=== PATIENT | male | born 1940 | race Caucasian/White ===

== ENCOUNTER → 2017-12-19 08:44 | Outpatient (CLI) | payer MEDICARE, SELFPAY ==
[2017-12-19 10:59] LABS: Anion Gap 8 (5-15); BUN 16 mg/dL (7-18); BUN/Creat Ratio 15.7 RATIO (10-20); Calcium,Total 8.5 mg/dL (8.5-10.1); Chloride 107 mmol/L (98-107); Cholesterol 144 mg/dL (200); Creatinine, Serum 1.02 mg/dL (0.70-1.30); EST Glomerular Filtration Rate 75 mL/min (>60); Est Glom Filt Rate - Afr Amer 91 mL/min (>60); Glucose 84 mg/dL (74-106); High Density Lipoprotein 44 mg/dL; Potassium 4.4 mmol/L (3.5-5.1); Sodium Level 144 mmol/L (136-145); Triglycerides 84 mg/dL; Very Low Density Lipoprotein 17 mg/dL (5-40)
== END ==
PROVIDERS: Family Provider Family Medicine; PCP Family Medicine; Visit Provider Family Medicine
DX: I10 Essential (primary) hypertension (principal)
CPT/HCPCS: 36415; 80048; 80061

== ENCOUNTER → 2018-06-25 09:17 | Outpatient (CLI) | payer MEDICARE, SELFPAY ==
[2018-06-25 11:19] LABS: Anion Gap 6 (5-15); BUN 20 mg/dL (7-18); BUN/Creat Ratio 18.7 RATIO (10-20); Calcium,Total 8.1 mg/dL (8.5-10.1); Chloride 107 mmol/L (98-107); Creatinine, Serum 1.07 mg/dL (0.70-1.30); EST Glomerular Filtration Rate 71 mL/min (>60); Est Glom Filt Rate - Afr Amer 86 mL/min (>60); Glucose 77 mg/dL (74-106); Potassium 4.2 mmol/L (3.5-5.1); Sodium Level 142 mmol/L (136-145)
== END ==
PROVIDERS: Family Provider Family Medicine; PCP Family Medicine; Referring Provider Family Medicine; Visit Provider Family Medicine
DX: I10 Essential (primary) hypertension (principal); R97.20 Elevated prostate specific antigen [PSA]; Z12.5 Encounter for screening for malignant neoplasm of prostate
CPT/HCPCS: 36415; 80048; 84153; G0103

== ENCOUNTER → 2018-09-14 08:50 | Outpatient (CLI) | payer MEDICARE, SELFPAY ==
[2018-08-04 11:24] VITALS: BMI 25.6
[2018-09-14 11:10] LABS: Cholesterol 167 mg/dL (200); High Density Lipoprotein 48 mg/dL; Triglycerides 105 mg/dL; Very Low Density Lipoprotein 21 mg/dL (5-40)
[2018-09-15 13:44] LABS: PSA, Free 1.47 ng/mL; PSA, Free % 15.5 % (.); PSA, Total Ultrasensitive 9.5 ng/mL (0.0-4.0)
== END ==
PROVIDERS: Family Provider Family Medicine; PCP Family Medicine; Referring Provider Family Medicine; Visit Provider Family Medicine
DX: I10 Essential (primary) hypertension (principal); R97.20 Elevated prostate specific antigen [PSA]
CPT/HCPCS: 36415; 80061; 84153; 84154

== ENCOUNTER → 2019-01-13 12:03 | Outpatient (CLI) | payer MEDICARE, SELFPAY ==
[2018-08-04 11:24] VITALS: BMI 25.6
[2019-01-14 12:46] LABS: PSA, Free 1.36 ng/mL
== END ==
PROVIDERS: Family Provider Family Medicine; PCP Family Medicine; Referring Provider Family Medicine; Visit Provider Family Medicine
DX: R97.20 Elevated prostate specific antigen [PSA] (principal)
CPT/HCPCS: 36415; 84153; 84154

== ENCOUNTER → 2019-07-13 11:06 | Outpatient (CLI) | payer MEDICARE, SELFPAY ==
[2018-08-04 11:24] VITALS: BMI 25.6
[2019-07-13 12:33] LABS: Erythrocyte Sedimentation Rate 6 mm/hr (0-20)
[2019-07-13 12:34] LABS: Absolute Lymphocyte Count 1.31 X10^3/uL (0.83-4.51); Absolute Neutrophil Count 2.8 X10^3/uL (2.0-7.7); Basophil# 0.02 X10^3/uL; Basophil% 0.4 % (0-1); Eosinophil# 0.09 X10^3/uL; Eosinophils% 1.9 % (0-5); Hematocrit 45.1 % (40-54); Hemoglobin 14.9 g/dL (13.0-16.5); Lymphocyte # 1.31 X10^3/ul (4.0); Lymphocyte % 27.9 % (19-41); Mean Corpuscular Hgb 32.2 pg (27.0-32.0); Mean Corpuscular Volume 97.4 fL (80-94); Mean Platelet Vol. 9.7 fl (6.2-12.0); Monocyte# 0.43 X10^3/uL; Monocyte% 9.1 % (0-10); NRBC Flagged by Analyzer 0 % (0-5); Neutrophil # 2.84 X10^3/uL (2.7-7.7); Neutrophil % 60.5 % (47-70); Platelet Count 167 K/mm3 (150-450); RBC Distribution Width CV 12.5 % (11.6-14.6); RBC Distribution Width SD 44.8 fl (35.1-43.9); Red Blood Count 4.63 M/mm3 (4.6-6.2); White Blood Count 4.7 K/mm3 (4.4-11.0)
[2019-07-13 12:42] LABS: ALB/GLOB Ratio 1.1 RATIO (0.9-2.4); AST(SGOT) 23 U/L (15-37); Alanine Aminotransfer ALT/SGPT 24 U/L (16-61); Albumin, Serum 3.8 g/dL (3.2-5.0); Alkaline Phosphatase 55 U/L (45-117); Anion Gap 3 (5-15); BUN 17 mg/dL (7-18); Calcium,Total 8.9 mg/dL (8.5-10.1); Chloride 108 mmol/L (98-107); Creatinine, Serum 1.13 mg/dL (0.70-1.30); EST Glomerular Filtration Rate 66 mL/min (>60); Est Glom Filt Rate - Afr Amer 80 mL/min (>60); Globulin 3.6 g/dL (2.2-4.2); Glucose 84 mg/dL (74-106); Potassium 4.6 mmol/L (3.5-5.1); Protein, Total 7.4 g/dL (6.4-8.2); Sodium Level 140 mmol/L (136-145)
== END ==
PROVIDERS: PCP Family Medicine; Visit Provider Family Medicine
DX: R61 Generalized hyperhidrosis (principal)
CPT/HCPCS: 36415; 80053; 84443; 85025; 85652

== ENCOUNTER → 2020-03-21 15:17 | Outpatient (CLI) | payer MEDICARE, SELFPAY ==
[2018-08-04 11:24] VITALS: BMI 25.6
[2020-03-21 18:14] LABS: Absolute Lymphocyte Count 1.83 X10^3/uL (0.83-4.51); Absolute Neutrophil Count 3.7 X10^3/uL (2.0-7.7); Basophil# 0.02 X10^3/uL; Basophil% 0.3 % (0-1); Eosinophil# 0.08 X10^3/uL; Eosinophils% 1.3 % (0-5); Hematocrit 42.2 % (40-54); Hemoglobin 14.2 g/dL (13.0-16.5); Lymphocyte # 1.83 X10^3/ul (4.0); Lymphocyte % 30.3 % (19-41); Mean Corp Hgb Conc 33.6 g/dL (32-36); Mean Corpuscular Hgb 32.4 pg (27.0-32.0); Mean Corpuscular Volume 96.3 fL (80-94); Mean Platelet Vol. 9.9 fl (6.2-12.0); Monocyte# 0.42 X10^3/uL; NRBC Flagged by Analyzer 0 % (0-5); Neutrophil # 3.67 X10^3/uL (2.7-7.7); Neutrophil % 60.9 % (47-70); Platelet Count 173 K/mm3 (150-450); RBC Distribution Width CV 12.3 % (11.6-14.6); RBC Distribution Width SD 43.8 fl (35.1-43.9); Red Blood Count 4.38 M/mm3 (4.6-6.2)
== END ==
PROVIDERS: PCP Family Medicine; Referring Provider Family Medicine; Visit Provider Family Medicine
DX: K92.1 Melena (principal)
CPT/HCPCS: 36415; 85025

== ENCOUNTER → 2020-07-18 09:21 | Outpatient (CLI) | payer OTHER, SELFPAY ==
[2018-08-04 11:24] VITALS: BMI 25.6
[2020-07-18 11:04] LABS: Anion Gap 4 (5-15); BUN 17 mg/dL (7-18); BUN/Creat Ratio 16.8 RATIO (10-20); Calcium,Total 8.6 mg/dL (8.5-10.1); Chloride 106 mmol/L (98-107); Cholesterol 157 mg/dL (200); Creatinine, Serum 1.01 mg/dL (0.70-1.30); EST Glomerular Filtration Rate 75 mL/min (>60); Est Glom Filt Rate - Afr Amer 91 mL/min (>60); Glucose 82 mg/dL (74-106); High Density Lipoprotein 50 mg/dL; Potassium 3.9 mmol/L (3.5-5.1); Sodium Level 139 mmol/L (136-145); Triglycerides 103 mg/dL; Very Low Density Lipoprotein 21 mg/dL (5-40)
== END ==
PROVIDERS: PCP Family Medicine; Visit Provider Family Medicine
DX: I10 Essential (primary) hypertension (principal); R97.20 Elevated prostate specific antigen [PSA]
CPT/HCPCS: 36415; 80048; 80061; 84153

== ENCOUNTER 2020-07-20 15:04 | Outpatient (RCR) | payer MEDICARE, SELFPAY ==
[2018-08-04 11:24] VITALS: BMI 25.6
== END 2020-07-20 23:59 ==
LOC: IMMUN 15:04
PROVIDERS: PCP Family Medicine; Visit Provider Family Medicine
DX: Z23 Encounter for immunization (principal)
CPT/HCPCS: 0011A; 0012A; 91301

== ENCOUNTER → 2020-08-07 12:25 | Outpatient (CLI) | payer MEDICARE, SELFPAY ==
[2018-08-04 11:24] VITALS: BMI 25.6
--- NOTE | 2020-08-07 | IMM_PTH ---
PATIENT: TWAN VERNON LOC: [facility] U#:[id number] AGE/SX: 84/M ROOM: RE08/07/[address]: Dr. Modesto Jackson MD : 1940 BED: DIS: SPEC #: [id number] RECD: 08/08/20 13:27 STATUS: AVIS RELuann #: [id number] IRA[place]: 08/07/20 00:[address]: Modesto Jackson DEPT: IMMUNOHISTOCHEMISTRY RECD BY: Sunshine Lusi ENTERED: 08/08/20 13:28 SP TYPE: IMMUNO OTHR DR: Dr. Jesus Justin MD Tissues: A - PROSTATE RIGHT D - PROSTATE LEFT E - PROSTATE LEFT Procedures: 34BE12 (add) P40 (add) 34BE12 (initial) PHYSICIAN & INSTITUTION [place] [id number] SPECIMEN INFORMATION: Tissue Source: A - Right apex, D - Left apex, E - Left mid Clinical Info: N40.3, R97.20 Specimen Number: [id number] A, D & E CPT code: 46132, 01112 x5 METHODOLOGY: Deparaffinized sections of prefer/formalin-fixed tissue or PAP/DQ stained slides are incubated with monoclonal/polyclonal antibodies/oligonucleotide probes. Localization is made via biotin free immunoperoxidase method. Appropriate controls are performed and reacted as expected. Results on target cell population are indicated in the following table: RESULTS: ANTIBODY / CLONE RESULT Block A P40 (BC28) negative 34BE12 (34BE12) negative Block D P40 (BC28) negative 34BE12 (34BE12) negative Block E P40 (BC28) negative 34BE12 (34BE12) negative These tests were developed and their performance characteristics determined by [facility]. They may not have been cleared or approved by the U.S. Food and Drug Administration. The FDA has determined that such clearance or approval is not necessary. The above immunohistochemical/dualISH markers are ordered and reviewed by the Pathologist. INTERPRETATION: A. Right prostate, apex, core biopsy: Adenocarcinoma. D. Left prostate, apex, core biopsy: Focal atypical small acinar proliferation. E. Left prostate, mid, core biopsy: Adenocarcinoma. AM:kimberly 08/09/2020
--- NOTE | 2020-08-07 10:45 | PROSBIL_PTH ---
PATIENT: TWAN VERNON LOC: [facility] U#:[id number] AGE/SX: 84/M ROOM: RE08/07/[address]: Dr. Modesto Jackson MD : 1940 BED: DIS: SPEC #: [id number] RECD: 08/07/20 12:16 STATUS: AVIS RELuann #: [id number] [place]: 08/07/20 10:[address]: Modesto Jackson DEPT: SURGICAL PATHOLOGY RECD BY: Lili Townsend ENTERED: 08/07/20 13:49 SP TYPE: PROST BX ORESTES DR: Dr. Jesus Justin MD Tissues: A - PROSTATE RIGHT B - PROSTATE RIGHT C - PROSTATE RIGHT D - PROSTATE LEFT E - PROSTATE LEFT F - PROSTATE LEFT Procedures: PROSTATE BX HEADER OPERATION: Prostate biopsy PRE-OP DIAGNOSIS: N40.3, R97.20 TISSUE SUBMITTED: A - Right apex, B - Right mid, C - Right base, D - Left apex, E - Left mid, F - Left base MICROSCOPIC DIAGNOSIS A. Right prostate, apex, core biopsy: Adenocarcinoma. Schneider grade: 7 (4+3) Cores involved: 1 out of 1 core Tissue involved: 5% Greatest tumor length: 1 mm See comment. B. Right prostate, mid, core biopsy: Adenocarcinoma. Valentina grade: 8 (4+4) Cores involved: 1 out of 1 core Tissue involved: 60% Greatest tumor length: 4.5 mm C. Right prostate, base, core biopsy: Adenocarcinoma. Valentina grade: 8 (4+4) Cores involved: 1 out of 1 core Tissue involved: 2% Greatest tumor length: <1 mm D. Left prostate, apex, core biopsy: Focal atypical small acinar proliferation. See comment. E. Left prostate, mid, core biopsy: Adenocarcinoma. Valentina grade: 6 (3+3) Cores involved: 1 out of 1 core Tissue involved: 2% Greatest tumor length: <1 mm See comment. F. Left prostate, base, core biopsy: Adenocarcinoma. Valentina grade: 7 (3+4) Cores involved: 1 out of 1 core Tissue involved: 65% Greatest tumor length: 5.5 mm AM:kimberly 08/08/2020 COMMENT A, D & E - Immunohistochemistry ([id number]) supports the above diagnosis. MICROSCOPIC DESCRIPTION Slides are reviewed. GROSS DESCRIPTION A - Received is one container designated prostate, right apex. The specimen consists of one elongated fragment of light chawla-white soft tissue measuring 1 cm in length and 0.1 cm in diameter. The specimen is totally submitted in one cassette. B - Received is one container designated prostate, right mid. The specimen consists of one elongated fragment of light chawla-white soft tissue measuring 1 cm in length and 0.1 cm in diameter. The specimen is totally submitted in one cassette. C - Received is one container designated prostate, right base. The specimen consists of one elongated fragment of light chawla-white soft tissue measuring 1 cm in length and 0.1 cm in diameter. The specimen is totally submitted in one cassette. D - Received is one container designated prostate, left apex. The specimen consists of one elongated fragment of light chawla-white soft tissue measuring 1 cm in length and 0.1 cm in diameter. The specimen is totally submitted in one cassette. E - Received is one container designated prostate, left mid. The specimen consists of one elongated fragment of light chawla-white soft tissue measuring 1 cm in length and 0.1 cm in diameter. The specimen is totally submitted in one cassette. F - Received is one container designated prostate, left base. The specimen consists of one elongated fragment of light chawla-white soft tissue measuring 1 cm in length and 0.1 cm in diameter. The specimen is totally submitted in one cassette. / AM:kimberly 08/07/20 TC:0 [facility]: [id number]
== END ==
PROVIDERS: PCP Family Medicine; Referring Provider Urology; Visit Provider Urology
DX: N40.3 Nodular prostate with lower urinary tract symptoms (principal); R97.20 Elevated prostate specific antigen [PSA]
CPT/HCPCS: 88305; 88341; 88342; G0416

== ENCOUNTER → 2020-08-29 09:50 | Outpatient (CLI) | payer MEDICARE, SELFPAY ==
[2018-08-04 11:24] VITALS: BMI 25.6
--- NOTE | 2020-08-29 09:52 | NM_ITS ---
CLINICAL: Male, 79 years old. PROSTATE CA -- NEW DX WHOLE BODY NUCLEAR BONE SCAN TECHNIQUE: Following the IV administration of mCi of Tc MDP, whole body bone imaging was performed with a gamma camera following a three hour delay. COMPARISON STUDIES : NM - None. CR - Not available for review at this time. CT - Not available for review at this time. MR - Not available for review at this time. US - Not available for review at this time. FINDINGS: There is a normal concentration of radiopharmaceutical throughout the axial and appendicular skeletal system without either a focal decrease or increase in uptake. NM/Bone Scan Whole Body IMPRESSION: Normal whole body nuclear bone scan. No scintigraphic evidence metastatic disease. Electronically Signed: Candelario Patton MD at 14:49 EST Tel , Service support ,
== END ==
PROVIDERS: PCP Family Medicine; Referring Provider Urology; Visit Provider Urology
DX: C61 Malignant neoplasm of prostate (principal)
CPT/HCPCS: 78306

== ENCOUNTER → 2022-04-08 | Outpatient (CLI) | payer MEDICARE, SELFPAY ==
--- NOTE | 2022-04-08 11:27 | RAD_ITS ---
STUDY: X-RAY - LUMBAR SPINE REASON FOR EXAM: Male, 81 years old. Chronic low back pain. TECHNIQUE: 4 view(s) of the lumbar spine were obtained. COMPARISON: None FINDINGS: There is reversal of the normal lumbar lordosis. There is no substantial scoliosis. There is retrolisthesis of L3 on L4. The alignment is otherwise preserved. There is multilevel endplate spondylosis of the lumbar vertebrae. There is multi-level degenerative disc disease with multi-level disc space narrowing. There is no evidence of acute fracture or loss of vertebral axial height. There is no demonstrated spondylolysis of the pars interarticulares. The soft tissue structures are unremarkable. RAD/L/S Spine Min 4 Views IMPRESSION: Degenerative changes of the lumbar spine with straightened lordosis. There is no visualized fracture or dislocation. Electronically Signed: Navin Peres DO at 18:32 EDT ,
== END | disposition home or self-care (01) ==
PROVIDERS: PCP Family Medicine; Referring Provider Family Medicine; Visit Provider Family Medicine
DX: M51.36 Other intervertebral disc degeneration, lumbar region (principal)
CPT/HCPCS: 72110

== ENCOUNTER → 2022-05-31 | Outpatient (CLI) | payer MEDICARE, SELFPAY ==
--- NOTE | 2022-05-31 09:46 | VDLE_ITS ---
Reason For Study: Varicose Vein RIGHT LEFT CFV is compressible, spontaneous, phasic, GSV is normal. competent and demonstrates normal CFV is compressible, spontaneous, phasic, augmentation. competent, and demonstrates normal Procedure augmentation. This is a venous duplex using B-mode, color FV is compressible, spontaneous, phasic, flow and spectral Doppler. competent and demonstrates normal Exam performed in department. augmentation. The exam was diagnostic. POP V is compressible, spontaneous, phasic, A preliminary report was called and/or faxed competent and demonstrates normal to Dr. Justin. augmentation. T/P Trunk is compressible. PTV is compressible. LT PerV is compressible. Multiple varicosities noted in Lt proximal calf. Veins were compressible. VL/Venous Duplex US, Unilateral Interpretation Summary Deep veins of the left lower extremity are patent and compressible segmentally. There is no evidence of left lower extremity deep vein thrombosis. Valvular competence appears intac t within the proximal deep venous system on the left . The left great saphenous vein appears patent a nd compressible segmentally. Multiple varicose veins are noted in the left proximal calf. Ordering Physician: Michele Justin Referring Physician: Jesus Justin MD Performed By: Jayson Ayala RVT
== END | disposition home or self-care (01) ==
LOC: CVS 09:44
PROVIDERS: PCP Family Medicine; Visit Provider Family Medicine
DX: M79.89 Other specified soft tissue disorders (principal); I83.93 Asymptomatic varicose veins of bilateral lower extremities
CPT/HCPCS: 93971

== ENCOUNTER 2022-06-06 11:16 | Emergency (ER) | payer MEDICARE, SELFPAY ==
[2022-06-06 11:17] VITALS: BP 152/79; PULSE 90; RESP 16; O2SAT 99
[2022-06-06 11:18] VITALS: BP 139/74; PULSE 93; RESP 18; TEMP 36.3; O2SAT 99; BMI 26.6
[2022-06-06 11:25] VITALS: O2SAT 98
--- NOTE | 2022-06-06 11:25 | EKG12_ITS ---
Test Reason : ABNORMAL RHYTHM Blood Pressure : / mmHG Vent. Rate : 085 BPM Atrial Rate : 085 BPM P-R Int : 154 ms QRS Dur : 142 ms QT Int : 388 ms P-R-T Axes : 071 082 051 degrees QTc Int : 461 ms Sinus rhythm with occasional Premature ventricular complexes Possible Left atrial enlargement Right bundle branch block Abnormal ECG Confirmed by BOB CHOI, TAWNYA ([id number]), purchase request editor SIMEON VALERIO ([id number]) on 06/07/2022 11:02:11 AM Referred By: FIDENCIO/FELICIA Confirmed By:TAWNYA ROJAS MD
--- NOTE | 2022-06-06 11:46 | ED.VIS.CHEST ---
HPI History of Present Illness Chief Complaint: Palpitations Detail of Chief Complaint: Sent in for atrial fibrillation in doctor's office. Informant: patient and spouse/S.O. Onset/Context/Timing Onset: Today Timing: Intermittent Worsened By: Nothing Relieved By: Nothing Associated Symptoms: Negative for Nausea, Vomiting, Diaphoresis, Dyspnea, Cough, Fever, Lightheadedness, Acid Reflux or Palpitations Narrative Narrative: 81-year-old male history of hypertension and prostate cancer. No cardiac history. No prior NH or cardiac surgery. Today he was in his oncologist office Dr. Jose Cunningham. They found him to be in atrial fibrillation and sent him to the ER. Patient had no symptoms. No chest pain or shortness of breath. He did not feel weak or dizzy. He has no history of any type of cardiac dysrhythmia. Prior Similar Symptoms: No Recent Illness/Hospitalization: No CVD Risk Factors: Positive for Hypertension; Negative for Diabetes or Hypercholesterolemia PE Risk Factors: Negative for Recent Travel/Surgery, Recent Immobilization, Prior DVT or PE, Cancer or OCP + Smoking + >/=35 TAD Risk Factors: Negative for Marfan's Syndrome PFSH PFS Medical History Actinic keratosis, hx of Arthritis DDD (degenerative disc disease), lumbar Enlarged prostate Environmental allergies History of malignant melanoma Hypertension Home Medications enalapril maleate 20 mg tablet 20 mg PO DAILY 07/10/16 [History Last Taken 07/10/16 08:00] Caltrate with Vitamin D3 06/06/22 [History Last Taken Unknown] acetaminophen 500 mg capsule 500 mg PO PRN PRN Pain 06/06/22 [History Last Taken Unknown] amlodipine 5 mg tablet 5 mg PO DAILY 06/06/22 [History Last Taken Unknown] cholecalciferol (vitamin D3) 125 mcg (5,000 unit) tablet (Vitamin D3) 125 mcg PO DAILY 06/06/22 [History Last Taken Unknown] denosumab 60 mg/mL subcutaneous syringe (Prolia) 60 mg subcut 06/06/22 [History Last Taken Unknown] polyethylene glycol 3350 17 gram/dose oral powder (Miralax) 1 g PO DAILY 06/06/22 [History Last Taken Unknown] vitamin A-vitamin C-vit E-min tablet 2 tab PO DAILY 06/06/22 [History Last Taken Unknown] Allergy/AdvReac Type Severity Reaction Status Date / Time No Known Allergies Allergy Verified 06/06/22 11:17 Family History Other CAD (coronary artery disease) CVA (cerebral vascular accident) Cancer Heart disease Hypertension Surgical History History of hernia repair Hx of basal cell carcinoma excision Social History Smoking Status: Former smoker alcohol intake: current alcohol intake frequency: 0-2 drinks per day substance use type: does not use what type of physical activity do you participate in: bicycling frequency: 1-2 times per week ROS ROS ED ROS Narrative Denies recent illness. Review of Systems ROS Unobtainable: Denies due to encephalopathy Constitutional Constitutional ED: Denies chills or fever(s) Eyes Eyes: Reports none ENT ENT ED: Denies ear pain Cardiovascular Cardiovascular: Reports as per HPI; Denies chest pain, palpitations or racing heartbeat Respiratory/Chest Respiratory/Chest: Denies cough or dyspnea Gastrointestinal Gastrointestinal: Denies abdominal pain Genitourinary Genitourinary ED: Denies dysuria or hematuria Musculoskeletal Musculoskeletal: Denies arthralgias Integumentary Denies abscess Neurologic Neurologic: Denies headache(s) Psychiatric Psychiatric: Denies anxiety Endocrine Endocrinology: Denies cold intolerance Hematologic/Lymphatic Hematologic/Lymphatic: Denies easy bleeding Allergic/Immunologic Allergic/Immunologic ED: Denies mouth swelling or tongue swelling EXAM Physical Exam Narrative Exam Narrative: 81-year-old male no acute distress. Vital signs are stable and afebrile on monitors pulse ox 9 9% on room air no hypoxia. He is afebrile. Currently is in a sinus rhythm. H EENT exam unremarkable. Lungs clear to auscultation. Heart regular rate and rhythm rate about 90 no murmur. Chest wall nontender. Abdomen soft nontender. Moving all 4 extremities. Calves are nontender without edema. Neurologically is awake and alert with no focal motor deficits. Const Vital Signs: 06/06/22 11:18 06/06/22 11:17 06/06/22 11:58 Temperature 97.4 F L Temperature Source Temporal Pulse Rate 93 90 Respiratory Rate 18 16 Respiratory Effort Normal Non-Labored Respiratory Pattern Normal Blood Pressure 139/74 H 152/79 H Blood Pressure Mean 95 103 Pulse Ox 99 99 Oxygen Delivery Method Room Air Room Air 06/06/22 11:59 06/06/22 11:25 06/06/22 12:42 Temperature Temperature Source Pulse Rate 70 Respiratory Rate 15 Respiratory Effort Normal Non-Labored Respiratory Pattern Normal Blood Pressure 116/75 Blood Pressure Mean 88 Pulse Ox 98 98 Oxygen Delivery Method Room Air Room Air 06/06/22 13:20 Temperature Temperature Source Pulse Rate 74 Respiratory Rate 18 Respiratory Effort Respiratory Pattern Blood Pressure 107/69 Blood Pressure Mean 81 Pulse Ox 97 Oxygen Delivery Method Room Air Positive well nourished and well developed; Negative for obese, cachectic, contractures or unkempt General Appearance ED: well developed and NAD; Negative for unkempt, cachectic, contractures or pallor Nutritional Appearance: Negative for cachectic or obese HEENT Reports moist mucous membranes normocephalic and atraumatic; Negative for trauma or tenderness Eyes PERRL and EOMs intact bilaterally General Eye ED: Negative for pale conjunctiva or scleral icterus Neck no lymphadenopathy, supple and no JVD General: Negative for tenderness Chest Wall inspection of chest normal and palpation of chest normal Chest: Negative for tenderness Resp normal respiratory effort and clear to auscultation bilaterally Effort and Inspection: Negative for respiratory distress Auscultation: Negative for rales, rhonchi or wheezes Cardio regular rate, regular rhythm, S1 normal heart sound, S2 normal heart sound and no murmurs Rate: Negative for bradycardia or tachycardic Rhythm: Negative for abnormal rhythm Peripheral Pulses: pulses 2+ throughout GI normal to inspection, nondistended, normoactive bowel sounds, soft to palpation, non-tender, non-distended and no masses Back/Spine no CVA tenderness General Back: Negative for CVA tenderness Cervical Spine: Negative for cervical spine tenderness Extremity normal to inspection General Extremety ED: Negative for edema General Extremity: Negative for edema Neuro oriented x3 and CN's II-XII intact bilaterally Sensorium / Orientation: awake, alert, oriented to person, oriented to place and oriented to time; Negative for confused, lethargic or stuporous Motor Exam: strength 5/5 throughout Psych mental status grossly normal Appearance: Negative for unkempt Attitude: No agitated Mood & Affect: Negative for depressed, anxious or tearful Skin no rashes or lesions noted and no wounds General Skin Exam: Negative for jaundice or pallor Rashes: No rashes noted Trauma: Negative for abrasion or laceration MDM MDM MDM Narrative Medical decision making narrative: [id number] male undergoing treatment for prostate cancer. He was found to be in A. fib today. Has spontaneously resolved. He is having no cardiac symptoms and no chest pain. He had outpatient labs today done at the [facility]. His CBC and chemistries were unremarkable. I am obtaining a chest x-ray and will speak to his primary care physician. Repeat exam patient doing well at 1:54 PM. I spoke to his primary care physician. Referred back to their office. Care physician Dr. Harshad Quezada and or cardiology consult can determine long-term care. Currently he is not in A. fib. He is already on 2 blood pressure medications. Lab Data Attestation: I reviewed the patient's lab results. Lab results narrative: Outpatient lab done at the [facility] both CBC and BMP were unremarkable. Radiography Chest X-Ray - ED: 1 View, Read by ED Physician, Read by Radiologist, Heart, Lungs, Mediastinum, Bony Structures, No Acute Disease and Chronic Changes Diagnostic Testing: Clinical Impression(s) from Imaging Studies Chest X-Ray 06/06/22 12:05 IMPRESSION: Hyperinflation and changes compatible with COPD. Electronically Signed: Andrew Ray MD at 13:08 EST Reading Location ID and State: [address] [place] [address] , Service support , Chest x-ray portable, single view, interpreted myself and radiologist shows no acute abnormality. Chronic changes. Normal cardiac silhouette. Rhythm Strip Rhythm Strip: Sinus Rhythm Rate: 85 Ectopy: PVC(s) EKG Initial EKG: Attestation: I personally reviewed and interpreted this EKG as follows: Interpretation: Sinus Rhythm and No Acute Injury Pattern Comments: Sinus rhythm rate of 85 no acute signs of NH or ischemia. PVCs. Patient had outpatient EKG with him from 's office that showed A. fib rate of 131. Discharge Plan Triage Chief Complaint: Palpitations ED Provider: Landon Betts Dx/Rx/DC Orders Clinical Impression: Atrial fibrillation, new onset, History of hypertension, History of prostate cancer Instructions: AFib Prescriptions: No Action enalapril maleate 20 MG tablet 20 mg PO DAILY Label Comments: BLOOD PRESSURE amlodipine 5 mg tablet 5 mg PO DAILY polyethylene glycol 3350 [Miralax] 17 gram/dose Powder 1 g PO DAILY acetaminophen 500 mg capsule 500 mg PO PRN PRN (Reason: Pain) Label Comments: 1 capsule by mouth as directed Eye-Vites Tablet 2 tab PO DAILY cholecalciferol (vitamin D3) [Vitamin D3] 125 mcg (5,000 unit) tablet 125 mcg PO DAILY Label Comments: 2 tablet by mouth as directed Prolia 60 mg/mL syringe 60 mg SUBCUT Label Comments: 1 pen needle subcutaneously as directed Rx Instructions: every 6 months Caltrate with Vitamin D3 Primary Care Provider: Michele Justin Referrals: Michele Justin MD [Primary Care Provider] - As soon as possible Activity Restrictions/Additional Instructions: Continue your current medications as prescribed. I spoke your primary care physician Dr. Harshad Quezada today. Call his office for follow-up. He and/or a exterminator will decide long-term treatment for your A. fib. Disposition Disposition: Home, Self Care
--- NOTE | 2022-06-06 12:05 | RAD_ITS ---
STUDY: X-RAY CHEST REASON FOR EXAM: Male, 81 years old. Chest pain TECHNIQUE: Single AP portable view of the chest. COMPARISON: Comparison is made with prior study dated 07/10/2016. FINDINGS: EKG electrodes are seen. There is hyperinflation of the lungs consistent with chronic obstructive lung disease (COPD). There is no demonstrated pleural abnormality. Normal size heart. Normal mediastinum and radha. There is prominence of the pulmonary hilar arteries without peripheral pulmonary vascular congestion, suggesting pulmonary hypertension. Normal visualized aortic arch and descending thoracic aorta. There are diffuse degenerative changes of the visualized thoracic spine. Normal visualized ribs, clavicles, and shoulders. There is no demonstrated abnormality of the visualized soft tissue structures of the upper abdomen. RAD/Chest 1 View (Portable) IMPRESSION: Hyperinflation and changes compatible with COPD. Electronically Signed: Andrew Ray MD at 13:08 EST ,
[2022-06-06 12:42] VITALS: BP 116/75; PULSE 70; RESP 15; O2SAT 98
[2022-06-06 13:20] VITALS: BP 107/69; PULSE 74; RESP 18; O2SAT 97
[2022-06-06 14:08] VITALS: BP 147/66; PULSE 72; RESP 16; O2SAT 97
== END 2022-06-06 14:09 | disposition home or self-care (01) ==
PROVIDERS: Emergency Provider Emergency Medicine; PCP Family Medicine; Visit Provider Emergency Medicine
DX: I48.91 Unspecified atrial fibrillation (principal); I10 Essential (primary) hypertension; M51.36 Other intervertebral disc degeneration, lumbar region; Z79.899 Other long term (current) drug therapy; Z87.891 Personal history of nicotine dependence
CPT/HCPCS: 71045; 93005; 99284

== ENCOUNTER → 2022-08-06 | Outpatient (CLI) | payer MEDICARE, SELFPAY ==
--- NOTE | 2022-08-06 09:32 | ECHOD_ITS ---
Reason For Study: Afib/Flutter Procedure This was a 2D Doppler, Color Flow transthoracic echocardiogram. The study was technically difficult. Exam performed in department. Left Ventricle Normal LV size. Left ventricular systolic function is normal. The estimated ejection fraction is 65 %. No evidence for diastolic dysfunction. No regional wall motion abnormalities noted. Right Ventricle Normal RV size. Normal systolic function. Atria Normal left atrium. Normal right atrium. No doppler evidence for ASD. Mitral Valve There is no mitral annular calcification. Normal mitral valve. Trivial mitral valve insufficiency. Tricuspid Valve Normal tricuspid valve. Trivial tricuspid valve insufficiency. Right ventricular systolic pressure estimated to be 24 mmHg. Aortic Valve Trisinus/trileaflet aortic valve. Moderate focal aortic valve calcification. Pulmonic Valve The pulmonic valve is not well visualized. Trivial pulmonic valve insufficiency. Great Vessels Normal sized aortic root. Pericardium/Pleural No pericardial effusion. MMode/2D Measurements & Calculations LVIDd: 5.4 cm IVSd: 1.2 cm Ao root diam: 3.5 cm LVIDs: 3.3 cm LVPWd: 1.0 cm LA dimension: 3.6 cm RVDd: 4.1 cm FS: 37.8 % LAV(MOD-bp): 65.5 ml LA A4 area: 20.6 cm2 RA A4 area: 19.5 cm2 LAV(MOD-bp) Indexed: 28.6 ml/m2 LAV(MOD-sp2): 65.4 ml LAV(MOD-sp4): 62.3 ml Time Measurements MV dec time: 0.29 sec Doppler Measurements & Calculations MV E max kvng: 74.1 cm/sec Lat Peak E' Kvng: 6.0 cm/sec Med Peak E' Kvng: 6.6 cm/sec MV A max kvng: 85.7 cm/sec E/E' lat: 12.3 E/E' med: 11.3 MV E/A: 0.86 MV V2 max: 96.9 cm/sec MV P1/2t max kvng: 77.5 cm/sec Ao V2 max: 99.9 cm/sec MV max P.8 mmHg MV P1/2t: 103.0 msec Ao max P.0 mmHg MV V2 mean: 48.8 cm/sec MV dec slope: 220.5 cm/sec2 MV mean P.1 mmHg MVA(P1/2t): 2.1 cm2 MV V2 VTI: 36.4 cm LV V1 max: 77.6 cm/sec MR max kvng: 487.4 cm/sec PA V2 max: 100.2 cm/sec LV V1 max P.4 mmHg MR max P.0 mmHg PI end-d kvng: 77.2 cm/sec TR max kvng: 231.0 cm/sec TR max P.3 mmHg ECHO/Echo Complete Interpretation Summary Left ventricular systolic function is normal. The estimated ejection fraction is 65 %. Trivial mitral valve insufficiency. Trivial tricuspid valve insufficiency. Moderate focal aortic valve calcification. Trivial pulmonic valve insufficiency. Right ventricular systolic pressure estimated to be 24 mmHg. No evidence for diastolic dysfunction. Ordering Physician: Jose Granda Referring Physician: Jesus Justin Performed By: Eric Hooper RCS
== END | disposition home or self-care (01) ==
LOC: CVS 09:32
PROVIDERS: PCP Family Medicine; Visit Provider Internal Medicine Cardiovascular Disease
DX: R55 Syncope and collapse (principal); I48.91 Unspecified atrial fibrillation; I49.9 Cardiac arrhythmia, unspecified; E78.5 Hyperlipidemia, unspecified
CPT/HCPCS: 93306

== ENCOUNTER → 2023-01-06 | Outpatient (CLI) | payer MEDICARE, SELFPAY ==
--- NOTE | 2023-01-06 11:47 | RAD_ITS ---
INDICATION: pain EXAMINATION/TECHNIQUE: X-RAY - XR Spine Cervical 6 or More Views COMPARISON: FINDINGS: VERTEBRAE: Preserved vertebral body height. No fracture. No spondylolisthesis. Preservation of the normal cervical lordosis. DISCS: There is multilevel osteophyte formation. There is prominent disc space narrowing and endplate spondylosis at C5/6. There is prominent foraminal narrowing in the mid cervical spine. NECK SOFT TISSUES: No prevertebral soft tissue widening. LUNG APICES: Clear. RAD/Cerv Spine Obl/Flex/Ext Comp IMPRESSION: Prominent degenerative changes. Electronically Signed: Eric Erwin, at 12:57 EDT ,
--- NOTE | 2023-01-06 11:47 | RAD_ITS ---
INDICATION: PAIN EXAMINATION/TECHNIQUE: X-RAY - XR Spine Lumbar Comp W/ Bending Min 6 Views COMPARISON: FINDINGS: VERTEBRAE: Preserved vertebral body height. No fracture. No spondylolisthesis. There is mild loss of normal expected lumbar lordosis. No significant facet arthropathy. DISCS: There is moderate multilevel osteophyte formation and endplate spondylosis, as well as disc space narrowing. INCLUDED ABDOMEN: Included bowel gas pattern is non-obstructive. RAD/L/S Spine w Bend Min 6 Vw IMPRESSION: Degenerative changes. Electronically Signed: Eric Erwin, at 12:50 EDT ,
== END | disposition home or self-care (01) ==
LOC: MTRAD 11:45
PROVIDERS: PCP Family Medicine; Referring Provider Family Medicine; Visit Provider Family Medicine
DX: M54.2 Cervicalgia (principal)
CPT/HCPCS: 72052; 72114

== ENCOUNTER 2024-01-06 12:14 | Outpatient (CLI) | payer MEDICARE, SELFPAY ==
[2024-01-06 15:27] LABS: Absolute Neutrophil Count 2.6 X10^3/uL (2.0-7.7); Basophil# 0.02 X10^3/uL; Basophil% 0.5 % (0-1); Eosinophil# 0.07 X10^3/uL; Eosinophils% 1.6 % (0-5); Hematocrit 40.7 % (40-54); Hemoglobin 13.4 g/dL (13.0-16.5); Lymphocyte % 27.7 % (19-41); Mean Corp Hgb Conc 32.9 g/dL (32-36); Mean Corpuscular Hgb 32.2 pg (27.0-32.0); Mean Corpuscular Volume 97.8 fL (80-94); Mean Platelet Vol. 10.2 fl (6.2-12.0); Monocyte# 0.39 X10^3/uL; NRBC Flagged by Analyzer 0 % (0-5); Neutrophil # 2.64 X10^3/uL (2.7-7.7); Platelet Count 153 K/mm3 (150-450); RBC Distribution Width CV 12.7 % (11.6-14.6); RBC Distribution Width SD 45.2 fl (35.1-43.9); Red Blood Count 4.16 M/mm3 (4.6-6.2); White Blood Count 4.3 K/mm3 (4.4-11.0)
[2024-01-06 15:30] LABS: Erythrocyte Sedimentation Rate 5 mm/hr (0-20)
[2024-01-06 15:57] LABS: Vitamin B12 515 pg/mL (211-911); Vitamin D,25 Hydroxy 89.3 ng/mL
[2024-01-06 16:07] LABS: ALB/GLOB Ratio 0.9 RATIO (0.9-2.4); AST(SGOT) 22 U/L (15-37); Alanine Aminotransfer ALT/SGPT 24 U/L (16-61); Albumin, Serum 3.4 g/dL (3.2-5.0); Alkaline Phosphatase 59 U/L (45-117); Anion Gap 5 (5-15); BUN 25 mg/dL (7-18); BUN/Creat Ratio 23.1 RATIO (10-20); CRP < 2.90 mg/L (0.0-3.0); Calcium,Total 9.1 mg/dL (8.5-10.1); Chloride 106 mmol/L (98-107); Creatinine, Serum 1.08 mg/dL (0.70-1.30); EST Glomerular Filtration Rate 69 mL/min (>60); Est Glom Filt Rate - Afr Amer 84 mL/min (>60); Ferritin 177 ng/mL (26-388); Globulin 3.6 g/dL (2.2-4.2); Glucose 91 mg/dL (74-106); Iron 97 ug/dL (65-175); Magnesium 2.2 mg/dL (1.6-2.6); Sodium Level 141 mmol/L (136-145); Thyroid Stim Hormone (TSH) 1.16 uIU/mL (0.358-3.74)
[2024-01-08 09:10] LABS: ANTINUCLEAR ANTIBODIES DIRECT Negative (Negative)
[2024-01-08 16:10] LABS: PROEL- A/G Ratio 1.3 (0.7-1.7); PROEL- Albumin 3.6 g/dL (2.9-4.4); PROEL- Alpha-1 Globulin 0.2 g/dL (0.0-0.4); PROEL- Alpha-2 Globulin 0.6 g/dL (0.4-1.0); PROEL- Beta Globulin 0.9 g/dL (0.7-1.3); PROEL- Gamma Globulin 1.1 g/dL (0.4-1.8); PROEL- Globulin, Total 2.8 g/dL (2.2-3.9); PROEL- TOTAL PROTEIN 6.4 g/dL (6.0-8.5); PROEL-M-Spike Not Observed g/dL (Not Observed)
== END 2024-01-06 23:59 | disposition home or self-care (01) ==
LOC: MFPLAB 12:15
PROVIDERS: PCP Family Medicine; Visit Provider Family Medicine
DX: G62.9 Polyneuropathy, unspecified (principal); I10 Essential (primary) hypertension
CPT/HCPCS: 36415; 80053; 82306; 82607; 82728; 83540; 83735; 84165; 84443; 85025; 85652; 86038; 86140

== ENCOUNTER → 2024-01-28 | Outpatient (CLI) | payer MEDICARE, SELFPAY ==
--- NOTE | 2024-01-28 14:17 | NEURO ---
NCS and/or EMG Patient Report Ordering Doctor: Jesus Justin DATE OF SERVICE: 01/28/24 Robbin presents with numbness and tingling in both legs, worse on the left side. Diagnostic findings: Left peroneal motor nerve demonstrates normal distal latency with reduced amplitude and reduced conduction velocity. No significant conduction block is fibular head. Right peroneal motor nerve demonstrates borderline prolonged latency with reduced amplitude and reduced conduction velocity. No significant drop in conduction across the fibular head. Left tibial motor nerve demonstrates normal distal latency and amplitude with reduced conduction velocity. Right tibial motor nerve demonstrates borderline prolonged distal latency with reduced amplitude and normal conduction velocity. Prolonged tibial and peroneal F?waves. H?reflux prolonged bilaterally. Sensory responses were not obtainable. Needle EMG testing was performed to the lower limbs. Neurogenic motor units noted bilaterally in the tibialis anterior and gastrocnemius. Electrodiagnostic impression: This is an abnormal study in the lower limbs 1. 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 There is a combination of demyelination and axonal loss. 2. No electrodiagnostic evidence is noted for lumbosacral radiculopathy. Multi Select Codes Neurology Neurology Interp Codes: 66673-62 Musc test done w/n test comp (interp) (2) and 94301-91 Nrv cndj test 9-10 studies (interp)
== END | disposition home or self-care (01) ==
LOC: PSN 11:38
PROVIDERS: PCP Family Medicine; Referring Provider Family Medicine; Visit Provider Family Medicine
DX: R20.0 Anesthesia of skin (principal); R20.2 Paresthesia of skin
CPT/HCPCS: 95886; 95911

== ENCOUNTER 2024-07-09 22:58 | Inpatient (IN) | payer MEDICARE, SELFPAY ==
[2024-07-09 22:59] VITALS: BP 131/92; PULSE 78; RESP 16; TEMP 36.7; O2SAT 95; BMI 30.7
--- NOTE | 2024-07-09 23:34 | RAD_ITS ---
EXAM: XR LEFT HIP WITH PELVIS WHEN PERFORMED, 2 OR 3 VIEWS CLINICAL INDICATION: Pain/? Hip fracture TECHNIQUE: Two or three views of the left hip with pelvis when performed. COMPARISON: No relevant prior studies available. FINDINGS: BONES/JOINTS: Impacted subcapital left femoral neck fracture. No destructive or sclerotic lesions. Note that overlapping bowel shadows may however obscure fine detail. Sacroiliac joint is unremarkable. No widening of the pubic symphysis. The articular structures are unremarkable. SOFT TISSUES: Unremarkable. No soft tissue swelling or gas. RAD/HIP, UNI W/ Pelvis 2-3 Views IMPRESSION: Impacted subcapital left femoral neck fracture. Electronically Signed: Tayo Ashford MD at 1:19 EST ,
--- NOTE | 2024-07-09 23:34 | CT_ITS ---
EXAM: CT HEAD WITHOUT INTRAVENOUS CONTRAST CLINICAL INDICATION: Fall on blood thinners TECHNIQUE: Multiple axial images were obtained of the head without intravenous contrast. This CT exam was performed using one or more of the following dose reduction techniques: automated exposure control, adjustment of the mA and/or kV according to patient size, and/or use of iterative reconstruction technique. RADIATION DOSE: CTDIvol = 44.99 mGy, DLP = 880.47 mGy-cm COMPARISON: No relevant prior studies available. FINDINGS: BRAIN AND EXTRA-AXIAL SPACES: Diffuse cerebral volume loss. Periventricular small vessel ischemic changes. No intra- or extra-axial hemorrhage. No intracranial mass or mass effect. Posterior fossa structures are unremarkable. No hydrocephalus. Basal cisterns are patent. BONES/JOINTS: Unremarkable. No discrete lytic or blastic abnormalities. VASCULATURE: Vascular calcifications. SINUSES: Unremarkable as visualized. Clear. MASTOID AIR CELLS: Unremarkable. Clear. ORBITS: Visualized globes, extraocular muscles, optic nerves and retrobulbar fat appear unremarkable. CT/Brain/Head without Contrast IMPRESSION: 1. No acute intracranial abnormalities. 2. Age-related changes. Electronically Signed: Tayo Ashford MD at 1:17 EST ,
--- NOTE | 2024-07-09 23:34 | CT_ITS ---
EXAM: CT CERVICAL SPINE WITHOUT INTRAVENOUS CONTRAST CLINICAL INDICATION: fall TECHNIQUE: Helically acquired images were obtained of the cervical spine without intravenous contrast. 2D reformatted images were reviewed. This CT exam was performed using one or more of the following dose reduction techniques: automated exposure control, adjustment of the mA and/or kV according to patient size, and/or use of iterative reconstruction technique. RADIATION DOSE: CTDIvol = 23.32 mGy, DLP = 546.05 mGy-cm COMPARISON: No relevant prior studies available. FINDINGS: VERTEBRAE: Unremarkable. No fracture. No traumatic subluxation. No discrete lytic or blastic abnormality. Normal alignment. Normal craniocervical junction and cervicothoracic junction. DISCS/SPINAL CANAL/NEURAL FORAMINA: Degenerative changes of the intervertebral discs. No critical stenosis. SOFT TISSUES: Unremarkable. No prevertebral soft tissue swelling. LYMPH NODES: Unremarkable. No cervical adenopathy. LUNG APICES: Unremarkable as visualized. Clear. CT/Spine Cervical without Contras IMPRESSION: 1. No acute injuries identified involving the cervical spine. 2. Degenerative changes. Electronically Signed: Tayo Ashford MD at 1:23 EST ,
--- NOTE | 2024-07-09 23:50 | RAD_ITS ---
EXAM: XR CHEST, 1 VIEW CLINICAL INDICATION: Fall TECHNIQUE: Frontal view of the chest. COMPARISON: Single view chest 06/06/2022 FINDINGS: LUNGS AND PLEURAL SPACES: Subsegmental atelectasis in the lung bases. No pneumothorax. No effusion. HEART: Unremarkable. Cardiac silhouette not enlarged. MEDIASTINUM: Central airways and mediastinal contour are unremarkable. BONES/JOINTS: Unremarkable. No acute fracture. SOFT TISSUES: Unremarkable. RAD/Chest 1 View (Portable) IMPRESSION: No acute findings in the chest. Electronically Signed: Tayo Ashford MD at 1:18 EST ,
[2024-07-09] MEDS: Ondansetron 4 MG/2 ML Vial IV (23:54)
[2024-07-09] MEDS: Morphine 4 MG/ML Syringe IV (23:54)
[2024-07-10] VITALS (19 sets, daily range): BP systolic 106–160; BP diastolic 58–89; PULSE 72–100; RESP 14–18; TEMP 36.6–37.2; O2SAT 86–97; BMI 28.3; BMI 28.1
[2024-07-10 00:09] LABS: Absolute Lymphocyte Count 1.02 X10^3/uL (0.83-4.51); Absolute Neutrophil Count 2.9 X10^3/uL (2.0-7.7); Basophil# 0.02 X10^3/uL; Basophil% 0.5 % (0-1); Eosinophil# 0.06 X10^3/uL; Eosinophils% 1.4 % (0-5); Hematocrit 42.7 % (40-54); Hemoglobin 14.7 g/dL (13.0-16.5); Lymphocyte # 1.02 X10^3/ul (0.83-4.51); Lymphocyte % 23.3 % (19-41); Mean Corp Hgb Conc 34.4 g/dL (32-36); Mean Platelet Vol. 9.3 fl (6.2-12.0); Monocyte# 0.36 X10^3/uL; Monocyte% 8.2 % (0-10); NRBC Flagged by Analyzer 0 % (0-5); Neutrophil # 2.89 X10^3/uL (2.7-7.7); Neutrophil % 66.1 % (47-70); Platelet Count 150 K/mm3 (150-450); RBC Distribution Width CV 12.3 % (11.6-14.6); RBC Distribution Width SD 42.7 fl (35.1-43.9); Red Blood Count 4.45 M/mm3 (4.6-6.2); White Blood Count 4.4 K/mm3 (4.4-11.0)
[2024-07-10 00:28] LABS: International Normalized Ratio 1.1; Partial Thromboplast Time 31.2 Seconds (24.1-36.2); Prothrombin Time (Protime)PT. 14.9 SECONDS (11.7-14.9)
[2024-07-10 00:31] LABS: Anion Gap 6 (5-15); BUN 25 mg/dL (7-18); BUN/Creat Ratio 21.6 RATIO (10-20); Calcium,Total 9.3 mg/dL (8.5-10.1); Chloride 105 mmol/L (98-107); Creatinine, Serum 1.16 mg/dL (0.70-1.30); EST Glomerular Filtration Rate 64 mL/min (>60); Est Glom Filt Rate - Afr Amer 77 mL/min (>60); Estimated Creatinine Clearance 61.11 ml/min; Glucose 104 mg/dL (74-106); Potassium 3.8 mmol/L (3.5-5.1); Sodium Level 141 mmol/L (136-145)
--- NOTE | 2024-07-10 01:39 | HP.PCM.HOS_ITS ---
[facility] - General General Date of Admission: 07/10/24 Date of Service: 07/10/24 Chief Complaint: Left Hip Pain after Fall. HPI Narrative TWAN MARTINEZ, is a 83 M with a past medical history of essential hypertension; on enalapril and metoprolol, hyperlipidemia; currently untreated, former tobacco abuse, obesity; with BMI 30.8 this admission, PAF; on apixaban, history of ventricular arrhythmia, history of RBBB, history of mitral valve prolapse, history of syncope, history of prostate cancer; s/p radiation treatment followed by Dr. Balderas with subsequent radiation proctitis previously causing intermittent rectal bleeding, history of malignant melanoma; s/p excision, history of basal cell carcinoma; s/p excision, history of actinic keratosis, history of Right inguinal hernia; s/p repair (2017), history of diverticulosis, history of internal hemorrhoids, environmental allergies and OA; with DDD of the lumbar spine and somatic dysfunction of the pelvic and lumbar regions with suspected neurogenic claudication who presents to [facility] ER complaining of persistent left hip pain after fall. Mr. Martinez reports his symptoms began approximately 1 hour prior to arrival when he was ambulating at home and tripped over his 's oxygen cord subsequently falling onto his Left hip. He noted severe pain and inability to ambulate so EMS was activated. He denies significant head trauma, loss of consciousness with this fall or other significant injury. There is no report of fever, chills, nausea, vomiting, diarrhea, constipation, chest pain, shortness of breath, headache or recent illness. He denies chest pain with activity or a known personal history of significant CAD. In the ER he was noted to have x-ray evidence of impacted subcapital Left femoral neck fracture along with a nonacute head CT, cervical CT and CXR. The ER physician contacted the orthopedist on-call who stated patient's surgery will likely not be done until Thursday, July 11, 2024 due to the patient being on apixaban at time of admission increasing his potential bleeding risk. He was then admitted to the general medical floor for ongoing care for stay that is expected to extend beyond 2 midnights. [facility] Medical History Segmental and somatic dysfunction of lumbar region Segmental and somatic dysfunction of pelvic region DDD (degenerative disc disease), lumbar Prostate CA RBBB Atrial fibrillation Essential hypertension Actinic keratosis, hx of History of malignant melanoma Enlarged prostate Arthritis Environmental allergies Pain at surgical incision Internal hemorrhoids Diverticulosis Home Medications ?Medication ?Instructions ?Recorded ?Last Taken ?Type enalapril maleate 20 mg tablet 20 mg PO DAILY 07/10/16 07/10/16 08:00 History calcium 300 mg-D3 20 mcg-magnesium 1 tab PO BID 07/12/22 Unknown History 25 mg-coppr 0.5 [id number] tablet (Caltrate-D3 Plus Minerals) apixaban 2.5 mg tablet (Eliquis) 2.5 mg PO BID Dose decreased due 07/15/23 Unknown Rx to creat clearance #180 tabs metoprolol tartrate 25 mg tablet See Rx Instructions .Route 07/21/23 Unknown Rx .COMPLEX #180 tabs cholecalciferol (vitamin D3) 250 10,000 unit PO DAILY 07/09/24 Unknown History mcg (10,000 unit) capsule acetaminophen 500 mg capsule 500 mg PO Q6H PRN pain 07/10/24 Unknown History polyethylene glycol 3350 17 17 g PO DAILY PRN constipation 07/10/24 Unknown History gram/dose oral powder (ClearLax) Allergy/AdvReac Type Severity Reaction Status Date / Time No Known Allergies Allergy Verified 07/09/24 23:05 Family History Father Hypertension CVA (cerebral vascular accident) Grandfather Hypertension Grandfather Heart disease Mother Heart disease Hypertension Other CAD (coronary artery disease) Cancer Surgical History Hx of basal cell carcinoma excision History of hernia repair Social History Smoking Status: Former smoker alcohol intake: current alcohol intake frequency: 0-2 drinks per day substance use type: does not use caffeine: Yes Type: coffee Number of servings: 3 what type of physical activity do you participate in: bicycling frequency: 1-2 times per week ROS ROS Narrative Review of Systems: Constitutional: Patient denies fever or chills. Eyes: Patient denies changes in vision or discharge from eyes. ENT: Patient denies runny nose, sore throat or ear pain. Resp: Patient denies shortness of breath or cough. CV: Patient denies chest pain, palpitations or heart racing. GI: Patient denies abdominal pain, nausea, vomiting, diarrhea or constipation. : Patient denies dysuria or hematuria. MSK: Patient admits to severe Left hip pain made worse with movement. Skin: Patient denies rash, abscess or jaundice. Psych: Patient denies symptoms of uncontrolled depression or anxiety. Neuro: Patient denies headache, paresthesias or focal neurologic deficits. Allergy: Patient denies lip swelling, tongue swelling or urticaria. Hematology: Patient admits to easy bleeding while on apixaban. Endocrinology: Patient denies polyuria, polydipsia or polyphagia. 14 point review systems otherwise negative except for positives noted above in HPI. Vital Signs Vital Signs Vital Signs: 07/09/24 22:59 07/10/24 01:00 07/10/24 01:25 Temperature 98.1 F Temperature Source Oral Pulse Rate 78 73 Respiratory Rate 16 16 Blood Pressure 131/92 H 137/89 H Blood Pressure Mean 105 105 Pulse Ox 95 93 86 Oxygen Delivery Method Room Air Room Air Room Air Oxygen Flow Rate (L/min) 07/10/24 01:28 Temperature Temperature Source Pulse Rate Respiratory Rate Blood Pressure Blood Pressure Mean Pulse Ox 96 Oxygen Delivery Method Nasal Cannula Oxygen Flow Rate (L/min) 1 Weight Weight: 239 lb 10.279 oz Body Mass Index (BMI) 30.7 Physical Exam Const alert, oriented x3 and no apparent distress Constitutional Narrative: Obese. General Appearance: cooperative HEENT normocephalic, head/scalp atraumatic, hearing grossly normal bilaterally and moist oral mucous membranes Eyes PERRL and EOMs intact bilaterally Neck no lymphadenopathy and supple Resp normal respiratory effort, no retractions, no use of accessory muscles and clear to auscultation bilaterally Cardio regular rate and regular rhythm GI normal to inspection, nondistended, normoactive bowel sounds, soft to palpation, non-tender and non-distended Extremity Extremity Narrative: LLE shortened and externally rotated with positive logroll sign. Neurovascularly intact with good pulses throughout and no signs of vascular compromise. Skin Skin Narrative: Patient has no evidence of rash, abscess or jaundice. Neuro oriented x3, CN's II-XII intact bilaterally, moves all extremities and no focal motor deficits Sensorium / Orientation: awake, alert, oriented to person, oriented to place and oriented to time Speech: speech normal Psych affect normal Results Medical Records Data Attestation: I reviewed the patient's medical records Lab / Micro Data Attestation: I reviewed the patient's lab results. 07/10/24 00:00 07/10/24 00:00 Labs: Laboratory Results - last 24 hr 07/10/24 00:00: WBC 4.4, RBC 4.45 L, Hgb 14.7, Hct 42.7, MCV 96.0 H, MCH 33.0 H, MCHC 34.4, RDW Std Deviation 42.7, RDW Coeff of Erin 12.3, Plt Count 150, MPV 9.3, Immature Gran % (Auto) 0.500, Neut % (Auto) 66.1, Lymph % (Auto) 23.3, [place] % (Auto) 8.2, Eos % (Auto) 1.4, Baso % (Auto) 0.5, Absolute Neuts (auto) 2.9, Absolute Lymphs (auto) 1.02, Nucleated RBC % 0, PT 14.9, INR 1.1, APTT 31.2, Sodium 141, Potassium 3.8, Chloride 105, Carbon Dioxide 30.0, Anion Gap 6, BUN 25 H, Creatinine 1.16, Estim Creat Clear Calc 61.11, Est GFR (MDRD) Af Amer 77, Est GFR (MDRD) Non-Af 64, BUN/Creatinine Ratio 21.6 H, Glucose 104, Calcium 9.3 Imaging Radiology Impression Brain CT 07/09/24 23:34 IMPRESSION: 1. No acute intracranial abnormalities. 2. Age-related changes. Electronically Signed: Tayo Ashford MD at 1:17 EST Reading Location ID and State: [facility] / [place] Tel , Service support , Cervical Spine CT 07/09/24 23:34 IMPRESSION: 1. No acute injuries identified involving the cervical spine. 2. Degenerative changes. Electronically Signed: Tayo Ashford MD at 1:23 EST , Hip/Pelvis X-Ray 07/09/24 23:34 IMPRESSION: Impacted subcapital left femoral neck fracture. Electronically Signed: Tayo Ashford MD at 1:19 EST , Chest X-Ray 07/09/24 23:50 IMPRESSION: No acute findings in the chest. 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: (3) Paroxysmal atrial fibrillation: (4) DDD (degenerative disc disease), lumbar: QUALIFIERS: Disc-related pain type: unspecified whether pain present Qualified Code(s): M51.369 - Other intervertebral disc degeneration, lumbar region without mention of lumbar back pain or lower extremity pain (5) Osteoarthritis: QUALIFIERS: Osteoarthritis location: unspecified site O steoarthritis type: unspecified Qualified Code(s): M19.90 - Unspecified osteoarthritis, unspecified site (6) Segmental and somatic dysfunction of lumbar region: (7) Segmental and somatic dysfunction of pelvic region: (8) Obesity (BMI 30.0-34.9): (9) Essential hypertension: PLAN: Plan 1. Impacted subcapital Left femoral neck fracture after Fall at home - Admit to general medical floor. Place urinary catheter due to patient's immobility. Give Tylenol as needed for [id number] (level 1-5/10) pain or fever. Give morphine IV as needed for severe (level 6-10/10) pain. Finally, formal orthopedic consult from Dr. Luna is pending at this time and greatly appreciated with plan to proceed with surgery on Wednesday, July 10, 2024 due to increased potential bleeding risk from being on apixaban at time of admission. 2. PAF; on apixaban complicating #1 - Hold apixaban with impending ORIF. Patient currently in NSR. 3. Chronic OA; with DDD of the lumbar spine and somatic dysfunction of the pelvic and lumbar regions with suspected neurogenic claudication compounding #1 & #2 - PT and OT will be asked to evaluate this patient postoperatively for further recommendations regarding rehabilitation with help appreciated in advance. 4. Obesity; with BMI 30.8 this admission adding to the medical complexity of #1 - #3 - Weight loss will be recommended. Check TSH. This complicates his case and may hamper recovery. 5. Essential Hypertension; on enalapril and metoprolol - Continue enalapril and metoprolol as previous plus give as needed hydralazine for systolic blood pressure greater than 160 mmHg. 6. Hyperlipidemia; currently untreated - Check Lipid Profile this admission to reassess status. 7. Former Tobacco Abuse - Noted. 8. History of ventricular arrhythmia - Stable with no signs of recurrence at this time. 9. History of RBBB - Noted. 10. History of mitral valve prolapse - Noted. 11. History of syncope - Noted. 12. History of prostate cancer; with subsequent radiation proctitis and previous rectal bleeding - Noted as this patient has had no recent bleeding in spite of taking apixaban. 13. History of malignant melanoma; s/p excision - Noted. 14. History of basal cell carcinoma; s/p excision - Noted. 15. History of actinic keratosis - Noted. 16. History of diverticulosis - Noted. 17. History of internal hemorrhoids - Stable. 18. History of Right inguinal hernia; s/p repair (2016) - Noted. 19. Environmental Allergies - Give diphenhydramine IV prn. 20. DVT prophylaxis - SCD's on RLE only with impending ORIF and patient taking apixaban at time of admission. Total time: Approximately (but not less than) 75 minutes. Charges/Coding Visit Charges Inpatient E&M: 25041 Init Hosp L3
--- NOTE | 2024-07-10 01:44 | EDS_ITS ---
HPI History of Present Illness Chief Complaint: Fall Informant: patient, spouse/S.O. and family Narrative Narrative: Patient is an 83-year-old male with past medical history of hypertension hyperlipidemia and paroxysmal atrial fibrillation currently on Eliquis. He states around 10 PM this evening he tripped over his 's oxygen tubing and fell landing on his left hip. He denies striking his head or any loss of consciousness but does admit to the blood thinner use secondary to his intermittent A-fib. He states that he had instant pain after the fall and could not ambulate. Secondary to the inability to ambulate with increased pain and concern for fracture EMS was called and he was brought in for evaluation [facility] Medical History Prostate CA RBBB Atrial fibrillation Essential hypertension Actinic keratosis, hx of Segmental and somatic dysfunction of lumbar region Segmental and somatic dysfunction of pelvic region DDD (degenerative disc disease), lumbar History of malignant melanoma Enlarged prostate Arthritis Environmental allergies Pain at surgical incision Internal hemorrhoids Diverticulosis Home Medications ?Medication ?Instructions ?Recorded ?Last Taken ?Type enalapril maleate 20 mg tablet 20 mg PO DAILY 07/10/16 07/10/16 08:00 History calcium 300 mg-D3 20 mcg-magnesium 1 tab PO BID 07/12/22 Unknown History 25 mg-coppr 0.5 [id number]-ryiv tablet (Caltrate-D3 Plus Minerals) apixaban 2.5 mg tablet (Eliquis) 2.5 mg PO BID Dose decreased due 07/15/23 Unknown Rx to creat clearance #180 tabs metoprolol tartrate 25 mg tablet See Rx Instructions .Route 07/21/23 Unknown Rx .COMPLEX #180 tabs cholecalciferol (vitamin D3) 250 10,000 unit PO DAILY 07/09/24 Unknown History mcg (10,000 unit) capsule Allergy/AdvReac Type Severity Reaction Status Date / Time No Known Allergies Allergy Verified 07/09/24 23:05 Family History Father Hypertension CVA (cerebral vascular accident) Grandfather Hypertension Grandfather Heart disease Mother Heart disease Hypertension Other CAD (coronary artery disease) Cancer Surgical History History of hernia repair Hx of basal cell carcinoma excision Social History Smoking Status: Former smoker alcohol intake: current alcohol intake frequency: 0-2 drinks per day substance use type: does not use caffeine: Yes Type: coffee Number of servings: 3 what type of physical activity do you participate in: bicycling frequency: 1-2 times per week ROS ROS ED Constitutional Constitutional ED: Denies chills or fever(s) Eyes Eyes: Denies blurry vision or change in vision ENT ENT ED: Denies sore throat Cardiovascular Cardiovascular: Reports other Details: Negative syncope ; Denies chest pain or palpitations Respiratory/Chest Respiratory/Chest: Denies cough or dyspnea Gastrointestinal Gastrointestinal: Denies abdominal pain, diarrhea, nausea or vomiting Genitourinary Genitourinary ED: Denies dysuria Musculoskeletal Musculoskeletal: Reports other Details: Positive left hip pain ; Denies back pain or neck pain Integumentary Denies Abrasions or rash Neurologic Neurologic: Denies headache(s) Hematologic/Lymphatic Hematologic/Lymphatic: Reports easy bleeding and easy bruising EXAM Physical Exam Const Vital Signs: 07/09/24 22:59 07/10/24 01:00 07/10/24 01:25 Temperature 98.1 F Temperature Source Oral Pulse Rate 78 73 Respiratory Rate 16 16 Blood Pressure 131/92 H 137/89 H Blood Pressure Mean 105 105 Pulse Ox 95 93 86 Oxygen Delivery Method Room Air Room Air Room Air Oxygen Flow Rate (L/min) 07/10/24 01:28 Temperature Temperature Source Pulse Rate Respiratory Rate Blood Pressure Blood Pressure Mean Pulse Ox 96 Oxygen Delivery Method Nasal Cannula Oxygen Flow Rate (L/min) 1 Positive well nourished and well developed General Appearance ED: well developed; Negative for pallor HEENT HEENT Narrative: Normocephalic atraumatic Eyes PERRL and EOMs intact bilaterally General Eye ED: Negative for scleral icterus Neck supple Neck Narrative: No bony deformity or step-off of the cervical spine no midline tenderness to palpation Chest Wall palpation of chest normal Chest Narrative: No bony deformity or crepitance of the chest wall on palpation; no subcutaneous emphysema noted Resp normal respiratory effort and clear to auscultation bilaterally Cardio regular rate and regular rhythm GI normal to inspection, nondistended, normoactive bowel sounds, non-tender, non- distended and no masses GI Narrative: No voluntary guarding or rigidity or pulsatile mass Auscultation: normoactive bowel sounds Palpation: soft Back/Spine Back/Spine Narrative: No bony deformity or step-off of the thoracic or lumbar spine no midline tenderness to palpation Extremity Extremity Narrative: Pelvis is stable but there is shortening and external rotation of the left leg compared to right. Patient is unable to lift the left leg and there is severe pain with passive range of motion as well. There is pain on palpation along the left greater trochanter. Remainder of the exam is normal Neuro oriented x3, CN's II-XII intact bilaterally and no sensory deficits noted Sensorium / Orientation: alert Psych mental status grossly normal Skin no rashes or lesions noted and no wounds General Skin Exam: Negative for jaundice or pallor MDM MDM MDM Narrative Medical decision making narrative: Patient arrived to the ER with stable vital. He reported mechanical fall and therefore I felt no need for cardiac or syncope workup. He did not strike his head but as he is on Eliquis there is concern for a traumatic subarachnoid or subdural hemorrhage so therefore a CT of the head was obtained. He does not have midline neck tenderness but based on the fall and his advanced age there is concern for potential cervical compression fracture or spondylolisthesis so the CT was extended through the cervical spine. CT of the head and neck revealed no acute traumatic finding. In order to rule out acute kidney injury severe electrolyte abnormality or acute blood loss anemia basic labs were obtained. These revealed no acute findings. Pelvis x-ray confirmed a left femoral neck fracture. The case was discussed with orthopedic surgeon Dr. Luna. He feels that the patient is otherwise safe to stay at this facility as he is a close neurovascular intact and unilateral fracture. He believes he will have to wait until Friday secondary to his Eliquis use to fix the fracture. Based on his medical comorbidities however he does recommend admission to the medical service. Therefore the case was discussed with the hospitalist who agrees to accept the patient at this time. The plan of care was discussed with patient and family and they are agreeable to it History & Record Review Discussion w/independent historian: EMS personnel, Patient and Family Lab Data Attestation: I reviewed the patient's lab results. Labs: Laboratory Results - last 24 hr 07/10/24 00:00 WBC 4.4 RBC 4.45 L Hgb 14.7 Hct 42.7 MCV 96.0 H MCH 33.0 H MCHC 34.4 RDW Std Deviation 42.7 RDW Coeff of Erin 12.3 Plt Count 150 MPV 9.3 Immature Gran % (Auto) 0.500 Neut % (Auto) 66.1 Lymph % (Auto) 23.3 Kay % (Auto) 8.2 Eos % (Auto) 1.4 Baso % (Auto) 0.5 Absolute Neuts (auto) 2.9 Absolute Lymphs (auto) 1.02 Nucleated RBC % 0 PT 14.9 INR 1.1 APTT 31.2 Sodium 141 Potassium 3.8 Chloride 105 Carbon Dioxide 30.0 Anion Gap 6 BUN 25 H Creatinine 1.16 Estim Creat Clear Calc 61.11 Est GFR (MDRD) Af Amer 77 Est GFR (MDRD) Non-Af 64 BUN/Creatinine Ratio 21.6 H Glucose 104 Calcium 9.3 Radiography Diagnostic Testing: Clinical Impression(s) from Imaging Studies Brain CT 07/09/24 23:34 IMPRESSION: 1. No acute intracranial abnormalities. 2. Age-related changes. Electronically Signed: Tayo Ashford MD at 1:17 EST Reading Location ID and State: Critical [facility] hospital / [place] Tel , Service support , Cervical Spine CT 07/09/24 23:34 IMPRESSION: 1. No acute injuries identified involving the cervical spine. 2. Degenerative changes. Electronically Signed: Tayo Ashford MD at 1:23 EST Reading Location ID and State: Critical access hospital / [place] Tel , Service support , Hip/Pelvis X-Ray 07/09/24 23:34 IMPRESSION: Impacted subcapital left femoral neck fracture. Electronically Signed: Tayo Ashford MD at 1:19 EST Reading Location ID and State: [facility] / [place] Tel , Service support , Chest X-Ray 07/09/24 23:50 IMPRESSION: No acute findings in the chest. Electronically Signed: Tayo Ashford MD at 1:18 EST , Chest x-ray as interpreted by the emergency medicine physician reveals no acute infiltrate pneumothorax or rib fracture Left hip x-ray with 1 view pelvis as interpreted by the emergency medicine physician reveals a impacted subcapital femoral neck fracture Management Discussion w/another healthcare provider: Hospitalist and Technical Agronomist Discharge Plan Dx/Rx/DC Orders Clinical Impression: Essential hypertension, Hyperlipidemia, Paroxysmal atrial fibrillation, Current use of supervisor intermediates anticoagulation, Closed fracture of neck of left femur Disposition Disposition: Acute Care Hospital [facility]
[2024-07-10] MEDS: fentaNYL 100 MCG/2 ML Ampul 50 MCG IV (02:08)
[2024-07-10] MEDS: 0.9% Normal Saline (1000mL) 1,000 ML 50 ML IV (04:31)
[2024-07-10] MEDS: 0.9% Saline Lock 10 ML Syringe IV ×2 (04:32→20:21)
[2024-07-10] MEDS: Morphine 2 MG/ML Syringe IV ×2 (04:32→20:21)
[2024-07-10] MEDS: Acetaminophen 500 MG Tablet PO (04:35)
[2024-07-10 06:00] LABS: Absolute Lymphocyte Count 0.56 X10^3/uL (0.83-4.51); Basophil# 0.01 X10^3/uL; Basophil% 0.1 % (0-1); Eosinophil# 0.01 X10^3/uL; Eosinophils% 0.1 % (0-5); Hematocrit 42.1 % (40-54); Hemoglobin 14.2 g/dL (13.0-16.5); Lymphocyte # 0.56 X10^3/ul (0.83-4.51); Lymphocyte % 6.8 % (19-41); Mean Corp Hgb Conc 33.7 g/dL (32-36); Mean Corpuscular Hgb 32.4 pg (27.0-32.0); Mean Corpuscular Volume 96.1 fL (80-94); Mean Platelet Vol. 8.9 fl (6.2-12.0); Monocyte# 0.59 X10^3/uL; Monocyte% 7.2 % (0-10); NRBC Flagged by Analyzer 0 % (0-5); Neutrophil # 6.98 X10^3/uL (2.7-7.7); Neutrophil % 85.4 % (47-70); POSITIVE DIFFERENTIAL YES; Platelet Count 136 K/mm3 (150-450); RBC Distribution Width CV 12.3 % (11.6-14.6); RBC Distribution Width SD 43.4 fl (35.1-43.9); Red Blood Count 4.38 M/mm3 (4.6-6.2); White Blood Count 8.2 K/mm3 (4.4-11.0)
[2024-07-10 06:09] LABS: Differential Indicated SCAN CRITERIA MET
[2024-07-10 06:28] LABS: Phosphorus 3.7 mg/dL (2.5-4.9)
[2024-07-10 06:41] LABS: AST(SGOT) 26 U/L (15-37); Alanine Aminotransfer ALT/SGPT 29 U/L (16-61); Albumin, Serum 3.4 g/dL (3.2-5.0); Alkaline Phosphatase 64 U/L (45-117); Anion Gap 5 (5-15); BUN 24 mg/dL (7-18); BUN/Creat Ratio 20.7 RATIO (10-20); Calcium,Total 9.4 mg/dL (8.5-10.1); Chloride 106 mmol/L (98-107); Cholesterol 157 mg/dL (200); Creatinine, Serum 1.16 mg/dL (0.70-1.30); EST Glomerular Filtration Rate 64 mL/min (>60); Est Glom Filt Rate - Afr Amer 77 mL/min (>60); Estimated Creatinine Clearance 60.44 ml/min; Globulin 3.5 g/dL (2.2-4.2); Glucose 131 mg/dL (74-106); High Density Lipoprotein 47 mg/dL; Potassium 4.2 mmol/L (3.5-5.1); Protein, Total 6.9 g/dL (6.4-8.2); Sodium Level 140 mmol/L (136-145); Triglycerides 95 mg/dL; Very Low Density Lipoprotein 19 mg/dL (5-40)
--- NOTE | 2024-07-10 07:59 | PCM.PN.HOSP ---
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 No pain. Objective Data Objective Data Vital Signs: Vital Signs Temp Pulse Resp BP Pulse Ox O2 Del Method O2 Flow Rate 36.6 C 88 18 106/67 93 Room Air 1 07/10/24 04:20 07/10/24 07:52 07/10/24 04:20 07/10/24 04:20 07/10/24 04:20 07/10/24 04:20 07/10/24 02:10 Oxygen Flow Rate (L/min) 1 Oxygen Delivery Method Room Air Weight: 102.7 kg Body Mass Index (BMI) 28.1 Intake & Output: Intake and Output for Last 24 Hours 07/08/24 07/09/24 07/10/24 23:59 23:59 23:59 Output Total 700 / 700 Balance -700 / -700 Lab / Micro Data 07/10/24 05:55 07/10/24 13:00 Labs: Laboratory Results - last 24 hr 07/10/24 00:00: WBC 4.4, RBC 4.45 L, Hgb 14.7, Hct 42.7, MCV 96.0 H, MCH 33.0 H, MCHC 34.4, RDW Std Deviation 42.7, RDW Coeff of Erin 12.3, Plt Count 150, MPV 9.3, Immature Gran % (Auto) 0.500, Neut % (Auto) 66.1, Lymph % (Auto) 23.3, Benzie % (Auto) 8.2, Eos % (Auto) 1.4, Baso % (Auto) 0.5, Absolute Neuts (auto) 2.9, Absolute Lymphs (auto) 1.02, Nucleated RBC % 0, PT 14.9, INR 1.1, APTT 31.2, Sodium 141, Potassium 3.8, Chloride 105, Carbon Dioxide 30.0, Anion Gap 6, BUN 25 H, Creatinine 1.16, Estim Creat Clear Calc 61.11, Est GFR (MDRD) Af Amer 77, Est GFR (MDRD) Non-Af 64, BUN/Creatinine Ratio 21.6 H, Glucose 104, Calcium 9.3, TSH 2.560 07/10/24 05:55: WBC 8.2, RBC 4.38 L, Hgb 14.2, Hct 42.1, MCV 96.1 H, MCH 32.4 H, MCHC 33.7, RDW Std Deviation 43.4, RDW Coeff of Erin 12.3, Plt Count 136 L, MPV 8.9, Immature Gran % (Auto) 0.400, Neut % (Auto) 85.4 H, Lymph % (Auto) 6.8 L, Benzie % (Auto) 7.2, Eos % (Auto) 0.1, Baso % (Auto) 0.1, Absolute Neuts (auto) 7.0, Absolute Lymphs (auto) 0.56 L, Nucleated RBC % 0, Sodium 140, Potassium 4.2, Chloride 106, Carbon Dioxide 29.0, Anion Gap 5, BUN 24 H, Creatinine 1.16, Estim Creat Clear Calc 60.44, Est GFR (MDRD) Af Amer 77, Est GFR (MDRD) Non-Af 64, BUN/Creatinine Ratio 20.7 H, Glucose 131 H, Calcium 9.4, Phosphorus 3.7, Magnesium 2.0, Total Bilirubin 0.70, AST 26, ALT 29, Alkaline Phosphatase 64, Total Protein 6.9, Albumin 3.4, Globulin 3.5, Albumin/Globulin Ratio 1.0, Triglycerides 95, Cholesterol 157, LDL Cholesterol 91, VLDL Cholesterol 19, HDL Cholesterol 47 Radiography Diagnostic Testing: Radiology Impression Brain CT 07/09/24 23:34 IMPRESSION: 1. No acute intracranial abnormalities. 2. Age-related changes. Electronically Signed: Tayo Ashford MD at 1:17 EST , Cervical Spine CT 07/09/24 23:34 IMPRESSION: 1. No acute injuries identified involving the cervical spine. 2. Degenerative changes. Electronically Signed: Tayo Ashford MD at 1:23 EST Reading Location ID and State: [facility] / [place] Tel , Service support , Hip/Pelvis X-Ray 07/09/24 23:34 IMPRESSION: Impacted subcapital left femoral neck fracture. Electronically Signed: Tayo Ashford MD at 1:19 EST , Chest X-Ray 07/09/24 23:50 IMPRESSION: No acute findings in the chest. Electronically Signed: Tayo Ashford MD at 1:18 EST Reading Location ID and State: [facility] / [place] Tel , Service support , Physical Exam Const alert and no apparent distress HEENT head/scalp atraumatic and moist oral mucous membranes Resp normal respiratory effort, no retractions, no use of accessory muscles and clear to auscultation bilaterally Cardio regular rate, regular rhythm, S1 normal heart sound and S2 normal heart sound GI normal to inspection, nondistended, normoactive bowel sounds, soft to palpation, non-tender and non-distended Extremity normal to inspection Neuro Sensorium / Orientation: awake and alert Assessment & Plan Assessment/Plan (1) Closed fracture of neck of left femur: QUALIFIERS: Encounter type: initial encounter Qualified Code(s): S72.002A - Fracture of unspecified part of neck of left femur, initial encounter for closed fracture PLAN: Bed rest. Mascorro catheter in place until surgery. Pain control. Dr. Luna on consult. Surgery planned for 07/11 to give time for apixaban to wear off. Check 25-OH d level. PLAN: Plan Chronic conditions: prostate CA: follow up with oncology HTN: stable. continue ACEi and BB pAfib: apixaban on hold for surgery. Resume when ok by orthopaedics. VTE prophylaxis: SCDs. Charges/Coding Visit Charges Inpatient E&M: 77107 Subs Hosp L2
[2024-07-10] MEDS: Lisinopril 20 MG Tablet PO (09:09)
[2024-07-10] MEDS: Calcium Carb/Vitamin D 1 TABLET Tablet PO ×2 (09:09→18:19)
[2024-07-10] MEDS: Metoprolol Tartrate 25 MG Tablet PO ×2 (09:09→22:48)
[2024-07-10] MEDS: Cholecalciferol (Vit D3) 125 MCG CAPSULE (5,000 UNITS) 250 MCG PO (09:10)
--- NOTE | 2024-07-10 10:05 | CASEMGMT ---
ANNETTA MADISON Face to Face with patient for initial transition planning/care coordination assessment. ANNETTA MADISON introduced self and role at [facility]. Patient lying in bed, alert and oriented. Patient willing to participate in assessment and is able to answer all questions appropriately. Care providers, pharmacy, and demographics verified. Strata: 2 PCP: [facility] Specialists: Marisa, oncologist; BERENICEG, cardiology Preferred Pharmacy: [facility] Insurance: [facility] Prescription Benefit: yes Living Will/HPOA: yes, Faye Maritnez LNOK: , son Living Arrangements: Patient lives with in a 2 story home with bed and bath on first floor, stair lift to 2nd floor, ramp to enter the home. Mary is independent at home. Transportation: self, friends DME/HHC: Patient has shower chair, grab bars, raised toilet, cane, walker, and pulse ox. No previous HHC or SNF Patient to have surgery tomorrow. ANNETTA MADISON discussed that patient will need to work with therapy to determine discharge disposition but am anticipating possible rehab at discharge. Patient states he would prefer to stay her at [facility] Acute Rehab, declined list at this time. ANNETTA MADISON told patient CM will monitor progress with therapy and follow-up with patient on Friday. Patient voiced understanding and states he has no further needs or concerns at this time. SW notified of potential need for Rehab Unit at discharge. CM to follow for discharge planning needs that may arise. Disposition Plan: TBD, anticipate Rehab vs SNF pending surgery and progress with therapy. Elodia RODRIGUEZ, RN, CM
--- NOTE | 2024-07-10 12:44 | CONS.ORTHO ---
HPI Consult Data Date of Consult: 07/10/24 HPI Narrative Reason for Consultation: Left femoral neck fracture HPI Narrative: TWAN VERNON, is a 83 M who sustained a ground-level trip and fall last night at his home. He states he tripped over his 's oxygen cord and landed on his left hip. Denies any head injury or loss consciousness. Patient takes Eliquis for paroxysmal atrial fibrillation. His last dose was last evening. He denies any prior injury or event to his left hip. Denies any antecedent left hip or groin pain. Patient is a community ambulator without assistive device. He denies any prior anesthetic complications. Patient was admitted under the service to hospitalist last night after x-rays revealed a displaced left femoral neck fracture. COUNTS INCLUDE 234 BEDS AT THE [facility] Medical History Segmental and somatic dysfunction of lumbar region Segmental and somatic dysfunction of pelvic region DDD (degenerative disc disease), lumbar Prostate CA RBBB Atrial fibrillation Essential hypertension Actinic keratosis, hx of History of malignant melanoma Enlarged prostate Arthritis Environmental allergies Pain at surgical incision Internal hemorrhoids Diverticulosis Home Medications ?Medication ?Instructions ?Recorded ?Last Taken ?Type enalapril maleate 20 mg tablet 20 mg PO DAILY 07/10/16 07/10/16 08:00 History calcium 300 mg-D3 20 mcg-magnesium 1 tab PO BID 07/12/22 Unknown History 25 mg-coppr 0.5 [id number] tablet (Caltrate-D3 Plus Minerals) apixaban 2.5 mg tablet (Eliquis) 2.5 mg PO BID Dose decreased due 07/15/23 Unknown Rx to creat clearance #180 tabs metoprolol tartrate 25 mg tablet See Rx Instructions .Route 07/21/23 Unknown Rx .COMPLEX #180 tabs cholecalciferol (vitamin D3) 250 10,000 unit PO DAILY 07/09/24 Unknown History mcg (10,000 unit) capsule acetaminophen 500 mg capsule 500 mg PO Q6H PRN pain 07/10/24 Unknown History polyethylene glycol 3350 17 17 g PO DAILY PRN constipation 07/10/24 Unknown History gram/dose oral powder (ClearLax) Allergy/AdvReac Type Severity Reaction Status Date / Time No Known Allergies Allergy Verified 07/09/24 23:05 Family History Father Hypertension CVA (cerebral vascular accident) Grandfather Hypertension Grandfather Heart disease Mother Heart disease Hypertension Other CAD (coronary artery disease) Cancer Surgical History Hx of basal cell carcinoma excision History of hernia repair Social History Smoking Status: Former smoker alcohol intake: current alcohol intake frequency: 0-2 drinks per day substance use type: does not use caffeine: Yes Type: coffee Number of servings: 3 what type of physical activity do you participate in: bicycling frequency: 1-2 times per week ROS ROS Narrative 12 point review systems obtained, negative unless otherwise noted in HPI Vital Signs Vital Signs Vital Signs: 07/09/24 22:59 07/10/24 01:00 07/10/24 01:25 Temperature 98.1 F Temperature Source Oral Pulse Rate 78 73 Respiratory Rate 16 16 Respiratory Effort Respiratory Depth Respiratory Pattern Blood Pressure 131/92 H 137/89 H Blood Pressure Mean 105 105 Blood Pressure Source Blood Pressure Position Blood Pressure Location Pulse Ox 95 93 86 Oxygen Delivery Method Room Air Room Air Room Air Oxygen Flow Rate (L/min) 07/10/24 01:28 07/10/24 02:00 07/10/24 02:10 Temperature 98 F Temperature Source Pulse Rate 89 92 Respiratory Rate 14 17 Respiratory Effort Respiratory Depth Respiratory Pattern Blood Pressure 160/78 H 160/78 H Blood Pressure Mean 105 105 Blood Pressure Source Blood Pressure Position Blood Pressure Location Pulse Ox 96 96 95 Oxygen Delivery Method Nasal Cannula Nasal Cannula Oxygen Flow Rate (L/min) 1 1 07/10/24 03:06 07/10/24 03:59 07/10/24 04:20 Temperature 97.9 F Temperature Source Oral Pulse Rate 100 77 Respiratory Rate 18 Respiratory Effort Normal Non-Labored Respiratory Depth Normal Respiratory Pattern Normal Blood Pressure 106/67 Blood Pressure Mean 80 Blood Pressure Source Monitor Blood Pressure Position Semi-Fowlers Blood Pressure Location Right Arm Pulse Ox 93 Oxygen Delivery Method Room Air Room Air Oxygen Flow Rate (L/min) 07/10/24 07:08 07/10/24 07:52 07/10/24 09:07 Temperature 98.6 F Temperature Source Oral Pulse Rate 88 94 Respiratory Rate 18 Respiratory Effort Respiratory Depth Respiratory Pattern Blood Pressure 138/79 H Blood Pressure Mean 98 Blood Pressure Source Monitor Blood Pressure Position Semi-Fowlers Blood Pressure Location Right Arm Pulse Ox 96 97 Oxygen Delivery Method Room Air Room Air Oxygen Flow Rate (L/min) 07/10/24 09:09 07/10/24 09:12 07/10/24 12:26 Temperature Temperature Source Pulse Rate 94 83 Respiratory Rate Respiratory Effort Normal Non-Labored Respiratory Depth Normal Respiratory Pattern Normal Blood Pressure 138/79 H Blood Pressure Mean Blood Pressure Source Blood Pressure Position Blood Pressure Location Pulse Ox Oxygen Delivery Method Room Air Oxygen Flow Rate (L/min) Weight Weight: 226 lb 6.636 oz Body Mass Index (BMI) 28.1 Physical Exam Narrative General -A&Ox3, NAD, appears stated age. Vital signs stable, afebrile. Respiratory -normal work of breathing, no intercostal retractions. CV -pulses regular, brisk capillary refill ?4 limbs. Abdomen-soft, nontender, nondistended. No guarding, rigidity, rebound tenderness. Musculoskeletal/neurologic -full range of motion nontender throughout bilateral upper extremities, right lower extremity with full sensation and strength in all dermatomes and myotomes. No midline cervical tenderness. Left lower extremity-no obvious deformity. Pain with logroll of the left lower extremity. Nontender throughout the left knee femoral shaft, tibial shaft and left foot/ankle. Brisk capillary refill. Sensation intact light touch L3-S1 dermatomes. DF, PF, EHL intact. DP, PT 2+. Pelvis is stable, nontender. Skin is intact without lacerations, abrasions. No ecchymosis noted. Lab / Micro Data Attestation: I reviewed the patient's lab results. 07/10/24 05:55 07/10/24 05:55 Labs: Laboratory Results - last 24 hr 07/10/24 00:00: WBC 4.4, RBC 4.45 L, Hgb 14.7, Hct 42.7, MCV 96.0 H, MCH 33.0 H, MCHC 34.4, RDW Std Deviation 42.7, RDW Coeff of Erin 12.3, Plt Count 150, MPV 9.3, Immature Gran % (Auto) 0.500, Neut % (Auto) 66.1, Lymph % (Auto) 23.3, Mason % (Auto) 8.2, Eos % (Auto) 1.4, Baso % (Auto) 0.5, Absolute Neuts (auto) 2.9, Absolute Lymphs (auto) 1.02, Nucleated RBC % 0, PT 14.9, INR 1.1, APTT 31.2, Sodium 141, Potassium 3.8, Chloride 105, Carbon Dioxide 30.0, Anion Gap 6, BUN 25 H, Creatinine 1.16, Estim Creat Clear Calc 61.11, Est GFR (MDRD) Af Amer 77, Est GFR (MDRD) Non-Af 64, BUN/Creatinine Ratio 21.6 H, Glucose 104, Calcium 9.3, TSH 2.560 07/10/24 05:55: WBC 8.2, RBC 4.38 L, Hgb 14.2, Hct 42.1, MCV 96.1 H, MCH 32.4 H, MCHC 33.7, RDW Std Deviation 43.4, RDW Coeff of Erin 12.3, Plt Count 136 L, MPV 8.9, Immature Gran % (Auto) 0.400, Neut % (Auto) 85.4 H, Lymph % (Auto) 6.8 L, Mason % (Auto) 7.2, Eos % (Auto) 0.1, Baso % (Auto) 0.1, Absolute Neuts (auto) 7.0, Absolute Lymphs (auto) 0.56 L, Nucleated RBC % 0, Sodium 140, Potassium 4.2, Chloride 106, Carbon Dioxide 29.0, Anion Gap 5, BUN 24 H, Creatinine 1.16, Estim Creat Clear Calc 60.44, Est GFR (MDRD) Af Amer 77, Est GFR (MDRD) Non-Af 64, BUN/Creatinine Ratio 20.7 H, Glucose 131 H, Calcium 9.4, Phosphorus 3.7, Magnesium 2.0, Total Bilirubin 0.70, AST 26, ALT 29, Alkaline Phosphatase 64, Total Protein 6.9, Albumin 3.4, Globulin 3.5, Albumin/Globulin Ratio 1.0, Triglycerides 95, Cholesterol 157, LDL Cholesterol 91, VLDL Cholesterol 19, HDL Cholesterol 47 Imaging Radiology Impression Brain CT 07/09/24 23:34 IMPRESSION: 1. No acute intracranial abnormalities. 2. Age-related changes. Electronically Signed: Tayo Ashford MD at 1:17 EST Reading Location ID and State: [facility] / [place] Tel , Service support , Cervical Spine CT 07/09/24 23:34 IMPRESSION: 1. No acute injuries identified involving the cervical spine. 2. Degenerative changes. Electronically Signed: Tayo Ashford MD at 1:23 EST Reading Location ID and State: [facility] / [place] Tel , Service support , Hip/Pelvis X-Ray 07/09/24 23:34 IMPRESSION: Impacted subcapital left femoral neck fracture. Electronically Signed: Tayo Ashford MD at 1:19 EST Reading Location ID and State: [facility] / [employer] Tel , Service support , Chest X-Ray 07/09/24 23:50 IMPRESSION: No acute findings in the chest. Electronically Signed: Tayo Ashford MD at 1:18 EST Reading Location ID and State: [place] / [place] Tel , Service support , Assessment & Plan Assessment/Plan (1) Closed fracture of neck of left femur: QUALIFIERS: Encounter type: initial encounter Qualified Code(s): S72.002A - Fracture of unspecified part of neck of left femur, initial encounter for closed fracture PLAN: Patient sustained a displaced left femoral neck fracture -Closed, neurovascularly intact -Isolated injury -Recommending surgical intervention in the form of left hip hemiarthroplasty -I discussed the procedure-its risks, benefits and alternative. Risks include but are not limited to bleeding, infection, loss of life or limb, risk of anesthesia, persistent pain or disability, need for additional surgery, instability, leg length discrepancy, failure of orthopedic hardware, neurovascular injury, DVT or PE. Patient expressed understanding these risks and wished proceed with surgery. -Patient's last dose of Eliquis was last night. 48 hours would put us at tomorrow night for surgery. With the patient's multiple comorbidities including cardiac history, I feel it is in his best interest to avoid surgery late at night if at all possible. Instead, I recommend we proceed with his surgery on 07/12/2024. He expressed understanding. He feels reasonably comfortable at this time. -Maintenance IV fluids, clear liquid diet after midnight n.p.o. at 2 hours prior to surgery -Type and screen -2 g Ancef, 1 g IV TXA on-call to the OR -Bedrest, heel protectors -Plan to proceed with surgery 07/12/24 when OR time is available. Thank you for this consultation.
[2024-07-10] MEDS: Acetaminophen 500 MG Tablet 1000 MG PO ×2 (13:12→22:49)
[2024-07-10 13:37] LABS: AST(SGOT) 43 U/L (15-37); Alanine Aminotransfer ALT/SGPT 30 U/L (16-61); Albumin, Serum 3.4 g/dL (3.2-5.0); Alkaline Phosphatase 66 U/L (45-117); Anion Gap 4 (5-15); BUN 24 mg/dL (7-18); BUN/Creat Ratio 21.4 RATIO (10-20); Calcium,Total 8.8 mg/dL (8.5-10.1); Chloride 105 mmol/L (98-107); Creatinine, Serum 1.12 mg/dL (0.70-1.30); EST Glomerular Filtration Rate 66 mL/min (>60); Est Glom Filt Rate - Afr Amer 80 mL/min (>60); Globulin 3.5 g/dL (2.2-4.2); Glucose 127 mg/dL (74-106); Potassium 3.9 mmol/L (3.5-5.1); Protein, Total 6.9 g/dL (6.4-8.2); Sodium Level 137 mmol/L (136-145)
[2024-07-10] MEDS: Senna/Docusate Sodium 1 Tablet 2 TABLET PO (22:48)
[2024-07-11] VITALS (14 sets, daily range): BP systolic 111–158; BP diastolic 65–91; PULSE 72–148; RESP 16–18; TEMP 36.4–36.9; O2SAT 93–97; BMI 28.5
[2024-07-11 04:08] LABS: Absolute Neutrophil Count 5.7 X10^3/uL (2.0-7.7); Basophil# 0.02 X10^3/uL; Basophil% 0.3 % (0-1); Eosinophil# 0.21 X10^3/uL; Eosinophils% 2.8 % (0-5); Hematocrit 40.4 % (40-54); Hemoglobin 13.6 g/dL (13.0-16.5); Lymphocyte % 13.2 % (19-41); Mean Corp Hgb Conc 33.7 g/dL (32-36); Mean Corpuscular Hgb 32.2 pg (27.0-32.0); Mean Corpuscular Volume 95.7 fL (80-94); Mean Platelet Vol. 9.4 fl (6.2-12.0); Monocyte# 0.65 X10^3/uL; Monocyte% 8.6 % (0-10); NRBC Flagged by Analyzer 0 % (0-5); Neutrophil # 5.67 X10^3/uL (2.7-7.7); Platelet Count 131 K/mm3 (150-450); RBC Distribution Width CV 12.7 % (11.6-14.6); RBC Distribution Width SD 44.6 fl (35.1-43.9); Red Blood Count 4.22 M/mm3 (4.6-6.2); White Blood Count 7.6 K/mm3 (4.4-11.0)
[2024-07-11] MEDS: 0.9% Saline Lock 10 ML Syringe IV (06:10)
[2024-07-11] MEDS: Magnesium Sulfate 2 GM in Dextrose 5%-Water (100mL Bag) 100 ML IV (06:11)
[2024-07-11] MEDS: Acetaminophen 500 MG Tablet 1000 MG PO ×3 (06:11→20:40)
[2024-07-11] MEDS: Metoprolol Tartrate 25 MG Tablet PO ×2 (06:39→20:40)
--- NOTE | 2024-07-11 07:10 | PN.HOSP_ITS ---
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 No new issues overnight. Objective Data Objective Data Vital Signs: Vital Signs Temp Pulse Resp BP Pulse Ox O2 Del Method O2 Flow Rate 36.4 C L 86 18 154/91 H 97 Room Air 1 07/11/24 06:20 07/11/24 06:39 07/11/24 06:20 07/11/24 06:39 07/11/24 06:20 07/11/24 06:20 07/10/24 02:10 Oxygen Flow Rate (L/min) 1 Oxygen Delivery Method Room Air Weight: 102.7 kg Body Mass Index (BMI) 28.1 Intake & Output: Intake and Output for Last 24 Hours 07/09/24 07/10/24 07/11/24 23:59 23:59 23:59 Intake Total 750 / 950 1350 / 1350 Output Total 1500 / 2050 825 / 825 Balance -750 / -1100 525 / 525 Lab / Micro Data 07/11/24 03:33 07/10/24 13:00 Labs: Laboratory Results - last 24 hr 07/10/24 13:00: Sodium 137, Potassium 3.9, Chloride 105, Carbon Dioxide 29.0, A nion Gap 4 L, BUN 24 H, Creatinine 1.12, Estim Creat Clear Calc 62.60, Est GFR (MDRD) Af Amer 80, Est GFR (MDRD) Non-Af 66, BUN/Creatinine Ratio 21.4 H, G lucose 127 H, Calcium 8.8, Total Bilirubin 0.80, AST 43 H, ALT 30, Alkaline Phosphatase 66, Total Protein 6.9, Albumin 3.4, Globulin 3.5, Albumin/Globulin Ratio 1.0 07/11/24 03:33: WBC 7.6, RBC 4.22 L, Hgb 13.6, Hct 40.4, MCV 95.7 H, MCH 32.2 H, MCHC 33.7, RDW Std Deviation 44.6 H, RDW Coeff of Erin 12.7, Plt Count 131 L, MPV 9.4, Immature Gran % (Auto) 0.100, Neut % (Auto) 75.0 H, Lymph % (Auto) 13.2 L, Lake % (Auto) 8.6, Eos % (Auto) 2.8, Baso % (Auto) 0.3, Absolute Neuts (auto) 5.7, Absolute Lymphs (auto) 1.00, Nucleated RBC % 0 Physical Exam Const alert and no apparent distress HEENT head/scalp atraumatic and moist oral mucous membranes Neuro Sensorium / Orientation: awake and alert Assessment & Plan Assessment/Plan (1) Closed fracture of neck of left femur: QUALIFIERS: Encounter type: initial encounter Qualified Code(s): S72.002A - Fracture of unspecified part of neck of left femur, initial encounter for closed fracture PLAN: Bed rest. Mascorro catheter in place until surgery. Pain control. Dr. Luna on consult. Surgery planned for 07/12 to give time for apixaban to wear off. Check 25-OH d level. PLAN: Plan Chronic conditions: * prostate CA: follow up with oncology * HTN: stable. continue ACEi and BB * pAfib: apixaban on hold for surgery. Resume when ok by orthopaedics. VTE prophylaxis: SCDs. Charges/Coding Visit Charges Inpatient E&M: 01990 [facility] Hosp L1
[2024-07-11] MEDS: Calcium Carb/Vitamin D 1 TABLET Tablet PO ×2 (09:21→16:20)
[2024-07-11] MEDS: Senna/Docusate Sodium 1 Tablet 2 TABLET PO ×2 (09:21→20:40)
[2024-07-11] MEDS: Lisinopril 20 MG Tablet PO (09:21)
[2024-07-11] MEDS: Cholecalciferol (Vit D3) 125 MCG CAPSULE (5,000 UNITS) 250 MCG PO (09:22)
[2024-07-12] VITALS (22 sets, daily range): BP systolic 121–184; BP diastolic 68–99; PULSE 59–93; RESP 14–19; TEMP 36.1–37.3; O2SAT 92–100; BMI 28.3; BMI 28.5
[2024-07-12 04:50] LABS: Absolute Lymphocyte Count 1.07 X10^3/uL (0.83-4.51); Basophil# 0.02 X10^3/uL; Basophil% 0.3 % (0-1); Eosinophil# 0.25 X10^3/uL; Eosinophils% 3.6 % (0-5); Hematocrit 41.9 % (40-54); Hemoglobin 14.1 g/dL (13.0-16.5); Lymphocyte # 1.07 X10^3/ul (0.83-4.51); Lymphocyte % 15.4 % (19-41); Mean Corp Hgb Conc 33.7 g/dL (32-36); Mean Corpuscular Hgb 32.1 pg (27.0-32.0); Mean Corpuscular Volume 95.4 fL (80-94); Mean Platelet Vol. 9.7 fl (6.2-12.0); Monocyte# 0.61 X10^3/uL; Monocyte% 8.8 % (0-10); NRBC Flagged by Analyzer 0 % (0-5); Neutrophil # 4.99 X10^3/uL (2.7-7.7); Neutrophil % 71.8 % (47-70); Platelet Count 137 K/mm3 (150-450); RBC Distribution Width CV 12.6 % (11.6-14.6); RBC Distribution Width SD 43.6 fl (35.1-43.9); Red Blood Count 4.39 M/mm3 (4.6-6.2)
--- NOTE | 2024-07-12 05:00 | EKG12_ITS ---
Test Reason : AM EKG Blood Pressure : */* mmHG Vent. Rate : 77 BPM Atrial Rate : 77 BPM P-R Int : 160 ms QRS Dur : 152 ms QT Int : 404 ms P-R-T Axes : 62 71 47 degrees QTcB Int : 457 ms Normal sinus rhythm Possible Left atrial enlargement Right bundle branch block Abnormal ECG When compared with ECG of 06-Jun-2022 11:23, Premature ventricular complexes are no longer Present Confirmed by DONG CHOI, JOHN ([id number]), film editor MELVIN HOUGH ([id number]) on 07/12/2024 11:00:21 AM Referred By: VILLAGOMEZ Confirmed By: JOHN UMANA MD
[2024-07-12 05:11] LABS: Anion Gap 5 (5-15); BUN 19 mg/dL (7-18); BUN/Creat Ratio 20.7 RATIO (10-20); Calcium,Total 8.9 mg/dL (8.5-10.1); Chloride 108 mmol/L (98-107); Creatinine, Serum 0.92 mg/dL (0.70-1.30); EST Glomerular Filtration Rate 83 mL/min (>60); Est Glom Filt Rate - Afr Amer 101 mL/min (>60); Estimated Creatinine Clearance 76.64 ml/min; Glucose 103 mg/dL (74-106); Potassium 3.8 mmol/L (3.5-5.1); Sodium Level 137 mmol/L (136-145)
[2024-07-12] MEDS: Acetaminophen 500 MG Tablet 1000 MG PO ×2 (05:36→22:41)
--- NOTE | 2024-07-12 07:28 | PN.HOSP_ITS ---
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 No pain control. Objective Data Objective Data Vital Signs: Vital Signs Temp Pulse Resp BP Pulse Ox O2 Del Method O2 Flow Rate 36.5 C L 80 16 154/85 H 94 Room Air 1 07/12/24 03:30 07/12/24 05:29 07/12/24 03:30 07/12/24 03:30 07/12/24 03:30 07/12/24 03:30 07/10/24 02:10 Oxygen Flow Rate (L/min) 1 Oxygen Delivery Method Room Air Weight: 103.4 kg Body Mass Index (BMI) 28.3 Intake & Output: Intake and Output for Last 24 Hours 07/10/24 07/11/24 07/12/24 23:59 23:59 23:59 Intake Total 750 / 950 2204 / 2579 400 / 400 Output Total 1500 / 2050 1625 / 2275 1250 / 1250 Balance -750 / -1100 579 / 304 -850 / -850 Lab / Micro Data 07/12/24 03:55 07/12/24 03:55 Labs: Laboratory Results - last 24 hr 07/12/24 03:55: WBC 7.0, RBC 4.39 L, Hgb 14.1, Hct 41.9, MCV 95.4 H, MCH 32.1 H, MCHC 33.7, RDW Std Deviation 43.6, RDW Coeff of Erin 12.6, Plt Count 137 L, MPV 9.7, Immature Gran % (Auto) 0.100, Neut % (Auto) 71.8 H, Lymph % (Auto) 15.4 L, [place] % (Auto) 8.8, Eos % (Auto) 3.6, Baso % (Auto) 0.3, Absolute Neuts (auto) 5.0, Absolute Lymphs (auto) 1.07, Nucleated RBC % 0, Sodium 137, Potassium 3.8, Chloride 108 H, Carbon Dioxide 24.0, Anion Gap 5, BUN 19 H, Creatinine 0.92, Estim Creat Clear Calc 76.64, Est GFR (MDRD) Af Amer 101, Est GFR (MDRD) Non-Af 83, BUN/Creatinine Ratio 20.7 H, Glucose 103, Calcium 8.9, Blood Type A POSITIVE, Antibody Screen NEGATIVE Physical Exam Const alert and no apparent distress HEENT head/scalp atraumatic and moist oral mucous membranes Resp normal respiratory effort and no retractions Neuro Sensorium / Orientation: awake Assessment & Plan Assessment/Plan (1) Closed fracture of neck of left femur: QUALIFIERS: Encounter type: initial encounter Qualified Code(s): S72.002A - Fracture of unspecified part of neck of left femur, initial encounter for closed fracture PLAN: Bed rest. Mascorro catheter in place until surgery. Pain control. Dr. Luna on consult. Surgery planned for 07/12 to give time for apixaban to wear off. 25-OH d level 72.1. No need for replacement. PLAN: Plan Chronic conditions: * prostate CA: follow up with oncology * HTN: stable. continue ACEi and BB * pAfib: apixaban on hold for surgery. Resume when ok by orthopaedics. VTE prophylaxis: SCDs. Charges/Coding Visit Charges Inpatient E&M: 55314 Subs Hosp L1
[2024-07-12] MEDS: Metoprolol Tartrate 25 MG Tablet PO ×2 (08:26→22:41)
[2024-07-12] MEDS: Senna/Docusate Sodium 1 Tablet 2 TABLET PO ×2 (08:27→22:41)
[2024-07-12] MEDS: Cholecalciferol (Vit D3) 125 MCG CAPSULE (5,000 UNITS) 250 MCG PO (08:27)
[2024-07-12] MEDS: Lisinopril 20 MG Tablet PO (08:27)
[2024-07-12] MEDS: Calcium Carb/Vitamin D 1 TABLET Tablet PO (08:27)
--- NOTE | 2024-07-12 08:42 | CASEMGMT ---
Social Work As per RN, pt would like to go to rehab or TCU postoperatively, having surgery today. SW spoke w/pt at the bedside, confirmed he would like to go to rehab or TCU postoperatively. SW explained will make the referrals tomorrow once he is done with surgery and has had PT/OT. SW explained we will see at that time if either unit can take pt. Pt declined SNF and rehab lists today should they be needed, would rather review those postoperatively should additional choices be available. SW did reach out to TCU/Rehab, there is some limited bed availability. Referral to be made tomorrow, referral cannot yet be made today. ISRAEL Zamora
[2024-07-12 09:12] LABS: Vitamin D,25 Hydroxy 72.1 ng/mL
--- NOTE | 2024-07-12 10:52 | CASEMGMT ---
Social Work Pt's Faye Martinez called SW, wanted to pass on her phone numbers for the surgeon to call her after surgery, as she is not able to come into the hospital to be here due to her being on oxygen and it being so cold outside. (SW let RN know, she put the 's numbers on the paperwork that goes to the OR, for the postop staff to call ). also wanted to inform SW that she really wants pt to go to the inpt rehab unit after surgery, as she thinks pt would benefit from 3 hours of therapy each day. SW explained we will make the referral, will need to see if they can take pt and then see if insurance will authorize. SW explained we can try for TCU after that as that what pt was wanting, and can provide lists to she and pt should neither rehab or TCU be able to take pt. states she has a call in to their PCP to discuss other options should it be needed. SW will continue to follow, will follow up w/pt and postoperatively. ISRAEL Zamora
--- NOTE | 2024-07-12 12:00 | HIP_PTH ---
PATIENT: TWAN VERNON LOC: [facility] U#:[id number] AGE/SX: 83/M [place] [facility] [place]: Dr. Cristofer Newton DO : 1940 BED: 1 DIS: 07/14/2024 SPEC #: [id number] RECD: 07/12/24 16:48 STATUS: AVIS RELuann #: [id number] [place]: 07/12/24 12:[address]: Panfilo Luna DEPT: SURGICAL PATHOLOGY RECD BY: Lisseth Hernandez ENTERED: 07/13/24 10:07 SP TYPE: TOTAL HIP OTHR DR: MD Dr. Charly Knight, DO Dr. Hima Norman Dr., DO Dr. Rodney Miller, MD Dr. Steven Widmer, MD Dr. Timothy J Miller, DPM Kendy Dominguez, MAMI Gonzalez PA Raymond Eshenaur, PA-C Thomas Janas, PA-C Tissues: Hip, NOS Procedures: Decalcification bone/plaque Surgery Specimen Level IV HEADER OPERATION: Hemiarthroplasty, hip PRE-OP DIAGNOSIS: Closed fracture of neck of left femur TISSUE SUBMITTED: Left hip bone and tissue MICROSCOPIC DIAGNOSIS Left hip bone and soft tissue, total hip replacement/resection: Femoral head and detached pieces of bone with focal area of hemorrhage, clinically fractured neck of left femur. Fragments of dense fibroconnective tissue and reactive synovial tissue. SJ: 07/16/2024 MICROSCOPIC DESCRIPTION Slides are reviewed. GROSS DESCRIPTION Received is one container labeled with the patient's name and designated femoral head and tissue. The specimen consists of a chawla femoral head measuring 5 x 5 x 4.5 cm. The articular surface is smooth. Resection margin is irregular and hemorrhagic. Attached to the femoral head is a piece of soft tissue measuring 2.5 x 0.5 x 0.1cm. Also present in the specimen container are multiple detached pieces of bone measuring in aggregate 6 x 5 x 2.5 cm. Interventional Cardiologist sections are submitted in three cassettes as follows: 1 - soft tissue, entirely submitted, 2 - detached pieces of bone after decalcification, 3 - femoral head after decalcification. / SJ.mr 07/13/2024 TC:5 CPT: 42807, 34582
--- NOTE | 2024-07-12 13:47 | PRE.ANES_ITS ---
ASA Classification* ASA Classification ASA Classification: 3 Assessment & Plan Anesthesia* Anesthesia Assessment Anesthesia Assessment: Discussed sedation and/or anesthesia options, risks, benefits, and alternatives with patient/parents/legal guardian/POA. Questions invited. The patient/parents/legal guardian/POA seems to understand and agrees to proceed with anesthesia plan. Reviewed the physical assessment, medical history, allergy history and patient home medications list prior to surgery/procedure/anesthetic and documented any changes. Performed airway and anesthesia risk assessments. Anesthesia Type Anesthesia Type: General (patient took eliquis last friday night thus spinal is contraindicated) History Source History Obtained from:: Patient and Chart Anesthesia Focused Assessment* Temperature: 98.4 F Pulse Rate: 80 Blood Pressure: 154/99 Respiratory Rate: 16 Pulse Ox: 95 Oxygen Delivery Method: Room Air Oxygen Flow Rate (L/min): 1 Airway Assessment Mouth opens: >3 cm Mallampati Score: II Teeth Condition: Caps/Crowns and Chipped/Broken (few chipped teeth, nothing loose) Neck Range of motion (ROM): Full ROM Focused Labs Anesthesia Preop lab: CBC WBC 7.0 K/mm3 (4.4-11.0) 07/12/24 03:55 RBC 4.39 M/mm3 (4.6-6.2) L 07/12/24 03:55 Hgb 14.1 g/dL (13.0-16.5) 07/12/24 03:55 Hct 41.9 % (40-54) 07/12/24 03:55 Plt Count 137 K/mm3 (150-450) L 07/12/24 03:55 CHEMISTRY Potassium 3.8 mmol/L (3.5-5.1) 07/12/24 03:55 Sodium 137 mmol/L (136-145) 07/12/24 03:55 Magnesium 2.0 mg/dL (1.6-2.6) 07/10/24 05:55 Phosphorus 3.7 mg/dL (2.5-4.9) 07/10/24 05:55 BUN 19 mg/dL (7-18) H 07/12/24 03:55 Creatinine 0.92 mg/dL (0.70-1.30) 07/12/24 03:55 Glucose 103 mg/dL (74-106) 07/12/24 03:55 TSH 2.560 uIU/mL (0.358-3.740) 07/10/24 00:00 COAG PT 14.9 SECONDS (11.7-14.9) 07/10/24 00:00 Pre-Assessment Diagnosis/Proposed Procedure Planned Operative Procedure(s): LEFT Hip Hemiarthroplasty Anesthesia History 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 When Was Last Pacemaker Check QUESTION #4 FULL TEXT: You/Your Family Experience fever (hyperthermia) with Anesthesia Last Oral Intake Last Oral intake: Last Oral Intake NPO since 10:00 07/12/24 08:18 Meds taken in AM with sips of Yes 07/12/24 08:18 water? 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 operator control room operator: PONV - plant operator control room operator Female HX of Motion Sickness HX of N/V After Surgery Non-Smoker Duration of Surgery greater than 60 minutes Number of Risk Factors PONV Score Any additional information?: Yes Female: No HX of Motion Sickness: No HX of N/V After Surgery: No Non-Smoker: Yes Duration of Surgery greater than 60 minutes: Yes Number of Risk Factors: 2 PONV Score: Moderate Risk Height & Weight Height & Weight: Anesthesia: Height & Weight Height 6 ft 3 in 07/12/24 08:18 Weight: 103.4 kg 07/12/24 08:18 Body Mass Index (BMI) 28.5 07/12/24 08:18 Respiratory Assessment Respiratory Assessment - plant operator control room operator: Respiratory Tract Infection Hx - plant operator control room operator Hx Respiratory Tract Infection No 07/12/24 03:00 STOP Sleep Apnea STOP Sleep Apnea - plant operator control room operator: STOP Sleep Apnea - plant operator control room operator Hx Hypertension Yes 07/10/24 03:59 Hx Sleep Apnea No 07/10/24 03:59 CPAP BIPAP Do you snore loudly (louder No 07/10/24 03:59 than talking or can be heard Do you often feel tired/ No 07/10/24 03:59 fatigued/ sleepy during daytime? Has anyone observed you stop Yes 07/10/24 03:59 breathing during sleep? STOP Results Positive 07/10/24 03:59 QUESTION #5 FULL TEXT : Do you snore loudly (louder than talking or can be heard through closed doors)? 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 Specify any problems Hx of Preganancy in last 3 N/A 07/10/24 03:59 Months Nurse Filling Out Transfusion EVIZZO 07/10/24 03:59 & Questions: Date: 07/10/24 07/10/24 03:59 Time: 04:03 07/10/24 03:59 Patient unable to answer at this time (ie. confused, unrespo /Reproduction History /Reproductive History - plant operator control room operator: /Reproductive Hx- plant operator control room operator Hx Now No 07/12/24 03:00 Gestational Age (in weeks): EDC: Hx Hx Para Hx Section SAB No 07/12/24 03:00 Active Medications Active Medications: Current Medications Generic Name Dose Route Start Last Admin Trade Name Freq PRN Reason Stop Dose Admin Acetaminophen 1,000 mg 07/10/24 14:00 07/12/24 05:36 Acetaminophen 500 Mg Tablet PO 1,000 mg Q8 SANJUANITA Administration Al Hydroxide/Mg Hydroxide 30 ml 07/10/24 03:59 Mag Hydrox/Al Hydrox/Simeth 30 Ml Udc PO Q6H PRN PRN Gastric Burning Calcium/Vitamin D 1 tablet 07/10/24 08:00 07/12/24 08:27 Calcium Carb/Vitamin D 1 Tablet Tablet PO 1 tablet BIDCM SANJUANITA Administration Cholecalciferol 250 mcg 07/10/24 10:00 07/12/24 08:27 Cholecalciferol (Vit D3) 125 Mcg Capsule (5,000 Units) PO 250 mcg DAILY SANJUANITA Administration Diphenhydramine HCl 25 mg 07/10/24 03:59 Diphenhydramine 50 Mg/Ml Syringe IV Q8H PRN PRN ALLERGIES Hydralazine HCl 10 mg 07/10/24 03:59 Hydralazine 20 Mg/Ml Vial IV Q6H PRN PRN SBP GREATER THAN 160 Protocol Sodium Chloride 1,000 mls @ 15 mls/hr 07/12/24 12:25 IV 07/18/24 01:44 .Q48H SANJUANITA Protocol Lisinopril 20 mg 07/10/24 10:00 07/12/24 08:27 Lisinopril 20 Mg Tablet PO 20 mg DAILY SANJUANITA Administration Protocol Melatonin 3 mg 07/10/24 03:59 Melatonin 3 Mg Tablet PO QHS PRN PRN INSOMNIA Metoprolol Tartrate 25 mg 07/10/24 10:00 07/12/24 08:26 Metoprolol Tartrate 25 Mg Tablet PO 25 mg BID SANJUANITA Administration Protocol Morphine Sulfate 2 mg 07/10/24 03:59 07/10/24 20:21 Morphine 2 Mg/Ml Syringe IV 2 mg Q4H PRN PRN Administration Pain Score 6-10 Ondansetron HCl 4 mg 07/10/24 03:59 Ondansetron 4 Mg/2 Ml Vial IV Q8H PRN PRN NAUSEA/VOMITING Polyethylene Glycol 17 gm 07/10/24 03:59 Polyethylene Glycol 3350 17 Gm Packet PO DAILY PRN constipation Senna/Docusate Sodium 2 tablet 07/10/24 22:00 07/12/24 08:27 Senna/Docusate Sodium 1 Tablet PO 2 tablet BID SANJUANITA Administration Sodium Chloride 10 - 40 ml 07/10/24 04:06 07/11/24 06:10 0.9% Saline Lock 10 Ml Syringe IV 10 ml UD PRN Administration SALINE FLUSH [facility] Medical History Segmental and somatic dysfunction of lumbar region Segmental and somatic dysfunction of pelvic region DDD (degenerative disc disease), lumbar Prostate CA RBBB Atrial fibrillation Essential hypertension Actinic keratosis, hx of History of malignant melanoma Enlarged prostate Arthritis Environmental allergies Pain at surgical incision Internal hemorrhoids Diverticulosis Home Medications ?Medication ?Instructions ?Recorded ?Last Taken ?Type enalapril maleate 20 mg tablet 20 mg PO DAILY 07/10/16 07/10/16 08:00 History calcium 300 mg-D3 20 mcg-magnesium 1 tab PO BID 07/12/22 Unknown History 25 mg-coppr 0.5 [id number] tablet (Caltrate-D3 Plus Minerals) apixaban 2.5 mg tablet (Eliquis) 2.5 mg PO BID Dose decreased due 07/15/23 Unknown Rx to creat clearance #180 tabs metoprolol tartrate 25 mg tablet See Rx Instructions .Route 07/21/23 Unknown Rx .COMPLEX #180 tabs cholecalciferol (vitamin D3) 250 10,000 unit PO DAILY 07/09/24 Unknown History mcg (10,000 unit) capsule acetaminophen 500 mg capsule 500 mg PO Q6H PRN pain 07/10/24 Unknown History polyethylene glycol 3350 17 17 g PO DAILY PRN constipation 07/10/24 Unknown History gram/dose oral powder (ClearLax) Allergy/AdvReac Type Severity Reaction Status Date / Time No Known Allergies Allergy Verified 07/09/24 23:05 Family History Father Hypertension CVA (cerebral vascular accident) Grandfather Hypertension Grandfather Heart disease Mother Heart disease Hypertension Other CAD (coronary artery disease) Cancer Surgical History Hx of basal cell carcinoma excision History of hernia repair Social History Smoking Status: Former smoker alcohol intake: current alcohol intake frequency: 0-2 drinks per day substance use type: does not use caffeine: Yes Type: coffee Number of servings: 3 what type of physical activity do you participate in: bicycling frequency: 1-2 times per week Review of Systems (Anesthesia) ROS Narrative System reviewed and no additional complaints, except as documented.
--- NOTE | 2024-07-12 14:47 | PCM.PN.ORT ---
Subjective Subjective Patient seen and examined. Denies any new complaints. Pain relatively controlled. Ready for surgery. Objective Data Objective Data Vital Signs: Vital Signs Temp Pulse Resp BP Pulse Ox O2 Del Method O2 Flow Rate 98.4 F 80 16 154/99 H 95 Room Air 1 07/12/24 13:50 07/12/24 13:50 07/12/24 13:50 07/12/24 13:50 07/12/24 13:50 07/12/24 13:50 07/12/24 13:50 Oxygen Flow Rate (L/min) 1 Oxygen Delivery Method Room Air Weight: 227 lb 15.327 oz Body Mass Index (BMI) 28.5 Intake & Output: Intake and Output for Last 24 Hours 07/10/24 07/11/24 07/12/24 23:59 23:59 23:59 Intake Total 750 / 950 2204 / 2579 400 / 400 Output Total 1500 / 2050 1625 / 2275 1525 / 1525 Balance -750 / -1100 579 / 304 -1125 / -1125 Lab / Micro Data 07/12/24 03:55 07/12/24 03:55 Labs: Laboratory Results - last 24 hr 07/10/24 05:55: Vitamin D 25-Hydroxy 72.1 07/12/24 03:55: WBC 7.0, RBC 4.39 L, Hgb 14.1, Hct 41.9, MCV 95.4 H, MCH 32.1 H, MCHC 33.7, RDW Std Deviation 43.6, RDW Coeff of Erin 12.6, Plt Count 137 L, MPV 9.7, Immature Gran % (Auto) 0.100, Neut % (Auto) 71.8 H, Lymph % (Auto) 15.4 L, Upton % (Auto) 8.8, Eos % (Auto) 3.6, Baso % (Auto) 0.3, Absolute Neuts (auto) 5.0, Absolute Lymphs (auto) 1.07, Nucleated RBC % 0, Sodium 137, Potassium 3.8, Chloride 108 H, Carbon Dioxide 24.0, Anion Gap 5, BUN 19 H, Creatinine 0.92, Estim Creat Clear Calc 76.64, Est GFR (MDRD) Af Amer 101, Est GFR (MDRD) Non-Af 83, BUN/Creatinine Ratio 20.7 H, Glucose 103, Calcium 8.9, Blood Type A POSITIVE, Antibody Screen NEGATIVE Physical Exam Narrative General -A&Ox3, NAD, appears stated age. Vital signs stable, afebrile. Respiratory -normal work of breathing, no intercostal retractions. CV -pulses regular, brisk capillary refill ?4 limbs. Abdomen-soft, nontender, nondistended. No guarding, rigidity, rebound tenderness. Musculoskeletal/neurologic -full range of motion nontender throughout bilateral upper extremities, right lower extremity with full sensation and strength in all dermatomes and myotomes. No midline cervical tenderness. Left lower extremity-no obvious deformity. Pain with logroll of the left lower extremity. Nontender throughout the left knee femoral shaft, tibial shaft and left foot/ankle. Brisk capillary refill. Sensation intact light touch L3-S1 dermatomes. DF, PF, EHL intact. DP, PT 2+. Pelvis is stable, nontender. Skin is intact without lacerations, abrasions. No ecchymosis noted. Assessment & Plan Assessment/Plan (1) Closed fracture of neck of left femur: QUALIFIERS: Encounter type: initial encounter Qualified Code(s): S72.002A - Fracture of unspecified part of neck of left femur, initial encounter for closed fracture PLAN: Plan to proceed with left hip hemiarthroplasty. Patient medically optimized. Further recommendations pending surgery. Plan to return to start home [facility] postoperative day 1.
[2024-07-12] MEDS: Cefazolin 2 GM in Syringe IV ×2 (14:52→21:41)
[2024-07-12] MEDS: TRANEXAMIC ACID 1,000 MG in 0.9% Normal Saline (100mL Bag) 100 ML 440 MG IV (14:52)
--- NOTE | 2024-07-12 15:45 | CASEMGMT ---
Social Work Lists created in [facility] of both nursing home facilities and acute rehab facilities in network w/pt's insurance, in pt's preferred geographic area and complete w/quality and resource use data should they be needed. ISRAEL Zamora
[2024-07-12] MEDS: Bupiv/Epi 0.25% 30 ML Vial (16:26)
--- NOTE | 2024-07-12 16:52 | POSTOPAN2_ITS ---
Anesthesia Postop Eval I Sum Postop Eval Completion status Anesthesia document: Postop Eval 1 completed: Yes Anesthesia Postop Eval I Summary Anesthesia Postop Eval I Summary: Anesthesia Postop Eval I: Assessment Summary Airway patent Yes 07/12/24 16:52 [email or web address] Spontaneous unlabored Yes 07/12/24 16:52 [email or web address] respirations Mental status nausea No 07/12/24 16:52 [email or web address] Vomiting No 07/12/24 16:52 [email or web address] Anesthesia Postop Eval I: Fluid Summary Crystalloid volume administer 550 07/12/24 16:52 [email or web address] (ml) Colloids volume administered ( ml) Blood Product volume administered (ml) Total IV fluid infused 550 07/12/24 16:52 [email or web address] Anesthesia Postop Eval I: Summary Notes Anesthesia Complication No 07/12/24 16:52 [email or web address] Anesthesia Complication Comment: Post-operative progress note Anesthesia: Postop Eval II Evaluation Mental status: Asleep Pain Level: 0 nausea: No Vomiting: No
--- NOTE | 2024-07-12 16:52 | PCM.POST.ANE ---
Anesthesia: Postop Eval I Current Vital Signs Temperature: 98.5 F Pulse Rate: 77 Blood Pressure: 141/77 Respiratory Rate: 19 Pulse Ox: 100 Assessment Airway patent: Yes Spontaneous unlabored respirations: Yes nausea: No Vomiting: No Anesthesia Complication: No Fluid Hydration Crystalloid volume administer (ml): 550 Total IV fluid infused: 550 Progress Note Anesthesia document: Postop Eval 1 completed: Yes
--- NOTE | 2024-07-12 16:52 | PCM.POSTANE2 ---
Anesthesia Postop Eval I Sum Postop Eval Completion status Anesthesia document: Postop Eval 1 completed: Yes Anesthesia Postop Eval I Summary Anesthesia Postop Eval I Summary: Anesthesia Postop Eval I: Assessment Summary Airway patent Yes 07/12/24 16:52 COMMUNITY [email or web address] [email or web address] Spontaneous unlabored Yes 07/12/24 16:52 COMMUNITY [email or web address] [email or web address] respirations Mental status nausea No 07/12/24 16:52 COMMUNITY [email or web address] [email or web address] Vomiting No 07/12/24 16:52 COMMUNITY [email or web address] [email or web address] Anesthesia Postop Eval I: Fluid Summary Crystalloid volume administer 550 07/12/24 16:52 COMMUNITY [email or web address] [email or web address] (ml) Colloids volume administered ( ml) Blood Product volume administered (ml) Total IV fluid infused 550 07/12/24 16:52 COMMUNITY [email or web address] [email or web address] Anesthesia Postop Eval I: Summary Notes Anesthesia Complication No 07/12/24 16:52 COMMUNITY [email or web address] [email or web address] Anesthesia Complication Comment: Post-operative progress note Anesthesia: Postop Eval II Evaluation Mental status: Asleep Pain Level: 0 nausea: No Vomiting: No
--- NOTE | 2024-07-12 17:02 | OP.PCM_ITS ---
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 Workday Consultant: Hammad Garvin Tasks completed by horticultural nursery assistant: Opening & closing, Implanting device and Retracting Additional clinical trial assistant?: No Type of Anesthesia: General RN Documented Start/Stop Times: Operation Date: 07/12/24 12:00 Case Time Into Pre-Op 07/12/24 11:31 Out of Pre-Op 07/12/24 14:51 Anesthesia Start 07/12/24 14:52 Into Room 07/12/24 14:52 Procedure Start 07/12/24 15:25 Procedure End 07/12/24 16:35 Anesthesia End 07/12/24 16:44 Out of Room 07/12/24 16:44 Into Recovery 07/12/24 16:48 Procedure Start Time: 15:25 Procedure Stop Time: 16:35 Select all DRAINS/GRAFTS/IMPLANTS that apply: Implanted device Implanted device details: Vikas insignia size #6 high offset femoral stem, +0 mm neck adjustment sleeve, 56 mm cobalt chrome unipolar head Estimated Blood Loss: 150 cc Specimen collected: Yes Description of specimen(s) removed: Left femoral head Description of surgery: Prior to the procedure, patient was brought to the preoperative holding area where patient was identified by name, medical record number and date of . I confirmed the side, site, operation to be performed with the patient. Informed consent was confirmed, All questions were answered to patient satisfaction. The operative extremity was marked. He was also seen by anesthesia staff and anesthesia consent obtained.At time of the operative procedure, pt was brought to the operative suite. General anesthesia was induced on the hospital bed and endotracheal tube placed. After adequate anesthesia, patient was transferred to a standard operating table. He was then positioned in the lateral decubitus position with the left side up and held in position by [employer] hip positioner system. All bony prominences were well-padded. A axillary roll was placed under the patient's right axilla. Peroneal nerve was free with a blanket on the nonoperative extremity. Leg lengths were reproduced from patient's position when he was supine. The left lower extremity was then prepped and draped in normal, sterile orthopedic fashion. We performed a timeout with all parties in attendance in agreement with the side, site, and operation to be performed. No concerns were voiced and would like to proceed. 2 g Ancef and 1 g IV TXA was ministered IV prior to incision by anesthesia staff. I first marked an incision along the lateral aspect of the hip centered over the greater trochanteric tip. In standard posterior approach, a curvilinear incision was made above the trochanter. An approximately 15 cm incision was made. Skin was sharply incised with a 10 blade scalpel carried deep through subcutaneous layers to the level of the IT band. Gelpi retractors were then placed. A Valenzuela was used to expose the IT band. Bovie cautery was then used for hemostasis and then to open the IT band. This was opened in line with the incision. A Charnley retractor was then placed. Sciatic nerve is free. The trochanteric bursa was then debrided. This identified the short external rotators after internal rotation of the hip. The fracture site was easily identified at this point. Short external rotators were taken down and tagged for later repair. Hip capsule was also tagged for repair with a stay suture. We then freshened the neck cut with a sagittal saw. Anterior and posterior acetabular retractors were placed to gain access to the femoral head. A corkscrew was used to remove the head. Any remaining debris was debrided from the acetabulum. We then placed the femoral head on the back table for measurement. We did use trial heads and selected a final size 56 with good suction fit. Box chisel was then utilized to gain access to the femoral canal. Canal finder was placed. Sequential broaches were used and press-fit manner. A final size 6 achieved excellent vertical and rotational stability. We then trialed with a standard and subsequently high offset stem. High offset did achieve excellent stability and reproduction of abductor tension. Leg lengths appeared appropriate with a size 0 neck length. Trials were then removed. Canal was irrigated. A size 6 stem was then impacted with excellent fixation. Final head was then impacted over the Barlow taper neck. Final reduction was performed. A posterior capsular repair was performed with #2 Ethibond suture. IT band was closed watertight with #1 Vicryl suture. Deeper fascial layers were closed with 0 Vicryl suture in interrupted fashion. Subcutaneous layers were reapproximated with 2-0 Vicryl suture and skin reapproximated with skin thelma. A silver dressing was applied. Patient tolerated procedure well without complication. She he was positioned back in the supine position on her hospital bed and subsequently extubated safely. He was transferred to PACU in stable condition. Blankets were placed between the patient's leg to be worn while she is in bed. Post Operative Plan: Weightbearing: Weightbearing as tolerated left lower extremity, posterior hip precautions. Blankets between legs x 24 hours Antibiotics: Ancef 2g every 8 hours x 3 doses DVT Prophylaxis: Restart home Eliquis postoperative day number 1 in the morning Mascorro: None Dressing: Maintain silver dressing x5 days X-Rays: PACU x-rays were reviewed demonstrated well-positioned left hip hemiarthroplasty implant. Follow-up 2-week x-rays in the office. Follow-up: 2 weeks in my office for staple removal Surgical Findings: Displaced left femoral neck fracture. Stable hip following final reduction Complications Complications: No Admit VTE Documentation VTE Present on Admission: No VTE Mechan Device Prophylaxis: Thigh High TRELL Hose VTE Pharm Prophylaxis ordered?: Yes
--- NOTE | 2024-07-12 17:10 | RAD_ITS ---
STUDY: X-RAY - PELVIS AND LEFT HIP REASON FOR EXAM: Male, 83 years old. Post Op -- AP both hips on single sandie/lateral of op hip PACU TECHNIQUE: 2 views of the pelvis and hip. COMPARISON: None. FINDINGS: Left hip prosthesis is noted in anatomic alignment and position.. 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 Electronically Signed: Hima Barnes MD at 18:08 EST ,
[2024-07-13] VITALS (11 sets, daily range): BP systolic 113–165; BP diastolic 71–85; PULSE 78–93; RESP 16–18; TEMP 36.6–37.1; O2SAT 95–100; BMI 30.2
[2024-07-13] MEDS: Cefazolin 2 GM in Syringe IV ×2 (05:19→14:11)
[2024-07-13] MEDS: Acetaminophen 500 MG Tablet 1000 MG PO ×3 (06:37→20:45)
--- NOTE | 2024-07-13 07:02 | PN.HOSP_ITS ---
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 No issues overnight. Objective Data Objective Data Vital Signs: Vital Signs Temp Pulse Resp BP Pulse Ox O2 Del Method O2 Flow Rate 36.8 C 86 16 165/84 H 95 Room Air 2 07/13/24 06:33 07/13/24 06:33 07/13/24 06:33 07/13/24 06:33 07/13/24 06:33 07/13/24 06:33 07/13/24 02:21 Oxygen Flow Rate (L/min) 2 Oxygen Delivery Method Room Air Weight: 110.4 kg Body Mass Index (BMI) 30.2 Intake & Output: Intake and Output for Last 24 Hours 07/11/24 07/12/24 07/13/24 23:59 23:59 23:59 Intake Total 2204 / 2579 550 / 750 420 / 420 Output Total 1625 / 2275 1775 / 2100 625 / 625 Balance 579 / 304 -1225 / -1350 -205 / -205 Lab / Micro Data 07/12/24 03:55 07/12/24 03:55 Labs: Laboratory Results - last 24 hr 07/10/24 05:55: Vitamin D 25-Hydroxy 72.1 Radiography Diagnostic Testing: Radiology Impression Hip X-Ray 07/12/24 17:10 IMPRESSION: Stable appearance to left hip prosthesis.. Electronically Signed: Hima Barnes MD at 18:08 EST , Physical Exam Const alert and no apparent distress Constitutional Narrative: up in chair. HEENT head/scalp atraumatic Resp normal respiratory effort and no retractions Neuro Sensorium / Orientation: awake and alert Assessment & Plan Assessment/Plan (1) Closed fracture of neck of left femur: QUALIFIERS: Encounter type: initial encounter Qualified Code(s): S72.002A - Fracture of unspecified part of neck of left femur, initial encounter for closed fracture PLAN: Bed rest. Mascorro catheter in place until surgery. Pain control. Pt underwent Left hip hemiarthroplasty 07/12 25-OH d level 72.1. No need for replacement. Per ortho: WBAT, maintain dressing for 5 days. Follow up with orthopaedics in 2 weeks. Awaiting on PT OT eval. Disposition destination pending evaluation. PLAN: Plan Chronic conditions: * prostate CA: follow up with oncology * HTN: stable. continue ACEi and BB * pAfib: apixaban held for surgery. Resume today VTE prophylaxis: SCDs. Charges/Coding Visit Charges Inpatient E&M: 32443 [facility] L[facility]
[2024-07-13] MEDS: APIXABAN 2.5 MG TABLET (WCH) PO ×2 (08:37→20:44)
[2024-07-13] MEDS: Calcium Carb/Vitamin D 1 TABLET Tablet PO ×2 (08:37→16:21)
[2024-07-13] MEDS: Senna/Docusate Sodium 1 Tablet 2 TABLET PO ×2 (08:38→20:44)
[2024-07-13] MEDS: Metoprolol Tartrate 25 MG Tablet PO ×2 (08:38→20:45)
[2024-07-13] MEDS: Lisinopril 20 MG Tablet PO (08:39)
[2024-07-13] MEDS: Cholecalciferol (Vit D3) 125 MCG CAPSULE (5,000 UNITS) 250 MCG PO (08:39)
--- NOTE | 2024-07-13 10:23 | NURSING ---
SN working under direction of Primary RN. Concur with documentations
--- NOTE | 2024-07-13 11:26 | CASEMGMT ---
Social Work- Pt has directives on chart naming Faye Nails, , as primary agent and Scooter and Nazario, sons, as alternate agents. JOSE Silva
--- NOTE | 2024-07-13 13:39 | CASEMGMT ---
Social Work- SW advised that pt would like a referral to TCU. SW completed referral. Pt referral accepted. Pt notified of acceptance. Pt called to provide update. Pt reports that she would prefer [facility] for additional therapy hours and reports that pt PCP recommended RU. SW provided education on the differences between RU and TCU. SW updated admissions at TCU/RU. Lab work requested by admissions. Physician updated. SW remains available to follow. Plan: TCU; nini precert JOSE Silva
[2024-07-13] MEDS: 0.9% Saline Lock 10 ML Syringe IV (14:11)
[2024-07-13] MEDS: Ondansetron 4 MG/2 ML Vial IV (14:11)
[2024-07-13 17:15] LABS: Absolute Lymphocyte Count 0.87 X10^3/uL (0.83-4.51); Absolute Neutrophil Count 6.6 X10^3/uL (2.0-7.7); Basophil# 0.02 X10^3/uL; Basophil% 0.2 % (0-1); Eosinophil# 0.07 X10^3/uL; Eosinophils% 0.8 % (0-5); Hematocrit 39.1 % (40-54); Lymphocyte # 0.87 X10^3/ul (0.83-4.51); Lymphocyte % 10.3 % (19-41); Mean Corp Hgb Conc 33.2 g/dL (32-36); Mean Corpuscular Hgb 31.9 pg (27.0-32.0); Mean Corpuscular Volume 96.1 fL (80-94); Mean Platelet Vol. 9.4 fl (6.2-12.0); Monocyte# 0.84 X10^3/uL; NRBC Flagged by Analyzer 0 % (0-5); Neutrophil # 6.59 X10^3/uL (2.7-7.7); Neutrophil % 78.2 % (47-70); Platelet Count 144 K/mm3 (150-450); RBC Distribution Width CV 12.6 % (11.6-14.6); RBC Distribution Width SD 44.2 fl (35.1-43.9); Red Blood Count 4.07 M/mm3 (4.6-6.2); White Blood Count 8.4 K/mm3 (4.4-11.0)
[2024-07-13 17:43] LABS: Anion Gap 7 (5-15); BUN 28 mg/dL (7-18); BUN/Creat Ratio 25.2 RATIO (10-20); Calcium,Total 8.8 mg/dL (8.5-10.1); Chloride 104 mmol/L (98-107); Creatinine, Serum 1.11 mg/dL (0.70-1.30); EST Glomerular Filtration Rate 67 mL/min (>60); Est Glom Filt Rate - Afr Amer 81 mL/min (>60); Estimated Creatinine Clearance 65.28 ml/min; Glucose 120 mg/dL (74-106); Potassium 4.2 mmol/L (3.5-5.1); Sodium Level 136 mmol/L (136-145)
--- NOTE | 2024-07-13 19:48 | PCM.PN.ORT ---
Subjective Subjective Patient seen and examined. Up with therapy today. Reports minimal pain. Denies fevers, chills, nausea or vomiting, chest pain or shortness of breath. Objective Data Objective Data Vital Signs: Vital Signs Temp Pulse Resp BP Pulse Ox O2 Del Method O2 Flow Rate 98.7 F 89 18 143/85 H 100 Room Air 2 07/13/24 14:18 07/13/24 18:31 07/13/24 14:18 07/13/24 14:18 07/13/24 14:18 07/13/24 14:18 07/13/24 08:05 Oxygen Flow Rate (L/min) 2 Oxygen Delivery Method Room Air Weight: 243 lb 6.245 oz Body Mass Index (BMI) 30.2 Intake & Output: Intake and Output for Last 24 Hours 07/11/24 07/12/24 07/13/24 23:59 23:59 23:59 Intake Total 2204 / 2579 550 / 750 440 / 440 Output Total 1625 / 2275 1775 / 2100 925 / 925 Balance 579 / 304 -1225 / -1350 -485 / -485 Lab / Micro Data Attestation: I reviewed the patient's lab results. 07/13/24 17:01 07/13/24 17:01 Labs: Laboratory Results - last 24 hr 07/13/24 17:01: WBC 8.4, RBC 4.07 L, Hgb 13.0, Hct 39.1 L, MCV 96.1 H, MCH 31.9, MCHC 33.2, RDW Std Deviation 44.2 H, RDW Coeff of Erin 12.6, Plt Count 144 L, MPV 9.4, Immature Gran % (Auto) 0.500, Neut % (Auto) 78.2 H, Lymph % (Auto) 10.3 L, [place] % (Auto) 10.0, Eos % (Auto) 0.8, Baso % (Auto) 0.2, Absolute Neuts (auto) 6.6, Absolute Lymphs (auto) 0.87, Nucleated RBC % 0, Sodium 136, Potassium 4.2, Chloride 104, Carbon Dioxide 25.0, Anion Gap 7, BUN 28 H, Creatinine 1.11, Estim Creat Clear Calc 65.28, Est GFR (MDRD) Af Amer 81, Est GFR (MDRD) Non-Af 67, BUN/Creatinine Ratio 25.2 H, Glucose 120 H, Calcium 8.8 Physical Exam Narrative General - A&Ox3, NAD. VSS/AF Left lower extremity -incisional dressing C/D/I. SILT Sural, Saphenous, SPN, DPN, Tibial N. distributions. DP, PT 2+. BCR. DF, PF, EHL 5/5. No calf TTP. Assessment & Plan Assessment/Plan (1) Closed fracture of neck of left femur: QUALIFIERS: Encounter type: initial encounter Qualified Code(s): S72.002A - Fracture of unspecified part of neck of left femur, initial encounter for closed fracture PLAN: POD#1 s/p left hip hemiarthroplasty - Pain control - Medicine following for medical management - PT/OT -weight-bear as tolerated left lower extremity. Posterior hip precautions x 6 weeks. - DVT PPX -Multimodal with restart of home Eliquis, SCDs, TRELL hose and early mobilization - Case management - D/C planning. Pre-CERT for placement pending. Patient is doing well from my standpoint. Okay for discharge when pre-CERT approved from my standpoint. Discharge instructions: Weightbearing as tolerated left lower extremity. Posterior hip precautions x 6 weeks left hip Follow-up at [facility] in 2 weeks for x-rays and staple removal Maintain surgical dressing x 5 days then okay to remove and leave open to air if no drainage. May shower at that point. No tub soaks. Continue Eliquis upon discharge for DVT prophylaxis I will sign off at this time. Please not hesitate to call if any questions or concerns arise.
[2024-07-14] VITALS (7 sets, daily range): BP systolic 95–136; BP diastolic 56–79; PULSE 75–99; RESP 16–18; TEMP 36.6–36.8; O2SAT 94–98; BMI 29.1
[2024-07-14] MEDS: Acetaminophen 500 MG Tablet 1000 MG PO ×2 (05:58→14:41)
--- NOTE | 2024-07-14 07:17 | PN.HOSP_ITS ---
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 Objective Data Objective Data Vital Signs: Vital Signs Temp Pulse Resp BP Pulse Ox O2 Del Method O2 Flow Rate 36.8 C 99 18 136/79 H 98 Nasal Cannula 2 07/14/24 02:35 07/14/24 06:00 07/14/24 02:35 07/14/24 02:35 07/14/24 02:35 07/14/24 02:35 07/14/24 02:35 Oxygen Flow Rate (L/min) 2 Oxygen Delivery Method Nasal Cannula Weight: 106.3 kg Body Mass Index (BMI) 29.1 Intake & Output: Intake and Output for Last 24 Hours 07/12/24 07/13/24 07/14/24 23:59 23:59 23:59 Intake Total 550 / 750 440 / 1015 725 / 725 Output Total 1775 / 2100 925 / 1125 200 / 200 Balance -1225 / -1350 -485 / -110 525 / 525 Lab / Micro Data 07/13/24 17:01 07/13/24 17:01 Labs: Laboratory Results - last 24 hr 07/13/24 17:01: WBC 8.4, RBC 4.07 L, Hgb 13.0, Hct 39.1 L, MCV 96.1 H, MCH 31.9, MCHC 33.2, RDW Std Deviation 44.2 H, RDW Coeff of Erin 12.6, Plt Count 144 L, MPV 9.4, Immature Gran % (Auto) 0.500, Neut % (Auto) 78.2 H, Lymph % (Auto) 10.3 L, [place] % (Auto) 10.0, Eos % (Auto) 0.8, Baso % (Auto) 0.2, Absolute Neuts (auto) 6.6, Absolute Lymphs (auto) 0.87, Nucleated RBC % 0, Sodium 136, Potassium 4.2, Chloride 104, Carbon Dioxide 25.0, Anion Gap 7, BUN 28 H, Creatinine 1.11, Estim Creat Clear Calc 65.28, Est GFR (MDRD) Af Amer 81, Est GFR (MDRD) Non-Af 67, B UN/Creatinine Ratio 25.2 H, Glucose 120 H, Calcium 8.8 Physical Exam Const Constitutional Narrative: seen being wheeled down the avina by therapy. Up in chair in his room w/o distress. HEENT head/scalp atraumatic and moist oral mucous membranes Assessment & Plan Assessment/Plan (1) Closed fracture of neck of left femur: QUALIFIERS: Encounter type: initial encounter Qualified Code(s): S72.002A - Fracture of unspecified part of neck of left femur, initial encounter for closed fracture PLAN: Bed rest. Mascorro catheter in place until surgery. Pain control. Pt underwent Left hip hemiarthroplasty 07/12 25-OH d level 72.1. No need for replacement. Per ortho: WBAT, maintain dressing for 5 days. Follow up with orthopaedics in 2 weeks. Awaiting on PT OT eval. Disposition destination pending evaluation. PLAN: Plan Chronic conditions: * prostate CA: follow up with oncology * HTN: stable. continue ACEi and BB * pAfib: apixaban held for surgery. Resume today DC to TCU.
[2024-07-14] MEDS: Calcium Carb/Vitamin D 1 TABLET Tablet PO (07:45)
[2024-07-14] MEDS: APIXABAN 2.5 MG TABLET (WCH) PO (09:54)
[2024-07-14] MEDS: Metoprolol Tartrate 25 MG Tablet PO (09:54)
[2024-07-14] MEDS: Senna/Docusate Sodium 1 Tablet 2 TABLET PO (09:59)
[2024-07-14] MEDS: Cholecalciferol (Vit D3) 125 MCG CAPSULE (5,000 UNITS) 250 MCG PO (09:59)
[2024-07-14] MEDS: Lisinopril 20 MG Tablet PO (09:59)
--- NOTE | 2024-07-14 11:36 | CASEMGMT ---
Social Work- SW called pt to update that admissions did submit for RU precert, however, insurance declined. Pt is agreeable to TCU. Precert submitted for SNF. SW will update as information is available. SW remains available to follow. Plan: TCU; pend precert JOSE Silva
--- NOTE | 2024-07-14 12:42 | TREXTCAR_ITS ---
Diet Diet Order/Speech Therapy: 07/13/24 06:59 Diet: Regular - General Type of Dietary Supplement:: Ensure Clear Routine Orders/Code Status Code Status: Full Code DC O2, CPAP, BIPAP needs Home O2 Discharge instructions: No Wound(s) left hip: Wound Type: Surgical Incision Therapies Weight Bearing: Weight bearing as tolerated Extremity Affected:: Left Lower Physical Therapy: Eval and Treat Occupational Therapy: Eval and Treat Problem/Diagnosis (1) Closed fracture of neck of left femur: Status: Acute Code(s): S72.002A - Fracture of unspecified part of neck of left femur, initial encounter for closed fracture Plan: Bed rest. Mascorro catheter in place until surgery. Pain control. Pt underwent Left hip hemiarthroplasty 07/12 25-OH d level 72.1. No need for replacement. Per ortho: WBAT, maintain dressing for 5 days. Follow up with orthopaedics in 2 weeks. Awaiting on PT OT eval. Disposition destination pending evaluation. Plan Chronic conditions: * prostate CA: follow up with oncology * HTN: stable. continue ACEi and BB * pAfib: apixaban held for surgery. Resume today DC to TCU. Allergies/Procedures Done in Hospital Allergies No Known Allergies Allergy (Verified 07/09/24 23:05) Procedures: - (left hip hemiarthoplasty. ) Type of Care/Length of Stay Estimated LOS: Convalescent Care Less Than 30 days Type of Care Needed: Skilled Rehab Potential: Good Prognosis: Good Additional Orders/Day of Discharge Day of Discharge: 07/14/24 Discharge Plan Admission Admit Date/Time: 07/10/24 02:21 Primary Reason for Your Visit: Left hip fracture. Attending Provider: Cristofer Newton Primary Care Provider: Jesus Justin Consulting Providers: Charly Garcia; Hima Saba; Panfilo Luna; Trey Arzola; Ean Roberts; Matt Arzola; Kendy Dominguez; Chichi Crabtree; Ivory Alexis; Baldomero Hope; Giovanny Alston Discharge Orders/Prescriptions Prescriptions: New sennosides-docusate sodium [Stimulant Laxative Plus] 8.6-50 mg Tablet 2 tab PO BID Qty: 10 0RF Continued Caltrate-D3 Plus Minerals 300 mg-800 unit -25 mg-0.5 mg tablet 1 tab PO BID enalapril maleate 20 MG tablet 20 mg PO DAILY Patient Comments: BLOOD PRESSURE cholecalciferol (vitamin D3) 250 mcg (10,000 unit) capsule 10,000 unit PO DAILY acetaminophen 500 mg capsule 500 mg PO Q6H PRN (Reason: pain) polyethylene glycol 3350 [ClearLax] 17 gram/dose powder 17 g PO DAILY PRN (Reason: constipation) Eliquis 2.5 mg tablet 2.5 mg PO BID Qty: 180 3RF metoprolol tartrate 25 mg tablet See Rx Instructions .ROUTE .COMPLEX Qty: 180 3RF Dose Instruction: TAKE 1 TABLET TWICE A DAY Rx Instructions: TAKE 1 TABLET TWICE A DAY Referrals / Follow Up: Jesus Justin MD [Primary Care Provider] - Within 2 Weeks Panfilo Luna DO [Med Staff - Active Staff] - Within 2 Weeks Disposition Disposition (needs filled in before D/C Order can be placed): [facility] (1) Closed fracture of neck of left femur Qualifiers: Encounter type: initial encounter Qualified Code(s): S72.002A - Fracture of unspecified part of neck of left femur, initial encounter for closed fracture
--- NOTE | 2024-07-14 12:48 | DS.PCM_ITS ---
Providers Date of Admission: 07/10/24 Primary Care Physician: Dr. Jesus Justin MD Consultations 07/10/24 06:04 Consult: Orthopedics Routine Consulting Provider: [facility] Reason for Consult: Left femoral neck fracture EMERGENT Consult: No MD Notified: Yes Date Notified: 07/10/24 Time Notified: 00:00 Method of Notification: ED Physician Initiated Reason For Visit: [facility] LEFT FEMORAL NECK FRACTURE Diagnosis Discharge Diagnosis (1) Closed fracture of neck of left femur: Status: Acute Code(s): S72.002A - Fracture of unspecified part of neck of left femur, initial encounter for closed fracture Qualifiers: Encounter type: initial encounter Qualified Code(s): S72.002A - Fracture of unspecified part of neck of left femur, initial encounter for closed fracture Plan: Bed rest. Mascorro catheter in place until surgery. Pain control. Pt underwent Left hip hemiarthroplasty 07/12 25-OH d level 72.1. No need for replacement. Per ortho: WBAT, maintain dressing for 5 days. Follow up with orthopaedics in 2 weeks. Awaiting on PT OT eval. Disposition destination pending evaluation. Plan Chronic conditions: * prostate CA: follow up with oncology * HTN: stable. continue ACEi and BB * pAfib: apixaban held for surgery. Resume today DC to TCU. Medications at Discharge Home Medications enalapril maleate 20 mg tablet 20 mg PO DAILY 07/10/16 calcium 300 mg-D3 20 mcg-magnesium 25 mg-coppr 0.5 [id number] tablet (Caltrate-D3 Plus Minerals) 1 tab PO BID 07/12/22 apixaban 2.5 mg tablet (Eliquis) 2.5 mg PO BID Dose decreased due to creat clearance #180 tabs 07/15/23 metoprolol tartrate 25 mg tablet See Rx Instructions .Route .COMPLEX #180 tabs 07/21/23 cholecalciferol (vitamin D3) 250 mcg (10,000 unit) capsule 10,000 unit PO DAILY 07/09/24 acetaminophen 500 mg capsule 500 mg PO Q6H PRN pain 07/10/24 polyethylene glycol 3350 17 gram/dose oral powder (ClearLax) 17 g PO DAILY PRN constipation 07/10/24 sennosides 8.6 mg-docusate sodium 50 mg tablet (Stimulant Laxative Plus) 2 tab PO BID #10 tabs 07/14/24 Hospital Course Summary of Care Provided Minutes Spent on Discharge: 30 Weight / BMI Weight Weight: 106.3 kg Body Mass Index (BMI) 29.1 ABG / Lab / Microbiology Data 07/13/24 17:01 07/13/24 17:01 Laboratory: Laboratory Results - last 24 hr 07/13/24 17:01: WBC 8.4, RBC 4.07 L, Hgb 13.0, Hct 39.1 L, MCV 96.1 H, MCH 31.9, MCHC 33.2, RDW Std Deviation 44.2 H, RDW Coeff of Erin 12.6, Plt Count 144 L, MPV 9.4, Immature Gran % (Auto) 0.500, Neut % (Auto) 78.2 H, Lymph % (Auto) 10.3 L, [place] % (Auto) 10.0, Eos % (Auto) 0.8, Baso % (Auto) 0.2, Absolute Neuts (auto) 6.6, Absolute Lymphs (auto) 0.87, Nucleated RBC % 0, Sodium 136, Potassium 4.2, Chloride 104, Carbon Dioxide 25.0, Anion Gap 7, BUN 28 H, Creatinine 1.11, Estim Creat Clear Calc 65.28, Est GFR (MDRD) Af Amer 81, Est GFR (MDRD) Non-Af 67, B UN/Creatinine Ratio 25.2 H, Glucose 120 H, Calcium 8.8 D/C Instructions Discharge Diet: No restrictions DC O2, CPAP, BIPAP Needs Home O2 Discharge instructions: No Meaningful Use Info Meaningful Use Meaningful Use Diagnoses (Choose all that apply): None applicable Ischemic Stroke Statin Dosing Therapy Reference: STATIN DOSE THERAPY REFERENCE: * Patients > 75 years receive moderate or high dose statin therapy. * Patients 75 years or YOUNGER should receive HIGH intensity statin dose unless contraindicated. You will be required to document reason for non-treatment if statin daily dose does not meet guidelines. HIGH DOSE STATIN THERAPY DAILY Atorvastatin > than or = to 40 mg Rosuvastatin > than or = to 20 mg Amlodipine + Atorvastatin > than or = to 2.5/40 mg Ezetimibe + Simvastatin 10/80 mg Simvastatin 80mg Discharge Plan Admission Admit Date/Time: 07/10/24 02:21 Primary Reason for Your Visit: Left hip fracture. Attending Provider: Cristofer Newton Primary Care Provider: Jesus Justin Consulting Providers: Charly Garcia; Hima Saba; Panfilo Luna; Trey Arzola; Ean Roberts; Matt Arzola; Kendy Dominguez; Chichi Crabtree; Ivory Alexis; Baldomero Hope; Giovanny Alston Discharge Orders/Prescriptions Prescriptions: New sennosides-docusate sodium [Stimulant Laxative Plus] 8.6-50 mg Tablet 2 tab PO BID Qty: 10 0RF Continued Caltrate-D3 Plus Minerals 300 mg-800 unit -25 mg-0.5 mg tablet 1 tab PO BID enalapril maleate 20 MG tablet 20 mg PO DAILY Patient Comments: BLOOD PRESSURE cholecalciferol (vitamin D3) 250 mcg (10,000 unit) capsule 10,000 unit PO DAILY acetaminophen 500 mg capsule 500 mg PO Q6H PRN (Reason: pain) polyethylene glycol 3350 [ClearLax] 17 gram/dose powder 17 g PO DAILY PRN (Reason: constipation) Eliquis 2.5 mg tablet 2.5 mg PO BID Qty: 180 3RF metoprolol tartrate 25 mg tablet See Rx Instructions .ROUTE .COMPLEX Qty: 180 3RF Dose Instruction: TAKE 1 TABLET TWICE A DAY Rx Instructions: TAKE 1 TABLET TWICE A DAY Referrals / Follow Up: Jesus Justin MD [Primary Care Provider] - Within 2 Weeks Panfilo Luna DO [Med Staff - Active Staff] - Within 2 Weeks Disposition Disposition (needs filled in before D/C Order can be placed): [facility] Charges/Coding Visit Charges Inpatient E&M: 90113 Disch Hosp >30min
[2024-07-14] MEDS: Polyethylene Glycol 3350 17 GM PACKET PO (13:53)
--- NOTE | 2024-07-14 14:22 | CASEMGMT ---
Social Work Precert has been obtained.? Physician updated and pt is ready for discharge today.? Bedside nurse notified of discharge. Pt and pt advised of discharge. Disposition:TCU, skilled level of care under convalescent stay. Shira.JOSE ?
== END 2024-07-14 16:22 | disposition skilled nursing facility (03) | DRG 522 ==
LOC: ED 07-10 01:44 → MS3 07-10 03:47
PROVIDERS: Anesthesiology; Student in an Organized Health Care Education/Training Program; Admitting Provider Internal Medicine; Emergency Provider Emergency Medicine; PCP Family Medicine
PROC: 0SRS01A Replacement of Left Hip Joint, Femoral Surface with Metal Synthetic Substitute, Uncemented, Open Approach (ICD-10-PCS; CPT 27125; principal; 2024-07-12 11:40)
DX: S72.012A Unspecified intracapsular fracture of left femur, initial encounter for closed fracture (principal); E66.9 Obesity, unspecified; I10 Essential (primary) hypertension; I48.0 Paroxysmal atrial fibrillation; E78.5 Hyperlipidemia, unspecified; W01.0XXA Fall on same level from slipping, tripping and stumbling without subsequent striking against object, initial encounter; M51.369 Other intervertebral disc degeneration, lumbar region without mention of lumbar back pain or lower extremity pain; M99.03 Segmental and somatic dysfunction of lumbar region; M99.05 Segmental and somatic dysfunction of pelvic region; Z68.30 Body mass index [BMI] 30.0-30.9, adult; Z79.01 Long term (current) use of anticoagulants; Z79.899 Other long term (current) drug therapy; Z85.46 Personal history of malignant neoplasm of prostate; Z92.3 Personal history of irradiation; Z87.891 Personal history of nicotine dependence
CPT/HCPCS: 36415; 51702; 70450; 71045; 72125; 73502; 80048; 80053; 80061; 82306; 83735; 84100; 84443; 85025; 85610; 85730; 86850; 86900; 86901; 88305; 88311; 93005; 94668; 97116; 97162; 97166; 97530; 97535; 99285; C1776; A4216; J2405

== ENCOUNTER 2024-07-14 16:46 | Inpatient (IN) | payer MEDICARE, SELFPAY ==
--- NOTE | 2024-07-14 17:02 | PCM.HP.STD ---
HPI - General General Date of Admission: 07/14/24 Date of Service: 07/14/24 Chief Complaint: Here for rehabilitation. HPI Narrative 07/10/2024 TWAN VERNON, is a 83 Male who followin07/10/2024 [facility] ED with fall. Tripped over 's oxygen tubing, fell on left hip. No head injury, No LOC, on Eliquis for atrial fibrillation. Instant pain, Unable to walk, EMS called. CT head negative, CT neck negative. X-ray showed left hip fracture. 07/10/2024 Admit [facility]. Mascorro catheter, pain control/hold Eliquis, prepare for surgery, left hip fracture. PT/OT. 07/10/2024 Feeling well, no pain. 07/11/2024 Pain tolerable, no acute events overnight. Dr. Luna consulted. 07/12/2024 Feels well. Vitamin D 72.1. 07/12/2024 Dr. Luna performed left hip hemiarthroplasty. 07/13/2024 PT/OT for discharge planning. 07/14/2024 Admit to TCU with debility, here for rehabilitation, strengthening, prior to discharge home with . [facility] Medical History (Updated 07/14/24 @ 17:[address] Huseyin Coulter MD) Segmental and somatic dysfunction of lumbar region Segmental and somatic dysfunction of pelvic region DDD (degenerative disc disease), lumbar Prostate CA RBBB Atrial fibrillation Essential hypertension Actinic keratosis, hx of History of malignant melanoma Enlarged prostate Arthritis Environmental allergies Pain at surgical incision Internal hemorrhoids Diverticulosis Home Medications ?Medication ?Instructions ?Recorded ?Last Taken ?Type enalapril maleate 20 mg tablet 20 mg PO DAILY BP 07/10/16 07/10/16 08:00 History calcium 300 mg-D3 20 mcg-magnesium 1 tab PO BID Supplement 07/12/22 Unknown History 25 mg-coppr 0.5 [id number] tablet (Caltrate-D3 Plus Minerals) apixaban 2.5 mg tablet (Eliquis) 2.5 mg PO BID Dose decreased due 07/15/23 Unknown Rx to creat clearance #180 tabs cholecalciferol (vitamin D3) 250 10,000 unit PO DAILY Supplement 07/09/24 Unknown History mcg (10,000 unit) capsule acetaminophen 500 mg capsule 500 mg PO Q6H PRN pain 07/10/24 Unknown History polyethylene glycol 3350 17 17 g PO DAILY PRN constipation 07/10/24 Unknown History gram/dose oral powder (ClearLax) metoprolol tartrate 25 mg tablet 25 mg PO Q12H BP 07/14/24 Unknown History sennosides 8.6 mg-docusate sodium 2 tab PO BID Constipation #10 tabs 07/14/24 07/14/24 10:00 Rx 50 mg tablet (Stimulant Laxative Plus) Allergy/AdvReac Type Severity Reaction Status Date / Time No Known Allergies Allergy Verified 07/09/24 23:05 Family History Father Hypertension CVA (cerebral vascular accident) Grandfather Hypertension Grandfather Heart disease Mother Heart disease Hypertension Other CAD (coronary artery disease) Cancer Surgical History (Updated 07/14/24 @ 17:[address] Huseyin Coulter MD) History of left hip hemiarthroplasty Hx of basal cell carcinoma excision History of hernia repair Social History (Updated 07/14/24 @ 17:[address] Huseyin Coulter MD) household members: spouse Smoking Status: Former smoker alcohol intake: current alcohol intake frequency: 0-2 drinks per day substance use type: does not use caffeine: Yes Type: coffee Number of servings: 3 what type of physical activity do you participate in: bicycling frequency: 1-2 times per week ROS Constitutional Constitutional: Reports weakness; Denies chills, fever(s) or weight gain ENT HEENT: Denies headache(s), nasal congestion or nasal discharge Cardiovascular Cardiovascular: Denies chest pain or palpitations Respiratory/Chest Respiratory/Chest: Denies cough, excessive phlegm production or shortness of breath with exertion Gastrointestinal Gastrointestinal: Denies abdominal pain, nausea or vomiting Genitourinary Genitourinary: Denies dysuria Musculoskeletal Musculoskeletal: Denies joint pain or joint swelling Integumentary Integumentary: Denies rash or wounds Neurologic Neurologic: Denies focal weakness, numbness or tingling Psychiatric Psychiatric: Denies anxiety, auditory hallucinations, depression, homicidal ideation or suicidal ideation Physical Exam Const alert General Appearance: cooperative HEENT normocephalic Eyes PERRL and EOMs intact bilaterally Neck supple, no JVD and no carotid bruits Resp normal respiratory effort, normal air movement and clear to auscultation bilaterally Cardio regular rate and regular rhythm GI normal to inspection, nondistended, normoactive bowel sounds, non-tender and non-distended Extremity normal capillary refill Extremity Narrative: Left hip dressing clean, dry, intact. General Extremity: Negative for edema Skin no rashes or lesions noted General Skin Exam: no breakdown Psych affect normal Appearance: appropriate Assessment & Plan Assessment/Plan (1) Debility: (2) Closed left hip fracture: (3) Essential hypertension: (4) Hyperlipidemia: (5) Atrial fibrillation: (6) Vitamin D deficiency: (7) Prostate CA: PLAN: Plan 83 year old male with below past medical history hospitalized for left hip fracture, underwent left hip hemiarthroplasty 07/12/[address] Luna, admitted to TCU with debility, here for rehabilitation, strengthening, prior to discharge home with . Debility - PT/OT. Pain - Tylenol 1000mg q6 prn pain (1-10). Bowel - senna/colace 2 tablets bid, Magnesium citrate 300mL daily prn. Adult immunization - Administer pneumonia vaccine, covid vaccine, flu vaccine as appropriate. DVT prophylaxis - on Eliquis. Atrial fibrillation - Metoprolol 25mg q12, Eliquis 2.5mg bid. Vitamin D deficiency - D3 25mcg daily. Hypertension - Metoprolol 25mg q12, Lisinopril 20mg daily.
[2024-07-14 18:21] VITALS: BMI 26.9
[2024-07-14 18:49] VITALS: BP 114/54; PULSE 87; RESP 18; TEMP 36.7; O2SAT 91
[2024-07-14 23:00] VITALS: PULSE 94; RESP 18; O2SAT 94
[2024-07-14 23:52] VITALS: BP 137/86; PULSE 95
[2024-07-14] MEDS: APIXABAN 2.5 MG TABLET (WCH) PO (23:53)
[2024-07-14] MEDS: Senna/Docusate Sodium 1 Tablet 2 TABLET PO (23:53)
[2024-07-14 23:54] VITALS: BP 137/86; PULSE 95
[2024-07-14] MEDS: Metoprolol Tartrate 25 MG Tablet PO (23:54)
[2024-07-15 05:40] LABS: Absolute Lymphocyte Count 0.86 X10^3/uL (0.83-4.51); Absolute Neutrophil Count 5.6 X10^3/uL (2.0-7.7); Basophil# 0.03 X10^3/uL; Basophil% 0.4 % (0-1); Eosinophil# 0.23 X10^3/uL; Eosinophils% 3.1 % (0-5); Hematocrit 38.2 % (40-54); Hemoglobin 12.6 g/dL (13.0-16.5); Lymphocyte # 0.86 X10^3/ul (0.83-4.51); Lymphocyte % 11.4 % (19-41); Mean Corpuscular Hgb 31.8 pg (27.0-32.0); Mean Corpuscular Volume 96.5 fL (80-94); Mean Platelet Vol. 9.5 fl (6.2-12.0); Monocyte# 0.72 X10^3/uL; Monocyte% 9.6 % (0-10); NRBC Flagged by Analyzer 0 % (0-5); Neutrophil # 5.64 X10^3/uL (2.7-7.7); Platelet Count 151 K/mm3 (150-450); RBC Distribution Width CV 12.4 % (11.6-14.6); RBC Distribution Width SD 44.5 fl (35.1-43.9); Red Blood Count 3.96 M/mm3 (4.6-6.2); White Blood Count 7.5 K/mm3 (4.4-11.0)
[2024-07-15 06:05] LABS: Anion Gap 6 (5-15); BUN 33 mg/dL (7-18); BUN/Creat Ratio 32.4 RATIO (10-20); Calcium,Total 8.8 mg/dL (8.5-10.1); Chloride 102 mmol/L (98-107); Creatinine, Serum 1.02 mg/dL (0.70-1.30); EST Glomerular Filtration Rate 74 mL/min (>60); Est Glom Filt Rate - Afr Amer 89 mL/min (>60); Estimated Creatinine Clearance 66.73 ml/min; Glucose 110 mg/dL (74-106); Potassium 4.1 mmol/L (3.5-5.1); Sodium Level 134 mmol/L (136-145)
[2024-07-15 06:49] VITALS: PULSE 88; RESP 18; O2SAT 94
[2024-07-15] MEDS: APIXABAN 2.5 MG TABLET (WCH) PO ×2 (08:58→20:12)
[2024-07-15 08:59] VITALS: BP 135/72; PULSE 88
[2024-07-15] MEDS: Cholecalciferol (VIT D3) 25 MCG TABLET (1,000 UNITS) PO (08:59)
[2024-07-15] MEDS: Metoprolol Tartrate 25 MG Tablet PO ×2 (08:59→20:13)
[2024-07-15] MEDS: Lisinopril 20 MG Tablet PO (08:59)
[2024-07-15] MEDS: Senna/Docusate Sodium 1 Tablet 2 TABLET PO ×2 (08:59→20:13)
[2024-07-15] MEDS: Acetaminophen 500 MG Tablet 1000 MG PO ×2 (09:08→20:19)
[2024-07-15] MEDS: Menthol/Lanolin/Calamine/Znox 113 GM Tube 1 APPLIC TOPICAL ×2 (09:10→20:10)
[2024-07-15] MEDS: Hydrocortisone 2.5% Crm 1 APPLIC TOPICAL ×2 (09:10→20:13)
[2024-07-15] MEDS: Tuberculin,Purif.prot.deriv. 50 TU/ML Vial 0.1 ML ID (09:12)
[2024-07-15] MEDS: 0.9% Saline Lock 10 ML Syringe IV ×3 (09:26→20:10)
[2024-07-15 09:31] VITALS: BP 135/72; PULSE 88; RESP 16; O2SAT 93
--- NOTE | 2024-07-15 09:31 | NURSING ---
WHILE GIVING MEDS PT STARTED COUGHING ON WATER. ASKED PT IF HE HAD ANY PROBLEMS SWALLOWING. PT STATED AT TIMES I DO WITH PILLS AND FOOD. STATED TO PT THAT THIS NURSE WILL PUT IN A SPEECH THERAPY CONSULT . PT STATED OK. RN AWARE
[2024-07-15 14:24] VITALS: TEMP 36.3
--- NOTE | 2024-07-15 15:17 | PCM.PN.DRR ---
Documented by User: Orestes Grewal 07/15/24 15:27 TCU RX Drug Regimen Review Subjective/Objective Subjective/Objective Subjective: TCU admission note. 83 year old male with below past medical history hospitalized for left hip fracture, underwent left hip hemiarthroplasty 07/12/[address] Luna, admitted to TCU with debility, here for rehabilitation, strengthening, prior to discharge home with . Objective: Allergies No Known Allergies Allergy (Verified 07/09/24 23:05) Current Medications Generic Name Dose Route Start Last Admin Trade Name Freq PRN Reason Stop Dose Admin Acetaminophen 1,000 mg 07/14/24 17:16 07/15/24 09:08 Acetaminophen 500 Mg Tablet PO 1,000 mg Q6H PRN Administration Pain Score 1-10 Apixaban 2.5 mg 07/14/24 22:00 07/15/24 08:58 Apixaban 2.5 Mg Tablet (Wch) PO 2.5 mg BID SANJUANITA Administration Calamine/Phenol 1 applic 07/15/24 10:00 07/15/24 09:10 Menthol/Lanolin/Calamine/Znox 113 Gm Tube TOPICAL 1 applic BID SANJUANITA Administration Protocol Cholecalciferol 25 mcg 07/15/24 10:00 07/15/24 08:59 Cholecalciferol (Vit D3) 25 Mcg Tablet (1,000 Units) PO 25 mcg DAILY SANJUANITA Administration Hydrocortisone 1 applic 07/15/24 07:57 07/15/24 09:10 Hydrocortisone 2.5% Crm TOPICAL 1 applic TID PRN PRN Administration RASH/TOPICAL IRRITATION Protocol Lisinopril 20 mg 07/15/24 10:00 07/15/24 08:59 Lisinopril 20 Mg Tablet PO 20 mg DAILY SANJUANITA Administration Protocol Magnesium Citrate 300 ml 07/14/24 17:15 Magnesium Citrate 300 Ml PO DAILY PRN CONSTIPATION Metoprolol Tartrate 25 mg 07/14/24 22:00 07/15/24 08:59 Metoprolol Tartrate 25 Mg Tablet PO 25 mg Q12 SANJUANITA Administration Protocol Senna/Docusate Sodium 2 tablet 07/14/24 22:00 07/15/24 08:59 Senna/Docusate Sodium 1 Tablet PO 2 tablet BID SANJUANITA Administration Sodium Chloride 10 - 40 ml 07/14/24 20:01 07/15/24 09:26 0.9% Saline Lock 10 Ml Syringe IV 10 ml UD PRN Administration SALINE FLUSH Tuberculin PPD 0.1 ml 07/22/24 10:00 Tuberculin,Purif.Prot.Deriv. 50 Tu/Ml Vial ID 07/22/24 10:01 X1 ONE Problem List Vitamin D deficiency (Acute) Closed left hip fracture (Acute) Debility (Acute) Atrial fibrillation (Acute) Hyperlipidemia (Chronic) Essential hypertension (Acute) Prostate CA (Acute) Vital Signs Temp Pulse Resp BP Pulse Ox O2 Del Method 97.4 F L 88 16 135/72 H 93 Room Air 07/15/24 14:24 07/15/24 09:31 07/15/24 09:31 07/15/24 09:31 07/15/24 09:31 07/15/24 09:31 Oxygen Delivery Method Room Air Weight: 102.92 kg Body Mass Index (BMI) 26.9 Sodium 134 mmol/L (136-145) L 07/15/24 05:03 Potassium 4.1 mmol/L (3.5-5.1) 07/15/24 05:03 Chloride 102 mmol/L (98-107) 07/15/24 05:03 Carbon Dioxide 26.0 mmol/L (21.0-32.0) 07/15/24 05:03 Anion Gap 6 (5-15) 07/15/24 05:03 BUN 33 mg/dL (7-18) H 07/15/24 05:03 Creatinine 1.02 mg/dL (0.70-1.30) 07/15/24 05:03 Est GFR (MDRD) Af Amer 89 mL/min (>60) 07/15/24 05:03 Est GFR (MDRD) Non-Af 74 mL/min (>60) 07/15/24 05:03 BUN/Creatinine Ratio 32.4 RATIO (10-20) H 07/15/24 05:03 Glucose 110 mg/dL (74-106) H 07/15/24 05:03 Assessment/Plan: 1. Pain: acetaminophen 1000 mg PO Q6H PRN pain (1-10). The patient has used 1 PRN dose of acetaminophen so far this admission. Please continue to monitor pain levels, PRN medication usage and LFTs (AST/ALT = 43/30 U/L on 07/10/24). 2. Bowel: senna/docusate 2 tablets PO BID, magnesium citrate 300 mL PO daily PRN constipation. The patient has not required any PRN magnesium citrate so far this admission, and the patient's last documented bowel movement was on 07/14/24. Please continue to monitor for PRN medication administration, bowel movements, constipation and diarrhea. 3. Atrial fibrillation/Hypertension: apixaban 2.5 mg PO BID, lisinopril 20 mg PO daily, metoprolol tartrate 25 mg PO BID. Please continue to monitor for s/s of stroke, blood pressures (recent range = 95-159/54-56 mmHg), heart rates (recent range = 75-95 beats/min), renal function (serum creatinine = 1.02 mg/dL with creatinine clearance ~ 67 mL/min on 07/15/24), for s/s of bleeding, hemoglobin levels (Hgb = 12.6 g/dL on 07/15/24), platelet count (plt = 151 K/mm3 on 07/15/24), potassium levels (K = 4.1 mmol/L on 07/15/24), for angioedema, for cough, and for fatigue. 4. Vitamin D deficiency: cholecalciferol 25 mcg PO daily. Please continue to monitor for s/s of vitamin D deficiency and vitamin D levels (Vitamin D = 72.1 ng/mL on 07/10/24). 5. Rash/topical irritation: calmoseptine 1 application topically BID, hydrocortisone 2.5% topically TID PRN rash/irritation. The patient has required 1 application of PRN hydrocortisone so far this admission. Please continue to monitor for rash, skin irritation and for PRN medication usage. Assessment/Plan for indications treated with psychotropic medications: NA Medical chart and medication regimen reviewed. The following medication irregularities or issues were identified: NA Date Date of Note: 07/15/24 Documented by User: Dr. Huseyin Coulter MD 07/15/24 16:59 TCU RX Drug Regimen Review Provider Comments Provider responsibility Provider Comments to Recommendations by Pharmacy Agree
[2024-07-15] MEDS: Ensure Plus High Protein 120 ML LIQUID PO (17:34)
[2024-07-15 20:09] VITALS: BP 140/69; PULSE 90
[2024-07-15 20:13] VITALS: BP 140/69; PULSE 90
[2024-07-16 06:43] VITALS: PULSE 84; RESP 18; O2SAT 94
[2024-07-16] MEDS: Ensure Plus High Protein 120 ML LIQUID PO ×3 (10:12→17:42)
[2024-07-16] MEDS: Menthol/Lanolin/Calamine/Znox 113 GM Tube 1 APPLIC TOPICAL ×2 (10:13→21:35)
--- NOTE | 2024-07-16 10:14 | NURSING ---
Resident asked that RN call his to discuss follow-up appt with Dr. Luna. Spoke with , she will try to get family to help transport. She did ask about paying for transport, discussed physicians and or [facility] transport (provided [facility] phone number.) She will call back later today.
[2024-07-16 10:15] VITALS: BP 132/59; PULSE 91
[2024-07-16] MEDS: APIXABAN 2.5 MG TABLET (WCH) PO ×2 (10:15→21:28)
[2024-07-16] MEDS: Metoprolol Tartrate 25 MG Tablet PO ×2 (10:15→21:28)
[2024-07-16] MEDS: Senna/Docusate Sodium 1 Tablet 2 TABLET PO (10:16)
[2024-07-16] MEDS: Lisinopril 20 MG Tablet PO (10:16)
[2024-07-16] MEDS: Cholecalciferol (VIT D3) 25 MCG TABLET (1,000 UNITS) PO (10:16)
[2024-07-16] MEDS: 0.9% Saline Lock 10 ML Syringe IV (10:18)
[2024-07-16 10:21] VITALS: BP 132/59; PULSE 91; RESP 16; O2SAT 100
--- NOTE | 2024-07-16 12:09 | NURSING ---
Captain/Airline Pilot Note; Activity Asset: Eloy Siegel is independent in his choice of daily activities. He has a smartphone he uses for reading the paper and talking w/family. His will bring items from home he may want. Robbin would like visits from the therapy dog when available. Staff will remind him of weekly activities and respect his right to say no.
[2024-07-16 16:00] VITALS: TEMP 36.6
--- NOTE | 2024-07-16 16:30 | CASEMGMT ---
Social Work SW met with patient to complete initial assessment. Introduced self and role. Verified contacts. Patient confirmed code status as full code. Educated to [facility] insurance with [employer] 07/20 and continued stay is not guaranteed with each review; providing a 3-day notice for DC. Pt's goal is to return home with his at [facility]. See SW assessment for barriers and details. SW will continue to follow. JESÚS MorleyW
[2024-07-16 21:28] VITALS: PULSE 92
[2024-07-16] MEDS: Acetaminophen 500 MG Tablet 1000 MG PO (21:36)
--- NOTE | 2024-07-17 03:18 | NURSING ---
pt voluntarily incontinent of bowel and bladder at HS. Pt states it is not worth it to get up at night to use the bathroom. Additionally, per patient this is baseline at home. pt tells nursing staff that he is aware of when he needs to go to the bathroom, but does not want to get up. Pt encouraged to use call light to request assistance with toileting and educated on the impact of incontinence on skin integrity. Patient acknowledged education but education needs reinforced.
[2024-07-17 09:32] VITALS: BP 127/62; PULSE 84
[2024-07-17] MEDS: Metoprolol Tartrate 25 MG Tablet PO ×2 (09:32→23:00)
[2024-07-17] MEDS: Senna/Docusate Sodium 1 Tablet 2 TABLET PO (09:32)
[2024-07-17] MEDS: Cholecalciferol (VIT D3) 25 MCG TABLET (1,000 UNITS) PO (09:32)
[2024-07-17] MEDS: APIXABAN 2.5 MG TABLET (WCH) PO ×2 (09:32→23:00)
[2024-07-17] MEDS: Lisinopril 20 MG Tablet PO (09:32)
[2024-07-17] MEDS: 0.9% Saline Lock 10 ML Syringe IV (09:33)
[2024-07-17] MEDS: Menthol/Lanolin/Calamine/Znox 113 GM Tube 1 APPLIC TOPICAL ×2 (09:33→23:01)
[2024-07-17] MEDS: Ensure Plus High Protein 120 ML LIQUID PO ×3 (09:35→17:53)
[2024-07-17 09:45] VITALS: BP 127/62; PULSE 84; RESP 18; TEMP 36.4; O2SAT 98
[2024-07-17 22:58] VITALS: BP 118/76; PULSE 89
[2024-07-17 23:00] VITALS: BP 118/76; PULSE 89
[2024-07-18 10:43] VITALS: BP 153/80; PULSE 86; RESP 16; TEMP 36.4; O2SAT 98
[2024-07-18 10:46] VITALS: PULSE 86
[2024-07-18] MEDS: Menthol/Lanolin/Calamine/Znox 113 GM Tube 1 APPLIC TOPICAL ×2 (10:46→22:04)
[2024-07-18] MEDS: APIXABAN 2.5 MG TABLET (WCH) PO ×2 (10:46→21:59)
[2024-07-18] MEDS: Metoprolol Tartrate 25 MG Tablet PO ×2 (10:46→21:58)
[2024-07-18] MEDS: Cholecalciferol (VIT D3) 25 MCG TABLET (1,000 UNITS) PO (10:47)
[2024-07-18] MEDS: Lisinopril 20 MG Tablet PO (10:47)
--- NOTE | 2024-07-18 15:35 | NURSING ---
Patient requesting Miralax. Patient states senna upsets his stomach. Call placed to Dr. Coulter, new order for Miralax and to MIREYA kee. OBDULIO.
[2024-07-18 21:58] VITALS: BP 156/73; PULSE 87
[2024-07-18] MEDS: 0.9% Saline Lock 10 ML Syringe IV (21:58)
[2024-07-19 08:35] VITALS: BP 141/70; PULSE 84
[2024-07-19] MEDS: Menthol/Lanolin/Calamine/Znox 113 GM Tube 1 APPLIC TOPICAL ×2 (08:35→20:57)
[2024-07-19] MEDS: APIXABAN 2.5 MG TABLET (WCH) PO ×2 (08:35→20:58)
[2024-07-19] MEDS: Metoprolol Tartrate 25 MG Tablet PO ×2 (08:35→20:58)
[2024-07-19] MEDS: Lisinopril 20 MG Tablet PO (08:35)
[2024-07-19] MEDS: Cholecalciferol (VIT D3) 25 MCG TABLET (1,000 UNITS) PO (08:35)
[2024-07-19] MEDS: 0.9% Saline Lock 10 ML Syringe IV ×2 (08:36→20:56)
[2024-07-19] MEDS: Polyethylene Glycol 3350 17 GM PACKET PO (08:42)
[2024-07-19] MEDS: Hydrocortisone 2.5% Crm 1 APPLIC TOPICAL ×2 (08:45→20:58)
[2024-07-19 09:30] VITALS: BP 141/70; PULSE 84; RESP 18; TEMP 36.6; O2SAT 97
--- NOTE | 2024-07-19 15:31 | NURSING ---
Patient noted to be ambulating with FWW without staff assistance. Patient reminded to ring call light and to wait for staff assistance for safety. Verbalized understanding. Therapy notified of above.
[2024-07-19 20:55] VITALS: BP 144/80; PULSE 86; O2SAT 94
[2024-07-19 20:58] VITALS: BP 144/80; PULSE 86
[2024-07-19 21:00] VITALS: PULSE 86; O2SAT 94
[2024-07-20 06:37] VITALS: PULSE 74; O2SAT 97
[2024-07-20] MEDS: Menthol/Lanolin/Calamine/Znox 113 GM Tube 1 APPLIC TOPICAL ×2 (08:30→21:27)
[2024-07-20] MEDS: APIXABAN 2.5 MG TABLET (WCH) PO ×2 (08:30→21:28)
[2024-07-20 08:31] VITALS: BP 127/59; PULSE 94
[2024-07-20] MEDS: Cholecalciferol (VIT D3) 25 MCG TABLET (1,000 UNITS) PO (08:31)
[2024-07-20] MEDS: Metoprolol Tartrate 25 MG Tablet PO ×2 (08:31→21:28)
[2024-07-20] MEDS: Polyethylene Glycol 3350 17 GM PACKET PO (08:31)
[2024-07-20] MEDS: Lisinopril 20 MG Tablet PO (08:31)
[2024-07-20 08:46] VITALS: BP 127/59; PULSE 94; RESP 18; O2SAT 96
--- NOTE | 2024-07-20 13:45 | NURSING ---
OFFICE CALLED STATING THAT STAFF CAN TAKE PT MICHELE OUT ON 07/26/24. AND FOLLOW UP AT HIS OFFICE ON 07/30/24 AT 10:30. RN AWARE
[2024-07-20] MEDS: Hydrocortisone 2.5% Crm 1 APPLIC TOPICAL ×2 (14:23→21:32)
[2024-07-20 15:21] VITALS: TEMP 36.4
[2024-07-20 16:58] VITALS: BMI 25.8
[2024-07-20] MEDS: Ensure Plus High Protein 120 ML LIQUID PO (17:42)
[2024-07-20 21:28] VITALS: BP 140/71; PULSE 101
[2024-07-21 02:41] VITALS: PULSE 85; RESP 16; O2SAT 92
--- NOTE | 2024-07-21 04:44 | NURSING ---
Increased confusing observed at HS, self-removes clothing, urinates on blankets, feels restless, expresses difficulty sleeping. Observed attempting to get OOB unassisted. Repositioned x2 staff assist, clean linens provided, self use of urinal ineffective, does not utilize call light for assist with urinal or incontinence care. Per dayshift PERFORMANCE TEST ARCHITECT, patient spouse is requesting patient use a purewik at HS. Written communication left for Dr. Coulter.
--- NOTE | 2024-07-21 08:39 | NURSING ---
Human Resources Hr Generalist Note; MDS for 07/21/2024 Complete
[2024-07-21] MEDS: Ensure Plus High Protein 120 ML LIQUID PO ×3 (08:41→17:22)
[2024-07-21] MEDS: Menthol/Lanolin/Calamine/Znox 113 GM Tube 1 APPLIC TOPICAL ×2 (08:42→21:25)
[2024-07-21 08:43] VITALS: BP 123/63; PULSE 94
[2024-07-21] MEDS: Metoprolol Tartrate 25 MG Tablet PO ×2 (08:43→21:24)
[2024-07-21] MEDS: APIXABAN 2.5 MG TABLET (WCH) PO ×2 (08:43→21:25)
[2024-07-21] MEDS: Polyethylene Glycol 3350 17 GM PACKET PO (08:44)
[2024-07-21] MEDS: Hydrocortisone 2.5% Crm 1 APPLIC TOPICAL ×2 (08:44→21:25)
[2024-07-21] MEDS: Cholecalciferol (VIT D3) 25 MCG TABLET (1,000 UNITS) PO (08:44)
[2024-07-21] MEDS: Lisinopril 20 MG Tablet PO (08:44)
[2024-07-21 08:53] VITALS: BP 123/63; PULSE 94; RESP 18; O2SAT 96
--- NOTE | 2024-07-21 10:45 | CASEMGMT ---
Social Work IDT met with patient and dtr, Stephanie (in-town from [place]) at bedside and via conference call for care plan meeting. Discussed patient's progress in PT/OT/ST/SN. Educated to [facility] insurance with NRD 07/26 and continued stay is not guaranteed with each review. Provided dtr with written communication on insurance process and copay coverage during stay. BARREL CLEANER explored cognition further with family, considering nursing note 07/20 noting possible sundowning behaviors. spoke very well and with good insight to pt's needs and sundowning. reported he would get caught up in his bedsheets in the middle of the night, disorientation, and issues with urination at home prior. specifically inquired if pt was sundowning. BARREL CLEANER noted pt has had a change in environment with a medical and functional change, and ST will continue to assist with improvement. PT asked which family member would be involved in assisting pt at home and to schedule therapy training. Stephanie is returning home, but pt's EDILMA Hamilton and her dtr will be available/assisting pt once they come into town on 07/26. Therapy to schedule with family. SW received contact information and updated in chart. Therapy will be focusing on stair training as pt prefers to use WIS in the basement. cannot physically assist d/t own health issues but does the cooking. Though, and dtr stated they do not want pt going down the steps and he will be on the main level or there is a second floor on the second floor. SW will assist with DC planning and needs. Will continue to follow. Lina Escobar MSW HEAVY EQUIPMENT RENTAL MANAGER
--- NOTE | 2024-07-21 11:05 | CASEMGMT ---
BIMS () and PHQ2 (0) interviews completed on this date for MDS assessment. JOSE Saldivar
[2024-07-21] MEDS: Acetaminophen 500 MG Tablet 1000 MG PO (11:58)
[2024-07-21 13:45] VITALS: TEMP 36.9
--- NOTE | 2024-07-21 14:56 | NURSING ---
TALKED TO PT AND UPDATED HER ON THE PRIMOFIT AND WHY DR. STEINER STATED NO. PT AND UNDERSTOOD.
--- NOTE | 2024-07-21 15:10 | NURSING ---
NO BM IN 3 DAYS,PT WANTED TO TRY PRUNE JUICE AND BUTTER FIRST BEFORE THE PRN MAG CITRATE. WILL CONTINUE TO MONITOR.
[2024-07-21 21:24] VITALS: BP 121/63; PULSE 87
[2024-07-21] MEDS: MELATONIN 3 MG TABLET PO (21:25)
--- NOTE | 2024-07-22 06:54 | MDS.RN ---
Pain assessment for DINAH 07/21/24 was conducted on 07/21/24
[2024-07-22 07:33] LABS: Absolute Lymphocyte Count 1.08 X10^3/uL (0.83-4.51); Absolute Neutrophil Count 3.6 X10^3/uL (2.0-7.7); Basophil# 0.04 X10^3/uL; Basophil% 0.7 % (0-1); Eosinophil# 0.62 X10^3/uL; Eosinophils% 10.5 % (0-5); Hematocrit 37.5 % (40-54); Hemoglobin 12.6 g/dL (13.0-16.5); Lymphocyte # 1.08 X10^3/ul (0.83-4.51); Lymphocyte % 18.3 % (19-41); Mean Corp Hgb Conc 33.6 g/dL (32-36); Mean Corpuscular Hgb 32.6 pg (27.0-32.0); Mean Corpuscular Volume 96.9 fL (80-94); Mean Platelet Vol. 9.1 fl (6.2-12.0); Monocyte% 8.5 % (0-10); NRBC Flagged by Analyzer 0 % (0-5); Neutrophil % 61.2 % (47-70); Platelet Count 326 K/mm3 (150-450); RBC Distribution Width CV 12.3 % (11.6-14.6); RBC Distribution Width SD 43.5 fl (35.1-43.9); Red Blood Count 3.87 M/mm3 (4.6-6.2); White Blood Count 5.9 K/mm3 (4.4-11.0)
[2024-07-22] MEDS: Hydrocortisone 2.5% Crm 1 APPLIC TOPICAL (07:47)
[2024-07-22] MEDS: Ensure Plus High Protein 120 ML LIQUID PO ×3 (07:55→17:20)
[2024-07-22] MEDS: Menthol/Lanolin/Calamine/Znox 113 GM Tube 1 APPLIC TOPICAL ×2 (07:56→21:38)
[2024-07-22 08:00] LABS: Anion Gap 6 (5-15); BUN 28 mg/dL (7-18); BUN/Creat Ratio 28.7 RATIO (10-20); Calcium,Total 9.2 mg/dL (8.5-10.1); Chloride 106 mmol/L (98-107); Creatinine, Serum 0.98 mg/dL (0.70-1.30); EST Glomerular Filtration Rate 78 mL/min (>60); Est Glom Filt Rate - Afr Amer 94 mL/min (>60); Estimated Creatinine Clearance 69.45 ml/min; Glucose 99 mg/dL (74-106); Potassium 4.3 mmol/L (3.5-5.1); Sodium Level 138 mmol/L (136-145)
[2024-07-22 08:46] VITALS: BP 110/57; PULSE 89
[2024-07-22] MEDS: Polyethylene Glycol 3350 17 GM PACKET PO (08:46)
[2024-07-22] MEDS: APIXABAN 2.5 MG TABLET (WCH) PO ×2 (08:46→21:38)
[2024-07-22] MEDS: Metoprolol Tartrate 25 MG Tablet PO ×2 (08:46→21:38)
[2024-07-22] MEDS: Cholecalciferol (VIT D3) 25 MCG TABLET (1,000 UNITS) PO (08:46)
[2024-07-22] MEDS: Lisinopril 20 MG Tablet PO (08:47)
[2024-07-22 08:53] VITALS: BP 110/57; PULSE 89; RESP 18; O2SAT 98
[2024-07-22] MEDS: Tuberculin,Purif.prot.deriv. 50 TU/ML Vial 0.1 ML ID (11:08)
[2024-07-22] MEDS: Acetaminophen 500 MG Tablet 1000 MG PO (11:55)
[2024-07-22 14:50] VITALS: PULSE 78; RESP 18; O2SAT 96
[2024-07-22 16:00] VITALS: TEMP 36.7
--- NOTE | 2024-07-22 17:12 | NURSING ---
PT HAVING SM BMS SOFT TO HARD. MIRALAX AND PRUNE JUICE NOT WORKING. PT REFUSING MAG CITRATE AT THIS TIME AND WOULD LIKE TO TRY A PRN DULCOLAX PILL. NOTE LEFT FOR .
[2024-07-22] MEDS: Bisacodyl 5 MG Tablet 10 MG PO (18:21)
[2024-07-22 21:38] VITALS: PULSE 89
[2024-07-22] MEDS: MELATONIN 3 MG TABLET PO (21:38)
[2024-07-23 08:00] VITALS: BP 115/61; PULSE 95; RESP 18; TEMP 36.2; O2SAT 99
[2024-07-23 08:53] VITALS: BP 115/61; PULSE 95
[2024-07-23] MEDS: Ensure Plus High Protein 120 ML LIQUID PO ×3 (08:53→17:55)
[2024-07-23] MEDS: Cholecalciferol (VIT D3) 25 MCG TABLET (1,000 UNITS) PO (08:53)
[2024-07-23] MEDS: Metoprolol Tartrate 25 MG Tablet PO ×2 (08:53→21:44)
[2024-07-23] MEDS: Lisinopril 20 MG Tablet PO (08:53)
[2024-07-23] MEDS: Polyethylene Glycol 3350 17 GM PACKET PO (08:53)
[2024-07-23] MEDS: APIXABAN 2.5 MG TABLET (WCH) PO ×2 (08:53→21:44)
[2024-07-23] MEDS: Menthol/Lanolin/Calamine/Znox 113 GM Tube 1 APPLIC TOPICAL ×2 (08:57→21:45)
--- NOTE | 2024-07-23 15:50 | RAD_ITS ---
PROCEDURE: FEMUR MIN 2 VIEWS REASON FOR EXAM: Distal femur pain. TECHNIQUE: Four view left femur: COMPARISON: None provided. RAD/Femur Min 2 Views IMPRESSION: At the edge of imaging, prominent degenerative changes are seen of the visualiz ed lower lumbar spine. The left sacroiliac joint shows at least mild degenerative changes. Overlying the left hip, skin thelma are seen. The patient is status post left hip arthroplasty, with proximal femoral endopro sthesis in place. No complication is noted. No left knee joint effusion is seen. At least mild left knee degenerative changes are seen. No soft tissue mass is clearly evident. Mild arterial calcification is seen. No fracture or dislocation is identified. Reading Location: [id number]
--- NOTE | 2024-07-23 15:54 | NURSING ---
Patient C/O increased pain to left femur. Dr. Coulter updated. New order received 1) xray left femur 2 views. Patient updated on xray order. Patient left floor at this time for xray.
--- NOTE | 2024-07-23 16:02 | NURSING ---
Patient returned to floor at this time.
--- NOTE | 2024-07-23 18:06 | NURSING ---
Patient aware of negative xray results.
[2024-07-23 21:15] VITALS: PULSE 89; O2SAT 95
[2024-07-23 21:40] VITALS: BP 130/64; PULSE 89
[2024-07-23 21:44] VITALS: BP 130/64; PULSE 87
[2024-07-23] MEDS: MELATONIN 3 MG TABLET PO (21:44)
[2024-07-24 05:53] VITALS: PULSE 85; O2SAT 97
[2024-07-24] MEDS: Ensure Plus High Protein 120 ML LIQUID PO ×3 (08:26→17:04)
[2024-07-24] MEDS: Menthol/Lanolin/Calamine/Znox 113 GM Tube 1 APPLIC TOPICAL ×2 (08:26→21:21)
[2024-07-24] MEDS: Acetaminophen 500 MG Tablet 1000 MG PO ×2 (08:31→21:25)
[2024-07-24] MEDS: Polyethylene Glycol 3350 17 GM PACKET PO (08:32)
[2024-07-24 08:33] VITALS: PULSE 88
[2024-07-24] MEDS: Metoprolol Tartrate 25 MG Tablet PO ×2 (08:33→21:20)
[2024-07-24] MEDS: APIXABAN 2.5 MG TABLET (WCH) PO ×2 (08:33→21:19)
[2024-07-24] MEDS: Lisinopril 20 MG Tablet PO (08:34)
[2024-07-24] MEDS: Cholecalciferol (VIT D3) 25 MCG TABLET (1,000 UNITS) PO (08:34)
[2024-07-24 11:10] VITALS: BP 134/73; PULSE 88; RESP 16; TEMP 36.2; O2SAT 98
--- NOTE | 2024-07-24 11:13 | NURSING ---
MOTOR DRIVER REPORTED PT NOT SLEEPING WELL AT NIGHT, DR STEINER NOTIFIED, NEW ORDER TO INCREASE MELATONIN 10MG
[2024-07-24 21:20] VITALS: BP 144/76; PULSE 82
[2024-07-24] MEDS: MELATONIN 10 MG TABLET PO (21:20)
[2024-07-25] MEDS: Acetaminophen 500 MG Tablet 1000 MG PO (06:45)
[2024-07-25] MEDS: Ensure Plus High Protein 120 ML LIQUID PO ×3 (08:23→17:38)
[2024-07-25] MEDS: Polyethylene Glycol 3350 17 GM PACKET PO (08:27)
[2024-07-25] MEDS: Menthol/Lanolin/Calamine/Znox 113 GM Tube 1 APPLIC TOPICAL ×2 (08:28→21:38)
[2024-07-25 08:36] VITALS: PULSE 68
[2024-07-25] MEDS: Lisinopril 20 MG Tablet PO (08:36)
[2024-07-25] MEDS: Metoprolol Tartrate 25 MG Tablet PO ×2 (08:36→21:38)
[2024-07-25] MEDS: Cholecalciferol (VIT D3) 25 MCG TABLET (1,000 UNITS) PO (08:36)
[2024-07-25] MEDS: APIXABAN 2.5 MG TABLET (WCH) PO ×2 (08:36→21:38)
[2024-07-25 08:38] VITALS: BP 114/63; PULSE 68; RESP 18; TEMP 36.4; O2SAT 95
[2024-07-25 21:36] VITALS: BP 129/64; PULSE 82
[2024-07-25 21:38] VITALS: BP 129/64; PULSE 82
[2024-07-25] MEDS: MELATONIN 10 MG TABLET PO (21:38)
[2024-07-26 07:49] VITALS: BP 113/74; PULSE 86
[2024-07-26] MEDS: Ensure Plus High Protein 120 ML LIQUID PO ×3 (07:49→17:46)
[2024-07-26] MEDS: Acetaminophen 500 MG Tablet 1000 MG PO ×2 (07:49→20:57)
[2024-07-26] MEDS: Metoprolol Tartrate 25 MG Tablet PO ×2 (07:49→20:52)
[2024-07-26] MEDS: APIXABAN 2.5 MG TABLET (WCH) PO ×2 (07:49→20:51)
[2024-07-26] MEDS: Cholecalciferol (VIT D3) 25 MCG TABLET (1,000 UNITS) PO (07:49)
[2024-07-26] MEDS: Lisinopril 20 MG Tablet PO (07:49)
[2024-07-26] MEDS: Polyethylene Glycol 3350 17 GM PACKET PO (07:50)
[2024-07-26] MEDS: Menthol/Lanolin/Calamine/Znox 113 GM Tube 1 APPLIC TOPICAL ×2 (07:50→20:50)
[2024-07-26 08:00] VITALS: BP 113/74; PULSE 86; RESP 16; O2SAT 98
[2024-07-26 09:42] VITALS: PULSE 86; RESP 16; O2SAT 98
--- NOTE | 2024-07-26 09:50 | NURSING ---
Dr. Luna to see resident on TCU on 07/29. Appt cancelled, transport cancelled. Resident updated. He said he will update his .
--- NOTE | 2024-07-26 14:34 | MDS.RN ---
Information for the MDS was obtained from review of the clinical record, interview of resident, staff, and direct observation of resident?s care.
--- NOTE | 2024-07-26 19:53 | NURSING ---
[place] to left hip removed. 22 thelma removed. Incision well approximated. No redness or drainage noted. Tolerated procedure well. No C/O's voiced.
[2024-07-26 20:48] VITALS: BP 129/54; PULSE 81
[2024-07-26 20:52] VITALS: BP 129/54; PULSE 81
[2024-07-26] MEDS: MELATONIN 10 MG TABLET PO (20:54)
[2024-07-27] MEDS: Ensure Plus High Protein 120 ML LIQUID PO ×3 (09:05→17:00)
[2024-07-27] MEDS: Menthol/Lanolin/Calamine/Znox 113 GM Tube 1 APPLIC TOPICAL ×2 (09:07→21:12)
[2024-07-27 09:08] VITALS: BP 132/66; PULSE 75
[2024-07-27] MEDS: Metoprolol Tartrate 25 MG Tablet PO ×2 (09:08→21:08)
[2024-07-27] MEDS: APIXABAN 2.5 MG TABLET (WCH) PO ×2 (09:08→21:08)
[2024-07-27] MEDS: Polyethylene Glycol 3350 17 GM PACKET PO (09:08)
[2024-07-27] MEDS: Cholecalciferol (VIT D3) 25 MCG TABLET (1,000 UNITS) PO (09:08)
[2024-07-27] MEDS: Lisinopril 20 MG Tablet PO (09:09)
[2024-07-27 09:15] VITALS: BP 132/66; PULSE 75; RESP 16; O2SAT 100
--- NOTE | 2024-07-27 11:12 | CASEMGMT ---
Addendum entered by Lina Escobar 07/27/24 15:22: ST added to HHC order Original Note: Social Work Insurance issued LCD 07/29, DC 07/30. Family present at bedside for therapy training. SW informed of DC date. Family and pt in agreement for DC home. Dtr is staying in town for 1-2 weeks and can assist with pt's transition. Therapy is recommending HHC first then transition to OP therapy. Pt/family in agreement. Pt will need a FWW at DC. SW to coordinate. Provided family with list of [facility] agencies including quality and resource data for CarePort Guide. Pt to notify this worker of preference. - Referral sent to [facility] via CarePort. Plan: DC home with and family support 07/30, [facility] PT/OT, FWW Lina Escobar PIE ICER MACHINE FIREFIGHTER MARINE
[2024-07-27 11:38] VITALS: BMI 26.3
[2024-07-27 12:50] VITALS: PULSE 76; RESP 16; O2SAT 96
[2024-07-27 16:00] VITALS: TEMP 36.1
--- NOTE | 2024-07-27 19:07 | PCM.DC.SUM ---
Providers Date of Admission: 07/14/24 Primary Care Physician: Dr. Jesus Justin MD Reason For Visit: IMPACTED SUBCAPITAL LEFT FEMORAL NECK FRACTURE Diagnosis Discharge Diagnosis (1) Debility: Status: Acute Code(s): R53.81 - Other malaise (2) Closed left hip fracture: Status: Acute Code(s): S72.002A - Fracture of unspecified part of neck of left femur, initial encounter for closed fracture (3) Essential hypertension: Status: Inactive Code(s): I10 - Essential (primary) hypertension (4) Hyperlipidemia: Status: Chronic Code(s): E78.5 - Hyperlipidemia, unspecified (5) Atrial fibrillation: Status: Acute Code(s): I48.91 - Unspecified atrial fibrillation (6) Vitamin D deficiency: Status: Acute Code(s): E55.9 - Vitamin D deficiency, unspecified (7) Prostate CA: Status: Acute Code(s): C61 - Malignant neoplasm of prostate Plan 83 year old male with below past medical history hospitalized for left hip fracture, underwent left hip hemiarthroplasty 07/12/[address] Luna, admitted to TCU with debility, here for rehabilitation, strengthening, prior to discharge home with . Debility - PT/OT. Pain - Tylenol 1000mg q6 prn pain (1-10). Bowel - senna/colace 2 tablets bid, Magnesium citrate 300mL daily prn. Adult immunization - Administer pneumonia vaccine, covid vaccine, flu vaccine as appropriate. DVT prophylaxis - on Eliquis. Atrial fibrillation - Metoprolol 25mg q12, Eliquis 2.5mg bid. Vitamin D deficiency - D3 25mcg daily. Hypertension - Metoprolol 25mg q12, Lisinopril 20mg daily. Medications at Discharge Home Medications enalapril maleate 20 mg tablet 20 mg PO DAILY BP 07/10/16 apixaban 2.5 mg tablet (Eliquis) 2.5 mg PO BID Dose decreased due to creat clearance #180 tabs 07/15/23 metoprolol tartrate 25 mg tablet 25 mg PO Q12H BP 07/14/24 acetaminophen 500 mg tablet 1,000 mg (2 x 500 mg) PO Q6H PRN Pain Score 1-10 #0 tabs 07/27/24 cholecalciferol (vitamin D3) 25 mcg (1,000 unit) tablet 25 mcg PO DAILY 30 days #30 tabs 07/27/24 Hospital Course Operations - (See below.) Procedures None Summary of Care Provided Minutes Spent on Discharge: 35 Hospital Course: 83 year old male with below past medical history hospitalized for left hip fracture, underwent left hip hemiarthroplasty 07/12/[address] Luna, admitted to TCU with debility, here for rehabilitation, strengthening, prior to discharge home with . Plan: DC home with and family support 07/30, [facility] PT/OT, FWW FWW: Patient is unsafe to use a cane and requires a walker for ambulation in the home and the community. Physical Exam Const alert General Appearance: cooperative HEENT normocephalic Eyes PERRL and EOMs intact bilaterally Neck supple, no JVD and no carotid bruits Resp normal respiratory effort, normal air movement and clear to auscultation bilaterally Cardio regular rate and regular rhythm GI normal to inspection, nondistended, normoactive bowel sounds, non-tender and non-distended Extremity normal capillary refill General Extremity: Negative for edema Skin no rashes or lesions noted General Skin Exam: no breakdown Psych affect normal Appearance: appropriate Weight / BMI Weight Weight: 100.698 kg Body Mass Index (BMI) 26.3 ABG / Lab / Microbiology Data 07/22/24 05:06 07/22/24 05:06 D/C Instructions Discharge Diet: No restrictions Discharge Activity: Return to Normal Activity, May Shower and Use Walker Weight Bearing Status: Weight bearing as tolerated Call your doctor if you observe: Fever of 101 or Higher, Inability to urinate, Inability to have a bowel movement, Shortness of breath, Dizziness, Fainting spells, Swelling in the ankles, Chest pain and Uncontrolled pain DC O2, CPAP, BIPAP Needs Home O2 Discharge instructions: No Additional Instructions: Plan: DC home with and family support 07/30, [facility] PT/OT, FWW FWW: Patient is unsafe to use a cane and requires a walker for ambulation in the home and the community. Please Follow Up With: Panfilo Luna, DO Meaningful Use Info Meaningful Use Meaningful Use Diagnoses (Choose all that apply): None applicable Ischemic Stroke Statin Dosing Therapy Reference: STATIN DOSE THERAPY REFERENCE: * Patients > 75 years receive moderate or high dose statin therapy. * Patients 75 years or YOUNGER should receive HIGH intensity statin dose unless contraindicated. You will be required to document reason for non-treatment if statin daily dose does not meet guidelines. HIGH DOSE STATIN THERAPY DAILY Atorvastatin > than or = to 40 mg Rosuvastatin > than or = to 20 mg Amlodipine + Atorvastatin > than or = to 2.5/40 mg Ezetimibe + Simvastatin 10/80 mg Simvastatin 80mg Discharge Plan Admission Admit Date/Time: 07/14/24 16:46 Primary Reason for Your Visit: Debility. Attending Provider: Huseyin Coulter Chi Primary Care Provider: Jesus Justin Instructions Additional Instructions / Restrictions: Plan: DC home with and family support 07/30, [facility] PT/OT, FWW FWW: Patient is unsafe to use a cane and requires a walker for ambulation in the home and the community. Discharge Orders/Prescriptions Prescriptions: New acetaminophen 500 mg Tablet 1,000 mg PO Q6H PRN (Reason: Pain Score 1-10) Qty: 0 0RF cholecalciferol (vitamin D3) 25 mcg (1,000 unit) Tablet 25 mcg PO DAILY 30 Days Qty: 30 0RF Continued enalapril maleate 20 MG tablet 20 mg PO DAILY Patient Comments: BLOOD PRESSURE metoprolol tartrate 25 mg tablet 25 mg PO Q12H Eliquis 2.5 mg tablet 2.5 mg PO BID Qty: 180 3RF Discontinued Caltrate-D3 Plus Minerals 300 mg-800 unit -25 mg-0.5 mg tablet 1 tab PO BID cholecalciferol (vitamin D3) 250 mcg (10,000 unit) capsule 10,000 unit PO DAILY acetaminophen 500 mg capsule 500 mg PO Q6H PRN (Reason: pain) polyethylene glycol 3350 [ClearLax] 17 gram/dose powder 17 g PO DAILY PRN (Reason: constipation) sennosides-docusate sodium [Stimulant Laxative Plus] 8.6-50 mg Tablet 2 tab PO BID Qty: 10 0RF Referrals / Follow Up: Jesus Justin MD [Primary Care Provider] - Disposition Disposition (needs filled in before D/C Order can be placed): Home Health Service
[2024-07-27 21:08] VITALS: BP 121/60; PULSE 84
[2024-07-27] MEDS: MELATONIN 10 MG TABLET PO (21:08)
[2024-07-28 03:00] VITALS: PULSE 78; O2SAT 95
[2024-07-28] MEDS: Hydrocortisone 2.5% Crm 1 APPLIC TOPICAL (08:00)
[2024-07-28] MEDS: Polyethylene Glycol 3350 17 GM PACKET PO (08:00)
[2024-07-28] MEDS: APIXABAN 2.5 MG TABLET (WCH) PO ×2 (08:01→21:38)
[2024-07-28 08:03] VITALS: BP 112/75; PULSE 87
[2024-07-28] MEDS: Metoprolol Tartrate 25 MG Tablet PO ×2 (08:03→21:38)
[2024-07-28] MEDS: Lisinopril 20 MG Tablet PO (08:04)
[2024-07-28] MEDS: Cholecalciferol (VIT D3) 25 MCG TABLET (1,000 UNITS) PO (08:04)
[2024-07-28] MEDS: Menthol/Lanolin/Calamine/Znox 113 GM Tube 1 APPLIC TOPICAL ×2 (08:05→21:39)
[2024-07-28] MEDS: Ensure Plus High Protein 120 ML LIQUID PO ×3 (08:09→17:34)
[2024-07-28 08:14] VITALS: BP 112/75; PULSE 87; RESP 18; O2SAT 96
--- NOTE | 2024-07-28 10:12 | CASEMGMT ---
Addendum entered by Lina Escobar 07/30/24 10:41: late entry: 07/28/24: Received call from dtr requesting new list of HHC agencies. Dtr present in pt's room. SW provided new HHC list. - SW received call from after speaking with dtr. Provided HHC choices of 1. [facility], 2. [facility]. SW phoned referral to [facility]. Can accept. Original Note: Social Work SW left VM with dtrJoy, to follow up on HHC choice. Lina Escobar LIVING SKILLS ADVISOR COLLAR FELLER
[2024-07-28 13:16] VITALS: TEMP 36.3
[2024-07-28] MEDS: Acetaminophen 500 MG Tablet 1000 MG PO (14:20)
[2024-07-28 21:35] VITALS: BP 120/55; PULSE 85
[2024-07-28 21:38] VITALS: BP 120/55; PULSE 85
[2024-07-28] MEDS: MELATONIN 10 MG TABLET PO (21:38)
[2024-07-29 06:24] LABS: Absolute Lymphocyte Count 1.34 X10^3/uL (0.83-4.51); Absolute Neutrophil Count 2.9 X10^3/uL (2.0-7.7); Basophil# 0.03 X10^3/uL; Basophil% 0.6 % (0-1); Eosinophil# 0.44 X10^3/uL; Eosinophils% 8.4 % (0-5); Hematocrit 41.6 % (40-54); Hemoglobin 13.4 g/dL (13.0-16.5); Lymphocyte # 1.34 X10^3/ul (0.83-4.51); Lymphocyte % 25.7 % (19-41); Mean Corp Hgb Conc 32.2 g/dL (32-36); Mean Corpuscular Hgb 31.7 pg (27.0-32.0); Mean Corpuscular Volume 98.3 fL (80-94); Mean Platelet Vol. 8.7 fl (6.2-12.0); Monocyte# 0.45 X10^3/uL; Monocyte% 8.6 % (0-10); NRBC Flagged by Analyzer 0 % (0-5); Neutrophil # 2.93 X10^3/uL (2.7-7.7); Neutrophil % 56.3 % (47-70); Platelet Count 370 K/mm3 (150-450); RBC Distribution Width CV 12.3 % (11.6-14.6); RBC Distribution Width SD 44.1 fl (35.1-43.9); Red Blood Count 4.23 M/mm3 (4.6-6.2); White Blood Count 5.2 K/mm3 (4.4-11.0)
[2024-07-29 06:50] LABS: Anion Gap 6 (5-15); BUN 21 mg/dL (7-18); BUN/Creat Ratio 21.1 RATIO (10-20); Calcium,Total 9.2 mg/dL (8.5-10.1); Chloride 102 mmol/L (98-107); EST Glomerular Filtration Rate 76 mL/min (>60); Est Glom Filt Rate - Afr Amer 92 mL/min (>60); Estimated Creatinine Clearance 68.06 ml/min; Glucose 94 mg/dL (74-106); Sodium Level 138 mmol/L (136-145)
[2024-07-29 08:48] VITALS: BP 102/62; PULSE 86; RESP 16; TEMP 36.4; O2SAT 98
[2024-07-29 08:52] VITALS: PULSE 86
[2024-07-29] MEDS: Metoprolol Tartrate 25 MG Tablet PO ×2 (08:52→20:22)
[2024-07-29] MEDS: Acetaminophen 500 MG Tablet 1000 MG PO ×2 (08:52→20:23)
[2024-07-29] MEDS: Ensure Plus High Protein 120 ML LIQUID PO ×3 (08:52→17:10)
[2024-07-29] MEDS: Cholecalciferol (VIT D3) 25 MCG TABLET (1,000 UNITS) PO (08:53)
[2024-07-29] MEDS: Lisinopril 20 MG Tablet PO (08:53)
[2024-07-29] MEDS: APIXABAN 2.5 MG TABLET (WCH) PO ×2 (08:53→20:22)
[2024-07-29] MEDS: Polyethylene Glycol 3350 17 GM PACKET PO (08:53)
[2024-07-29] MEDS: Menthol/Lanolin/Calamine/Znox 113 GM Tube 1 APPLIC TOPICAL ×2 (08:57→20:21)
--- NOTE | 2024-07-29 14:37 | PCM.PN.ORT ---
Subjective Subjective Patient is s/p left hip hemiarthroplasty with Dr. Luna 07/12/2024. Patient residing in TCU he is planned to be discharged tomorrow. This will take place for his 2-week postop. [place] have since been removed. Incisions look good today. He is complaining of slightly increased thigh pain however he has been up and moving around more and visiting with family more. X-rays were taken of left hip and length of femur no acute pathology identified. He does have noted osteoarthritis of the left knee on these. Continue Tylenol and oxycodone as needed for pain control. Ice and rest. Continue weightbearing as tolerated. Continue his Eliquis as previously prescribed for surgery for DVT prophylaxis for at least 4 weeks. Okay to discontinue TRELL hose. Afebrile, no chest pain, shortness of breath, negative calf pain/ erythema, and no other signs of DVT. Objective Data Objective Data Vital Signs: Vital Signs Temp Pulse Resp BP Pulse Ox O2 Del Method 97.5 F L 86 16 102/62 98 Room Air 07/29/24 08:48 07/29/24 08:52 07/29/24 08:48 07/29/24 08:48 07/29/24 08:48 07/29/24 08:48 Oxygen Delivery Method Room Air Weight: 100.698 kg Body Mass Index (BMI) 26.3 Intake & Output: Intake and Output for Last 24 Hours 07/27/24 07/28/24 07/29/24 23:59 23:59 23:59 Intake Total 480 / 480 480 / 480 480 / 480 Balance 480 / 480 480 / 480 480 / 480 Lab / Micro Data 07/29/24 05:08 07/29/24 05:08 Labs: Laboratory Results - last 24 hr 07/29/24 05:08: WBC 5.2, RBC 4.23 L, Hgb 13.4, Hct 41.6, MCV 98.3 H, MCH 31.7, MCHC 32.2, RDW Std Deviation 44.1 H, RDW Coeff of Erin 12.3, Plt Count 370, MPV 8.7, Immature Gran % (Auto) 0.400, Neut % (Auto) 56.3, Lymph % (Auto) 25.7, Beckham % (Auto) 8.6, Eos % (Auto) 8.4 H, Baso % (Auto) 0.6, Absolute Neuts (auto) 2.9, Absolute Lymphs (auto) 1.34, Nucleated RBC % 0, Sodium 138, Potassium 4.0, Chloride 102, Carbon Dioxide 29.0, Anion Gap 6, BUN 21 H, Creatinine 1.00, Estim Creat Clear Calc 68.06, Est GFR (MDRD) Af Amer 92, Est GFR (MDRD) Non-Af 76, BUN/Creatinine Ratio 21.1 H, Glucose 94, Calcium 9.2 Physical Exam Narrative Patient resting comfortably in bed No signs of acute distress Satting well on room air Limb is warm to touch, Sensation intact throughout entire lower extremity, including saphenous, sural, superficial and deep peroneal, and tibial distribution. DP/PT pulses bounding. Dorsiflexion plantarflexion strength 5/5 Dressing clear dry intact Calf nontender to palpation, no erythema, no edema. Negative Homans Assessment & Plan Assessment/Plan (1) Closed left hip fracture: PLAN: Patient 2 weeks status post left hemiarthroplasty with Dr. Luna 07/12/2024. 1. Will continue PT today. Weightbearing as tolerated 2. Plan for discharge from TCU tomorrow 3. Patient will follow up for post op appointment in 4 weeks with x-rays on arrival of this will need to be arranged 4. Patient has outpatient PT that will need to be scheduled. 5. X-rays reviewed and stable 6. DVT prophylaxis : Eliquis as previously prescribed for surgery 7. Pain control: patient instructed to take tylenol 500mg 2 tablets TID. and oxycodone 1-2 tablets every 4-6 hours only as needed for pain control.
--- NOTE | 2024-07-29 14:53 | NURSING ---
Addendum entered by Faye Hightower 07/29/24 16:01: thelma were removed on 07/26/24. per order Original Note: dr artis BODY DESIGNER here to see pt, order to DC thelma
[2024-07-29 16:08] VITALS: RESP 15
[2024-07-29 20:19] VITALS: BP 133/64; PULSE 79
[2024-07-29 20:22] VITALS: BP 133/64; PULSE 79
[2024-07-29] MEDS: MELATONIN 10 MG TABLET PO (20:22)
[2024-07-30 01:44] VITALS: PULSE 82; O2SAT 97
[2024-07-30 07:33] VITALS: BP 110/68; PULSE 83; RESP 16; TEMP 36.2; O2SAT 98
[2024-07-30 07:37] VITALS: PULSE 83
[2024-07-30] MEDS: Metoprolol Tartrate 25 MG Tablet PO (07:37)
[2024-07-30] MEDS: APIXABAN 2.5 MG TABLET (WCH) PO (07:37)
[2024-07-30] MEDS: Polyethylene Glycol 3350 17 GM PACKET PO (07:38)
[2024-07-30] MEDS: Cholecalciferol (VIT D3) 25 MCG TABLET (1,000 UNITS) PO (07:38)
[2024-07-30] MEDS: Lisinopril 20 MG Tablet PO (07:38)
[2024-07-30] MEDS: Ensure Plus High Protein 120 ML LIQUID PO (07:41)
[2024-07-30] MEDS: Menthol/Lanolin/Calamine/Znox 113 GM Tube 1 APPLIC TOPICAL (07:42)
[2024-07-30] MEDS: Acetaminophen 500 MG Tablet 1000 MG PO (07:45)
== END 2024-07-30 11:00 | disposition home health service (06) | DRG 561 ==
PROVIDERS: Admitting Provider Family Medicine Geriatric Medicine; PCP Family Medicine; Referring Provider Family Medicine Geriatric Medicine; Visit Provider Family Medicine Geriatric Medicine
DX: S72.002D Fracture of unspecified part of neck of left femur, subsequent encounter for closed fracture with routine healing (principal); E55.9 Vitamin D deficiency, unspecified; I10 Essential (primary) hypertension; I48.91 Unspecified atrial fibrillation; E78.5 Hyperlipidemia, unspecified; W01.0XXD Fall on same level from slipping, tripping and stumbling without subsequent striking against object, subsequent encounter; M17.12 Unilateral primary osteoarthritis, left knee; Z87.891 Personal history of nicotine dependence; Z96.642 Presence of left artificial hip joint; Z79.899 Other long term (current) drug therapy; Z79.01 Long term (current) use of anticoagulants; G47.00 Insomnia, unspecified
CPT/HCPCS: 36415; 73552; 80048; 85025; 92523; 92610; 97110; 97116; 97129; 97130; 97162; 97166; 97530; 97535; 97802; A4216

== ENCOUNTER 2025-05-19 09:18 | Emergency (ER) | payer MEDICARE, SELFPAY ==
[2025-05-19] VITALS (7 sets, daily range): BP systolic 107–124; BP diastolic 54–102; PULSE 10–137; RESP 13–20; TEMP 36.6–36.7; O2SAT 97–100; BMI 25.7
--- NOTE | 2025-05-19 09:32 | RAD_ITS ---
PROCEDURE: CHEST PA AND LATERAL 05/19/2025 REASON FOR EXAM: A.FIB RVR TECHNIQUE: Procedure Code: RADCXR Modality: DX Procedure: CHEST PA AND LATERAL COMPARISON: 07/10/2024 FINDINGS: Hardware: None. Heart: The heart size is normal. Mediastinum: The mediastinal contour is unremarkable. Lungs: The lungs are clear. No pneumothorax or pleural effusion. Bones: The bones are unremarkable. RAD/Chest PA and Lateral IMPRESSION: NO ACUTE FINDINGS. Reading Location: [facility] [place]
--- NOTE | 2025-05-19 09:33 | EKG12_ITS ---
Test Reason : REPEAT Blood Pressure : */* mmHG Vent. Rate : 64 BPM Atrial Rate : 64 BPM P-R Int : 144 ms QRS Dur : 142 ms QT Int : 420 ms P-R-T Axes : -7 82 53 degrees QTcB Int : 433 ms Sinus rhythm with occasional Premature ventricular complexes Right bundle branch block Abnormal ECG Confirmed by Eliot Peraza ([id number]), senior technical editor MELVIN HOUGH ([id number]) on 05/23/2025 8:34:54 AM Referred By: Confirmed By: Eliot Peraza
--- NOTE | 2025-05-19 09:33 | ED.VIS.CHEST ---
HPI History of Present Illness Chief Complaint: Palpitations Narrative Narrative: Patient is a 84-year-old male past medical history of atrial fibrillation on Eliquis, right bundle branch block, hypertension who presented to the emergency department chief complaint of lightheaded and just not feeling well overall. He states he woke up this morning when he woke up he notes that he is feeling slightly under the weather. He states that he tried to get up and make breakfast he became very lightheaded had to go lay back down. Patient notes that they checked his blood pressure at home and noted that this was low with a increased heart rate therefore EMS was called to have him brought here to be further evaluated. Patient states that before he went to bed he was feeling well denies any sick contacts. Patient states he has been compliant with his medications not missing doses. In triage notes notes that he is having increased bowel movements but states he is not having diarrhea and denies any black stools. 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 Paroxysmal atrial fibrillation Segmental and somatic dysfunction of lumbar region Segmental and somatic dysfunction of pelvic region DDD (degenerative disc disease), lumbar Prostate CA RBBB Atrial fibrillation Essential hypertension Actinic keratosis, hx of History of malignant melanoma Enlarged prostate Arthritis Environmental allergies Pain at surgical incision Internal hemorrhoids Diverticulosis Home Medications ?Medication ?Instructions ?Recorded ?Last Taken ?Type enalapril maleate 20 mg tablet 20 mg PO DAILY BP 07/10/16 05/18/25 History acetaminophen 500 mg tablet 1,000 mg (2 x 500 mg) PO Q6H PRN 07/27/24 Unknown Rx Pain Score 1-10 #0 tabs cholecalciferol (vitamin D3) 25 25 mcg PO DAILY 30 days #30 tabs 07/27/24 05/18/25 Rx mcg (1,000 unit) tablet calcium 600 mg (as carbonate)-vit 1 tab PO QAM 12/06/24 05/18/25 History D3 20 mcg (800 unit) chewable tablet (Caltrate plus D) metoprolol tartrate 25 mg tablet 12.5 mg PO Q12H BP 12/06/24 05/18/25 History apixaban 2.5 mg tablet (Eliquis) 2.5 mg PO BID Dose decreased due 05/02/25 05/19/25 Rx to creat clearance #180 tabs Allergy/AdvReac Type Severity Reaction Status Date / Time No Known Allergies Allergy Verified 05/19/25 09:31 Family History Father Hypertension CVA (cerebral vascular accident) Grandfather Hypertension Grandfather Heart disease Mother Heart disease Hypertension Other CAD (coronary artery disease) Cancer Surgical History History of left hip hemiarthroplasty Hx of basal cell carcinoma excision History of hernia repair Social History household members: spouse Smoking Status: Former smoker alcohol intake: current alcohol intake frequency: 0-2 drinks per day substance use type: does not use caffeine: Yes Type: coffee Number of servings: 3 what type of physical activity do you participate in: bicycling frequency: 1-2 times per week ROS ROS ED ROS Narrative Constitutional: Denies any fevers or chills complains of lightheadedness as noted above Eyes: Denies double vision Cardiovascular: Denies chest pain Respiratory: Denies palpitations Abdomen: Denies abdominal pain nausea vomiting : Denies urinary symptoms Neurological: Denies any numbness, weakness, tingling Musculoskeletal: Denies back pain Skin: Denies any rashes or lesions EXAM Physical Exam Narrative Exam Narrative: General: Patient was lying in bed rest comfortably did not appear to be in acute distress Head: Atraumatic, normocephalic Eyes: PERRL bilaterally, EOMI bilaterally, no conjunctival injection noted Neck: Soft, supple, trachea midline Cardiovascular: Patient tachycardic with an irregular irregular rhythm Respiratory: Clear to auscultation bilaterally Abdomen: Soft, nondistended, tenderness to palpation Extremities: +4/5 strength noted in the bilateral lower extremities Neurological: Patient following commands knew that he was at [facility] 2024 NIH is 0 GCS 15 Skin: Warm, dry, intact no rashes or lesions noted Const Vital Signs: 05/19/25 09:19 05/19/25 09:28 05/19/25 09:33 Temperature 98.0 F Temperature Source Oral Pulse Rate 137 H Pulse Rate [Lying] Pulse Rate [Sitting (for 1 minute prior to obtaining)] Pulse Rate [Standing (for 1 minute prior to obtaining)] Respiratory Rate 16 Respiratory Effort Normal Non-Labored Blood Pressure 118/61 Blood Pressure [Lying] Blood Pressure [Sitting (for 1 minute prior to obtaining)] Blood Pressure [Standing (for 1 minute prior to obtaining)] Blood Pressure Mean 80 Blood Pressure Mean [Lying] Blood Pressure Mean [Sitting (for 1 minute prior to obtaining)] Blood Pressure Mean [Standing (for 1 minute prior to obtaining)] Pulse Ox Oxygen Delivery Method Room Air Room Air 05/19/25 09:38 05/19/25 10:18 05/19/25 12:00 Temperature Temperature Source Pulse Rate 10 L 123 H Pulse Rate [Lying] 70 Pulse Rate [Sitting (for 1 minute prior to obtaining)] 65 Pulse Rate [Standing (for 1 minute prior to obtaining)] 78 Respiratory Rate 14 20 H Respiratory Effort Blood Pressure 110/54 L 118/102 H Blood Pressure [Lying] 113/83 H Blood Pressure [Sitting (for 1 minute prior to obtaining)] 113/74 Blood Pressure [Standing (for 1 minute prior to obtaining)] 124/85 H Blood Pressure Mean 72 107 Blood Pressure Mean [Lying] 93 Blood Pressure Mean [Sitting (for 1 minute prior to obtaining)] 87 Blood Pressure Mean [Standing (for 1 minute prior to obtaining)] 98 Pulse Ox 99 Oxygen Delivery Method Room Air Room Air MDM MDM MDM Narrative Medical decision making narrative: Patient is a 84-year-old male who presented to the emergency department chief complaint of lightheadedness, generalized weakness and not feeling well. On the differential diagnose includes but not limited to orthostatic hypotension, atrial fibrillation with rapid ventricular response, electrolyte abnormality, UTI, pneumonia, ACS. Once workup is obtained reviewed he will be reevaluated. Patient ordered 30 cc/kg bolus of IV fluids at 9:35 AM. Reperfusion assessment 12:30 PM patient remains normotensive. Patient CBC reviewed showed no evidence leukocytosis white blood count of 8.7, heme was 15, plate count of 181. Patient INR normal 1.1, sodium is 139, potassium normal 4.3, creatinine is 1.19. Patient AST and ALT were 21 and 11 respectively. Patient's urinalysis reviewed showed no evidence of infection. Patient's chest x-ray was reviewed by myself and by radiology showed no acute cardiopulmonary processes. Patient's EKG originally showed A-fib RVR with a rate of 115 bpm however after IV fluids patient remained tachycardic therefore he was given 5 mg of Lopressor. Patient's heart rate normalized repeat EKG performed showed sinus rhythm with PVCs noted with evidence of right bundle branch block which she has a history of. Patient had no chest pain today during these episodes Patient ambulated well here in the emergency department no lightheadedness Discussed case with on-call behavioral therapist Dr. Link who states the patient go home and follow-up with cardiology in the outpatient setting. Discussed this plan with the patient he is advised to take his metoprolol when he gets home and take his other medications as prescribed. He is encouraged to return with worsening symptoms or any concerns. He is agreeable to this plan all question concerns answered he is discharged home in stable condition Lab Data Labs: Laboratory Results - last 24 hr 05/19/25 05/19/25 05/19/25 09:05 09:50 12:42 WBC 8.7 RBC 4.51 L Hgb 15.0 Hct 44.8 MCV 99.3 H MCH 33.3 H MCHC 33.5 RDW Std Deviation 46.8 H RDW Coeff of Erin 12.7 Plt Count 181 MPV 9.3 Immature Gran % (Auto) 0.200 Neut % (Auto) 73.7 H Lymph % (Auto) 19.0 Harnett % (Auto) 5.8 Eos % (Auto) 1.0 Baso % (Auto) 0.3 Absolute Neuts (auto) 6.4 Absolute Lymphs (auto) 1.66 Nucleated RBC % 0 PT 14.3 INR 1.1 APTT 29.6 Sodium 139 Potassium 4.3 Chloride 104 Carbon Dioxide 27.0 Anion Gap 8 BUN 22 H Creatinine 1.19 Estim Creat Clear Calc 56.16 Est GFR (MDRD) Non-Af 59 L BUN/Creatinine Ratio 18.1 Glucose 178 H Lactic Acid 1.8 Calcium 9.6 Total Bilirubin 0.63 AST 21 ALT 11 Alkaline Phosphatase 62 Total Protein 7.0 Albumin 4.1 Globulin 2.9 Albumin/Globulin Ratio 1.4 Urine Color Yellow Urine Clarity Clear Urine pH 7.0 Ur Specific [place] 1.005 Urine Protein Negative Urine Glucose (UA) Normal Urine Ketones Negative Urine Occult Blood Negative Urine Nitrite Negative Urine Bilirubin Negative Urine Urobilinogen Normal Ur Leukocyte Esterase Negative Urine RBC 0 SEEN Urine WBC 0 SEEN Ur Squamous Epith Cells 0 SEEN Urine Bacteria 0 SEEN Urine Mucus 0 SEEN Radiography Diagnostic Testing: Clinical Impression(s) from Imaging Studies Chest X-Ray 05/19/25 09:32 IMPRESSION: NO ACUTE FINDINGS. Reading Location: [facility] Discharge Plan Triage Chief Complaint: Palpitations ED Provider: Jay Morales Dx/Rx/DC Orders Clinical Impression: Atrial fibrillation, RBBB, Light-headed Prescriptions: No Action Caltrate 600 plus D 600 mg-20 mcg (800 unit) tablet,chewable 1 tab PO QAM enalapril maleate 20 MG tablet 20 mg PO DAILY Patient Comments: BLOOD PRESSURE acetaminophen 500 mg Tablet 1,000 mg PO Q6H PRN (Reason: Pain Score 1-10) Qty: 0 0RF cholecalciferol (vitamin D3) 25 mcg (1,000 unit) Tablet 25 mcg PO DAILY 30 Days Qty: 30 0RF metoprolol tartrate 25 mg tablet 12.5 mg PO Q12H Eliquis 2.5 mg tablet 2.5 mg PO BID Qty: 180 3RF Primary Care Provider: Jesus Justin Referrals: Jesus Justin MD [Primary Care Provider, Family Practice] Activity Restrictions/Additional Instructions: When you get home take your metoprolol as prescribed and make sure you take your other medications as prescribed. Follow-up with cardiology give the office a call tomorrow for an appointment. Your heart rate went back into normal sinus rhythm after I gave you the medication here in the emergency department. Your blood work did not show any other acute findings. Return with worsening symptoms or other concerns Print Language: Kiswahili Disposition Disposition: Home, Self Care
[2025-05-19 09:45] LABS: Hematocrit 44.8 % (40-54); Hemoglobin 15.0 g/dL (13.0-16.5); Immature Granulocytes Count 0.020 X10^3/uL (0.0-0.0); Mean Corp Hgb Conc 33.5 g/dL (32-36); Mean Corpuscular Volume 99.3 fL (80-94); Mean Platelet Vol. 9.3 fl (6.2-12.0); NRBC Flagged by Analyzer 0 % (0-5); Platelet Count 181 K/mm3 (150-450); RBC Distribution Width CV 12.7 % (11.6-14.6); RBC Distribution Width SD 46.8 fl (35.1-43.9); Red Blood Count 4.51 M/mm3 (4.6-6.2); White Blood Count 8.7 K/mm3 (4.4-11.0)
[2025-05-19] MEDS: 0.9% Normal Saline (1000mL) 1,000 ML 999 ML IV ×3 (09:46→11:57)
[2025-05-19 09:49] LABS: Partial Thromboplast Time 29.6 Seconds (24.1-36.2); Prothrombin Time (Protime)PT. 14.3 SECONDS (11.7-14.9)
--- OUTSIDE RECORDS SUMMARY | 2025-05-19 10:03 | XMS RPT_ITS | CCD ---
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 Michele Justin Primary Care Provider Park Bautista Attending Provider Unavailable Dr. Michele Justin Referring Provider Dr. Jose Granda Attending Provider [phone] Raphael Justin MD Primary Care Provider Gonzaelz CHOI MD, Daesung Unavailable Dr. Michele Justin Primary Care Provider [phone] Dr. Michele Justin Referring Provider Loer BOLAÑOS, MAMI Jackson Attending Provider Raphael Justin MD Primary Care Provider Raphael Justin MD Primary Care Provider Gonzalez CHOI, Daesung Unavailable Raphael Justin MD Primary Care Provider JOSE CUNNINGHAM Referring Unavailable RAPHAEL JUSTIN Primary Care UnavailJOSE Chavez Referring Unavailable RAPHAEL JUSTIN Primary Care UnavailDr. Raphael Batres MD Primary Care Provider Dr. Raphael Justin MD Referring Provider Vanesa Muir Attending Provider Charly Villagomez Attending Unavailable Charly Villagomez Admitting Unavailable [facility] Unavailable [facility] Primary Care Unavailable Panfilo Luna Consulting Unavailable Trey Arzola Consulting Unavailable Ean Roberts Consulting Unavailable Matt Arzola Consulting Unavailable Kendy Mackenzie Consulting Unavailable Chichi Crabtree Consulting Unavailable Ivory Alexis Consulting Unavailable Baldomero Rios Consulting Unavailable Giovanny Bell Consulting Unavailable Charly Villagomez Consulting Unavailable [facility] Primary Care Unavailable Yfn, Huseyin Chi Attending Unavailable Yfn, Huseyin Chi Referring Unavailable Yfn, Huseyin Chi Admitting Unavailable [facility] Unavailable [facility], Raphael Attending Unavailable [facility] Referring Unavailable [facility] Primary Care Unavailable Caleb Lunaolas Referring Unavailable Panfilo Luna Attending Unavailable [facility] Unavailable Charly Villagomez Consulting Unavailable Charly Villagomez Admitting Unavailable Cristofer Newton Attending Unavailable [facility] Unavailable Panfilo Luna Consulting Unavailable Trey Arzola Consulting Unavailable Ean oRberts Consulting Unavailable Matt Arzola Consulting Unavailable Kendy Mackenzie Consulting Unavailable Chichi Crabtree Consulting Unavailable Ivory Alexis Consulting Unavailable Baldomero Rios Consulting Unavailable Giovanny Bell Consulting Unavailable Cristofer Newton Attending Unavailable Cristofer Newton Consulting Unavailable Charly Villagomez Referring Unavailable [facility] Primary Care Unavailable Cam Steel [facility] Referring Unavailable [facility] Primary Care Unavailable Vanesa Almaguer NP Attending Unavailable [facility] Referring Unavailable Rony Wilson Attending Unavailable JOSE CUNNINGHAM Attending Unavailable [facility] Primary [facility]abl e [facility] Unavail[facility] JOSE CUNNINGHAM Referring Unavailable [facility] Primary Care Unavailabl e JOSE CUNNINGHAM Attending [facility]available [facility] Unavailabl e JOSE CUNNINGHAM Referring Unavailable [facility] Primary Care Unavailabl e [facility] Primary Care JOSE Lopez Attending Unavailable RAPHAEL JUSTIN Primary Care RAPHAEL Tavarez Primary Care RAPHAEL Tavarez Primary Care JOSE Lopez Attending Unavailable Medications Current Medications Medication Drug Class(es) Dates Sig (Normalized) Sig (Original) acetaminophen 500 mg oral tablet (20 sources) Start: 07-27-2024 take 2 tablets by mouth every six hours as needed for pain Acetaminophen 500 mg Tablet Active 1000 mg PO EVERY 6 HOURS as needed for Pain Score 1-10 0 July 27, 2024 1:00am Start: 07-10-2024 End: 07-27-2024 take 1 capsule by mouth every six hours as needed for pain Acetaminophen 500 mg capsule Discontinued 500 mg PO EVERY 6 HOURS as needed for pain July 10, 2024 1:00am July 27, 2024 8:10pm Start: 06-06-2022 End: 07-12-2022 Acetaminophen 500 mg capsule Discontinued 500 mg PO NEEDED as needed for Pain June 06, 2022 1:00am July 12, 2022 4:12pm acetaminophen (T YLENOL) 500 mg tablet Take 500 mg by mouth as needed. Active Comment on above: Take 500 mg by mouth as needed. apixaban 2.5 mg oral tablet (20 sources) Factor Xa Inhibitor Start: 12-06-2022 End: 09-14-2024 take 1 tablet by mouth twice daily apixaban (ELIQUIS) 2.5 mg tab(s) Take 1 tablet by mouth two times a day. 05/08/2023 Active Start: 07-13-2022 End: 05-08-2023 take 2.5 mg by mouth twice daily apixaban (ELIQUIS) 5 mg tab(s) Take 2.5 mg by mouth twice daily. 0 07/13/2022 05/08/2023 Discontinued Start: 07-12-2022 End: 12-06-2022 take 1 tablet by mouth twice daily Apixaban 5 mg tablet Discontinued 5 mg PO TWICE A DAY 180 July 29, 2022 4:09pm December 06, 2022 5:51pm Comment on above: 1 tablet twice daily . Take 1 tablet by leandra th twice daily. Take 2.5 mg by mouth twice daily. Take 1 tablet by leandra th two times a day. aspirin 81 mg chewable tablet (1 source) Platelet Aggregation Inhibitor, Nonsteroidal Anti-inflammatory Drug Start: 07-10-2016 take 81 mg by mouth once daily Aspirin Active 81 MG PO DAILY@0800 July 10, 2016 1:00am Ca Carb-D3-Mag Pt-Vvl-Tfso-Zn (Caltrate + D3 Plus Minerals) 300 mg-800 unit -25 mg-0.5 mg tablet (2 sources) Start: 07-12-2022 take 1 tablet by mouth twice daily Ca Carb-D3-Mag Fe-Gcz-Jteh-Zn (Caltrate + D3 Plus Minerals) 300 mg-800 unit -25 mg-0.5 mg tablet Active 1 TABLET PO TWICE A DAY July 12, 2022 1:00am Start: 07-12-2022 take 1 tablet by leandra twice daily Ca Carb-D3-Mag Uf-Bge-Qipi-Zn (Caltrate + D3 Plus Minerals) 300 mg-800 unit -25 mg-0.5 mg tablet Active 1 TABLET PO TWICE A DAY July 12, 2022 12:00am calcium carbonate 1500 mg / cholecalciferol 800 unt chewable tablet (1 source) Vitamin D Start: 12-06-2024 Calcium Carbonate-Vitamin D3 (Caltrate 600 Plus D) 600 mg-20 mcg (800 unit) tablet,chewable Active 1 {tbl} PO EVERY MORNING December 06, 2024 12:00am Calcium Carbonate / vitamin D3 (20 sources) take 1 tablet by mouth twice daily calcium carbonate/vitamin D3 (CALTRATE WITH VITAMIN D3 ORAL) Take 1 tablet by mouth twice daily. Active take 1 tablet by mouth twice yanira ly calcium carbonate/vitamin D3 (CALTRATE WITH VITAMIN D3 ORAL) Take 1 tablet by mouth twice daily. 0 Active Comment on above: Take 1 tablet by leandra twice daily. Caltrate with Vitamin D3 (1 source) Start: 06-06-20 Caltrate with Vitamin D3 Active June 06, 2022 12:00am cholecalciferol 0.025 mg oral tablet (9 sources) Vitamin D Start: 07-27-19 take 1 tablet by mouth once daily Cholecalciferol (Vitamin D3) 25 mcg (1,000 unit) Tablet Active 25 ug PO DAILY July 27, 2024 1:00am Start: 07-09-2024 End: 07-27-2024 take 1 capsule by mouth once daily Cholecalciferol (Vitamin D3) 250 mcg (10,000 unit) capsule Discontinued 42666 U PO DAILY July 09, 2024 1:00am July 27, 2024 8:10pm Start: 07-12-2022 End: 10-09-2023 take 1 tablet by mouth once daily Cholecalciferol (Vitamin D3) (Vitamin D3) 125 mcg (5,000 unit) tablet Discontinued [id number] U PO DAILY July 12, 2022 4:10pm October 09, 2023 11:10am Start: 06-06-2022 End: 07-12-2022 take 1 tablet by mouth once daily Cholecalciferol (Vitamin D3) (Vitamin D3) 125 mcg (5,000 unit) tablet Discontinued 125 ug PO DAILY June 06, 2022 1:00am July 12, 2022 4:12pm cholecalciferol, vitamin D3, (VITAMIN D3 ORAL) (9 sources) take 5000 [IU] by mouth once daily cholecalciferol, vitamin D3, (VITAMIN D3 ORAL) Take 5,000 Units by mouth once daily. Active enalapril maleate 20 mg oral tablet (20 sources) Angiotensin Converting Enzyme Inhibitor Start: 013 take 1 tablet by mouth once daily enalapril 20 mg tablet Indications: Essential hypertension, benign Take 1 tablet by mouth once daily. 90 tablet 3 10/12/2012 Active Comment on above: Take 1 tablet by leandra once daily. metoprolol tartrate 25 mg oral tablet (20 sources) beta-Adrenergic Garry Start: 025 Metoprolol Tartrate 25 mg tablet Active 12.5 mg PO Q12H December 06, 2024 11:21am Start: 07-14-2024 End: 12-06-2024 take 1 tablet by mouth every twelve hours Metoprolol Tartrate 25 mg tablet Discontinued 25 mg PO Q12H July 14, 2024 1:00am December 06, 2024 11:21am Start: 07-12-2022 End: 07-14-2024 take 1 tablet by mouth twice daily metoprolol tartrate, short acting, (LOPRESSOR) 25 mg tablet Take 1 tablet by mouth twice daily. 07/29/2022 Active Comment on above: 1 tablet twice daily . Take 1 tablet by leandra th twice daily. vit C/E/Zn/coppr/lutein/ze axan (PRESERVISION AREDS-2 ORAL) (20 sources) take 1 tablet by mouth twice daily vit C/E/Zn/coppr/lutein/ zeaxan (PRESERVISION AREDS-2 ORAL) Take 1 tablet by mouth twice daily. Active take 1 tablet by leandra th twice daily vit C/E/Zn/coppr/lutein/zeaxan (PRESERVI ROB AREDS-2 ORAL) Take 1 tablet by mouth twice daily. 0 Active Comment on above: Take 1 tablet by leandra th twice daily. Completed/Discontinued Medications Medication Drug Class(es) Dates Sig (Normalized) Sig (Original) acetaminophen 325 mg / oxyCODONE hydrochloride 5 mg oral tablet (5 sources) Opioid Agonist Start: 07-10-2016 End: 08-04-2018 Oxycodone-Acetamino phen 1 TABLET tablet Discontinued 1 {tbl} PO EVERY 4 HOURS NEEDED as needed for Pain July 10, 2016 1:00am August 04, 2018 11:56am Start: 07-10-2016 End: 08-04-2018 take 1 tablet by mouth every four hours as needed Oxycodone-Acetaminophen Discontinued 1 TABLET PO EVERY 4 HOURS NEEDED July 10, 2016 1:00am August 04, 2018 11:56am amLODIPine 5 mg oral tablet (20 sources) Dihydropyridine Calcium Channel Garry Start: 06-06-2022 End: 10-09-2023 take 1 tablet by mouth once daily Amlodipine 5 mg tablet Discontinued 5 mg PO DAILY June 06, 2022 1:00am October 09, 2023 11:10am Comment on above: Take 5 mg by mouth o nce daily. bisacodyl 5 mg delayed release oral tablet (9 sources) Stimulant Laxative End: 06-05-2022 Bisacodyl (DULCOLAX) 5 mg tab Take 5 mg by mouth as needed. 0 06/05/2022 Discontinued Comment on above: Take 5 mg by mouth a s needed. Ca Carb-D3-Mag Na-Egr-Reqv-Zn (Caltrate-D3 Plus Minerals) 300 mg-800 unit -25 mg-0.5 mg tablet (1 source) Start: 07-12-2022 End: 07-27-2024 take 1 tablet by mouth twice daily Ca Carb-D3-Mag Cr-Iry-Okcs-Zn (Caltrate-D3 Plus Minerals) 300 mg-800 unit -25 mg-0.5 mg tablet Discontinued 1 {tbl} PO TWICE A DAY July 12, 2022 1:00am July 27, 2024 8:10pm calcium chloride 0.0014 meq/ml / potassium chloride 0.004 meq/ml / sodium chloride 0.103 meq/ml / sodium lactate 0.028 meq/ml injectable solution (1 source) Start: 11-25-2023 End: 11-25-2023 lactated ringers iv infusion cyanocobalamin, vitamin B-12, (VITAMIN B12 ORAL) (20 sources) End: 11-27-2023 take 1 tablet by mouth once daily cyanocobalamin, vitamin B-12, (VITAMIN B12 ORAL) Take 1 tablet by mouth once daily. 0 11/27/2023 Discontinued take 1 tablet by mouth once moni y cyanocobalamin, vitamin B-12, (VITAMIN B12 ORAL) Take 1 tablet by mouth once daily. 0 Active Comment on above: Take 1 tablet by leandra th once daily. 1 ml denosumab 60 mg/ml prefilled syringe (4 sources) RANK Ligand Inhibitor Start: 06-06-2022 End: 10-09-2023 Denosumab (Prolia) 60 mg/mL syringe Discontinued 60 mg SC EVERY MONTH June 06, 2022 1:00am October 09, 2023 11:11am every 6 months Start: 06-06-2022 Denosumab (Pro margaret) 60 mg/mL syringe Active 60 MG SC June 06, 2022 12:00am every 6 months docusate sodium 100 mg oral capsule (15 sources) Start: 07-10-2016 End: 08-04-2018 take 1 capsule by mouth twice daily Docusate Sodium 100 MG capsule Discontinued 100 mg PO TWICE A DAY July 10, 2016 1:00am August 04, 2018 11:56am End: 06-05-2022 DOCUSATE SODIUM ORAL Take 1 tablet by mouth as needed. 0 06/05/2022 Discontinued DOCUSATE SODIUM ORAL Take 1 tablet by mouth as needed. 0 Active Comment on above: Take 1 tablet by leandra th as needed. docusate sodium 50 mg / sennosides, snf 8.6 mg oral tablet (1 source) Start: 025 End: Sennosides-Docusate Sodium (Stimulant Laxative Plus) 8.6-50 mg Tablet Discontinued 2 {tbl} PO TWICE A DAY July 14, 2024 1:00am July 27, 2024 8:11pm doxycycline monohydrate 100 mg oral tablet (10 sources) Tetracycline-class Drug Start: End: doxycycline monohydrate 100 mg tablet 1 ml fentaNYL 0.05 mg/ml injection (1 source) Opioid Agonist Start: End: fentaNYL 50 mcg/mL 25-100 mcg injection (SUBLIMAZE) furosemide 20 mg oral tablet (12 sources) Loop Diuretic Start: End: take 1 tablet by mouth once daily in the morning furosemide (LASIX) 20 mg tablet Take 20 mg by mouth every morning. 0 01/28/2023 11/27/2023 Discontinued Comment on above: Take 20 mg by mouth every morning. gabapentin 300 mg oral capsule (5 sources) Anti-epileptic Agent Start: End: take 1 capsule by mouth twice daily at mealtime Gabapentin 300 MG capsule Discontinued 300 mg PO TWICE DAILY WITH MEALS 60 July 12, 2016 1:00am July 12, 2016 2:04pm Leuprolide (3 Month) (3 sources) Gonadotropin Releasing Hormone Receptor Agonist Start: End: inject 11.25 mg by intramuscular injection every three months Leuprolide (3 Month) 22.5 mg suspension for reconstitution Discontinued 11.25 mg IM every 3 months July 12, 2022 1:00am October 09, 2023 11:11am Start: 07-12-2022 inject 11.25 mg by i ntramuscular injection every three months Leuprolide (3 Month) Active 11.25 MG IM every 3 months July 12, 2022 1:00am Start: 07-12-2022 inject 11.25 mg by i ntramuscular injection every three months Leuprolide (3 Month) Active 11.25 MG IM every 3 months July 12, 2022 12:00am 5 ml midazolam 1 mg/ml injection (1 source) Benzodiazepine Start: 11-25-2023 End: 11-25-2023 midazolam (PF) 1-5 mg injection (VERSED) polyethylene glycol 3350 36908 mg powder for oral solution (20 sources) Osmotic Laxative Start: 07-10-2024 End: 07-27-2024 Polyethylene Glycol 3350 (Clearlax) 17 gram/dose powder Discontinued 17 g PO DAILY as needed for constipation July 10, 2024 1:00am July 27, 2024 8:11pm Start: 06-06-2022 End: 07-12-2022 take 1 g by mouth once daily Polyethylene Glycol 3350 (Miralax) 17 gram/dose Powder Discontinued 1 g PO DAILY June 06, 2022 1:00am July 12, 2022 4:12pm Comment on above: Take 17 g by mouth o nce daily. Dissolve dose in 4 - 8 ounces of liquid and take as directed. Take 17 g by mouth a s needed for constipation. Dissolve dose in 4 - 8 ounces of liquid and take as directed. polyethylene glycol 3350 974025 mg / potassium chloride 2970 mg / sodium bicarbonate 6740 mg / sodium chloride 5860 mg / sodium sulfate 73364 mg powder for oral solution (1 source) Osmotic Laxative Start: 10-10-19 End: 10-10-19 peg 3350-Electrolytes (GOLYTELY) 236-22.74-6.74 -5.86 gram suspension Indications: Tubulovillous adenoma , Radiation proctitis Take 4,000 mL by mouth one time only for 1 dose. Refer to printed prep instructions from your provider. 4000 mL 0 10/10/2023 10/10/2023 Comment on above: Take 4,000 mL by leandra th one time only for 1 dose. Refer to printed prep instructions from your provider. sucralfate 1000 mg oral tablet (6 sources) Aluminum Complex Start: 10-10-19 End: 01-08-20 take 40 mL rectal route twice daily sucralfate (CARAFATE) 0.1 g/mL rectal enema 40 mL by RECTAL route two times a day. 2400 mL 2 10/10/2023 11/27/2023 Discontinued Comment on above: 40 mL by RECTAL rout e two times a day. triamcinolone acetonide 1 mg/ml topical cream (6 sources) Corticosteroid Start: 07-10-19 End: 08-04-19 Triamcinolone Acetonide 1 APPLIC cream Discontinued 1 NMA TOPICAL TWICE A DAY July 10, 2016 1:00am August 04, 2018 11:56am Start: 07-10-2016 End: 08-04-2018 Triamcinolone Acetonide Disc ontinued 1 APPLIC TOPICAL TWICE A DAY July 10, 2016 1:00am August 04, 2018 11:56am Vitamin A-Vitamin C-Vit E-Mi n (Eye-Vites) Tablet (4 sources) Start: 06-06-2022 End: 07-12-2022 Vitamin A-Vitamin C-Vit E-Mi n (Eye-Vites) Tablet Discontinued 2 {tbl} PO DAILY June 06, 2022 1:00am July 12, 2022 4:12pm Start: 06-06-2022 End: 07-12-2022 take 2 tablets by mouth once daily Vitamin A-Vitamin C-Vit E-Min (Eye-Vites) Tablet Discontinued 2 TABLET PO DAILY June 06, 2022 1:00am July 12, 2022 4:12pm Start: 06-06-2022 End: 07-12-2022 take 2 tablets by mouth once daily Vitamin A-Vitamin C-Vit E-Min (Eye-Vites) Tablet Discontinued 2 TABLET PO DAILY June 06, 2022 12:00am July 12, 2022 3:12pm Start: 06-06-2022 take 2 tablets by mo [facility] once daily Vitamin A-Vitamin C-Vit E-Min (Eye-Vites) Tablet Active 2 TABLET PO DAILY June 06, 2022 12:00am vitamin b12 1 mg oral tablet (3 sources) Vitamin B12 Start: 07-12-2022 End: 10-09-2023 take 1 tablet by mouth once daily Cyanocobalamin (Vitamin B-12) 1,000 mcg tablet Discontinued 1000 ug PO DAILY July 12, 2022 1:00am October 09, 2023 11:11am Vitamins A,C,P-Qozq-Uosbwo (Preservision Areds) 14,320-226-200 pnxt-ou-ogsn capsule (3 sources) Start: 07-12-2022 End: 10-09-2023 Vitamins A,C,Q-Tfsu-Uejfzh (Preservision Areds) 14,320-226-200 luxq-vx-ijny capsule Discontinued 1 NMA PO TWICE A DAY July 12, 2022 1:00am October 09, 2023 11:11am Start: 07-12-2022 take 1 capsule by [facility] twice daily Vitamins A,C,D-Taaa-Wfrcpz (Preservision Areds) 14,320-226-200 xjxf-wt-axrf capsule Active 1 CAP PO TWICE A DAY July 12, 2022 1:00am Start: 07-12-2022 take 1 capsule by [facility] twice daily Vitamins A,C,Q-Xagk-Lddadj (Preservision Areds) 14,320-226-200 feup-bj-qaey capsule Active 1 CAP PO TWICE A DAY July 12, 2022 12:00am Problems Active Problems Problem Classification Problem Date Documented Date Episodic/Chronic Anal and rectal conditions (3 sources) Radiation proctitis; Translations: [Radiation proctitis] 03-14-2023 Episodic Cancer of prostate (20 sources) Malignant tumor of prostate; Translations: [Malignant neoplasm of prostate] Onset: 10-17-2020 Chronic Cancer of prostate (4 sources) History of malignant neoplasm of prostate; Translations: [Personal history of malignant neoplasm of prostate] 06-14-2022 Episodic Cardiac dysrhythmias (20 sources) Ventricular arrhythmia; Translations: [Cardiac arrhythmia, unspecified] Onset: 07-14-2024 Chronic Coagulation and hemorrhagic disorders (2 sources) Thrombocytopenic disorder; Translations: [Thrombocytopenia, unspecified] Onset: 03-29-2024 03-29-2024 Chronic Complications of surgical procedures or medical care (5 sources) Wound pain ; Translations: [Other postprocedural complications of skin and subcutaneous tissue] 07-12-2022 Episodic Conduction disorders (3 sources) Right bundle branch block; Translations: [Unspecified right bundle-branch block] 07-12-2022 Chronic Disorders of lipid metabolism (20 sources) Hyperlipidemia; Translations: [Hyperlipidemia, unspecified] Onset: 02-28-2005 02-28-2005 Chronic Diverticulosis and diverticulitis (20 sources) Diverticulosis of colon; Translations: [Diverticulosis of large intestine without perforation or abscess without bleeding] Onset: 07-03-2016 07-03-2016 Chronic Essential hypertension (20 sources) Benign essential hypertension; Translations: [Essential (primary) hypertension] Onset: 02-28-2005 02-28-2005 Chronic Heart valve disorders (4 sources) Mitral valve prolapse; Translations: [Nonrheumatic mitral (valve) prolapse] 07-12-2022 Chronic Hemorrhoids (5 sources) Internal hemorrhoids; Translations: [Other hemorrhoids] 07-12-2022 Episodic Malaise and fatigue (1 source) Asthenia; Translations: [Other malaise] 07-14-2024 Episodic Nutritional deficiencies (1 source) Vitamin D deficiency; Translations: [Vitamin D deficiency, unspecified] 07-14-2024 Chronic Osteoarthritis (2 sources) Osteoarthritis; Translations: [Unspecified osteoarthritis, unspecified site] Onset: 07-14-2024 07-20-2024 Chronic Other aftercare (1 source) Long-term current use of anticoagulant; Translations: [supervisor intermediates (current) use of anticoagulants] 07-20-2024 Episodic Other and unspecified benign neoplasm (4 sources) Benign adenomatous neoplasm; Translations: [Benign neoplasm, unspecified site] 03-07-2023 Episodic Other and unspecified benign neoplasm (1 source) Adenomatous polyp of colon ; Translations: [Benign neoplasm of transverse colon] 02-27-2023 Episodic Other bone disease and musculoskeletal deformities (10 sources) Segmental and somatic dysfunction; Translations: [Segmental and somatic dysfunction of lumbar region] 07-12-2022 Episodic Other circulatory disease (4 sources) H/O: hypertension; Translations: [Personal history of other diseases of the circulatory system] 06-14-2022 Episodic Other nervous system disorders (1 source) Neuropathy; Translations: [Polyneuropathy, unspecified] 03-29-2024 Chronic Other nervous system disorders (2 sources) Polyneuropathy, unspecified; Translations: [Polyneuropathy, unspecified] Onset: 03-22-2024 Chronic Other nutritional; endocrine; and metabolic disorders (1 source) Obese class I; Translations: [Class 1 obesity] 07-20-2024 Chronic Other screening for suspected conditions (not mental disorders or infectious disease) (6 sources) Patient encounter status; Translations: [Encounter for screening for malignant neoplasm of colon] Onset: 09-23-2024 02-27-2023 Episodic Other skin disorders (1 source) Dystrophia unguium; Translations: [Nail dystrophy] Episodic Residual codes; unclassified (1 source) Intolerant of heat; Translations: [Other general symptoms and signs] 02-13-2023 Episodic Spondylosis; intervertebral disc disorders; other back problems (5 sources) Degeneration of lumbar intervertebral disc; Translations: [Other intervertebral disc degeneration, lumbar region] 07-12-2022 Chronic Comment on above: Suspect stenosis cau sing neurogenic claudication. Syncope (6 sources) Syncope; Translations: [Syncope and collapse] 07-11-2016 Episodic Unclassified (1 source) Other intervertebral disc degeneration, lumbar region without mention of lumbar back pain or lower extremity pain; Translations: [Other intervertebral disc degeneration, lumbar region without mention of lumbar back pain or lower extremity pain] Onset: 07-14-2024 Unclassified (1 source) Obesity, class 1; Translations: [Obesity, class 1] Onset: 07-14-2024 Unclassified (1 source) Established Patient Onset: 01-17-2025 Past or Other Problems Problem Classification Problem Date Documented Da te Episodic/Chronic Abdominal hernia (20 sources) Right inguinal hernia ; Translations: [Unilateral inguinal hernia, without obstruction or gangrene, not specified as recurrent] Onset: 7 06-28-2016 Episodic Allergic reactions (15 sources) Solar degeneration; Translations: [Other skin changes due to chronic exposure to nonionizing radiation] Onset: 0 Resolved: 7 07-03-2016 Episodic Conditions associated with dizziness or vertigo (15 sources) Dizziness and giddiness; Translations: [Dizziness and giddiness] Onset: 3 Resolved: 7 07-03-2016 Episodic Fracture of neck of femur (hip) (5 sources) Closed fracture of neck of femur; Translations: [Fracture of unspecified part of neck of left femur, initial encounter for closed fracture] Onset: 5 07-20-2024 Episodic Gastrointestinal hemorrhage (20 sources) Gastrointestinal hemorrhage; Translations: [Gastrointestinal hemorrhage, unspecified] Onset: 3 07-10-2016 Episodic Genitourinary symptoms and ill-defined conditions (2 sources) Increased frequency of urination; Translations: [Frequency of micturition] Onset: 4 11-27-2023 Episodic Mycoses (20 sources) Pityriasis versicolor; Translations: [Pityriasis versicolor] Onset: 0 11-29-2009 Episodic Neoplasms of unspecified nature or uncertain behavior (15 sources) Neoplasm of uncertain behavior of skin; Translations: [Neoplasm of uncertain behavior of skin] Onset: 0 Resolved: 7 07-03-2016 Episodic Other aftercare (1 source) [facility] (current) use of anticoagulants; Translations: [supervisor intermediates (current) use of anticoagulants] Onset: 5 Episodic Other and unspecified benign neoplasm (20 sources) Melanocytic nevus of face; Translations: [Melanocytic nevi of unspecified part of face] Onset: 0 11-29-2009 Episodic Other and unspecified benign neoplasm (16 sources) Melanocytic nevi of unspecified part of face; Translations: [Benign neoplasm of skin of other and unspecified parts of face] Onset: 0 11-29-2009 Episodic Other bone disease and musculoskeletal deformities (1 source) Segmental and somatic dysfunction of lumbar region; Translations: [Segmental and somatic dysfunction of lumbar region] Onset: 5 Episodic Other bone disease and musculoskeletal deformities (1 source) Segmental and somatic dysfunction of pelvic region; Translations: [Segmental and somatic dysfunction of pelvic region] Onset: 5 Episodic Other circulatory disease (20 sources) Spider nevus; Translations: [Nevus, non-neoplastic] Onset: 0 11-29-2009 Episodic Other inflammatory condition of skin (20 sources) Seborrheic dermatitis; Translations: [Other seborrheic dermatitis] Onset: 0 11-29-2009 Episodic Other lower respiratory disease (20 sources) Lung field abnormal; Translations: [Nonspecific abnormal findings on radiological and other examination of lung field] Onset: 8 10-01-2007 Episodic Other male genital disorders (20 sources) Disorder of prostate; Translations: [Disorder of prostate, unspecified] Onset: 5 08-21-2009 Episodic Other nervous system disorders (2 sources) Anesthesia of skin; Translations: [Anesthesia of skin] Onset: 4 Episodic Other nervous system disorders (1 source) Paresthesia of skin; Translations: [Paresthesia of skin] Onset: 4 Episodic Other non-epithelial cancer of skin (20 sources) History of malignant neoplasm of skin; Translations: [Personal history of other malignant neoplasm of skin] Onset: 0 11-29-2009 Episodic Other skin disorders (20 sources) Solar lentigo; Translations: [Other melanin hyperpigmentation] Onset: 0 11-29-2009 Episodic Other skin disorders (20 sources) Seborrheic keratosis; Translations: [Other seborrheic keratosis] Onset: 0 11-29-2009 Episodic Other skin disorders (20 sources) Scar; Translations: [Scar conditions and fibrosis of skin] Onset: 0 11-29-2009 Episodic Results Test Name Value Interpretation Reference Range Facility [facility] 01-17-2025 OVSP Visit (SP) Office (H EMAWS) ROBBIN MARTINEZ ([id number]) 1940 M Date Time Provider Department 01/17/25 4:10 PM JOSE CUNNINGHAM HEMJOSEF During your visit today, we recorded the following information about you: Temperature Pulse Blood pressure Weight 97.3 degrees 63/minute 118/71 98.4 kg Jose Cunningham DO 01/17/2025 5:02 PM Signed Oncologic problem(s): 1) High risk prostate cancer. HPI: The patient is an 84-year-old male with a past medical history significant for essential hypertension and hyperlipidemia. Had been managed by urologist for BPH. PSA in the past has fluctuated. For instance it was 7.1 ng/mL November 2014. Then 9.5 ng/mL in August 2018 and then 8.0 ng/mL in December 2018. Increased to 14.80 ng/mL. Biopsy of the prostate 08/07/2020. Pathology: A. Right prostate, apex, core biopsy: Adenocarcinoma. [place] grade: 7 (4+3) Cores involved: 1 out of 1 core Tissue involved: 5% Greatest tumor length: 1 mm See comment. B. Right prostate, mid, core biopsy: Adenocarcinoma. [place] grade: 8 (4+4) Cores involved: 1 out of 1 core Tissue involved: 60% Greatest tumor length: 4.5 mm C. Right prostate, base, core biopsy: Adenocarcinoma. [place] grade: 8 (4+4) Cores involved: 1 out of 1 core Tissue involved: 2% Greatest tumor length: <1 mm D. Left prostate, apex, core biopsy: Focal atypical small acinar proliferation. See comment. E. Left prostate, mid, core biopsy: Adenocarcinoma. Valentina grade: 6 (3+3) Cores involved: 1 out of 1 core Tissue involved: 2% Greatest tumor length: <1 mm See comment. F. Left prostate, base, core biopsy: Adenocarcinoma. [place] grade: 7 (3+4) Cores involved: 1 out of 1 core Tissue involved: 65% Greatest tumor length: 5.5 mm Bone scan on 08/29/2020 demonstrated no evidence of bone metastases. He had been advised to undergo external beam radiation treatment with ADT. Previous therapy: 1) ADT (10/2020) with radiation (completed radiation 01/2021). Last q 3 month Lupron injection 01/2023. Received every 3 month Lupron for 2-1/2 years, last dose 02/13/2023. PSA undetectable as of 02/2022. Developed atrial fibrillation 05/2022. On apixaban since 06/2022. Had colonoscopy to assess rectal bleeding in February 2023. Preparation was inadequate. Was found to have a 20 mm polypoid lesion in the distal transverse colon. It was sessile. No bleeding observed. Biopsies were obtained and the area was tattooed with 3 mL of carbon black. There was a diffuse area of mild erythematous mucosa in the rectum. Multiple small and large mouth diverticula were observed in the sigmoid colon terminal ileum appeared normal. Pathology: A. Transverse colon, polypectomy: - Tubulovillous adenoma. Presents for ongoing oncologic management. Interim history: Rectal bleeding significantly slowing. Still has urinary frequency, going about every 2 hours during the day Typically 3 times at night. No gross hematuria or dysuria. Remains on anticoagulation for history of atrial fibrillation. Continues follow-up with the [facility]. PMH, medications and allergies personally reviewed by me today. Any changes documented in appropriate section. ROS: Constitutional: Denies episodes of fever and night sweats. Not significantly fatigued. Normal appetite. Neuro: Denies URIOSTEGUI, vertigo, dizziness and imbalance. Denies symptoms of neuropathy. HEENT: No recent change in voice, vision or hearing. Resp: Denies cough, wheeze and hemoptysis. Denies shortness of breath at rest. CVS: Denies exertional chest pain, PND, orthopnea and LE edema. GI: Denies dysphagia and odynophagia. Denies reflux, n/v, change in bowel habits and abdominal pain. : See above. Endo: Denies hot flashes. Denies polyuria and polydipsia. Denies heat and cold intolerance. Musculoskeletal: Chronic back pain--stable. Derm: Denies rash. Denies jaundice and diffuse pruritis. Heme: Denies unusual bleeding and unexplained bruising. Psych: Normal mood. PHYSICAL EXAM: Vitals: Blood pressure 118/71, pulse 63, temperature 36.3 ?C (97.3 ?F), temperature source Temporal, weight 98.4 kg (217 lb), SpO2 97%. Well-appearing and in no acute distress. EYES: Sclerae are anicteric bilaterally. ABDOMEN: The abdomen is nondistended. Extremities: No swelling or edema. 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 High risk disease. - PSA doubling time was approximately a year. - PET scan 09/2024. ANIL. - We reviewed the results of the r (more content not included)... Normal [facility] PSA SerPl-ncon 01-14-2025 Prostate specific Ag [Mass/Vol] 0.04 ng/mL Normal <2.60 [facility] Comment on above: Order Comment: Speci men Type: BLOOD SPECIMENOrdering Facility: [facility] Address: [address] [place] [address] [place] [address] Result Comment: Tota l PSA test methodology used is the Electrochemiluminescence Immunoassay by [employer]. Total PSA values by differing methodologies cannot be interchanged. Performed By: #### 2 857-1 ####[facility] LABCLIA [id number] [place] [address] [place] CBC W Auto Differential pane l (Bld)on 01-10-2025 Basophils (Bld) [#/Vol] 10*3/uL Normal <0.11 [facility] Comment on above: Order Comment: Speci men Type: BLOOD SPECIMENOrdering Facility: [facility] Address: [address] [place] [address] Performed By: #### 5 7021-8 ####[facility] [id number] [place] [address] [place] Basophils/100 WBC (Bld) 0.2 % Normal [facility] Comment on above: Order Comment: Speci men Type: BLOOD SPECIMENOrdering Facility: [facility] Address: [address] [place] [address] Performed By: #### 5 7021-8 ####[facility] [id number] [place] [address] [place] Differential cell count method Nom (Bld) Auto Normal [facility] Comment on above: Order Comment: Speci men Type: BLOOD SPECIMENOrdering Facility: [facility] Address: [address] [place] [address] Performed By: #### 5 7021-8 ####[facility] [id number] [place] [address] [place] Eosinophils (Bld) [#/Vol] 0.14 10*3/uL Normal <0.46 [facility] Comment on above: Order Comment: Speci men Type: BLOOD SPECIMENOrdering Facility: [facility] Address: [address] [place] [address] Performed By: #### 5 7021-8 ####[facility] MARYSOLISLIA [id number] [place] [address] [place] Eosinophils/100 WBC (Bld) 2.3 % Normal [facility] Comment on above: Order Comment: Speci men Type: BLOOD SPECIMENOrdering Facility: [facility] Address: [address] [place] [address] Performed By: #### 5 7021-8 ####[facility] [id number] [place] [address] [place] Erythrocyte distribution width (RBC) [Ratio] 12.8 % Normal 11.5-15.0 [facility] Comment on above: Order Comment: Speci men Type: BLOOD SPECIMENOrdering Facility: [facility] Address: [address] [place] [address] Performed By: #### 5 7021-8 ####[facility] [id number] [place] [address] [place] Hematocrit (Bld) [Volume fraction] 41.3 % Normal 39.0-51.0 [facility] Comment on above: Order Comment: Speci men Type: BLOOD SPECIMENOrdering Facility: [facility] Address: [address] [place] [address] Performed By: #### 5 7021-8 ####[facility] [id number] [place] [address] [place] Hemoglobin (Bld) [Mass/Vol] 13.9 g/dL Normal 13.0-17.0 [facility] Comment on above: Order Comment: Speci men Type: BLOOD SPECIMENOrdering Facility: [facility] Address: [address] [place] [address] Performed By: #### 5 7021-8 ####[facility] [id number] [place] [address] [place] Immature granulocytes (Bld) [#/Vol] 10*3/uL Normal <0.10 [facility] Comment on above: Order Comment: Speci men Type: BLOOD SPECIMENOrdering Facility: [facility] Address: [address] [place] [address] Performed By: #### 5 7021-8 ####[facility] [id number] [place] [address] [place] Immature granulocytes/100 WBC (Bld) 0.2 % Normal [facility] Comment on above: Order Comment: Speci men Type: BLOOD SPECIMENOrdering Facility: [facility] Address: [address] [place] [address] Performed By: #### 5 7021-8 ####[facility] [id number] [place] [address] [place] Lymphocytes (Bld) [#/Vol] 1.91 10*3/uL Normal 1.00-4.00 [facility] Comment on above: Order Comment: Speci men Type: BLOOD SPECIMENOrdering Facility: [facility] Address: [address] [place] [address] Performed By: #### 5 7021-8 ####[facility] [id number] [place] [address] [place] Lymphocytes/100 WBC (Bld) 31.5 % Normal [facility] Comment on above: Order Comment: Speci men Type: BLOOD SPECIMENOrdering Facility: [facility] Address: [address] [place] [address] Performed By: #### 5 7021-8 ####[facility] [id number] [place] [address] [place] MCH (RBC) [Entitic mass] 31.9 pg Normal 26.0-34.0 [facility] Comment on above: Order Comment: Speci men Type: BLOOD SPECIMENOrdering Facility: [facility] Address: [address] [place] [address] Performed By: #### 5 7021-8 ####[facility] MAGNOLIAJENNIELIA [id number] [place] [address] [place] [facility] MCHC (RBC) [Mass/Vol] 33.7 g/dL Normal 30.5-36.0 [facility] Comment on above: Order Comment: Speci men Type: BLOOD SPECIMENOrdering Facility: [facility] Address: [address] [place] [address] Performed By: #### 5 7021-8 ####[facility]ITALJENNIEA [id number] [place] [address] [place] MCV (RBC) [Entitic vol] 94.7 fL Normal 80.0-100.0 [facility] Comment on above: Order Comment: Speci men Type: BLOOD SPECIMENOrdering Facility: [facility] Address: [address] [place] [address] Performed By: #### 5 7021-8 ####[facility]ITALJENNIELIA [id number] [place] [address] [place] Monocytes (Bld) [#/Vol] 0.53 10*3/uL Normal <0.87 [facility] Comment on above: Order Comment: Speci men Type: BLOOD SPECIMENOrdering Facility: [facility] Address: [address] [place] [address] Performed By: #### 5 7021-8 ####[facility]ITAL[facility]CL[facility] [id number] [place] [address] [place] Monocytes/100 WBC (Bld) 8.7 % Normal [facility] Comment on above: Order Comment: Speci men Type: BLOOD SPECIMENOrdering Facility: [facility] Address: [address] [place] [address] Performed By: #### 5 7021-8 ####[facility]ITALJENNIELIA [id number] [place] [address] [place] Neutrophils (Bld) [#/Vol] 3.46 10*3/uL Normal 1.45-7.50 [facility] Comment on above: Order Comment: Speci men Type: BLOOD SPECIMENOrdering Facility: [facility] Address: [address] [place] [address] Performed By: #### 5 7021-8 ####[facility] [id number] [place] [address] [place] Neutrophils/100 WBC (Bld) 57.1 % Normal [facility] Comment on above: Order Comment: Speci men Type: BLOOD SPECIMENOrdering Facility: [facility] Address: [address] [place] [address] Performed By: #### 5 7021-8 ####[facility] [id number] [place] [address] [place] Nucleated RBC (Bld) [#/Vol] 10*3/uL Normal <0.01 [facility] Comment on above: Order Comment: Speci men Type: BLOOD SPECIMENOrdering Facility: [facility] Address: [address] [place] [address] Performed By: #### 5 7021-8 ####[facility] [id number] [place] [address] [place] Nucleated RBC/100 WBC (Bld) [Ratio] 0.0 /100 WBC Normal [facility] Comment on above: Order Comment: Speci men Type: BLOOD SPECIMENOrdering Facility: [facility] Address: [address] [place] [address] Performed By: #### 5 7021-8 ####[facility]ITALNCLI [id number] [place] [address] [place] Platelet mean volume (Bld) [Entitic vol] 9.3 fL Normal 9.0-12.7 [facility] Comment on above: Order Comment: Speci men Type: BLOOD SPECIMENOrdering Facility: [facility] Address: [address] [place] [address] Performed By: #### 5 7021-8 ####[facility]ITAL[facility]CL[facility] [id number] [place] [address] [place] Platelets (Bld) [#/Vol] 163 10*3/uL Normal 150-400 [facility] Comment on above: Order Comment: Speci men Type: BLOOD SPECIMENOrdering Facility: [facility] Address: [address] [place] [address] Performed By: #### 5 7021-8 ####[facility]ITALNCA [id number] [place] [address] [place] RBC (Bld) [#/Vol] 4.36 10*6/uL Normal 4.20-6.00 [facility] Comment on above: Order Comment: Speci men Type: BLOOD SPECIMENOrdering Facility: [facility] Address: [address] [place] [address] Performed By: #### 5 7021-8 ####[facility] [id number] [place] [address] [place] WBC (Bld) [#/Vol] 6.06 10*3/uL Normal 3.70-11.00 [facility] Comment on above: Order Comment: Speci men Type: BLOOD SPECIMENOrdering Facility: [facility] Address: [address] [place] [address] Performed By: #### 5 7021-8 ####[facility]ITALNCLIA [id number] [place] [address] [place] Cardiology Visit Reporton Cardiology Visit Report [facility] [address] [place] [address] OFFICE VISIT Date of Service: 12/06/24 MR#: [id number] Acct: [id number] Name: ROBBIN MARTINEZ Rep #: [id number] : 1940 Provider: ALEC aceves Age/Sex: 84/M Location: [facility] Status: Signed HPI HPI History of Present Illness Details: Robbin Martinez is an 84-year-old gentleman who presents here today for a cardiovascular follow-up. He does have a history of atrial fibrillation, NSVT, hypertension, right bundle branch block. He does have chronic hemorrhoids. He will be seeing Dr. Gregory for this next week. His Hgb has been stable. From a cardiac standpoint, the patient is doing well. He denies any palpitations, chest pain, pressure or heaviness. He denies SOB, Orthopnea, and PND. He does acknowledge rectal bleeding-he has followed with GI for this. He does not have bleeding issues; no blood in urine, or nosebleeds. He denies any decrease in energy level, myalgias, or claudication. He does have BLE edema. He does not have sudden weight gain. He does have occasional lightheadedness-more with low blood pressure readings. He denies dizziness, syncopal or near syncopal episodes, and headaches. Intake Vital Signs 07/21/24 12:22 12/06/24 07:36 Height 6 ft 5 in 6 ft 5 in Weight: 219 lb BMI 25.9 BP 153/69 H Blood Pressure Location Lt brachial Position Sitting Respiration 18 Pulse 68 Pulse Source Monitor Intake Visit Reasons: SEE NOTES/NEEDS EKG [employer] Required: No Accompanied by: Is patient in pain?: No Allergies No Known Allergies Allergy (Verified 12/06/24 11:48) Medications ???Medication ???Instructions ???Recorded ???Confirmed ???Type enalapril maleate 20 mg tablet 20 mg PO DAILY BP 07/10/16 5 History acetaminophen 500 mg tablet 1,000 mg (2 x 500 mg) PO Q6H PRN 0 07/27/24 12/06/24 Rx Pain Score 1-10 #0 tabs cholecalciferol (vitamin D3) 25 25 mcg PO DAILY 30 days #30 tabs 0 07/27/24 12/06/24 Rx mcg (1,000 unit) tablet apixaban 2.5 mg tablet (Eliquis) 2.5 mg PO BID Dose decreased due 0 09/14/24 12/06/24 Rx to creat clearance #180 tabs calcium 600 mg (as carbonate)-vit 1 tab PO QAM 12/06/24 12/06/24 Hi story D3 20 mcg (800 unit) chewable tablet (Caltrate plus D) metoprolol tartrate 25 mg tablet 12.5 mg PO Q12H BP 12/06/24 History Ejection fraction %: 65 Have you fallen in the past year?: Yes (June-tripped on oxygen cord and broke left hip) PFSH Medical History Obesity (BMI 30.0-34.9) Osteoarthritis 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 Paroxysmal atrial fibrillation Segmental and somatic dysfunction of lumbar region Segmental and somatic dysfunction of pelvic region DDD (degenerative disc disease), lumbar Prostate CA RBBB Atrial fibrillation Essential hypertension Actinic keratosis, hx of History of malignant melanoma Enlarged prostate Arthritis Environmental allergies Pain at surgical incision Internal hemorrhoids Diverticulosis Surgical History History of left hip hemiarthroplasty Hx of basal cell carcinoma excision History of hernia repair Family History Father Hypertension CVA (cerebral vascular accident) Grandfather Hypertension Grandfather Heart disease Mother Heart disease Hypertension Other CAD (coronary artery disease) Cancer Social History household members: spouse Smoking Status: Former smoker alcohol intake: current alcohol intake frequency: 0-2 drinks per day substance use type: does not use caffeine: Yes Type: coffee Number of servings: 3 what type of physical activity do you participate in: bicycling frequency: 1-2 times per week ROS Const Const: Negative for fatigue, weakness, headache(s) or frequent falls Eyes Eyes: Negative for blurry vision ENT ENT: Negative for headache(s), dizziness, Nosebleed/epistaxis or balance problems Cardio Chest Pain: No Palpitations: No Edema: Bilateral Muscle aches with walking: None Resp Respiratory: Negative for SOB with activity, SOB at rest or SOB orthopnea SOB lying down GI GI: Positive for other (rectal bleeding not during stool but after having stools); Negative nausea, vomiting, heartburn, bright, red blood in stools or black,tarry stools : Negative for hematuria Musc Musc: Negative for balance problems Neuro Neuro: Positive for lightheadedness; Negative for dizziness, near syncope, syncope, frequent falls, headache(s), weakness or blurry vision Endo Endo: Negative for fatigue Cardiology Exam (more content not included)... Normal [facility] CNOVSPon 10-01-2024 CNOVSP Visit (SP) Office (H EMAWS) ROBBIN MARTINEZ ([id number]) 1940 M Date Time Provider Department 10/01/24 2:50 PM JOSE CUNNINGHAM During your visit today, we recorded the following information about you: Temperature Pulse Blood pressure Weight 97 degrees 45/minute 126/67 101.8 kg Jose Cunningham DO 10/01/2024 3:45 PM Signed Oncologic problem(s): 1) High risk prostate cancer. HPI: The patient is an 83-year-old male with a past medical history significant for essential hypertension and hyperlipidemia. Had been managed by urologist for BPH. PSA in the past has fluctuated. For instance it was 7.1 ng/mL November 2014. Then 9.5 ng/mL in August 2018 and then 8.0 ng/mL in December 2018. Increased to 14.80 ng/mL. Biopsy of the prostate 08/07/2020. Pathology: A. Right prostate, apex, core biopsy: Adenocarcinoma. [place] grade: 7 (4+3) Cores involved: 1 out of 1 core Tissue involved: 5% Greatest tumor length: 1 mm See comment. B. Right prostate, mid, core biopsy: Adenocarcinoma. [place] grade: 8 (4+4) Cores involved: 1 out of 1 core Tissue involved: 60% Greatest tumor length: 4.5 mm C. Right prostate, base, core biopsy: Adenocarcinoma. [place] grade: 8 (4+4) Cores involved: 1 out of 1 core Tissue involved: 2% Greatest tumor length: <1 mm D. Left prostate, apex, core biopsy: Focal atypical small acinar proliferation. See comment. E. Left prostate, mid, core biopsy: Adenocarcinoma. [place] grade: 6 (3+3) Cores involved: 1 out of 1 core Tissue involved: 2% Greatest tumor length: <1 mm See comment. F. Left prostate, base, core biopsy: Adenocarcinoma. [place] grade: 7 (3+4) Cores involved: 1 out of 1 core Tissue involved: 65% Greatest tumor length: 5.5 mm Bone scan on 08/29/2020 demonstrated no evidence of bone metastases. He had been advised to undergo external beam radiation treatment with ADT. Previous therapy: 1) ADT (10/2020) with radiation (completed radiation 01/2021). Last q 3 month Lupron injection 01/2023. Received every 3 month Lupron for 2-1/2 years, last dose 02/13/2023. PSA undetectable as of 02/2022. Developed atrial fibrillation 05/2022. On apixaban since 06/2022. Had colonoscopy to assess rectal bleeding in February 2023. Preparation was inadequate. Was found to have a 20 mm polypoid lesion in the distal transverse colon. It was sessile. No bleeding observed. Biopsies were obtained and the area was tattooed with 3 mL of carbon black. There was a diffuse area of mild erythematous mucosa in the rectum. Multiple small and large mouth diverticula were observed in the sigmoid colon terminal ileum appeared normal. Pathology: A. Transverse colon, polypectomy: - Tubulovillous adenoma. Presents for ongoing oncologic management. Interim history: Fell and broke left hip after tripping at home in June. No other MS pain. Rectal bleeding significantly slowing. Still has urinary frequency, going about every 2 hours during the day Typically 3 times at night. No gross hematuria or dysuria. Remains on anticoagulation for history of atrial fibrillation. Continues follow-up with the [facility]. PMH, medications and allergies personally reviewed by me today. Any changes documented in appropriate section. ROS: Constitutional: Denies episodes of fever and night sweats. Not significantly fatigued. Normal appetite. Neuro: Denies URIOSTEGUI, vertigo, dizziness and imbalance. Denies symptoms of neuropathy. HEENT: No recent change in voice, vision or hearing. Resp: Denies cough, wheeze and hemoptysis. Denies shortness of breath at rest. CVS: Denies exertional chest pain, PND, orthopnea and LE edema. GI: Denies dysphagia and odynophagia. Denies reflux, n/v, change in bowel habits and abdominal pain. : See above. Endo: Denies hot flashes. Denies polyuria and polydipsia. Denies heat and cold intolerance. Musculoskeletal: Chronic back pain--stable. Derm: Denies rash. Denies jaundice and diffuse pruritis. Heme: Denies unusual bleeding and unexplained bruising. Psych: Normal mood. PHYSICAL EXAM: Vitals: There were no vitals taken for this visit. Well-appearing and in no acute distress. EYES: Sclerae are anicteric bilaterally. ABDOMEN: The abdomen is nondistended. Extremities: No swelling or edema. 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 High risk disease. -PSA doubling time was approximately a year. - Reviewed the results of the PET scan. ANIL. - Explained to him th (more content not included)... Normal [facility] PET/CT PROSTATE WBon NM PET/CT PROSTATE WB * * *Final Report* * * DATE OF EXAM: Sep 23 2024 1:10PM UDP 0093 - NM PET/CT PROSTATE WB / PROCEDURE REASON: multiple diagnoses * * * * Physician Interpretation * * * * EXAMINATION: PROSTATE-SPECIFIC MEMBRANE ANTIGEN PET-CT CLINICAL HISTORY: Prostate cancer. * Prostate Cancer Grade: Grade Group 4 ([place]hee score 4 + 4) * PSA: 0.06 ng/mL 09/06/2024, slowly increased from previously undetectable 05/08/2023. * Previous Therapy: ADT (10/2020) with radiation (completed radiation 01/2021). Last q 3 month Lupron injection 01/2023. EXAM CATEGORY: Initial treatment strategy. TECHNIQUE: Radiopharmaceutical was administered intravenously followed later on by PET imaging from the skull vertex to thighs. Free breathing, low dose CT of the same body region was acquired without IV contrast for attenuation correction and anatomic localization. Unenhanced imaging is limited for the evaluation of some pathology and the acquired CT was not designed to produce diagnostic CT scan quality. Physiologic/non-pathologic uptake in some body regions could confound or obscure some pathology. * CT Dose-Length Product (DLP): 444 mGy*cm * CT Dose Reduction Employed: Yes * Injection site: Right Forearm-Antecubital * Injected activity: 8.5 mCi * Uptake Time: 60 minutes * Radiopharmaceutical: F-18 PSMA (Posluma) COMPARISON: No previous PSMA PET/CT available CORRELATION: No relevant prior imaging available RESULT: REFERENCES: Uptake by the injected radiopharmaceutical serves as a surrogate marker for prostate-specific membrane antigen (PSMA) expression. All reported standardized uptake values represent maximum SUV (SUVmax) per body weight, unless otherwise specified. SUV Reference Values: * Background Salivary Gland: SUVmax 45.8 * Blood Pool (Descending Aorta): SUVmax 2.9 * Background Liver: SUVmax 12.9 Localizer Images: No additional findings. HEAD AND NECK: Head: No radiotracer avid lesion, mass effect, or hydrocephalus in the intracranial compartment. Aerodigestive Tract: No radiotracer avid lesion along the mucosal space. Patent airway without an obstructive lesion. Lymph Nodes: No radiotracer avid lymphadenopathy. Neck Soft Tissues: No radiotracer avid thyroid nodule. CHEST: Lungs and Pleura: No radiotracer avid mass, nodule, or consolidation. No pleural effusion. Lymph Nodes: No radiotracer avid lymphadenopathy. Calcified intrathoracic lymph nodes are likely sequela of an old granulomatous process. Mediastinum: No radiotracer avid mass. Cardiovascular: Blood pool activity. No pericardial effusion. Normal heart size. Thoracic aortic and coronary artery calcifications. Chest Wall: No radiotracer avid soft tissue lesion. ABDOMEN AND PELVIS: Hepatobiliary: No radiotracer avid lesion. No measurable mass. Spleen: No radiotracer avid lesion. No splenomegaly. Pancreas: No radiotracer avid lesion. Adrenals: No radiotracer avid nodule. Urinary Tract: Physiologic radiotracer excretion in the urinary tract. No hydronephrosis. Non-obstructing nephrolithiasis. GI Tract: No radiotracer avid lesion. No bowel dilation. Peritoneum: No radiotracer avid lesion. No ascites. Lymph Nodes: * Abdomen (including common iliac): No radiotracer avid lymphadenopathy. * Pelvis (below common iliac): No radiotracer avid lymphadenopathy. Vasculature: Blood pool activity. Vascular calcifications without an abdominal aortic aneurysm. Prostate and Seminal Vesicles: Diffuse radiotracer activity throughout the prostate gland which appears normal in size (Max SUV:8.7; image 125). No focal radiotracer avid lesion. Pelvis Soft Tissues: No radiotracer avid lesion. Portions of the pelvis are obscured anatomically by hardware streak artifact. MUSCULOSKELETAL: Bones: Vague uptake within the posterolateral LEFT fifth rib without clear destructive lesion on CT, statistically benign (Max SUV:3.9; image 340) . No other radiotracer avid lesion. No lytic or sclerotic lesion. Diffuse osteopenia. Degenerative changes. LEFT total hip arthroplasty with mild radiotracer activity along the proximal femoral bone-arthroplasty interface, likely chronic inflammatory (Max SUV:10.2; image 121) . Soft Tissues: No radiotracer avid lesion. IMPRESSION: PROSTATE: * No clear PSMA expressing prostate lesion. GIOGRIO DISEASE: * No PSMA expressing pelvic lymphadenopathy. METASTATIC DISEASE: * No definite PSMA expressing distant metastases. ADDITIONAL FINDINGS: * Chronic changes, as described. Please refer to the synoptic report for details. Photovoltaic Installer: LATONYA Transcribe Date/Time: Sep 24 2024 9:42A Dictated by : DANIA SCOTT MD This examination was interpreted and the report reviewed and electronically signed by: DANIA SCOTT MD on Sep 24 2024 10:04AM EST [id number] [facility] Vik[facility] ROBBIN MARTINEZ ([id number]) 1940 M Date Time Provider Department 09/13/24 JOSE [place]UNN[place]AM During your visit today, we recorded the following information about you: Claudia Astorga 09/13/2024 11:11 AM Signed Spouse is asking if we received authorization for Ensure. Please advise Rosa Mcguire LPN 09/13/2024 11:58 AM Signed I called and left message on the patient's home and cell numbers to contact this office. We do not prior authorize Ensure. SHIRA Vigil Pamela S, LPN 09/13/2024 1:18 PM Signed Pts. returned call . Wanting to know if insurance had authorized pts. Upcoming PET scan @ [facility]. Informed it was still pending review. If the scan is not authorized before the , they will receive a call. Lisa Gusman LPN Allergies As of Date: 09/13/2024 (No Known Allergies) Date Reviewed: 09/07/2024 Reviewed by: Jose Cunningham DO - Fully Assessed Reason for Visit: Patient Question [6387] Prescriptions as of 09/19/2024 - cholecalciferol, vitamin D3, (VITAMIN D3 ORAL) Take 5,000 Units by mouth once daily. - apixaban (ELIQUIS) 2.5 mg tab(s) Take 1 tablet by mouth two times a day. - metoprolol tartrate, short acting, (LOPRESSOR) 25 mg tablet Take 1 tablet by mouth twice daily. - polyethylene glycol 3350 17 gram packet Take 17 g by mouth as needed for constipation. Dissolve dose in 4 - 8 ounces of liquid and take as directed. - calcium carbonate/vitamin D3 (CALTRATE WITH VITAMIN D3 ORAL) Take 1 tablet by mouth twice daily. - vit C/E/Zn/coppr/lutein/zeaxan (PRESERVISION AREDS-2 ORAL) Take 1 tablet by mouth twice daily. - acetaminophen (TYLENOL) 500 mg tablet Take 500 mg by mouth as needed. - enalapril 20 mg tablet Take 1 tablet by mouth once daily. 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] 11/29/2009 Other Seborrheic Dermatitis [L21.8] 11/29/2009 Tinea Versicolor [B36.0] 11/29/2009 Surgical Scars: L upper arm: S/P Skin Ca's [L9*11/29/2009 H/O 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) [*11/29/2009 Dizziness and giddiness [R42] 09/11/2012 07/03/2016 Right inguinal hernia [K40.90] 06/28/2016 Diverticulosis of colon (without mention of hem*07/03/2016 Hiatal hernia [K44.9] 07/03/2016 Prostate cancer (HCC) [C61] 10/17/2020 Rectal bleeding [K62.5] 02/27/2023 Encounter Status:Closed by CLAUDIA ASTORGA on 09/19/24 [facility] CNOVSPon 09-07-2024 CNOVSP Visit (SP) Office (H EMAWS) ROBBIN MARTINEZ ([id number]) 1940 Manuel Date Time Provider Department 09/07/24 11:10 AM JOSE CUNNING[place]AM During your visit today, we recorded the following information about you: Temperature Pulse Blood pressure Weight 97 degrees 67/minute 153/91 101.6 kg Jose Cunningham, DO 09/07/2024 12:13 PM Signed Oncologic problem(s): 1) High risk prostate cancer. HPI: The patient is an 83-year-old male with a past medical history significant for essential hypertension and hyperlipidemia. Had been managed by urologist for BPH. PSA in the past has fluctuated. For instance it was 7.1 ng/mL November 2014. Then 9.5 ng/mL in August 2018 and then 8.0 ng/mL in December 2018. Increased to 14.80 ng/mL. Biopsy of the prostate 08/07/2020. Pathology: A. Right prostate, apex, core biopsy: Adenocarcinoma. Valentina grade: 7 (4+3) Cores involved: 1 out of 1 core Tissue involved: 5% Greatest tumor length: 1 mm See comment. B. Right prostate, mid, core biopsy: Adenocarcinoma. Valentina grade: 8 (4+4) Cores involved: 1 out of 1 core Tissue involved: 60% Greatest tumor length: 4.5 mm C. Right prostate, base, core biopsy: Adenocarcinoma. Valentina grade: 8 (4+4) Cores involved: 1 out of 1 core Tissue involved: 2% Greatest tumor length: <1 mm D. Left prostate, apex, core biopsy: Focal atypical small acinar proliferation. See comment. E. Left prostate, mid, core biopsy: Adenocarcinoma. Valentina grade: 6 (3+3) Cores involved: 1 out of 1 core Tissue involved: 2% Greatest tumor length: <1 mm See comment. F. Left prostate, base, core biopsy: Adenocarcinoma. [place]hee grade: 7 (3+4) Cores involved: 1 out of 1 core Tissue involved: 65% Greatest tumor length: 5.5 mm Bone scan on 08/29/2020 demonstrated no evidence of bone metastases. He had been advised to undergo external beam radiation treatment with ADT. Previous therapy: 1) ADT (10/2020) with radiation (completed radiation 01/2021). Last q 3 month Lupron injection 01/2023. Received every 3 month Lupron for 2-1/2 years, last dose 02/13/2023. PSA undetectable as of 02/2022. Developed atrial fibrillation 05/2022. On apixaban since 06/2022. Had colonoscopy to assess rectal bleeding in February 2023. Preparation was inadequate. Was found to have a 20 mm polypoid lesion in the distal transverse colon. It was sessile. No bleeding observed. Biopsies were obtained and the area was tattooed with 3 mL of carbon black. There was a diffuse area of mild erythematous mucosa in the rectum. Multiple small and large mouth diverticula were observed in the sigmoid colon terminal ileum appeared normal. Pathology: A. Transverse colon, polypectomy: - Tubulovillous adenoma. Presents for ongoing oncologic management. Interim history: Fell and broke left hip after tripping at home in June. No other MS pain. Rectal bleeding significantly slowing. Still has urinary frequency, going about every 2 hours during the day Typically 3 times at night. No gross hematuria or dysuria. Remains on anticoagulation for history of atrial fibrillation. Continues follow-up with the [facility]. PMH, medications and allergies personally reviewed by me today. Any changes documented in appropriate section. ROS: Constitutional: Denies episodes of fever and night sweats. Not significantly fatigued. Normal appetite. Neuro: Denies URIOSTEGUI, vertigo, dizziness and imbalance. Denies symptoms of neuropathy. HEENT: No recent change in voice, vision or hearing. Resp: Denies cough, wheeze and hemoptysis. Denies shortness of breath at rest. CVS: Denies exertional chest pain, PND, orthopnea and LE edema. GI: Denies dysphagia and odynophagia. Denies reflux, n/v, change in bowel habits and abdominal pain. : See above. Endo: Denies hot flashes. Denies polyuria and polydipsia. Denies heat and cold intolerance. Musculoskeletal: Chronic back pain--stable. Derm: Denies rash. Denies jaundice and diffuse pruritis. Heme: Denies unusual bleeding and unexplained bruising. Psych: Normal mood. PHYSICAL EXAM: Vitals: Blood pressure 153/91, pulse 67, temperature 36.1 ?C (97 ?F), temperature source Temporal, weight 101.6 kg (224 lb), SpO2 98%. Well-appearing and in no acute distress. EYES: Sclerae are anicteric bilaterally. ABDOMEN: The abdomen is nondistended. Extremities: No swelling or edema. 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 High risk disease. -Reviewed slow increase in (more content not included)... Normal [facility] CBC W Auto Differential pane l (Bld)on 09-06-2024 Basophils (Bld) [#/Vol] 10*3/uL Normal <0.11 [facility] Comment on above: Order Comment: Speci men Type: BLOOD SPECIMENOrdering Facility: [facility] Address: [address] [place] [address] Performed By: #### 5 7021-8 ####[facility]OSPITALLIA [id number] [place] [address] [place] Basophils/100 WBC (Bld) 0.2 % Normal [facility] Comment on above: Order Comment: Speci men Type: BLOOD SPECIMENOrdering Facility: [facility] Address: [address] [place] [address] Performed By: #### 5 7021-8 ####[facility] MEMORIALWNCLIA [id number] [place] [address] [place] Differential cell count method Nom (Bld) Auto Normal [facility] Comment on above: Order Comment: Speci men Type: BLOOD SPECIMENOrdering Facility: [facility] Address: [address] [place] [address] Performed By: #### 5 7021-8 ####[facility] MILLWNCLIA [id number] [place] [address] [place] Eosinophils (Bld) [#/Vol] 0.17 10*3/uL Normal <0.46 [facility] Comment on above: Order Comment: Speci men Type: BLOOD SPECIMENOrdering Facility: [facility] Address: [address] [place] [address] Performed By: #### 5 7021-8 ####[facility] [id number] [place] [address] [place] Eosinophils/100 WBC (Bld) 3.0 % Normal [facility] Comment on above: Order Comment: Speci men Type: BLOOD SPECIMENOrdering Facility: [facility] Address: [address] [place] [address] Performed By: #### 5 7021-8 ####[facility] HOSPITALNCJerman [id number] [place] [address] [place] Erythrocyte distribution width (RBC) [Ratio] 13.1 % Normal 11.5-15.0 [facility] Comment on above: Order Comment: Speci men Type: BLOOD SPECIMENOrdering Facility: [facility] Address: [address] [place] [address] Performed By: #### 5 7021-8 ####[facility] HOSPITALNCLIJerman [id number] [place] [address] [place] Hematocrit (Bld) [Volume fraction] 39.7 % Normal 39.0-51.0 [facility] Comment on above: Order Comment: Speci men Type: BLOOD SPECIMENOrdering Facility: [facility] Address: [address] [place] [address] Performed By: #### 5 7021-8 ####[facility] HOSPITALNCLI [id number] [place] [address] [place] Hemoglobin (Bld) [Mass/Vol] 13.0 g/dL Normal 13.0-17.0 [facility] Comment on above: Order Comment: Speci men Type: BLOOD SPECIMENOrdering Facility: [facility] Address: [address] [place] [address] Performed By: #### 5 7021-8 ####[facility] [id number] [place] [address] [place] Immature granulocytes (Bld) [#/Vol] 10*3/uL Normal <0.10 [facility] Comment on above: Order Comment: Speci men Type: BLOOD SPECIMENOrdering Facility: [facility] Address: [address] [place] [address] Performed By: #### 5 7021-8 ####[facility] [id number] [place] [address] [place] Immature granulocytes/100 WBC (Bld) 0.4 % Normal [facility] Comment on above: Order Comment: Speci men Type: BLOOD SPECIMENOrdering Facility: [facility] Address: [address] [place] [address] Performed By: #### 5 7021-8 ####[facility] [id number] [place] [address] [place] Lymphocytes (Bld) [#/Vol] 1.62 10*3/uL Normal 1.00-4.00 [facility] Comment on above: Order Comment: Speci men Type: BLOOD SPECIMENOrdering Facility: [facility] Address: [address] [place] [address] Performed By: #### 5 7021-8 ####[facility] [id number] [place] [address] [place] Lymphocytes/100 WBC (Bld) 29.0 % Normal [facility] Comment on above: Order Comment: Speci men Type: BLOOD SPECIMENOrdering Facility: [facility] Address: [address] [place] [address] Performed By: #### 5 7021-8 ####[facility] MILLWNCLIA [id number] [address] [facility] MCH (RBC) [Entitic mass] 31.6 pg Normal 26.0-34.0 [facility] Comment on above: Order Comment: Speci men Type: BLOOD SPECIMENOrdering Facility: [facility] Address: [address] [place] [address] Performed By: #### 5 7021-8 ####[facility] HOSPITALNCLIA [id number] [place] [address] [place] MCHC (RBC) [Mass/Vol] 32.7 g/dL Normal 30.5-36.0 [facility] Comment on above: Order Comment: Speci men Type: BLOOD SPECIMENOrdering Facility: [facility] Address: [address] [place] [address] Performed By: #### 5 7021-8 ####[facility] HOSPITALNCLIA [id number] [place] [address] [place] MCV (RBC) [Entitic vol] 96.6 fL Normal 80.0-100.0 [facility] Comment on above: Order Comment: Speci men Type: BLOOD SPECIMENOrdering Facility: [facility] Address: [address] [place] [address] Performed By: #### 5 7021-8 ####[facility]ALL[facility] [id number] [place] [address] [place] Monocytes (Bld) [#/Vol] 0.43 10*3/uL Normal <0.87 [facility] Comment on above: Order Comment: Speci men Type: BLOOD SPECIMENOrdering Facility: [facility] Address: [address] [place] [address] Performed By: #### 5 7021-8 ####[facility] [id number] [place] [address] [place] Monocytes/100 WBC (Bld) 7.7 % Normal [facility] Comment on above: Order Comment: Speci men Type: BLOOD SPECIMENOrdering Facility: [facility] Address: [address] [place] [address] Performed By: #### 5 7021-8 ####[facility] [id number] [place] [address] [place] Neutrophils (Bld) [#/Vol] 3.33 10*3/uL Normal 1.45-7.50 [facility] Comment on above: Order Comment: Speci men Type: BLOOD SPECIMENOrdering Facility: [facility] Address: [address] [place] [address] Performed By: #### 5 7021-8 ####[facility]ITALNCBL[facility] [id number] [place] [address] [place] Neutrophils/100 WBC (Bld) 59.7 % Normal [facility] Comment on above: Order Comment: Speci men Type: BLOOD SPECIMENOrdering Facility: [facility] Address: [address] [place] [address] Performed By: #### 5 7021-8 ####[facility] [id number] [place] [address] [place] Nucleated RBC (Bld) [#/Vol] 10*3/uL Normal <0.01 [facility] Comment on above: Order Comment: Speci men Type: BLOOD SPECIMENOrdering Facility: [facility] Address: [address] [place] [address] Performed By: #### 5 7021-8 ####[facility]ALL[facility] [id number] [place] [address] [place] Nucleated RBC/100 WBC (Bld) [Ratio] 0.0 /100 WBC Normal [facility] Comment on above: Order Comment: Speci men Type: BLOOD SPECIMENOrdering Facility: [facility] Address: [address] [place] [address] Performed By: #### 5 7021-8 ####[facility] ZBIGNIEW MAGNOLIANCMARGARET [id number] [place] [address] [place] Platelet mean volume (Bld) [Entitic vol] 8.4 fL Low 9.0-12.7 [facility] Comment on above: Order Comment: Speci men Type: BLOOD SPECIMENOrdering Facility: [facility] Address: [address] [place] [address] Performed By: #### 5 7021-8 ####[facility] HOSPITALNCDOMINGUEZA [id number] [place] [address] [place] Platelets (Bld) [#/Vol] 192 10*3/uL Normal 150-400 [facility] Comment on above: Order Comment: Speci men Type: BLOOD SPECIMENOrdering Facility: [facility] Address: [address] [place] [address] Performed By: #### 5 7021-8 ####[facility]ITALNCLIA [id number] [place] [address] [place] RBC (Bld) [#/Vol] 4.11 10*6/uL Low 4.20-6.00 [facility] Comment on above: Order Comment: Speci men Type: BLOOD SPECIMENOrdering Facility: [facility] Address: [address] [place] [address] Performed By: #### 5 7021-8 ####[facility]ITALNCLIA [id number] [place] [address] [place] WBC (Bld) [#/Vol] 5.58 10*3/uL Normal 3.70-11.00 [facility] Comment on above: Order Comment: Speci men Type: BLOOD SPECIMENOrdering Facility: [facility] Address: [facility] [place] [address] Performed By: #### 5 7021-8 ####[facility] [id number] [place] [address] [place] PSA SerPl-mCncon 09-06-2024 Prostate specific Ag [Mass/Vol] 0.06 ng/mL Normal <2.60 [facility] Comment on above: Order Comment: Speci men Type: BLOOD SPECIMENOrdering Facility: [facility] Address: [address] [place] [address] Result Comment: Tota l PSA test methodology used is the Electrochemiluminescence Immunoassay by [employer]. Total PSA values by differing methodologies cannot be interchanged. Performed By: #### 2 857-1 ####[facility] LABCLIA [id number] [place] [address] [place] Basic Metabolic Profile (BMP )on 08-12-2024 BUN Normal 7-18 [facility] Comment on above: Result Comment: Canc elled via OM: Order cancelled - Patient discharged Performed By: #### L 500.2500, L100.0100 #### [facility] [address] [place], [address] BUN/CRE Normal 10-20 [facility] Comment on above: Result Comment: Canc elled via OM: Order cancelled - Patient discharged Performed By: #### L 500.2500, L100.0100 #### [facility] [address] [place], [address] [place],Total Normal 8.5-10.1 [facility] Comment on above: Result Comment: Canc elled via OM: Order cancelled - Patient discharged Performed By: #### L 500.2500, L100.0100 #### [facility] [address] [place], [address] CL Normal 98-107 [facility] Comment on above: Result Comment: Canc elled via OM: Order cancelled - Patient discharged Performed By: #### L 500.2500, L100.0100 #### [facility] [address] [place], [address] CO2 Normal 21.0-32.0 [facility] Comment on above: Result Comment: Canc elled via OM: Order cancelled - Patient discharged Performed By: #### L 500.2500, L100.0100 #### [facility] [address] [place], [address] CREAT,SERUM Normal 0.70-1.30 [facility] Comment on above: Result Comment: Canc elled via OM: Order cancelled - Patient discharged Performed By: #### L 500.2500, L100.0100 #### [facility] [address] [place], [address] EST GFR Normal >60 [facility] Comment on above: Result Comment: Canc elled via OM: Order cancelled - Patient discharged Performed By: #### L 500.2500, L100.0100 #### [facility] [address] [place], [address] EST GFR - AA Normal >60 [facility] Comment on above: Result Comment: Canc elled via OM: Order cancelled - Patient discharged Performed By: #### L 500.2500, L100.0100 #### [facility] [address] [place], [address] GAP Normal 5-15 [facility] Comment on above: Result Comment: Canc elled via OM: Order cancelled - Patient discharged Performed By: #### L 500.2500, L100.0100 #### [facility] [address] [place], [address] GLU Normal 74-106 [facility] Comment on above: Result Comment: Canc elled via OM: Order cancelled - Patient discharged Performed By: #### L 500.2500, L100.0100 #### [facility] [address] [place], [address] Potassium Normal 3.5-5.1 [facility] Comment on above: Result Comment: Canc elled via OM: Order cancelled - Patient discharged Performed By: #### L 500.2500, L100.0100 #### [facility] [address] [place], [address] Basic Metabolic Profile (BMP) Normal 136-145 [facility] Comment on above: Result Comment: Canc elled via OM: Order cancelled - Patient discharged Performed By: #### L 500.2500, L100.0100 #### [facility] [address] [place], [address] CBC W/Diff, Automatedon 02-2 0-2024 Absolute Neut Normal 2.0-7.7 [facility] Comment on above: Result Comment: Canc elled via OM: Order cancelled - Patient discharged Performed By: #### L 500.2500, L100.0100 #### [facility] [address] [place], [address] HCT Normal 40-54 [facility] Comment on above: Result Comment: Canc elled via OM: Order cancelled - Patient discharged Performed By: #### L 500.2500, L100.0100 #### [facility] [address] [place], [address] HGB Normal 13.0-16.5 [facility] Comment on above: Result Comment: Canc elled via OM: Order cancelled - Patient discharged Performed By: #### L 500.2500, L100.0100 #### [facility] [address] [place], [address] MCH Normal 27.0-32.0 [facility] Comment on above: Result Comment: Canc elled via OM: Order cancelled - Patient discharged Performed By: #### L 500.2500, L100.0100 #### [facility] [address] [place], [address] MCHC Normal 32-36 [facility] Comment on above: Result Comment: Canc elled via OM: Order cancelled - Patient discharged Performed By: #### L 500.2500, L100.0100 #### [facility] [address] [place], [address] MCV Normal 80-94 [facility] Comment on above: Result Comment: Canc elled via OM: Order cancelled - Patient discharged Performed By: #### L 500.2500, L100.0100 #### [facility] [address] [place], [address] NEUT% Normal 47-70 [facility] Comment on above: Result Comment: Canc elled via OM: Order cancelled - Patient discharged Performed By: #### L 500.2500, L100.0100 #### [facility] [address] [place], [address] PLT Normal 150-450 [facility] Comment on above: Result Comment: Canc elled via OM: Order cancelled - Patient discharged Performed By: #### L 500.2500, L100.0100 #### [facility] [address] [place], [address] RBC Normal 4.6-6.2 [facility] Comment on above: Result Comment: Canc elled via OM: Order cancelled - Patient discharged Performed By: #### L 500.2500, L100.0100 #### [facility] [address] [place], [address] RDW CV Normal 11.6-14.6 [facility] Comment on above: Result Comment: Canc elled via OM: Order cancelled - Patient discharged Performed By: #### L 500.2500, L100.0100 #### [facility] [address] [place], [address] RDW SD Normal 35.1-43.9 [facility] Comment on above: Result Comment: Canc elled via OM: Order cancelled - Patient discharged Performed By: #### L 500.2500, L100.0100 #### [facility] [address] [place], [address] WBC Normal 4.4-11.0 [facility] Comment on above: Result Comment: Canc elled via OM: Order cancelled - Patient discharged Performed By: #### L 500.2500, L100.0100 #### [facility] [address] [place], [address] Basic Metabolic Profile (BMP )on 08-05-2024 BUN Normal 7-18 [facility] Comment on above: Result Comment: Canc elled via OM: Order cancelled - Patient discharged Performed By: #### L 100.0100, L501.5200, L503.0105, L506.1000, L3100.3450, L501.6710, L501.9520, L101.9900, L503.6150, L500.4050, L503.6550, L3100.5475 #### [facility] [address] [place], [address] BUN/CRE Normal 10-20 [facility] Comment on above: Result Comment: Canc elled via OM: Order cancelled - Patient discharged Performed By: #### L 100.0100, L501.5200, L503.0105, L506.1000, L3100.3450, L501.6710, L501.9520, L101.9900, L503.6150, L500.4050, L503.6550, L3100.5475 #### [facility] [address] [place], [address] CA,Total Normal 8.5-10.1 [facility] Comment on above: Result Comment: Canc elled via OM: Order cancelled - Patient discharged Performed By: #### L 100.0100, L501.5200, L503.0105, L506.1000, L3100.3450, L501.6710, L501.9520, L101.9900, L503.6150, L500.4050, L503.6550, L3100.5475 #### [facility] [address] [place], [place], [phone] CL Normal 98-107 [facility] Comment on above: Result Comment: Canc elled via OM: Order cancelled - Patient discharged Performed By: #### L 100.0100, L501.5200, L503.0105, L506.1000, L3100.3450, L501.6710, L501.9520, L101.9900, L503.6150, L500.4050, L503.6550, L3100.5475 #### [facility] [address] [place], [place], [id number] CO2 Normal 21.0-32.0 [facility] Comment on above: Result Comment: Canc elled via OM: Order cancelled - Patient discharged Performed By: #### L 100.0100, L501.5200, L503.0105, L506.1000, L3100.3450, L501.6710, L501.9520, L101.9900, L503.6150, L500.4050, L503.6550, L3100.5475 #### [facility] [address] [place], [place], [id number] CREAT,SERUM Normal 0.70-1.30 [facility] Comment on above: Result Comment: Canc elled via OM: Order cancelled - Patient discharged Performed By: #### L 100.0100, L501.5200, L503.0105, L506.1000, L3100.3450, L501.6710, L501.9520, L101.9900, L503.6150, L500.4050, L503.6550, L3100.5475 #### [facility] [address] [place], [address] EST GFR Normal >60 [facility] Comment on above: Result Comment: Canc elled via OM: Order cancelled - Patient discharged Performed By: #### L 100.0100, L501.5200, L503.0105, L506.1000, L3100.3450, L501.6710, L501.9520, L101.9900, L503.6150, L500.4050, L503.6550, L3100.5475 #### [facility] [address] [place], [address] EST GFR - AA Normal >60 [facility] Comment on above: Result Comment: Canc elled via OM: Order cancelled - Patient discharged Performed By: #### L 100.0100, L501.5200, L503.0105, L506.1000, L3100.3450, L501.6710, L501.9520, L101.9900, L503.6150, L500.4050, L503.6550, L3100.5475 #### [facility] [address] [place], [place], [phone] GAP Normal 5-15 [facility] Comment on above: Result Comment: Canc elled via OM: Order cancelled - Patient discharged Performed By: #### L 100.0100, L501.5200, L503.0105, L506.1000, L3100.3450, L501.6710, L501.9520, L101.9900, L503.6150, L500.4050, L503.6550, L3100.5475 #### [facility] [address] [place], [place], [phone] (057) GLU Normal 74-106 [facility] Comment on above: Result Comment: Canc elled via OM: Order cancelled - Patient discharged Performed By: #### L 100.0100, L501.5200, L503.0105, L506.1000, L3100.3450, L501.6710, L501.9520, L101.9900, L503.6150, L500.4050, L503.6550, L3100.5475 #### [facility] [address] [place], [place], [id number] Potassium Normal 3.5-5.1 [facility] Comment on above: Result Comment: Canc elled via OM: Order cancelled - Patient discharged Performed By: #### L 100.0100, L501.5200, L503.0105, L506.1000, L3100.3450, L501.6710, L501.9520, L101.9900, L503.6150, L500.4050, L503.6550, L3100.5475 #### [facility] [address] [place], [place], [id number] Basic Metabolic Profile (BMP) Normal 136-145 [facility] Comment on above: Result Comment: Canc elled via OM: Order cancelled - Patient discharged Performed By: #### L 100.0100, L501.5200, L503.0105, L506.1000, L3100.3450, L501.6710, L501.9520, L101.9900, L503.6150, L500.4050, L503.6550, L3100.5475 #### [facility] [address] [place], [place], [address] CBC W/Diff, Automatedon 07-24 Absolute Neut Normal 2.0-7.7 [facility] Comment on above: Result Comment: Canc elled via OM: Order cancelled - Patient discharged Performed By: #### L 100.0100, L501.5200, L503.0105, L506.1000, L3100.3450, L501.6710, L501.9520, L101.9900, L503.6150, L500.4050, L503.6550, L3100.5475 #### [facility] [address] [place], [place], [id number] HCT Normal 40-54 [facility] Comment on above: Result Comment: Canc elled via OM: Order cancelled - Patient discharged Performed By: #### L 100.0100, L501.5200, L503.0105, L506.1000, L3100.3450, L501.6710, L501.9520, L101.9900, L503.6150, L500.4050, L503.6550, L3100.5475 #### [facility] [address] [place], [place], [phone]) HGB Normal 13.0-16.5 [facility] Comment on above: Result Comment: Canc elled via OM: Order cancelled - Patient discharged Performed By: #### L 100.0100, L501.5200, L503.0105, L506.1000, L3100.3450, L501.6710, L501.9520, L101.9900, L503.6150, L500.4050, L503.6550, L3100.5475 #### [facility] [address] [place], [address] MCH Normal 27.0-32.0 [facility] Comment on above: Result Comment: Canc elled via OM: Order cancelled - Patient discharged Performed By: #### L 100.0100, L501.5200, L503.0105, L506.1000, L3100.3450, L501.6710, L501.9520, L101.9900, L503.6150, L500.4050, L503.6550, L3100.5475 #### [facility] [address] [place], [address] MCHC Normal 32-36 [facility] Comment on above: Result Comment: Canc elled via OM: Order cancelled - Patient discharged Performed By: #### L 100.0100, L501.5200, L503.0105, L506.1000, L3100.3450, L501.6710, L501.9520, L101.9900, L503.6150, L500.4050, L503.6550, L3100.5475 #### [facility] [address] [place], [address] MCV Normal 80-94 [facility] Comment on above: Result Comment: Canc elled via OM: Order cancelled - Patient discharged Performed By: #### L 100.0100, L501.5200, L503.0105, L506.1000, L3100.3450, L501.6710, L501.9520, L101.9900, L503.6150, L500.4050, L503.6550, L3100.5475 #### [facility] [address] [place], [address] NEUT% Normal 47-70 [facility] Comment on above: Result Comment: Canc elled via OM: Order cancelled - Patient discharged Performed By: #### L 100.0100, L501.5200, L503.0105, L506.1000, L3100.3450, L501.6710, L501.9520, L101.9900, L503.6150, L500.4050, L503.6550, L3100.5475 #### [facility] [address] [place], [address] PLT Normal 150-450 [facility] Comment on above: Result Comment: Canc elled via OM: Order cancelled - Patient discharged Performed By: #### L 100.0100, L501.5200, L503.0105, L506.1000, L3100.3450, L501.6710, L501.9520, L101.9900, L503.6150, L500.4050, L503.6550, L3100.5475 #### [facility] [address] [place], [address] RBC Normal 4.6-6.2 [facility] Comment on above: Result Comment: Canc elled via OM: Order cancelled - Patient discharged Performed By: #### L 100.0100, L501.5200, L503.0105, L506.1000, L3100.3450, L501.6710, L501.9520, L101.9900, L503.6150, L500.4050, L503.6550, L3100.5475 #### [facility] [address] [place], [address] RDW CV Normal 11.6-14.6 [facility] Comment on above: Result Comment: Canc elled via OM: Order cancelled - Patient discharged Performed By: #### L 100.0100, L501.5200, L503.0105, L506.1000, L3100.3450, L501.6710, L501.9520, L101.9900, L503.6150, L500.4050, L503.6550, L3100.5475 #### [facility] [address] [place], [address] RDW SD Normal 35.1-43.9 [facility] Comment on above: Result Comment: Canc elled via OM: Order cancelled - Patient discharged Performed By: #### L 100.0100, L501.5200, L503.0105, L506.1000, L3100.3450, L501.6710, L501.9520, L101.9900, L503.6150, L500.4050, L503.6550, L3100.5475 #### [facility] [address] [place], [address] WBC Normal 4.4-11.0 [facility] Comment on above: Result Comment: Canc elled via OM: Order cancelled - Patient discharged Performed By: #### L 100.0100, L501.5200, L503.0105, L506.1000, L3100.3450, L501.6710, L501.9520, L101.9900, L503.6150, L500.4050, L503.6550, L3100.5475 #### [facility] [address] [place], [place], [phone] Basic Metabolic Profile (BMP )on 07-29-2024 BUN/CRE 21.1 RATIO High 10-20 [facility] Comment on above: Performed By: #### L 100.0100, L501.5200, L503.0105, L506.1000, L3100.3450, L501.6710, L501.9520, L101.9900, L503.6150, L500.4050, L503.6550, L3100.5475 #### [facility] [address] [place], [place], [phone] ([phone]) CA,Total 9.2 mg/dL Normal 8.5-10.1 [facility] Comment on above: Performed By: #### L 100.0100, L501.5200, L503.0105, L506.1000, L3100.3450, L501.6710, L501.9520, L101.9900, L503.6150, L500.4050, L503.6550, L3100.5475 #### [facility] [address] [place], [place], [phone] ([phone]) Chloride [Moles/Vol] 102 mmol/L Normal 98-107 [facility] Comment on above: Performed By: #### L 100.0100, L501.5200, L503.0105, L506.1000, L3100.3450, L501.6710, L501.9520, L101.9900, L503.6150, L500.4050, L503.6550, L3100.5475 #### [facility] [address] [place], [place], [phone] (512) CO2 [Moles/Vol] 29.0 mmol/L Normal 21.0-32.0 [facility] Comment on above: Performed By: #### L 100.0100, L501.5200, L503.0105, L506.1000, L3100.3450, L501.6710, L501.9520, L101.9900, L503.6150, L500.4050, L503.6550, L3100.5475 #### [facility] [address] [place], [place], [phone] (462) Creatinine [Mass/Vol] 1.00 mg/dL Normal 0.70-1.30 [facility] Comment on above: Result Comment: The validity of the calculated GFR GFRAA in patients over 70 years has not been determined. Clinical correlation is essential. Performed By: #### L 100.0100, L501.5200, L503.0105, L506.1000, L3100.3450, L501.6710, L501.9520, L101.9900, L503.6150, L500.4050, L503.6550, L3100.5475 #### [facility] [address] [place], [place], [id number] ECRCL 68.06 ml/min Normal [facility] Comment on above: Performed By: #### L 100.0100, L501.5200, L503.0105, L506.1000, L3100.3450, L501.6710, L501.9520, L101.9900, L503.6150, L500.4050, L503.6550, L3100.5475 #### [facility] [address] [place], [place], [id number] EST GFR - AA 92 mL/min Normal >60 [facility] Comment on above: Result Comment: Afri can Cuban GFR Calc Performed By: #### L 100.0100, L501.5200, L503.0105, L506.1000, L3100.3450, L501.6710, L501.9520, L101.9900, L503.6150, L500.4050, L503.6550, L3100.5475 #### [facility] [address] [facility] [address] [place], [place], [phone] ([phone]) GAP 6 Normal 5-15 [facility] Comment on above: Performed By: #### L 100.0100, L501.5200, L503.0105, L506.1000, L3100.3450, L501.6710, L501.9520, L101.9900, L503.6150, L500.4050, L503.6550, L3100.5475 #### [facility] [address] [place], [place], [phone] (832) GFR/1.73 sq M.predicted among non-blacks MDRD (S/P/Bld) [Vol rate/Area] 76 mL/min/{1.73_m2} Normal >60 [facility] Comment on above: Result Comment: Non- GFR Calc Performed By: #### L 100.0100, L501.5200, L503.0105, L506.1000, L3100.3450, L501.6710, L501.9520, L101.9900, L503.6150, L500.4050, L503.6550, L3100.5475 #### [facility] [address] [place], [address] Glucose [Mass/Vol] 94 mg/dL Normal 74-106 [facility] Comment on above: Performed By: #### L 100.0100, L501.5200, L503.0105, L506.1000, L3100.3450, L501.6710, L501.9520, L101.9900, L503.6150, L500.4050, L503.6550, L3100.5475 #### [facility] [address] [place], [place], [phone] (542) Potassium [Moles/Vol] 4.0 mmol/L Normal 3.5-5.1 [facility] Comment on above: Performed By: #### L 100.0100, L501.5200, L503.0105, L506.1000, L3100.3450, L501.6710, L501.9520, L101.9900, L503.6150, L500.4050, L503.6550, L3100.5475 #### [facility] [address] [place], [address] Sodium [Moles/Vol] 138 mmol/L Normal 136-145 [facility] Comment on above: Performed By: #### L 100.0100, L501.5200, L503.0105, L506.1000, L3100.3450, L501.6710, L501.9520, L101.9900, L503.6150, L500.4050, L503.6550, L3100.5475 #### [facility] [address] [place], [address] Urea nitrogen [Mass/Vol] 21 mg/dL High 7-18 [facility] Comment on above: Performed By: #### L 100.0100, L501.5200, L503.0105, L506.1000, L3100.3450, L501.6710, L501.9520, L101.9900, L503.6150, L500.4050, L503.6550, L3100.5475 #### [facility] [address] [place], [address] CBC W/Diff, Automatedon 02-0 6-2024 Absolute Lymph 1.34 X10 3/uL Normal 0.83-4.51 [facility] Comment on above: Performed By: #### L 500.2500, L100.0100 #### [facility] [address] [place], [address] Absolute Neut 2.9 X10 3/uL Normal 2.0-7.7 [facility] Comment on above: Performed By: #### L 500.2500, L100.0100 #### [facility] [address] [place], [address] Basophils/100 WBC (Bld) 0.6 % Normal 0-1 [facility] Comment on above: Performed By: #### L 500.2500, L100.0100 #### [facility] [address] [place], [address] Eosinophils/100 WBC (Bld) 8.4 % High 0-5 [facility] Comment on above: Performed By: #### L 500.2500, L100.0100 #### [facility] [address] [place], [address] Erythrocyte distribution width (RBC) [Ratio] 12.3 % Normal 11.6-14.6 [facility] Comment on above: Performed By: #### L 500.2500, L100.0100 #### [facility] [address] [place], [address] Hematocrit (Bld) [Volume fraction] 41.6 % Normal 40-54 [facility] Comment on above: Performed By: #### L 500.2500, L100.0100 #### [facility] [address] [place], [address] Hemoglobin (Bld) [Mass/Vol] 13.4 g/dL Normal 13.0-16.5 [facility] Comment on above: Performed By: #### L 500.2500, L100.0100 #### [facility] [address] [place], [address] IG% 0.400 Normal 0.0-0.9 [facility] Comment on above: Result Comment: IG% - Immature Granulocytes (promyelocytes, myelocytes and metamyelocytes) > 1% indicates that a LEFT SHIFT is Present. Performed By: #### L 500.2500, L100.0100 #### [facility] [address] [place], [address] Lymphocytes/100 WBC (Bld) 25.7 % Normal 19-41 [facility] Comment on above: Performed By: #### L 500.2500, L100.0100 #### [facility] [address] [place], [address] MCH (RBC) [Entitic mass] 31.7 pg Normal 27.0-32.0 [facility] Comment on above: Performed By: #### L 500.2500, L100.0100 #### [facility] [address] [place], [address] MCHC (RBC) [Mass/Vol] 32.2 g/dL Normal 32-36 [facility] Comment on above: Performed By: #### L 500.2500, L100.0100 #### [facility] [address] [place], [address] MCV (RBC) [Entitic vol] 98.3 fL High 80-94 [facility] Comment on above: Performed By: #### L 500.2500, L100.0100 #### [facility] [address] [place], [address] Monocytes/100 WBC (Bld) 8.6 % Normal 0-10 [facility] Comment on above: Performed By: #### L 500.2500, L100.0100 #### [facility] [address] [place], [address] Neutrophils/100 WBC (Bld) 56.3 % Normal 47-70 [facility] Comment on above: Performed By: #### L 500.2500, L100.0100 #### [facility] [address] [place], [address] Nucleated RBC (Bld) [#/Vol] 0 10*3/uL Normal 0-5 [facility] Comment on above: Performed By: #### L 500.2500, L100.0100 #### [facility] [address] [place], [address] Platelet mean volume (Bld) [Entitic vol] 8.7 fL Normal 6.2-12.0 [facility] Comment on above: Performed By: #### L 500.2500, L100.0100 #### [facility] [address] [place], [address] Platelets (Bld) [#/Vol] 370 10*3/uL Normal 150-450 [facility] Comment on above: Performed By: #### L 500.2500, L100.0100 #### [facility] [address] [place], [address] RBC (Bld) [#/Vol] 4.23 10*6/uL Low 4.6-6.2 [facility] Comment on above: Performed By: #### L 500.2500, L100.0100 #### [facility] [address] [place], [address] RDW SD 44.1 fl High 35.1-43.9 [facility] Comment on above: Performed By: #### L 500.2500, L100.0100 #### [facility] [address] [place], [address] WBC (Bld) [#/Vol] 5.2 10*3/uL Normal 4.4-11.0 [facility] [facility] Comment on above: Performed By: #### L 500.2500, L100.0100 #### [facility] [address] [place], [address] Femur Min 2 Viewson 07-23-19 25 Femur Min 2 Views [facility] Imaging Services [address] [place] [address] Femur Min 2 Views MR#: [id number] Acct: [id number] Name: ROBBIN MARTINEZ Rep #: [id number] : 1940 M 83 From: Charly Howell PCP: Dr. Raphael Justin MD Status: ADM IN Study: Femur Min 2 Views Date of Exam: 07/23/24 Exam# [id number] Ordering Dr: Huseyin Coulter MD PROCEDURE: FEMUR MIN 2 VIEWS REASON FOR EXAM: Distal femur pain. TECHNIQUE: Four view left femur: COMPARISON: None provided. 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 The left sacroiliac joint shows at least mild degenerative changes. Overlying the left hip, skin thelma are seen. 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 No complication is noted. No left knee joint effusion is seen. At least mild left knee degenerative changes are seen. No soft tissue mass is clearly evident. Mild arterial calcification is seen. No fracture or dislocation is identified. Reading Location: [address] CC: Dr. Raphael Justin MD; Dr. Huseyin Coulter MD [employer] Installer: Signed Normal [facility] Basic Metabolic Profile (BMP )on 07-22-2024 BUN/CRE 28.7 RATIO High 10-20 [facility] Comment on above: Performed By: #### L 100.0100, L501.5200, L503.0105, L506.1000, L3100.3450, L501.6710, L501.9520, L101.9900, L503.6150, L500.4050, L503.6550, L3100.5475 #### [facility] [address] [facility] [address] [place], [address] CA,Total 9.2 mg/dL Normal 8.5-10.1 [facility] Comment on above: Performed By: #### L 100.0100, L501.5200, L503.0105, L506.1000, L3100.3450, L501.6710, L501.9520, L101.9900, L503.6150, L500.4050, L503.6550, L3100.5475 #### [facility] [address] [place], [address] Chloride [Moles/Vol] 106 mmol/L Normal 98-107 [facility] Comment on above: Performed By: #### L 100.0100, L501.5200, L503.0105, L506.1000, L3100.3450, L501.6710, L501.9520, L101.9900, L503.6150, L500.4050, L503.6550, L3100.5475 #### [facility] [address] [place], [address] CO2 [Moles/Vol] 26.0 mmol/L Normal 21.0-32.0 [facility] Comment on above: Performed By: #### L 100.0100, L501.5200, L503.0105, L506.1000, L3100.3450, L501.6710, L501.9520, L101.9900, L503.6150, L500.4050, L503.6550, L3100.5475 #### [facility] [address] [place], [address] Creatinine [Mass/Vol] 0.98 mg/dL Normal 0.70-1.30 [facility] Comment on above: Result Comment: The validity of the calculated GFR GFRAA in patients over 70 years has not been determined. Clinical correlation is essential. Performed By: #### L 100.0100, L501.5200, L503.0105, L506.1000, L3100.3450, L501.6710, L501.9520, L101.9900, L503.6150, L500.4050, L503.6550, L3100.5475 #### [facility] [address] [place], [address] ECRCL 69.45 ml/min Normal [facility] Comment on above: Performed By: #### L 100.0100, L501.5200, L503.0105, L506.1000, L3100.3450, L501.6710, L501.9520, L101.9900, L503.6150, L500.4050, L503.6550, L3100.5475 #### [facility] [address] [place], [address] EST GFR - AA 94 mL/min Normal >60 [facility] Comment on above: Result Comment: Afri can Cuban GFR Calc Performed By: #### L 100.0100, L501.5200, L503.0105, L506.1000, L3100.3450, L501.6710, L501.9520, L101.9900, L503.6150, L500.4050, L503.6550, L3100.5475 #### [facility] [address] [place], [place], [phone] (353) GAP 6 Normal 5-15 [facility] Comment on above: Performed By: #### L 100.0100, L501.5200, L503.0105, L506.1000, L3100.3450, L501.6710, L501.9520, L101.9900, L503.6150, L500.4050, L503.6550, L3100.5475 #### [facility] [address] [place], [place], [phone] (820) GFR/1.73 sq M.predicted among non-blacks MDRD (S/P/Bld) [Vol rate/Area] 78 mL/min/{1.73_m2} Normal >60 [facility] Comment on above: Result Comment: Non- GFR Calc Performed By: #### L 100.0100, L501.5200, L503.0105, L506.1000, L3100.3450, L501.6710, L501.9520, L101.9900, L503.6150, L500.4050, L503.6550, L3100.5475 #### [facility] [address] [place], [place], [phone] ([phone]) Glucose [Mass/Vol] 99 mg/dL Normal 74-106 [facility] Comment on above: Performed By: #### L 100.0100, L501.5200, L503.0105, L506.1000, L3100.3450, L501.6710, L501.9520, L101.9900, L503.6150, L500.4050, L503.6550, L3100.5475 #### [facility] [address] [place], [address] Potassium [Moles/Vol] 4.3 mmol/L Normal 3.5-5.1 [facility] Comment on above: Performed By: #### L 100.0100, L501.5200, L503.0105, L506.1000, L3100.3450, L501.6710, L501.9520, L101.9900, L503.6150, L500.4050, L503.6550, L3100.5475 #### [facility] [address] [facility] [place], [address] Sodium [Moles/Vol] 138 mmol/L Normal 136-145 [facility] Comment on above: Performed By: #### L 100.0100, L501.5200, L503.0105, L506.1000, L3100.3450, L501.6710, L501.9520, L101.9900, L503.6150, L500.4050, L503.6550, L3100.5475 #### [facility] [address] [facility] [place], [address] Urea nitrogen [Mass/Vol] 28 mg/dL High 7-18 [facility] Comment on above: Performed By: #### L 100.0100, L501.5200, L503.0105, L506.1000, L3100.3450, L501.6710, L501.9520, L101.9900, L503.6150, L500.4050, L503.6550, L3100.5475 #### [facility] [address] [place], [address] CBC W/Diff, Automatedon 01-3 0-2024 Absolute Lymph 1.08 X10 3/uL Normal 0.83-4.51 [facility] Comment on above: Performed By: #### L 100.0100, L501.5200, L503.0105, L506.1000, L3100.3450, L501.6710, L501.9520, L101.9900, L503.6150, L500.4050, L503.6550, L3100.5475 #### [facility] [address] [place], [address] Absolute Neut 3.6 X10 3/uL Normal 2.0-7.7 [facility] Comment on above: Performed By: #### L 100.0100, L501.5200, L503.0105, L506.1000, L3100.3450, L501.6710, L501.9520, L101.9900, L503.6150, L500.4050, L503.6550, L3100.5475 #### [facility] [address] [place], [address] Basophils/100 WBC (Bld) 0.7 % Normal 0-1 [facility] Comment on above: Performed By: #### L 100.0100, L501.5200, L503.0105, L506.1000, L3100.3450, L501.6710, L501.9520, L101.9900, L503.6150, L500.4050, L503.6550, L3100.5475 #### [facility] [address] [place], [address] Eosinophils/100 WBC (Bld) 10.5 % High 0-5 [facility] Comment on above: Performed By: #### L 100.0100, L501.5200, L503.0105, L506.1000, L3100.3450, L501.6710, L501.9520, L101.9900, L503.6150, L500.4050, L503.6550, L3100.5475 #### [facility] [address] [place], [address] Erythrocyte distribution width (RBC) [Ratio] 12.3 % Normal 11.6-14.6 [facility] Comment on above: Performed By: #### L 100.0100, L501.5200, L503.0105, L506.1000, L3100.3450, L501.6710, L501.9520, L101.9900, L503.6150, L500.4050, L503.6550, L3100.5475 #### [facility] [address] [facility] [place], [place], [phone] (924) Hematocrit (Bld) [Volume fraction] 37.5 % Low 40-54 [facility] Comment on above: Performed By: #### L 100.0100, L501.5200, L503.0105, L506.1000, L3100.3450, L501.6710, L501.9520, L101.9900, L503.6150, L500.4050, L503.6550, L3100.5475 #### [facility] [address] [facility] [place], [address] Hemoglobin (Bld) [Mass/Vol] 12.6 g/dL Low 13.0-16.5 [facility] Comment on above: Performed By: #### L 100.0100, L501.5200, L503.0105, L506.1000, L3100.3450, L501.6710, L501.9520, L101.9900, L503.6150, L500.4050, L503.6550, L3100.5475 #### [facility] [address] [place], [address] IG% 0.800 Normal 0.0-0.9 [facility] Comment on above: Result Comment: IG% - Immature Granulocytes (promyelocytes, myelocytes and metamyelocytes) > 1% indicates that a LEFT SHIFT is Present. Performed By: #### L 100.0100, L501.5200, L503.0105, L506.1000, L3100.3450, L501.6710, L501.9520, L101.9900, L503.6150, L500.4050, L503.6550, L3100.5475 #### [facility] [address] [place], [address] Lymphocytes/100 WBC (Bld) 18.3 % Low 19-41 [facility] Comment on above: Performed By: #### L 100.0100, L501.5200, L503.0105, L506.1000, L3100.3450, L501.6710, L501.9520, L101.9900, L503.6150, L500.4050, L503.6550, L3100.5475 #### [facility] [address] [place], [address] MCH (RBC) [Entitic mass] 32.6 pg High 27.0-32.0 [facility] Comment on above: Performed By: #### L 100.0100, L501.5200, L503.0105, L506.1000, L3100.3450, L501.6710, L501.9520, L101.9900, L503.6150, L500.4050, L503.6550, L3100.5475 #### [facility] [address] [place], [address] MCHC (RBC) [Mass/Vol] 33.6 g/dL Normal 32-36 [facility] Comment on above: Performed By: #### L 100.0100, L501.5200, L503.0105, L506.1000, L3100.3450, L501.6710, L501.9520, L101.9900, L503.6150, L500.4050, L503.6550, L3100.5475 #### [facility] [address] [place], [address] MCV (RBC) [Entitic vol] 96.9 fL High 80-94 [facility] Comment on above: Performed By: #### L 100.0100, L501.5200, L503.0105, L506.1000, L3100.3450, L501.6710, L501.9520, L101.9900, L503.6150, L500.4050, L503.6550, L3100.5475 #### [facility] [address] [place], [address] Monocytes/100 WBC (Bld) 8.5 % Normal 0-10 [facility] Comment on above: Performed By: #### L 100.0100, L501.5200, L503.0105, L506.1000, L3100.3450, L501.6710, L501.9520, L101.9900, L503.6150, L500.4050, L503.6550, L3100.5475 #### [facility] [address] [place], [address] Neutrophils/100 WBC (Bld) 61.2 % Normal 47-70 [facility] Comment on above: Performed By: #### L 100.0100, L501.5200, L503.0105, L506.1000, L3100.3450, L501.6710, L501.9520, L101.9900, L503.6150, L500.4050, L503.6550, L3100.5475 #### [facility] [address] [place], [address] Nucleated RBC (Bld) [#/Vol] 0 10*3/uL Normal 0-5 [facility] Comment on above: Performed By: #### L 100.0100, L501.5200, L503.0105, L506.1000, L3100.3450, L501.6710, L501.9520, L101.9900, L503.6150, L500.4050, L503.6550, L3100.5475 #### [facility] [address] [place], [address] Platelet mean volume (Bld) [Entitic vol] 9.1 fL Normal 6.2-12.0 [facility] Comment on above: Performed By: #### L 100.0100, L501.5200, L503.0105, L506.1000, L3100.3450, L501.6710, L501.9520, L101.9900, L503.6150, L500.4050, L503.6550, L3100.5475 #### [facility] [address] [place], [place], [phone] (272) Platelets (Bld) [#/Vol] 326 10*3/uL Normal 150-450 [facility] Comment on above: Performed By: #### L 100.0100, L501.5200, L503.0105, L506.1000, L3100.3450, L501.6710, L501.9520, L101.9900, L503.6150, L500.4050, L503.6550, L3100.5475 #### [facility] [address] [place], [address] RBC (Bld) [#/Vol] 3.87 10*6/uL Low 4.6-6.2 [facility] Comment on above: Performed By: #### L 100.0100, L501.5200, L503.0105, L506.1000, L3100.3450, L501.6710, L501.9520, L101.9900, L503.6150, L500.4050, L503.6550, L3100.5475 #### [facility] [address] [place], [address] RDW SD 43.5 fl Normal 35.1-43.9 [facility] Comment on above: Performed By: #### L 100.0100, L501.5200, L503.0105, L506.1000, L3100.3450, L501.6710, L501.9520, L101.9900, L503.6150, L500.4050, L503.6550, L3100.5475 #### [facility] [address] [place], [place], [id number] WBC (Bld) [#/Vol] 5.9 10*3/uL Normal 4.4-11.0 [facility] Comment on above: Performed By: #### L 100.0100, L501.5200, L503.0105, L506.1000, L3100.3450, L501.6710, L501.9520, L101.9900, L503.6150, L500.4050, L503.6550, L3100.5475 #### [facility] [address] [place], [place], [address] CNPNon 07-16-2024 PASCUALN Telephone (HEMAWS) ROBBIN MARTINEZ ([id number]) 1940 M Date Time Provider Department 07/16/24 JOSE CUNNINGHAMAWS During your visit today, we recorded the following information about you: Megan Anderson 07/16/2024 11:55 AM Signed Spouse called stating patient fell and broke his hip and is currently in transitional care at [facility]. Lab and Office visit for Jul canceled. Laura Johnson LPN 07/16/2024 12:03 PM Signed FYI Allergies As of Date: 07/16/2024 (No Known Allergies) Date Reviewed: 03/29/2024 Reviewed by: Valencia Bruce Ma, GABRIELA - Fully Assessed Reason for Visit: Patient Update [1234] Prescriptions as of 07/16/2024 - cholecalciferol, vitamin D3, (VITAMIN D3 ORAL) Take 5,000 Units by mouth once daily. - apixaban (ELIQUIS) 2.5 mg tab(s) Take 1 tablet by mouth two times a day. - metoprolol tartrate, short acting, (LOPRESSOR) 25 mg tablet Take 1 tablet by mouth twice daily. - polyethylene glycol 3350 17 gram packet Take 17 g by mouth as needed for constipation. Dissolve dose in 4 - 8 ounces of liquid and take as directed. - calcium carbonate/vitamin D3 (CALTRATE WITH VITAMIN D3 ORAL) Take 1 tablet by mouth twice daily. - vit C/E/Zn/coppr/lutein/zeaxan (PRESERVISION AREDS-2 ORAL) Take 1 tablet by mouth twice daily. - acetaminophen (TYLENOL) 500 mg tablet Take 500 mg by mouth as needed. - enalapril 20 mg tablet Take 1 tablet by mouth once daily. 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] 11/29/2009 Other Seborrheic Dermatitis [L21.8] 11/29/2009 Tinea Versicolor [B36.0] 11/29/2009 Surgical Scars: L upper arm: S/P Skin Ca's [L9*11/29/2009 H/O 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) [*11/29/2009 Dizziness and giddiness [R42] 09/11/2012 07/03/2016 Right inguinal hernia [K40.90] 06/28/2016 Diverticulosis of colon (without mention of hem*07/03/2016 Hiatal hernia [K44.9] 07/03/2016 Prostate cancer (HCC) [C61] 10/17/2020 Rectal bleeding [K62.5] 02/27/2023 Encounter Status:Closed by LAURA JOHNSON on 07/16/24 [facility] Basic Metabolic Profile (BMP )on 07-15-2024 BUN/CRE 32.4 RATIO High 10-20 [facility] Comment on above: Performed By: #### L 100.0100, L501.5200, L503.0105, L506.1000, L3100.3450, L501.6710, L501.9520, L101.9900, L503.6150, L500.4050, L503.6550, L3100.5475 #### [facility] [address] [place], [address] CA,Total 8.8 mg/dL Normal 8.5-10.1 [facility] Comment on above: Performed By: #### L 100.0100, L501.5200, L503.0105, L506.1000, L3100.3450, L501.6710, L501.9520, L101.9900, L503.6150, L500.4050, L503.6550, L3100.5475 #### [facility] [address] [place], [address] Chloride [Moles/Vol] 102 mmol/L Normal 98-107 [facility] Comment on above: Performed By: #### L 100.0100, L501.5200, L503.0105, L506.1000, L3100.3450, L501.6710, L501.9520, L101.9900, L503.6150, L500.4050, L503.6550, L3100.5475 #### [facility] [address] [place], [address] CO2 [Moles/Vol] 26.0 mmol/L Normal 21.0-32.0 [facility] Comment on above: Performed By: #### L 100.0100, L501.5200, L503.0105, L506.1000, L3100.3450, L501.6710, L501.9520, L101.9900, L503.6150, L500.4050, L503.6550, L3100.5475 #### [facility] [address] [place], [address] Creatinine [Mass/Vol] 1.02 mg/dL Normal 0.70-1.30 [facility] Comment on above: Result Comment: The validity of the calculated GFR GFRAA in patients over 70 years has not been determined. Clinical correlation is essential. Performed By: #### L 100.0100, L501.5200, L503.0105, L506.1000, L3100.3450, L501.6710, L501.9520, L101.9900, L503.6150, L500.4050, L503.6550, L3100.5475 #### [facility] [address] [place], [address] ECRCL 66.73 ml/min Normal [facility] Comment on above: Performed By: #### L 100.0100, L501.5200, L503.0105, L506.1000, L3100.3450, L501.6710, L501.9520, L101.9900, L503.6150, L500.4050, L503.6550, L3100.5475 #### [facility] [address] [place], [address] EST GFR - AA 89 mL/min Normal >60 [facility] Comment on above: Result Comment: Afri can Cuban GFR Calc Performed By: #### L 100.0100, L501.5200, L503.0105, L506.1000, L3100.3450, L501.6710, L501.9520, L101.9900, L503.6150, L500.4050, L503.6550, L3100.5475 #### [facility] [address] [place], [place], [id number] GAP 6 Normal 5-15 [facility] Comment on above: Performed By: #### L 100.0100, L501.5200, L503.0105, L506.1000, L3100.3450, L501.6710, L501.9520, L101.9900, L503.6150, L500.4050, L503.6550, L3100.5475 #### [facility] [address] [place], [address] GFR/1.73 sq M.predicted among non-blacks MDRD (S/P/Bld) [Vol rate/Area] 74 mL/min/{1.73_m2} Normal >60 [facility] Comment on above: Result Comment: Non- GFR Calc Performed By: #### L 100.0100, L501.5200, L503.0105, L506.1000, L3100.3450, L501.6710, L501.9520, L101.9900, L503.6150, L500.4050, L503.6550, L3100.5475 #### [facility] [address] [place], [place], [id number] Glucose [Mass/Vol] 110 mg/dL High 74-106 [facility] Comment on above: Result Comment: Fast ing Glucose result from 100 to 125 mg/dL suggests IMPAIRED HOMEOSTASIS per A.D.A. criteria. Performed By: #### L 100.0100, L501.5200, L503.0105, L506.1000, L3100.3450, L501.6710, L501.9520, L101.9900, L503.6150, L500.4050, L503.6550, L3100.5475 #### [facility] [address] [place], [address] Potassium [Moles/Vol] 4.1 mmol/L Normal 3.5-5.1 [facility] Comment on above: Performed By: #### L 100.0100, L501.5200, L503.0105, L506.1000, L3100.3450, L501.6710, L501.9520, L101.9900, L503.6150, L500.4050, L503.6550, L3100.5475 #### [facility] [address] [place], [address] Sodium [Moles/Vol] 134 mmol/L Low 136-145 [facility] Comment on above: Performed By: #### L 100.0100, L501.5200, L503.0105, L506.1000, L3100.3450, L501.6710, L501.9520, L101.9900, L503.6150, L500.4050, L503.6550, L3100.5475 #### [facility] [address] [place], [address] Urea nitrogen [Mass/Vol] 33 mg/dL High 7-18 [facility] Comment on above: Performed By: #### L 100.0100, L501.5200, L503.0105, L506.1000, L3100.3450, L501.6710, L501.9520, L101.9900, L503.6150, L500.4050, L503.6550, L3100.5475 #### [facility] [address] [place], [address] CBC W/Diff, Automatedon 06-24 Absolute Lymph 0.86 X10 3/uL Normal 0.83-4.51 [facility] Comment on above: Performed By: #### L 100.0100, L501.5200, L503.0105, L506.1000, L3100.3450, L501.6710, L501.9520, L101.9900, L503.6150, L500.4050, L503.6550, L3100.5475 #### [facility] [address] [place], [address] Absolute Neut 5.6 X10 3/uL Normal 2.0-7.7 [facility] Comment on above: Performed By: #### L 100.0100, L501.5200, L503.0105, L506.1000, L3100.3450, L501.6710, L501.9520, L101.9900, L503.6150, L500.4050, L503.6550, L3100.5475 #### [facility] [address] [place], [place], [phone] (025) Basophils/100 WBC (Bld) 0.4 % Normal 0-1 [facility] Comment on above: Performed By: #### L 100.0100, L501.5200, L503.0105, L506.1000, L3100.3450, L501.6710, L501.9520, L101.9900, L503.6150, L500.4050, L503.6550, L3100.5475 #### [facility] [address] [place], [address] Eosinophils/100 WBC (Bld) 3.1 % Normal 0-5 [facility] Comment on above: Performed By: #### L 100.0100, L501.5200, L503.0105, L506.1000, L3100.3450, L501.6710, L501.9520, L101.9900, L503.6150, L500.4050, L503.6550, L3100.5475 #### [facility] [address] [place], [address] Erythrocyte distribution width (RBC) [Ratio] 12.4 % Normal 11.6-14.6 [facility] Comment on above: Performed By: #### L 100.0100, L501.5200, L503.0105, L506.1000, L3100.3450, L501.6710, L501.9520, L101.9900, L503.6150, L500.4050, L503.6550, L3100.5475 #### [facility] [address] [place], [address] Hematocrit (Bld) [Volume fraction] 38.2 % Low 40-54 [facility] Comment on above: Performed By: #### L 100.0100, L501.5200, L503.0105, L506.1000, L3100.3450, L501.6710, L501.9520, L101.9900, L503.6150, L500.4050, L503.6550, L3100.5475 #### [facility] [address] [place], [address] Hemoglobin (Bld) [Mass/Vol] 12.6 g/dL Low 13.0-16.5 [facility] Comment on above: Performed By: #### L 100.0100, L501.5200, L503.0105, L506.1000, L3100.3450, L501.6710, L501.9520, L101.9900, L503.6150, L500.4050, L503.6550, L3100.5475 #### [facility] [address] [place], [address] IG% 0.500 Normal 0.0-0.9 [facility] Comment on above: Result Comment: IG% - Immature Granulocytes (promyelocytes, myelocytes and metamyelocytes) > 1% indicates that a LEFT SHIFT is Present. Performed By: #### L 100.0100, L501.5200, L503.0105, L506.1000, L3100.3450, L501.6710, L501.9520, L101.9900, L503.6150, L500.4050, L503.6550, L3100.5475 #### [facility] [address] [place], [address] Lymphocytes/100 WBC (Bld) 11.4 % Low 19-41 [facility] Comment on above: Performed By: #### L 100.0100, L501.5200, L503.0105, L506.1000, L3100.3450, L501.6710, L501.9520, L101.9900, L503.6150, L500.4050, L503.6550, L3100.5475 #### [facility] [address] [place], [address] MCH (RBC) [Entitic mass] 31.8 pg Normal 27.0-32.0 [facility] Comment on above: Performed By: #### L 100.0100, L501.5200, L503.0105, L506.1000, L3100.3450, L501.6710, L501.9520, L101.9900, L503.6150, L500.4050, L503.6550, L3100.5475 #### [facility] [address] [place], [address] MCHC (RBC) [Mass/Vol] 33.0 g/dL Normal 32-36 [facility] Comment on above: Performed By: #### L 100.0100, L501.5200, L503.0105, L506.1000, L3100.3450, L501.6710, L501.9520, L101.9900, L503.6150, L500.4050, L503.6550, L3100.5475 #### [facility] [address] [place], [address] MCV (RBC) [Entitic vol] 96.5 fL High 80-94 [facility] Comment on above: Performed By: #### L 100.0100, L501.5200, L503.0105, L506.1000, L3100.3450, L501.6710, L501.9520, L101.9900, L503.6150, L500.4050, L503.6550, L3100.5475 #### [facility] [address] [place], [address] Monocytes/100 WBC (Bld) 9.6 % Normal 0-10 [facility] Comment on above: Performed By: #### L 100.0100, L501.5200, L503.0105, L506.1000, L3100.3450, L501.6710, L501.9520, L101.9900, L503.6150, L500.4050, L503.6550, L3100.5475 #### [facility] [address] [facility] [facility] [place], [place], [phone] (226) Neutrophils/100 WBC (Bld) 75.0 % High 47-70 [facility] Comment on above: Performed By: #### L 100.0100, L501.5200, L503.0105, L506.1000, L3100.3450, L501.6710, L501.9520, L101.9900, L503.6150, L500.4050, L503.6550, L3100.5475 #### [facility] [address] [facility] [place], [place], [phone] ([phone] Nucleated RBC (Bld) [#/Vol] 0 10*3/uL Normal 0-5 [facility] Comment on above: Performed By: #### L 100.0100, L501.5200, L503.0105, L506.1000, L3100.3450, L501.6710, L501.9520, L101.9900, L503.6150, L500.4050, L503.6550, L3100.5475 #### [facility] [address] [place], [address] Platelet mean volume (Bld) [Entitic vol] 9.5 fL Normal 6.2-12.0 [facility] Comment on above: Performed By: #### L 100.0100, L501.5200, L503.0105, L506.1000, L3100.3450, L501.6710, L501.9520, L101.9900, L503.6150, L500.4050, L503.6550, L3100.5475 #### [facility] [address] [place], [address] Platelets (Bld) [#/Vol] 151 10*3/uL Normal 150-450 [facility] Comment on above: Performed By: #### L 100.0100, L501.5200, L503.0105, L506.1000, L3100.3450, L501.6710, L501.9520, L101.9900, L503.6150, L500.4050, L503.6550, L3100.5475 #### [facility] [address] [place], [address] RBC (Bld) [#/Vol] 3.96 10*6/uL Low 4.6-6.2 [facility] Comment on above: Performed By: #### L 100.0100, L501.5200, L503.0105, L506.1000, L3100.3450, L501.6710, L501.9520, L101.9900, L503.6150, L500.4050, L503.6550, L3100.5475 #### [facility] [address] [place], [address] RDW SD 44.5 fl High 35.1-43.9 [facility] Comment on above: Performed By: #### L 100.0100, L501.5200, L503.0105, L506.1000, L3100.3450, L501.6710, L501.9520, L101.9900, L503.6150, L500.4050, L503.6550, L3100.5475 #### [facility] [address] [place], [address] WBC (Bld) [#/Vol] 7.5 10*3/uL Normal 4.4-11.0 [facility] Comment on above: Performed By: #### L 100.0100, L501.5200, L503.0105, L506.1000, L3100.3450, L501.6710, L501.9520, L101.9900, L503.6150, L500.4050, L503.6550, L3100.5475 #### [facility] [address] [place], [address] Basic Metabolic Profile (BMP )on 07-14-2024 BUN Normal 7-18 [facility] Comment on above: Result Comment: Canc elled via OM: MD Ordered Performed By: #### L 500.2500, L100.0100 #### [facility] [address] [place], [address] BUN/CRE Normal 10-20 [facility] Comment on above: Result Comment: Canc elled via OM: MD Ordered Performed By: #### L 500.2500, L100.0100 #### [facility] [address] [place], [address] CA,Total Normal 8.5-10.1 [facility] Comment on above: Result Comment: Canc elled via OM: MD Ordered Performed By: #### L 500.2500, L100.0100 #### [facility] [address] [place], [address] CL Normal 98-107 [facility] Comment on above: Result Comment: Canc elled via OM: MD Ordered Performed By: #### L 500.2500, L100.0100 #### [facility] [address] [place], [address] CO2 Normal 21.0-32.0 [facility] Comment on above: Result Comment: Canc elled via OM: MD Ordered Performed By: #### L 500.2500, L100.0100 #### [facility] [address] [place], [address] CREAT,SERUM Normal 0.70-1.30 [facility] Comment on above: Result Comment: Canc elled via OM: MD Ordered Performed By: #### L 500.2500, L100.0100 #### [facility] [address] [place], [address] EST GFR Normal >60 [facility] Comment on above: Result Comment: Canc elled via OM: MD Ordered Performed By: #### L 500.2500, L100.0100 #### [facility] [address] [place], [address] EST GFR - AA Normal >60 [facility] Comment on above: Result Comment: Canc elled via OM: MD Ordered Performed By: #### L 500.2500, L100.0100 #### [facility] [address] [place], [address] GAP Normal 5-15 [facility] Comment on above: Result Comment: Canc elled via OM: MD Ordered Performed By: #### L 500.2500, L100.0100 #### [facility] [address] [place], [address] GLU Normal 74-106 [facility] Comment on above: Result Comment: Canc elled via OM: MD Ordered Performed By: #### L 500.2500, L100.0100 #### [facility] [address] [place], [address] Potassium Normal 3.5-5.1 [facility] Comment on above: Result Comment: Canc elled via OM: MD Ordered Performed By: #### L 500.2500, L100.0100 #### [facility] [address] [place], [address] Basic Metabolic Profile (BMP) Normal 136-145 [facility] Comment on above: Result Comment: Canc elled via OM: MD Ordered Performed By: #### L 500.2500, L100.0100 #### [facility] [address] [place], [address] CBC W/Diff, Automatedon - Absolute Neut Normal 2.0-7.7 [facility] Comment on above: Result Comment: Canc elled via OM: MD Ordered Performed By: #### L 500.2500, L100.0100 #### [facility] [address] [place], [address] HCT Normal 40-54 [facility] Comment on above: Result Comment: Canc elled via OM: MD Ordered Performed By: #### L 500.2500, L100.0100 #### [facility] [address] [place], [address] HGB Normal 13.0-16.5 [facility] Comment on above: Result Comment: Canc elled via OM: MD Ordered Performed By: #### L 500.2500, L100.0100 #### [facility] [address] [place], [address] MCH Normal 27.0-32.0 [facility] Comment on above: Result Comment: Canc elled via OM: MD Ordered Performed By: #### L 500.2500, L100.0100 #### [facility] [address] [place], [address] MCHC Normal 32-36 [facility] Comment on above: Result Comment: Canc elled via OM: MD Ordered Performed By: #### L 500.2500, L100.0100 #### [facility] [address] [place], [address] MCV Normal 80-94 [facility] Comment on above: Result Comment: Canc elled via OM: MD Ordered Performed By: #### L 500.2500, L100.0100 #### [facility] [address] [place], [address] NEUT% Normal 47-70 [facility] Comment on above: Result Comment: Canc elled via OM: MD Ordered Performed By: #### L 500.2500, L100.0100 #### [facility] [address] [place], [address] PLT Normal 150-450 [facility] Comment on above: Result Comment: Canc elled via OM: MD Ordered Performed By: #### L 500.2500, L100.0100 #### [facility] [address] [place], [address] RBC Normal 4.6-6.2 [facility] Comment on above: Result Comment: Canc elled via OM: MD Ordered Performed By: #### L 500.2500, L100.0100 #### [facility] [address] [place], [address] RDW CV Normal 11.6-14.6 [facility] Comment on above: Result Comment: Canc elled via OM: MD Ordered Performed By: #### L 500.2500, L100.0100 #### [facility] [address] [place], [address] RDW SD Normal 35.1-43.9 [facility] Comment on above: Result Comment: Canc elled via OM: MD Ordered Performed By: #### L 500.2500, L100.0100 #### [facility] [address] [place], [address] WBC Normal 4.4-11.0 [facility] Comment on above: Result Comment: Canc elled via OM: MD Ordered Performed By: #### L 500.2500, L100.0100 #### [facility] [address] [place], [place], [phone] ([phone]) Basic Metabolic Profile (BMP )on 07-13-2024 BUN/CRE 25.2 RATIO High 10-20 [facility] Comment on above: Performed By: #### L 100.0100, L501.5200, L503.0105, L506.1000, L3100.3450, L501.6710, L501.9520, L101.9900, L503.6150, L500.4050, L503.6550, L3100.5475 #### [facility] [address] [place], [address] CA,Total 8.8 mg/dL Normal 8.5-10.1 [facility] Comment on above: Performed By: #### L 100.0100, L501.5200, L503.0105, L506.1000, L3100.3450, L501.6710, L501.9520, L101.9900, L503.6150, L500.4050, L503.6550, L3100.5475 #### [facility] [address] [place], [place], [phone] ([phone]) Chloride [Moles/Vol] 104 mmol/L Normal 98-107 [facility] Comment on above: Performed By: #### L 100.0100, L501.5200, L503.0105, L506.1000, L3100.3450, L501.6710, L501.9520, L101.9900, L503.6150, L500.4050, L503.6550, L3100.5475 #### [facility] [address] [place], [address] CO2 [Moles/Vol] 25.0 mmol/L Normal 21.0-32.0 [facility] Comment on above: Performed By: #### L 100.0100, L501.5200, L503.0105, L506.1000, L3100.3450, L501.6710, L501.9520, L101.9900, L503.6150, L500.4050, L503.6550, L3100.5475 #### [facility] [address] [place], [place], [address] Creatinine [Mass/Vol] 1.11 mg/dL Normal 0.70-1.30 [facility] Comment on above: Result Comment: The validity of the calculated GFR GFRAA in patients over 70 years has not been determined. Clinical correlation is essential. Performed By: #### L 100.0100, L501.5200, L503.0105, L506.1000, L3100.3450, L501.6710, L501.9520, L101.9900, L503.6150, L500.4050, L503.6550, L3100.5475 #### [facility] [address] [place], [place], [id number] ECRCL 65.28 ml/min Normal [facility] Comment on above: Performed By: #### L 100.0100, L501.5200, L503.0105, L506.1000, L3100.3450, L501.6710, L501.9520, L101.9900, L503.6150, L500.4050, L503.6550, L3100.5475 #### [facility] [address] [place], [place], [address] EST GFR - AA 81 mL/min Normal >60 [facility] Comment on above: Result Comment: Afri can Cuban GFR Calc Performed By: #### L 100.0100, L501.5200, L503.0105, L506.1000, L3100.3450, L501.6710, L501.9520, L101.9900, L503.6150, L500.4050, L503.6550, L3100.5475 #### [facility] [address] [place], [address] GAP 7 Normal 5-15 [facility] Comment on above: Performed By: #### L 100.0100, L501.5200, L503.0105, L506.1000, L3100.3450, L501.6710, L501.9520, L101.9900, L503.6150, L500.4050, L503.6550, L3100.5475 #### [facility] [address] [place], [place], [phone] (411) GFR/1.73 sq M.predicted among non-blacks MDRD (S/P/Bld) [Vol rate/Area] 67 mL/min/{1.73_m2} Normal >60 [facility] Comment on above: Result Comment: Non- GFR Calc Performed By: #### L 100.0100, L501.5200, L503.0105, L506.1000, L3100.3450, L501.6710, L501.9520, L101.9900, L503.6150, L500.4050, L503.6550, L3100.5475 #### [facility] [address] [place], [place], [phone] ([phone] Glucose [Mass/Vol] 120 mg/dL High 74-106 [facility] Comment on above: Result Comment: Fast ing Glucose result from 100 to 125 mg/dL suggests IMPAIRED HOMEOSTASIS per A.D.A. criteria. Performed By: #### L 100.0100, L501.5200, L503.0105, L506.1000, L3100.3450, L501.6710, L501.9520, L101.9900, L503.6150, L500.4050, L503.6550, L3100.5475 #### [facility] [address] [place], [address] Potassium [Moles/Vol] 4.2 mmol/L Normal 3.5-5.1 [facility] Comment on above: Performed By: #### L 100.0100, L501.5200, L503.0105, L506.1000, L3100.3450, L501.6710, L501.9520, L101.9900, L503.6150, L500.4050, L503.6550, L3100.5475 #### [facility] [address] [place], [place], [id number] Sodium [Moles/Vol] 136 mmol/L Normal 136-145 [facility] Comment on above: Performed By: #### L 100.0100, L501.5200, L503.0105, L506.1000, L3100.3450, L501.6710, L501.9520, L101.9900, L503.6150, L500.4050, L503.6550, L3100.5475 #### [facility] [address] [place], [place], [phone] Urea nitrogen [Mass/Vol] 28 mg/dL High 7-18 [facility] Comment on above: Performed By: #### L 100.0100, L501.5200, L503.0105, L506.1000, L3100.3450, L501.6710, L501.9520, L101.9900, L503.6150, L500.4050, L503.6550, L3100.5475 #### [facility] [address] [place], [place], [address] CBC W/Diff, Automatedon 06-24 Absolute Lymph 0.87 X10 3/uL Normal 0.83-4.51 [facility] Comment on above: Performed By: #### L 100.0100, L501.5200, L503.0105, L506.1000, L3100.3450, L501.6710, L501.9520, L101.9900, L503.6150, L500.4050, L503.6550, L3100.5475 #### [facility] [address] [place], [address] Absolute Neut 6.6 X10 3/uL Normal 2.0-7.7 [facility] Comment on above: Performed By: #### L 100.0100, L501.5200, L503.0105, L506.1000, L3100.3450, L501.6710, L501.9520, L101.9900, L503.6150, L500.4050, L503.6550, L3100.5475 #### [facility] [address] [place], [address] Basophils/100 WBC (Bld) 0.2 % Normal 0-1 [facility] Comment on above: Performed By: #### L 100.0100, L501.5200, L503.0105, L506.1000, L3100.3450, L501.6710, L501.9520, L101.9900, L503.6150, L500.4050, L503.6550, L3100.5475 #### [facility] [address] [place], [address] Eosinophils/100 WBC (Bld) 0.8 % Normal 0-5 [facility] Comment on above: Performed By: #### L 100.0100, L501.5200, L503.0105, L506.1000, L3100.3450, L501.6710, L501.9520, L101.9900, L503.6150, L500.4050, L503.6550, L3100.5475 #### [facility] [address] [place], [address] Erythrocyte distribution width (RBC) [Ratio] 12.6 % Normal 11.6-14.6 [facility] Comment on above: Performed By: #### L 100.0100, L501.5200, L503.0105, L506.1000, L3100.3450, L501.6710, L501.9520, L101.9900, L503.6150, L500.4050, L503.6550, L3100.5475 #### [facility] [address] [place], [address] Hematocrit (Bld) [Volume fraction] 39.1 % Low 40-54 [facility] Comment on above: Performed By: #### L 100.0100, L501.5200, L503.0105, L506.1000, L3100.3450, L501.6710, L501.9520, L101.9900, L503.6150, L500.4050, L503.6550, L3100.5475 #### [facility] [address] [place], [address] Hemoglobin (Bld) [Mass/Vol] 13.0 g/dL Normal 13.0-16.5 [facility] Comment on above: Performed By: #### L 100.0100, L501.5200, L503.0105, L506.1000, L3100.3450, L501.6710, L501.9520, L101.9900, L503.6150, L500.4050, L503.6550, L3100.5475 #### [facility] [address] [place], [address] IG% 0.500 Normal 0.0-0.9 [facility] Comment on above: Result Comment: IG% - Immature Granulocytes (promyelocytes, myelocytes and metamyelocytes) > 1% indicates that a LEFT SHIFT is Present. Performed By: #### L 100.0100, L501.5200, L503.0105, L506.1000, L3100.3450, L501.6710, L501.9520, L101.9900, L503.6150, L500.4050, L503.6550, L3100.5475 #### [facility] [address] [place], [address] Lymphocytes/100 WBC (Bld) 10.3 % Low 19-41 [facility] Comment on above: Performed By: #### L 100.0100, L501.5200, L503.0105, L506.1000, L3100.3450, L501.6710, L501.9520, L101.9900, L503.6150, L500.4050, L503.6550, L3100.5475 #### [facility] [address] [place], [address] MCH (RBC) [Entitic mass] 31.9 pg Normal 27.0-32.0 [facility] Comment on above: Performed By: #### L 100.0100, L501.5200, L503.0105, L506.1000, L3100.3450, L501.6710, L501.9520, L101.9900, L503.6150, L500.4050, L503.6550, L3100.5475 #### [facility] [address] [facility] [place], [place], [phone] (301) MCHC (RBC) [Mass/Vol] 33.2 g/dL Normal 32-36 [facility] Comment on above: Performed By: #### L 100.0100, L501.5200, L503.0105, L506.1000, L3100.3450, L501.6710, L501.9520, L101.9900, L503.6150, L500.4050, L503.6550, L3100.5475 #### [facility] [address] [place], [place], [phone] (516) MCV (RBC) [Entitic vol] 96.1 fL High 80-94 [facility] Comment on above: Performed By: #### L 100.0100, L501.5200, L503.0105, L506.1000, L3100.3450, L501.6710, L501.9520, L101.9900, L503.6150, L500.4050, L503.6550, L3100.5475 #### [facility] [address] [facility] [place], [address] Monocytes/100 WBC (Bld) 10.0 % Normal 0-10 [facility] Comment on above: Performed By: #### L 100.0100, L501.5200, L503.0105, L506.1000, L3100.3450, L501.6710, L501.9520, L101.9900, L503.6150, L500.4050, L503.6550, L3100.5475 #### [facility] [address] [place], [address] Neutrophils/100 WBC (Bld) 78.2 % High 47-70 [facility] Comment on above: Performed By: #### L 100.0100, L501.5200, L503.0105, L506.1000, L3100.3450, L501.6710, L501.9520, L101.9900, L503.6150, L500.4050, L503.6550, L3100.5475 #### [facility] [address] [place], [address] Nucleated RBC (Bld) [#/Vol] 0 10*3/uL Normal 0-5 [facility] Comment on above: Performed By: #### L 100.0100, L501.5200, L503.0105, L506.1000, L3100.3450, L501.6710, L501.9520, L101.9900, L503.6150, L500.4050, L503.6550, L3100.5475 #### [facility] [address] [place], [address] Platelet mean volume (Bld) [Entitic vol] 9.4 fL Normal 6.2-12.0 [facility] Comment on above: Performed By: #### L 100.0100, L501.5200, L503.0105, L506.1000, L3100.3450, L501.6710, L501.9520, L101.9900, L503.6150, L500.4050, L503.6550, L3100.5475 #### [facility] [address] [place], [address] Platelets (Bld) [#/Vol] 144 10*3/uL Low 150-450 [facility] Comment on above: Performed By: #### L 100.0100, L501.5200, L503.0105, L506.1000, L3100.3450, L501.6710, L501.9520, L101.9900, L503.6150, L500.4050, L503.6550, L3100.5475 #### [facility] [address] [place], [address] RBC (Bld) [#/Vol] 4.07 10*6/uL Low 4.6-6.2 [facility] Comment on above: Performed By: #### L 100.0100, L501.5200, L503.0105, L506.1000, L3100.3450, L501.6710, L501.9520, L101.9900, L503.6150, L500.4050, L503.6550, L3100.5475 #### [facility] [address] [place], [address] RDW SD 44.2 fl High 35.1-43.9 [facility] Comment on above: Performed By: #### L 100.0100, L501.5200, L503.0105, L506.1000, L3100.3450, L501.6710, L501.9520, L101.9900, L503.6150, L500.4050, L503.6550, L3100.5475 #### [facility] [address] [place], [address] WBC (Bld) [#/Vol] 8.4 10*3/uL Normal 4.4-11.0 [facility] Comment on above: Performed By: #### L 100.0100, L501.5200, L503.0105, L506.1000, L3100.3450, L501.6710, L501.9520, L101.9900, L503.6150, L500.4050, L503.6550, L3100.5475 #### [facility] [address] [place], [address] 12 Lead EKGon 07-12-2024 12 Lead EKG [facility] [address] [place] [address] 12 Lead EKG 07/12/24 0526 MR#: [id number] Acct: [id number] Name: ROBBIN MARTINEZ Rep #: [id number] : 1940 83 From: Cam Steel MD Attending Dr: Dr. Cristofer Newton, Status: ADM IN Ordering Dr: Rohit Parish MD Date: 07/12/24 Location: [facility] [place] Sex: M C Admitted: 07/10/24 Test Reason : AM EKG Blood Pressure : */* mmHG Vent. Rate : 77 BPM Atrial Rate : 77 BPM P-R Int : 160 ms QRS Dur : 152 ms QT Int : 404 ms P-R-T Axes : 62 71 47 degrees QTcB Int : 457 ms Normal sinus rhythm Possible Left atrial enlargement Right bundle branch block Abnormal ECG When compared with ECG of 06-Jun-2022 11:23, Premature ventricular complexes are no longer Present Confirmed by DONG CHOI, JOHN ([id number]), editor producer MELVIN HOUGH ([id number]) on 07/12/2024 11:00:21 AM Referred By: VILLAGOMEZ Confirmed By: JOHN STEEL MD 07/12/24 1100 Date Cam Steel MD CC: Dr. Rohit Parish MD; Dr. Raphael Justin MD; Dr. Cristofer Jopperi, DO Signed Normal [facility] Basic Metabolic Profile (BMP )on 07-12-2024 BUN/CRE 20.7 RATIO High 10-20 [facility] Comment on above: Performed By: #### L 100.0100, L501.5200, L503.0105, L506.1000, L3100.3450, L501.6710, L501.9520, L101.9900, L503.6150, L500.4050, L503.6550, L3100.5475 #### [facility] [address] [place], [address] CA,Total 8.9 mg/dL Normal 8.5-10.1 [facility] Comment on above: Performed By: #### L 100.0100, L501.5200, L503.0105, L506.1000, L3100.3450, L501.6710, L501.9520, L101.9900, L503.6150, L500.4050, L503.6550, L3100.5475 #### [facility] [address] [place], [address] Chloride [Moles/Vol] 108 mmol/L High 98-107 [facility] Comment on above: Performed By: #### L 100.0100, L501.5200, L503.0105, L506.1000, L3100.3450, L501.6710, L501.9520, L101.9900, L503.6150, L500.4050, L503.6550, L3100.5475 #### [facility] [address] [place], [address] CO2 [Moles/Vol] 24.0 mmol/L Normal 21.0-32.0 [facility] Comment on above: Performed By: #### L 100.0100, L501.5200, L503.0105, L506.1000, L3100.3450, L501.6710, L501.9520, L101.9900, L503.6150, L500.4050, L503.6550, L3100.5475 #### [facility] [address] [place], [place], [phone] ([phone]) Creatinine [Mass/Vol] 0.92 mg/dL Normal 0.70-1.30 [facility] Comment on above: Result Comment: The validity of the calculated GFR GFRAA in patients over 70 years has not been determined. Clinical correlation is essential. Performed By: #### L 100.0100, L501.5200, L503.0105, L506.1000, L3100.3450, L501.6710, L501.9520, L101.9900, L503.6150, L500.4050, L503.6550, L3100.5475 #### [facility] [address] [place], [place], [phone] ([phone]) ECRCL 76.64 ml/min Normal [facility] Comment on above: Performed By: #### L 100.0100, L501.5200, L503.0105, L506.1000, L3100.3450, L501.6710, L501.9520, L101.9900, L503.6150, L500.4050, L503.6550, L3100.5475 #### [facility] [address] [place], [place], [id number] (657) EST GFR - AA 101 mL/min Normal >60 [facility] Comment on above: Result Comment: Afri can Cuban GFR Calc Performed By: #### L 100.0100, L501.5200, L503.0105, L506.1000, L3100.3450, L501.6710, L501.9520, L101.9900, L503.6150, L500.4050, L503.6550, L3100.5475 #### [facility] [address] [place], [place], [id number] (288) GAP 5 Normal 5-15 [facility] Comment on above: Performed By: #### L 100.0100, L501.5200, L503.0105, L506.1000, L3100.3450, L501.6710, L501.9520, L101.9900, L503.6150, L500.4050, L503.6550, L3100.5475 #### [facility] [address] [place], [address] GFR/1.73 sq M.predicted among non-blacks MDRD (S/P/Bld) [Vol rate/Area] 83 mL/min/{1.73_m2} Normal >60 [facility] Comment on above: Result Comment: Non- GFR Calc Performed By: #### L 100.0100, L501.5200, L503.0105, L506.1000, L3100.3450, L501.6710, L501.9520, L101.9900, L503.6150, L500.4050, L503.6550, L3100.5475 #### [facility] [address] [place], [address] Glucose [Mass/Vol] 103 mg/dL Normal 74-106 [facility] Comment on above: Result Comment: Fast ing Glucose result from 100 to 125 mg/dL suggests IMPAIRED HOMEOSTASIS per A.D.A. criteria. Performed By: #### L 100.0100, L501.5200, L503.0105, L506.1000, L3100.3450, L501.6710, L501.9520, L101.9900, L503.6150, L500.4050, L503.6550, L3100.5475 #### [facility] [address] [place], [address] Potassium [Moles/Vol] 3.8 mmol/L Normal 3.5-5.1 [facility] Comment on above: Performed By: #### L 100.0100, L501.5200, L503.0105, L506.1000, L3100.3450, L501.6710, L501.9520, L101.9900, L503.6150, L500.4050, L503.6550, L3100.5475 #### [facility] [address] [place], [address] Sodium [Moles/Vol] 137 mmol/L Normal 136-145 [facility] Comment on above: Performed By: #### L 100.0100, L501.5200, L503.0105, L506.1000, L3100.3450, L501.6710, L501.9520, L101.9900, L503.6150, L500.4050, L503.6550, L3100.5475 #### [facility] [address] [place], [address] Urea nitrogen [Mass/Vol] 19 mg/dL High 7-18 [facility] Comment on above: Performed By: #### L 100.0100, L501.5200, L503.0105, L506.1000, L3100.3450, L501.6710, L501.9520, L101.9900, L503.6150, L500.4050, L503.6550, L3100.5475 #### [facility] [address] [place], [address] CBC W/Diff, Automatedon 01-2 0-2024 Absolute Lymph 1.07 X10 3/uL Normal 0.83-4.51 [facility] Comment on above: Performed By: #### L 100.0100, L501.5200, L503.0105, L506.1000, L3100.3450, L501.6710, L501.9520, L101.9900, L503.6150, L500.4050, L503.6550, L3100.5475 #### [facility] [address] [place], [address] Absolute Neut 5.0 X10 3/uL Normal 2.0-7.7 [facility] Comment on above: Performed By: #### L 100.0100, L501.5200, L503.0105, L506.1000, L3100.3450, L501.6710, L501.9520, L101.9900, L503.6150, L500.4050, L503.6550, L3100.5475 #### [facility] [address] [place], [place], [phone] (114) Basophils/100 WBC (Bld) 0.3 % Normal 0-1 [facility] Comment on above: Performed By: #### L 100.0100, L501.5200, L503.0105, L506.1000, L3100.3450, L501.6710, L501.9520, L101.9900, L503.6150, L500.4050, L503.6550, L3100.5475 #### [facility] [employer] [facility] [place], [place], [phone] (730) Eosinophils/100 WBC (Bld) 3.6 % Normal 0-5 [facility] Comment on above: Performed By: #### L 100.0100, L501.5200, L503.0105, L506.1000, L3100.3450, L501.6710, L501.9520, L101.9900, L503.6150, L500.4050, L503.6550, L3100.5475 #### [facility] [address] [facility] [place], [place], [phone] (264) Erythrocyte distribution width (RBC) [Ratio] 12.6 % Normal 11.6-14.6 [facility] Comment on above: Performed By: #### L 100.0100, L501.5200, L503.0105, L506.1000, L3100.3450, L501.6710, L501.9520, L101.9900, L503.6150, L500.4050, L503.6550, L3100.5475 #### [facility] [address] [facility] [place], [address] Hematocrit (Bld) [Volume fraction] 41.9 % Normal 40-54 [facility] Comment on above: Performed By: #### L 100.0100, L501.5200, L503.0105, L506.1000, L3100.3450, L501.6710, L501.9520, L101.9900, L503.6150, L500.4050, L503.6550, L3100.5475 #### [facility] [address] [place], [address] Hemoglobin (Bld) [Mass/Vol] 14.1 g/dL Normal 13.0-16.5 [facility] Comment on above: Performed By: #### L 100.0100, L501.5200, L503.0105, L506.1000, L3100.3450, L501.6710, L501.9520, L101.9900, L503.6150, L500.4050, L503.6550, L3100.5475 #### [facility] [address] [place], [address] IG% 0.100 Normal 0.0-0.9 [facility] Comment on above: Result Comment: IG% - Immature Granulocytes (promyelocytes, myelocytes and metamyelocytes) > 1% indicates that a LEFT SHIFT is Present. Performed By: #### L 100.0100, L501.5200, L503.0105, L506.1000, L3100.3450, L501.6710, L501.9520, L101.9900, L503.6150, L500.4050, L503.6550, L3100.5475 #### [facility] [address] [place], [address] Lymphocytes/100 WBC (Bld) 15.4 % Low 19-41 [facility] Comment on above: Performed By: #### L 100.0100, L501.5200, L503.0105, L506.1000, L3100.3450, L501.6710, L501.9520, L101.9900, L503.6150, L500.4050, L503.6550, L3100.5475 #### [facility] [address] [place], [address] MCH (RBC) [Entitic mass] 32.1 pg High 27.0-32.0 [facility] Comment on above: Performed By: #### L 100.0100, L501.5200, L503.0105, L506.1000, L3100.3450, L501.6710, L501.9520, L101.9900, L503.6150, L500.4050, L503.6550, L3100.5475 #### [facility] [address] [place], [address] MCHC (RBC) [Mass/Vol] 33.7 g/dL Normal 32-36 [facility] Comment on above: Performed By: #### L 100.0100, L501.5200, L503.0105, L506.1000, L3100.3450, L501.6710, L501.9520, L101.9900, L503.6150, L500.4050, L503.6550, L3100.5475 #### [facility] [address] [place], [address] MCV (RBC) [Entitic vol] 95.4 fL High 80-94 [facility] Comment on above: Performed By: #### L 100.0100, L501.5200, L503.0105, L506.1000, L3100.3450, L501.6710, L501.9520, L101.9900, L503.6150, L500.4050, L503.6550, L3100.5475 #### [facility] [address] [place], [address] Monocytes/100 WBC (Bld) 8.8 % Normal 0-10 [facility] Comment on above: Performed By: #### L 100.0100, L501.5200, L503.0105, L506.1000, L3100.3450, L501.6710, L501.9520, L101.9900, L503.6150, L500.4050, L503.6550, L3100.5475 #### [facility] [address] [place], [place], [phone] (893) Neutrophils/100 WBC (Bld) 71.8 % High 47-70 [facility] Comment on above: Performed By: #### L 100.0100, L501.5200, L503.0105, L506.1000, L3100.3450, L501.6710, L501.9520, L101.9900, L503.6150, L500.4050, L503.6550, L3100.5475 #### [facility] [address] [facility] [place], [place], [phone] (576) Nucleated RBC (Bld) [#/Vol] 0 10*3/uL Normal 0-5 [facility] Comment on above: Performed By: #### L 100.0100, L501.5200, L503.0105, L506.1000, L3100.3450, L501.6710, L501.9520, L101.9900, L503.6150, L500.4050, L503.6550, L3100.5475 #### [facility] [address] [place], [place], [phone] (421) Platelet mean volume (Bld) [Entitic vol] 9.7 fL Normal 6.2-12.0 [facility] Comment on above: Performed By: #### L 100.0100, L501.5200, L503.0105, L506.1000, L3100.3450, L501.6710, L501.9520, L101.9900, L503.6150, L500.4050, L503.6550, L3100.5475 #### [facility] [address] [facility] [place], [address] Platelets (Bld) [#/Vol] 137 10*3/uL Low 150-450 [facility] Comment on above: Performed By: #### L 100.0100, L501.5200, L503.0105, L506.1000, L3100.3450, L501.6710, L501.9520, L101.9900, L503.6150, L500.4050, L503.6550, L3100.5475 #### [facility] [address] [facility] [place], [address] RBC (Bld) [#/Vol] 4.39 10*6/uL Low 4.6-6.2 [facility] Comment on above: Performed By: #### L 100.0100, L501.5200, L503.0105, L506.1000, L3100.3450, L501.6710, L501.9520, L101.9900, L503.6150, L500.4050, L503.6550, L3100.5475 #### [facility] [address] [facility] [place], [address] RDW SD 43.6 fl Normal 35.1-43.9 [facility] Comment on above: Performed By: #### L 100.0100, L501.5200, L503.0105, L506.1000, L3100.3450, L501.6710, L501.9520, L101.9900, L503.6150, L500.4050, L503.6550, L3100.5475 #### [facility] [address] [facility] [place], [address] WBC (Bld) [#/Vol] 7.0 10*3/uL Normal 4.4-11.0 [facility] Comment on above: Performed By: #### L 100.0100, L501.5200, L503.0105, L506.1000, L3100.3450, L501.6710, L501.9520, L101.9900, L503.6150, L500.4050, L503.6550, L3100.5475 #### [facility] [place], [address] Decalcification bone/plaqueo n 07-12-2024 Decalcification bone/plaque Patient Age/Sex Location Account Attending Physician ROBBIN MARTINEZ 83/M MS3 [id number] Dr. Cristofer Newton, Specimen: [id number] Received: 07/12/24 Status: AVIS Holland Num: [id number] Spec Type: TOTAL HIP Subm Dr: Dr. Panfilo Luna DO [facility]: Hemiarthroplasty, hip PRE-OP DIAGNOSIS: Closed fracture of neck of left femur TISSUE SUBMITTED: Left hip bone and tissue MICROSCOPIC DIAGNOSIS Left hip bone and soft tissue, total hip replacement/resection: Femoral head and detached pieces of bone with focal area of hemorrhage, clinically fractured neck of left femur. Fragments of dense fibroconnective tissue and reactive synovial tissue. SJ: 07/16/2024 MICROSCOPIC DESCRIPTION Slides are reviewed. GROSS DESCRIPTION Received is one container labeled with the patient's name and designated femoral head and tissue. The specimen consists of a chawla femoral head measuring 5 x 5 x 4.5 cm. The articular surface is smooth. Resection margin is irregular and hemorrhagic. Attached to the femoral head is a piece of soft tissue measuring 2.5 x 0.5 x 0.1cm. Also present in the specimen container are multiple detached pieces of bone measuring in aggregate 6 x 5 x 2.5 cm. Corporate Security Manager sections are submitted in three cassettes as follows: 1 - soft tissue, entirely submitted, 2 - detached pieces of bone after decalcification, 3 - femoral head after decalcification. / LADONNA. 07/13/2024 TC:5 [facility]: [id number], [address] Patient Age/Sex Location Account Attending Physician ROBBIN MARTINEZ 83/M MS3 [id number] Dr. Cristofer Newton, DO Signed (signature on file) Dr. Nas Fuchs MD 07/16/24 1221 Normal [facility] Comment on above: Performed By: #### L 100.0100, L501.5200, L503.0105, L506.1000, L3100.3450, L501.6710, L501.9520, L101.9900, L503.6150, L500.4050, L503.6550, L3100.5475 #### [facility] [address] [facility] [place], [place], [id number] Hip Min 2 Views (Portable)on 07-12-2024 Hip Min 2 Views (Portable) [facility] Imaging Services [address] [place], [place] [address] Hip Min 2 Views (Portable) MR#: [id number] Acct: [id number] Name: ROBBIN MARTINEZ Rep #: [id number] : 1940 M 83 From: Hima Barnes MD PCP: Dr. Raphael Justin MD Status: ADM IN Study: Hip Min 2 Views (Portable) Date of Exam: 07/12 Exam# [id number] Ordering Dr: Panfilo Luna DO 2:[id number] STUDY: X-RAY - PELVIS AND LEFT HIP REASON FOR EXAM: Male, 83 years old. Post Op -- AP both hips on single sandie/lateral of op hip PACU TECHNIQUE: 2 views of the pelvis and hip. COMPARISON: None. FINDINGS: Left hip prosthesis is noted in anatomic alignment and position.. 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 Electronically Signed: Hima Barnes MD at 18:08 EST Reading Location ID and State: [facility] / [place] Tel , Service support , CC: Dr. Raphael Justin MD; Dr. Panfilo Luna DO Photovoltaic Installer: Signed [facility] MR/POSTOP.[facility] 07-12-2024 MR/POSTOP.[facility] Medical Records Department [address] [place] [address] Anesthesia Postop Eval I 07/12/24 1652 MR#: [id number] Acct: [id number] Name: ROBBIN MARTINEZ Rep #: [id number] : 1940 83 From: Robert Vyas PCP: Dr. Raphael Justin MD Status:ADM IN Y Race: C [facility]esthesia: Postop Eval I Current Vital Signs Temperature: 98.5 F Pulse Rate: 77 Blood Pressure: 141/77 Respiratory Rate: 19 Pulse Ox: 100 Assessment Airway patent: Yes Spontaneous unlabored respirations: Yes nausea: No Vomiting: No Anesthesia Complication: No Fluid Hydration Crystalloid volume administer (ml): 550 Total IV fluid infused: 550 Progress Note Anesthesia document: Postop Eval 1 completed: Yes 07/12/241651 Date Robert Montelongoigner Signature: Date CC: Signed Normal [facility] MR/OXKEPSQT5px 07-12-2024 MR/POSTOPAN2 [facility] Medical Records Department [address] [place] [address] Anesthesia Postop Eval II 07/12/241651 MR#: [id number] Acct: [id number] Name: ROBBIN MARTINEZ Rep #: [id number] : 1940 83 From: Robert Vyas PCP: Dr. Raphael Justin MD Status:ADM IN Y Race: C Location: [address] Anesthesia Postop Eval I Sum Postop Eval Completion status Anesthesia document: Postop Eval 1 completed: Yes Anesthesia Postop Eval I Summary Anesthesia Postop Eval I Summary: Anesthesia Postop Eval I: Assessment Summary Airway patent Yes 07/12/24 16:52 [employer]ESPERSON [employer]S.JCOTE Spontaneous unlabored Yes 07/12/24 16:52 [employer].JCOTE respirations Mental status nausea No 07/12/24 16:52 [employer].JCOTE Vomiting No 07/12/24 16:52 [employer].JCOTE Anesthesia Postop Eval I: Fluid Summary Crystalloid volume administer 550 07/12/24 16:52 [employer]ESPERSON [employer]S.JCOTE (ml) Colloids volume administered ( ml) Blood Product volume administered (ml) Total IV fluid infused 550 07/12/24 16:52 [employer]ESPERSON [employer].JCOTE Anesthesia Postop Eval I: Summary Notes Anesthesia Complication No 07/12/24 16:52 [employer]ESPERSON [employer]S.JCOTE Anesthesia Complication Comment: Post-operative progress note Anesthesia: Postop Eval II Evaluation Mental status: Asleep Pain Level: 0 nausea: No Vomiting: No 07/12/24 1653 Date Robert Montelongoigner Signature: Date CC: Signed Normal [facility] Operative Reporton 5 Operative Report [facility] Medical Records Department [address] [place] [address] Operative Report 07/12/24 1702 MR#: [id number] Acct: [id number] Name: ROBBIN MARTINEZ Rep #: [id number] : 1940 83 From: Panfilo Luna DO PCP: Dr. 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 operator: Yes Knit Goods Washer: Hammad Garvin Tasks completed by medical claims assistant: Opening closing, Implanting device and Retracting Additional speech pathologist assistant?: No Type of Anesthesia: General RN Documented Start/Stop Times: Operation Date: 07/12/24 12:00 Case Time Into Pre-Op 07/12/24 11:31 Out of Pre-Op 07/12/24 14:51 Anesthesia Start 07/12/24 14:52 Into Room 07/12/24 14:52 Procedure Start 07/12/24 15:25 Procedure End 07/12/24 16:35 Anesthesia End 07/12/24 16:44 Out of Room 07/12/24 16:44 Into Recovery 07/12/24 16:48 Procedure Start Time: 15:25 Procedure Stop Time: 16:35 Select all DRAINS/GRAFTS/IMPLANTS that apply: Implanted device Implanted device details: [place] insignia size #6 high offset femoral stem, +0 mm neck adjustment sleeve, 56 mm cobalt chrome unipolar head Estimated Blood Loss: 150 cc Specimen collected: Yes Description of specimen(s) removed: Left femoral head Description of surgery: Prior to the procedure, patient was brought to the preoperative holding area where patient was identified by name, medical record number and date of . I confirmed the side, site, operation to be performed with the patient. Informed consent was confirmed, All questions were answered to patient satisfaction. The operative extremity was marked. He was also seen by anesthesia staff and anesthesia consent obtained.At time of the operative procedure, pt was brought to the operative suite. General anesthesia was induced on the hospital bed and endotracheal tube placed. After adequate anesthesia, patient was transferred to a standard operating table. He was then positioned in the lateral decubitus position with the left side up and held in position by [employer] hip positioner system. All bony prominences were well-padded. A axillary roll was placed under the patient's right axilla. Peroneal nerve was free with a blanket on the nonoperative extremity. Leg lengths were reproduced from patient's position when he was supine. The left lower extremity was then prepped and draped in normal, sterile orthopedic fashion. We performed a timeout with all parties in attendance in agreement with the side, site, and operation to be performed. No concerns were voiced and would like to proceed. 2 g Ancef and 1 g IV TXA was ministered IV prior to incision by anesthesia staff. I first marked an incision along the lateral aspect of the hip centered over the greater trochanteric tip. In standard posterior approach, a curvilinear incision was made above the trochanter. An approximately 15 cm incision was made. Skin was sharply incised with a 10 blade scalpel carried deep through subcutaneous layers to the level of the IT band. Gelpi retractors were then placed. A Valenzuela was used to expose the IT band. Bovie cautery was then used for hemostasis and then to open the IT band. This was opened in line with the incision. A Charnley retractor was then placed. Sciatic nerve is free. The trochanteric bursa was then debrided. This identified the short external rotators after internal rotation of the hip. The fracture site was easily identified at this point. Short external rotators were taken down and tagged for later repair. Hip capsule was also tagged for repair with a stay suture. We then freshened the neck cut with a sagittal saw. Anterior and posterior acetabular retractors were placed to gain access to the femoral head. A corkscrew was used to remove the head. Any remaining debris was debrided from the acetabulum. We then placed the femoral head on the back table for measurement. We did use trial heads and selected a final size 56 with good suction fit. Box chisel was then utilized to gain access to the femoral canal. Canal finder was placed. Sequential broaches were used and press-fit manner. A final size 6 achieved excellent vertical and rotational stability. We then trialed with a standard and subsequently high offset stem. High offset did achieve excellent stability and reproduction of abductor tension. Leg lengths appeared appropriate with a size 0 neck length. Trials were then removed. Canal was irrigated. A size 6 stem was then impacted with excellent fixation. Final head was then impacted over the Barlow taper neck. Final reduction was performed. A posterior c (more content not included)... Normal [facility] Type AND Screenon 07-12-2024 ABO and Rh group Nom (Bld) Blood group A Rh(D) positive Normal [facility] Comment on above: Order Comment: Order Date: 01/06/23 Order Info: [id number] - BMP Order Date: 01/06/24 Order Info: [id number] - CMP Order Info: [id number] - MG Order Info: [id number] - CRP Order Info: [id number] - TSH Order Info: [id number] - FE Order Info: [id number] - JOEL Performed By: #### L 100.0100, L501.5200, L503.0105, L506.1000, L3100.3450, L501.6710, L501.9520, L101.9900, L503.6150, L500.4050, L503.6550, L3100.5475 #### [facility] [place], [address] Vitamin D,25 Hydroxyon 07-12 Vitamin D 25-OH 72.1 ng/mL Normal [facility] Comment on above: Result Comment: Darcy min D 25(OH) Status Range Deficiency <20 ng/mL (50nmol/L) Insufficiency 20 - 30 ng/mL (50 - 75 nmol/L) Sufficiency 30 - 100 ng/mL (75 - 250 nmol/L) Toxicity >100 ng/mL (>250 nmol/L) Performed By: #### L 100.0100, L501.5200, L503.0105, L506.1000, L3100.3450, L501.6710, L501.9520, L101.9900, L503.6150, L500.4050, L503.6550, L3100.5475 #### [facility] [address] [place], [place], [id number] CBC W/Diff, Automatedon 06-23 Absolute Lymph 1.00 X10 3/uL Normal 0.83-4.51 [facility] Comment on above: Performed By: #### L 100.0100, L501.5200, L503.0105, L506.1000, L3100.3450, L501.6710, L501.9520, L101.9900, L503.6150, L500.4050, L503.6550, L3100.5475 #### [facility] [address] [place], [place], [id number] Absolute Neut 5.7 X10 3/uL Normal 2.0-7.7 [facility] Comment on above: Performed By: #### L 100.0100, L501.5200, L503.0105, L506.1000, L3100.3450, L501.6710, L501.9520, L101.9900, L503.6150, L500.4050, L503.6550, L3100.5475 #### [facility] [address] [place], [place], [id number] Basophils/100 WBC (Bld) 0.3 % Normal 0-1 [facility] Comment on above: Performed By: #### L 100.0100, L501.5200, L503.0105, L506.1000, L3100.3450, L501.6710, L501.9520, L101.9900, L503.6150, L500.4050, L503.6550, L3100.5475 #### [facility] [address] [facility] [place], [address] Eosinophils/100 WBC (Bld) 2.8 % Normal 0-5 [facility] Comment on above: Performed By: #### L 100.0100, L501.5200, L503.0105, L506.1000, L3100.3450, L501.6710, L501.9520, L101.9900, L503.6150, L500.4050, L503.6550, L3100.5475 #### [facility] [address] [place], [address] Erythrocyte distribution width (RBC) [Ratio] 12.7 % Normal 11.6-14.6 [facility] Comment on above: Performed By: #### L 100.0100, L501.5200, L503.0105, L506.1000, L3100.3450, L501.6710, L501.9520, L101.9900, L503.6150, L500.4050, L503.6550, L3100.5475 #### [facility] [address] [place], [address] Hematocrit (Bld) [Volume fraction] 40.4 % Normal 40-54 [facility] Comment on above: Performed By: #### L 100.0100, L501.5200, L503.0105, L506.1000, L3100.3450, L501.6710, L501.9520, L101.9900, L503.6150, L500.4050, L503.6550, L3100.5475 #### [facility] [address] [facility] [place], [address] Hemoglobin (Bld) [Mass/Vol] 13.6 g/dL Normal 13.0-16.5 [facility] Comment on above: Performed By: #### L 100.0100, L501.5200, L503.0105, L506.1000, L3100.3450, L501.6710, L501.9520, L101.9900, L503.6150, L500.4050, L503.6550, L3100.5475 #### [facility] [address] [place], [address] IG% 0.100 Normal 0.0-0.9 [facility] Comment on above: Result Comment: IG% - Immature Granulocytes (promyelocytes, myelocytes and metamyelocytes) > 1% indicates that a LEFT SHIFT is Present. Performed By: #### L 100.0100, L501.5200, L503.0105, L506.1000, L3100.3450, L501.6710, L501.9520, L101.9900, L503.6150, L500.4050, L503.6550, L3100.5475 #### [facility] [address] [place], [address] Lymphocytes/100 WBC (Bld) 13.2 % Low 19-41 [facility] Comment on above: Performed By: #### L 100.0100, L501.5200, L503.0105, L506.1000, L3100.3450, L501.6710, L501.9520, L101.9900, L503.6150, L500.4050, L503.6550, L3100.5475 #### [facility] [address] [place], [address] MCH (RBC) [Entitic mass] 32.2 pg High 27.0-32.0 [facility] Comment on above: Performed By: #### L 100.0100, L501.5200, L503.0105, L506.1000, L3100.3450, L501.6710, L501.9520, L101.9900, L503.6150, L500.4050, L503.6550, L3100.5475 #### [facility] [address] [place], [address] MCHC (RBC) [Mass/Vol] 33.7 g/dL Normal 32-36 [facility] Comment on above: Performed By: #### L 100.0100, L501.5200, L503.0105, L506.1000, L3100.3450, L501.6710, L501.9520, L101.9900, L503.6150, L500.4050, L503.6550, L3100.5475 #### [facility] [address] [place], [address] MCV (RBC) [Entitic vol] 95.7 fL High 80-94 [facility] Comment on above: Performed By: #### L 100.0100, L501.5200, L503.0105, L506.1000, L3100.3450, L501.6710, L501.9520, L101.9900, L503.6150, L500.4050, L503.6550, L3100.5475 #### [facility] [address] [place], [address] Monocytes/100 WBC (Bld) 8.6 % Normal 0-10 [facility] Comment on above: Performed By: #### L 100.0100, L501.5200, L503.0105, L506.1000, L3100.3450, L501.6710, L501.9520, L101.9900, L503.6150, L500.4050, L503.6550, L3100.5475 #### [facility] [address] [place], [address] Neutrophils/100 WBC (Bld) 75.0 % High 47-70 [facility] Comment on above: Performed By: #### L 100.0100, L501.5200, L503.0105, L506.1000, L3100.3450, L501.6710, L501.9520, L101.9900, L503.6150, L500.4050, L503.6550, L3100.5475 #### [facility] [address] [place], [address] Nucleated RBC (Bld) [#/Vol] 0 10*3/uL Normal 0-5 [facility] Comment on above: Performed By: #### L 100.0100, L501.5200, L503.0105, L506.1000, L3100.3450, L501.6710, L501.9520, L101.9900, L503.6150, L500.4050, L503.6550, L3100.5475 #### [facility] [address] [place], [address] Platelet mean volume (Bld) [Entitic vol] 9.4 fL Normal 6.2-12.0 [facility] Comment on above: Performed By: #### L 100.0100, L501.5200, L503.0105, L506.1000, L3100.3450, L501.6710, L501.9520, L101.9900, L503.6150, L500.4050, L503.6550, L3100.5475 #### [facility] [address] [place], [address] Platelets (Bld) [#/Vol] 131 10*3/uL Low 150-450 [facility] Comment on above: Performed By: #### L 100.0100, L501.5200, L503.0105, L506.1000, L3100.3450, L501.6710, L501.9520, L101.9900, L503.6150, L500.4050, L503.6550, L3100.5475 #### [facility] [address] [place], [address] RBC (Bld) [#/Vol] 4.22 10*6/uL Low 4.6-6.2 [facility] Comment on above: Performed By: #### L 100.0100, L501.5200, L503.0105, L506.1000, L3100.3450, L501.6710, L501.9520, L101.9900, L503.6150, L500.4050, L503.6550, L3100.5475 #### [facility] [address] [place], [place], [phone] (274) RDW SD 44.6 fl High 35.1-43.9 [facility] Comment on above: Performed By: #### L 100.0100, L501.5200, L503.0105, L506.1000, L3100.3450, L501.6710, L501.9520, L101.9900, L503.6150, L500.4050, L503.6550, L3100.5475 #### [facility] [address] [facility] [place], [place], [phone] WBC (Bld) [#/Vol] 7.6 10*3/uL Normal 4.4-11.0 [facility] Comment on above: Performed By: #### L 100.0100, L501.5200, L503.0105, L506.1000, L3100.3450, L501.6710, L501.9520, L101.9900, L503.6150, L500.4050, L503.6550, L3100.5475 #### [facility] [address] [place], [place], [id number] Basic Metabolic Profile (BMP )on 07-10-2024 BUN/CRE 21.6 RATIO High 10-20 [facility] Comment on above: Performed By: #### L 100.0100, L501.5200, L503.0105, L506.1000, L3100.3450, L501.6710, L501.9520, L101.9900, L503.6150, L500.4050, L503.6550, L3100.5475 #### [facility] [address] [place], [address] CA,Total 9.3 mg/dL Normal 8.5-10.1 [facility] Comment on above: Performed By: #### L 100.0100, L501.5200, L503.0105, L506.1000, L3100.3450, L501.6710, L501.9520, L101.9900, L503.6150, L500.4050, L503.6550, L3100.5475 #### [facility] [address] [place], [address] Chloride [Moles/Vol] 105 mmol/L Normal 98-107 [facility] Comment on above: Performed By: #### L 100.0100, L501.5200, L503.0105, L506.1000, L3100.3450, L501.6710, L501.9520, L101.9900, L503.6150, L500.4050, L503.6550, L3100.5475 #### [facility] [address] [place], [address] CO2 [Moles/Vol] 30.0 mmol/L Normal 21.0-32.0 [facility] Comment on above: Performed By: #### L 100.0100, L501.5200, L503.0105, L506.1000, L3100.3450, L501.6710, L501.9520, L101.9900, L503.6150, L500.4050, L503.6550, L3100.5475 #### [facility] [address] [place], [address] Creatinine [Mass/Vol] 1.16 mg/dL Normal 0.70-1.30 [facility] Comment on above: Result Comment: The validity of the calculated GFR GFRAA in patients over 70 years has not been determined. Clinical correlation is essential. Performed By: #### L 100.0100, L501.5200, L503.0105, L506.1000, L3100.3450, L501.6710, L501.9520, L101.9900, L503.6150, L500.4050, L503.6550, L3100.5475 #### [facility] [address] [place], [place], [phone] (020) ECRCL 61.11 ml/min Normal [facility] Comment on above: Performed By: #### L 100.0100, L501.5200, L503.0105, L506.1000, L3100.3450, L501.6710, L501.9520, L101.9900, L503.6150, L500.4050, L503.6550, L3100.5475 #### [facility] [address] [place], [place], [phone] (696) EST GFR - AA 77 mL/min Normal >60 [facility] Comment on above: Result Comment: Afri can Cuban GFR Calc Performed By: #### L 100.0100, L501.5200, L503.0105, L506.1000, L3100.3450, L501.6710, L501.9520, L101.9900, L503.6150, L500.4050, L503.6550, L3100.5475 #### [facility] [address] [place], [place], [phone] GAP 6 Normal 5-15 [facility] Comment on above: Performed By: #### L 100.0100, L501.5200, L503.0105, L506.1000, L3100.3450, L501.6710, L501.9520, L101.9900, L503.6150, L500.4050, L503.6550, L3100.5475 #### [facility] [address] [place], [place], [phone] (309) GFR/1.73 sq M.predicted among non-blacks MDRD (S/P/Bld) [Vol rate/Area] 64 mL/min/{1.73_m2} Normal >60 [facility] Comment on above: Result Comment: Non- GFR Calc Performed By: #### L 100.0100, L501.5200, L503.0105, L506.1000, L3100.3450, L501.6710, L501.9520, L101.9900, L503.6150, L500.4050, L503.6550, L3100.5475 #### [facility] [address] [place], [address] Glucose [Mass/Vol] 104 mg/dL Normal 74-106 [facility] Comment on above: Result Comment: Fast ing Glucose result from 100 to 125 mg/dL suggests IMPAIRED HOMEOSTASIS per A.D.A. criteria. Performed By: #### L 100.0100, L501.5200, L503.0105, L506.1000, L3100.3450, L501.6710, L501.9520, L101.9900, L503.6150, L500.4050, L503.6550, L3100.5475 #### [facility] [address] [place], [address] Potassium [Moles/Vol] 3.8 mmol/L Normal 3.5-5.1 [facility] Comment on above: Performed By: #### L 100.0100, L501.5200, L503.0105, L506.1000, L3100.3450, L501.6710, L501.9520, L101.9900, L503.6150, L500.4050, L503.6550, L3100.5475 #### [facility] [address] [place], [address] Sodium [Moles/Vol] 141 mmol/L Normal 136-145 [facility] Comment on above: Performed By: #### L 100.0100, L501.5200, L503.0105, L506.1000, L3100.3450, L501.6710, L501.9520, L101.9900, L503.6150, L500.4050, L503.6550, L3100.5475 #### [facility] [address] [place], [place], [phone] Urea nitrogen [Mass/Vol] 25 mg/dL High 7-18 [facility] Comment on above: Performed By: #### L 100.0100, L501.5200, L503.0105, L506.1000, L3100.3450, L501.6710, L501.9520, L101.9900, L503.6150, L500.4050, L503.6550, L3100.5475 #### [facility] [address] [place], [place], [id number] CBC W/Diff, Automatedon - Absolute Lymph 0.56 X10 3/uL Low 0.83-4.51 [facility] Comment on above: Performed By: #### L 100.0100, L501.5200, L503.0105, L506.1000, L3100.3450, L501.6710, L501.9520, L101.9900, L503.6150, L500.4050, L503.6550, L3100.5475 #### [facility] [address] [place], [place], [phone] Absolute Neut 7.0 X10 3/uL Normal 2.0-7.7 [facility] Comment on above: Performed By: #### L 100.0100, L501.5200, L503.0105, L506.1000, L3100.3450, L501.6710, L501.9520, L101.9900, L503.6150, L500.4050, L503.6550, L3100.5475 #### [facility] [address] [place], [place], [phone] Basophils/100 WBC (Bld) 0.1 % Normal 0-1 [facility] Comment on above: Performed By: #### L 100.0100, L501.5200, L503.0105, L506.1000, L3100.3450, L501.6710, L501.9520, L101.9900, L503.6150, L500.4050, L503.6550, L3100.5475 #### [facility] [address] [place], [place], [phone] (108) Eosinophils/100 WBC (Bld) 0.1 % Normal 0-5 [facility] Comment on above: Performed By: #### L 100.0100, L501.5200, L503.0105, L506.1000, L3100.3450, L501.6710, L501.9520, L101.9900, L503.6150, L500.4050, L503.6550, L3100.5475 #### [facility] [address] [place], [place], [phone] (040) Erythrocyte distribution width (RBC) [Ratio] 12.3 % Normal 11.6-14.6 [facility] Comment on above: Performed By: #### L 100.0100, L501.5200, L503.0105, L506.1000, L3100.3450, L501.6710, L501.9520, L101.9900, L503.6150, L500.4050, L503.6550, L3100.5475 #### [facility] [address] [place], [place], [phone] (014) Hematocrit (Bld) [Volume fraction] 42.1 % Normal 40-54 [facility] Comment on above: Performed By: #### L 100.0100, L501.5200, L503.0105, L506.1000, L3100.3450, L501.6710, L501.9520, L101.9900, L503.6150, L500.4050, L503.6550, L3100.5475 #### [facility] [address] [place], [address] Hemoglobin (Bld) [Mass/Vol] 14.2 g/dL Normal 13.0-16.5 [facility] Comment on above: Performed By: #### L 100.0100, L501.5200, L503.0105, L506.1000, L3100.3450, L501.6710, L501.9520, L101.9900, L503.6150, L500.4050, L503.6550, L3100.5475 #### [facility] [address] [facility] [address] [place], [address] IG% 0.400 Normal 0.0-0.9 [facility] Comment on above: Result Comment: IG% - Immature Granulocytes (promyelocytes, myelocytes and metamyelocytes) > 1% indicates that a LEFT SHIFT is Present. Performed By: #### L 100.0100, L501.5200, L503.0105, L506.1000, L3100.3450, L501.6710, L501.9520, L101.9900, L503.6150, L500.4050, L503.6550, L3100.5475 #### [facility] [address] [facility] [address] [place], [address] Lymphocytes/100 WBC (Bld) 6.8 % Low 19-41 [facility] Comment on above: Performed By: #### L 100.0100, L501.5200, L503.0105, L506.1000, L3100.3450, L501.6710, L501.9520, L101.9900, L503.6150, L500.4050, L503.6550, L3100.5475 #### [facility] [address] [facility] [place], [address] MCH (RBC) [Entitic mass] 32.4 pg High 27.0-32.0 [facility] Comment on above: Performed By: #### L 100.0100, L501.5200, L503.0105, L506.1000, L3100.3450, L501.6710, L501.9520, L101.9900, L503.6150, L500.4050, L503.6550, L3100.5475 #### [facility] [address] [place], [address] MCHC (RBC) [Mass/Vol] 33.7 g/dL Normal 32-36 [facility] Comment on above: Performed By: #### L 100.0100, L501.5200, L503.0105, L506.1000, L3100.3450, L501.6710, L501.9520, L101.9900, L503.6150, L500.4050, L503.6550, L3100.5475 #### [facility] [address] [place], [address] MCV (RBC) [Entitic vol] 96.1 fL High 80-94 [facility] Comment on above: Performed By: #### L 100.0100, L501.5200, L503.0105, L506.1000, L3100.3450, L501.6710, L501.9520, L101.9900, L503.6150, L500.4050, L503.6550, L3100.5475 #### [facility] [address] [place], [address] Monocytes/100 WBC (Bld) 7.2 % Normal 0-10 [facility] Comment on above: Performed By: #### L 100.0100, L501.5200, L503.0105, L506.1000, L3100.3450, L501.6710, L501.9520, L101.9900, L503.6150, L500.4050, L503.6550, L3100.5475 #### [facility] [address] [place], [address] Neutrophils/100 WBC (Bld) 85.4 % High 47-70 [facility] Comment on above: Performed By: #### L 100.0100, L501.5200, L503.0105, L506.1000, L3100.3450, L501.6710, L501.9520, L101.9900, L503.6150, L500.4050, L503.6550, L3100.5475 #### [facility] [address] [place], [address] Nucleated RBC (Bld) [#/Vol] 0 10*3/uL Normal 0-5 [facility] Comment on above: Performed By: #### L 100.0100, L501.5200, L503.0105, L506.1000, L3100.3450, L501.6710, L501.9520, L101.9900, L503.6150, L500.4050, L503.6550, L3100.5475 #### [facility] [address] [place], [place], [phone] (823) Platelet mean volume (Bld) [Entitic vol] 8.9 fL Normal 6.2-12.0 [facility] Comment on above: Performed By: #### L 100.0100, L501.5200, L503.0105, L506.1000, L3100.3450, L501.6710, L501.9520, L101.9900, L503.6150, L500.4050, L503.6550, L3100.5475 #### [facility] [address] [place], [address] Platelets (Bld) [#/Vol] 136 10*3/uL Low 150-450 [facility] Comment on above: Performed By: #### L 100.0100, L501.5200, L503.0105, L506.1000, L3100.3450, L501.6710, L501.9520, L101.9900, L503.6150, L500.4050, L503.6550, L3100.5475 #### [facility] [address] [place], [address] RBC (Bld) [#/Vol] 4.38 10*6/uL Low 4.6-6.2 [facility] Comment on above: Performed By: #### L 100.0100, L501.5200, L503.0105, L506.1000, L3100.3450, L501.6710, L501.9520, L101.9900, L503.6150, L500.4050, L503.6550, L3100.5475 #### [facility] [address] [place], [address] RDW SD 43.4 fl Normal 35.1-43.9 [facility] Comment on above: Performed By: #### L 100.0100, L501.5200, L503.0105, L506.1000, L3100.3450, L501.6710, L501.9520, L101.9900, L503.6150, L500.4050, L503.6550, L3100.5475 #### [facility] [address] [place], [address] WBC (Bld) [#/Vol] 8.2 10*3/uL Normal 4.4-11.0 [facility] Comment on above: Performed By: #### L 100.0100, L501.5200, L503.0105, L506.1000, L3100.3450, L501.6710, L501.9520, L101.9900, L503.6150, L500.4050, L503.6550, L3100.5475 #### [facility] [address] [place], [address] Absolute Lymph 1.02 X10 3/uL Normal 0.83-4.51 [facility] Comment on above: Performed By: #### L 100.0100, L501.5200, L503.0105, L506.1000, L3100.3450, L501.6710, L501.9520, L101.9900, L503.6150, L500.4050, L503.6550, L3100.5475 #### [facility] [address] [place], [address] Absolute Neut 2.9 X10 3/uL Normal 2.0-7.7 [facility] Comment on above: Performed By: #### L 100.0100, L501.5200, L503.0105, L506.1000, L3100.3450, L501.6710, L501.9520, L101.9900, L503.6150, L500.4050, L503.6550, L3100.5475 #### [facility] [address] [place], [address] Basophils/100 WBC (Bld) 0.5 % Normal 0-1 [facility] Comment on above: Performed By: #### L 100.0100, L501.5200, L503.0105, L506.1000, L3100.3450, L501.6710, L501.9520, L101.9900, L503.6150, L500.4050, L503.6550, L3100.5475 #### [facility] [address] [place], [address] Eosinophils/100 WBC (Bld) 1.4 % Normal 0-5 [facility] Comment on above: Performed By: #### L 100.0100, L501.5200, L503.0105, L506.1000, L3100.3450, L501.6710, L501.9520, L101.9900, L503.6150, L500.4050, L503.6550, L3100.5475 #### [facility] [address] [place], [address] Erythrocyte distribution width (RBC) [Ratio] 12.3 % Normal 11.6-14.6 [facility] Comment on above: Performed By: #### L 100.0100, L501.5200, L503.0105, L506.1000, L3100.3450, L501.6710, L501.9520, L101.9900, L503.6150, L500.4050, L503.6550, L3100.5475 #### [facility] [address] [place], [address] Hematocrit (Bld) [Volume fraction] 42.7 % Normal 40-54 [facility] Comment on above: Performed By: #### L 100.0100, L501.5200, L503.0105, L506.1000, L3100.3450, L501.6710, L501.9520, L101.9900, L503.6150, L500.4050, L503.6550, L3100.5475 #### [facility] [address] [place], [place], [phone] (421) Hemoglobin (Bld) [Mass/Vol] 14.7 g/dL Normal 13.0-16.5 [facility] Comment on above: Performed By: #### L 100.0100, L501.5200, L503.0105, L506.1000, L3100.3450, L501.6710, L501.9520, L101.9900, L503.6150, L500.4050, L503.6550, L3100.5475 #### [facility] [address] [place], [address] IG% 0.500 Normal 0.0-0.9 [facility] Comment on above: Result Comment: IG% - Immature Granulocytes (promyelocytes, myelocytes and metamyelocytes) > 1% indicates that a LEFT SHIFT is Present. Performed By: #### L 100.0100, L501.5200, L503.0105, L506.1000, L3100.3450, L501.6710, L501.9520, L101.9900, L503.6150, L500.4050, L503.6550, L3100.5475 #### [facility] [address] [place], [address] Lymphocytes/100 WBC (Bld) 23.3 % Normal 19-41 [facility] Comment on above: Performed By: #### L 100.0100, L501.5200, L503.0105, L506.1000, L3100.3450, L501.6710, L501.9520, L101.9900, L503.6150, L500.4050, L503.6550, L3100.5475 #### [facility] [address] [place], [address] MCH (RBC) [Entitic mass] 33.0 pg High 27.0-32.0 [facility] Comment on above: Performed By: #### L 100.0100, L501.5200, L503.0105, L506.1000, L3100.3450, L501.6710, L501.9520, L101.9900, L503.6150, L500.4050, L503.6550, L3100.5475 #### [facility] [address] [facility] [place], [address] MCHC (RBC) [Mass/Vol] 34.4 g/dL Normal 32-36 [facility] Comment on above: Performed By: #### L 100.0100, L501.5200, L503.0105, L506.1000, L3100.3450, L501.6710, L501.9520, L101.9900, L503.6150, L500.4050, L503.6550, L3100.5475 #### [facility] [address] [facility] [place], [address] MCV (RBC) [Entitic vol] 96.0 fL High 80-94 [facility] Comment on above: Performed By: #### L 100.0100, L501.5200, L503.0105, L506.1000, L3100.3450, L501.6710, L501.9520, L101.9900, L503.6150, L500.4050, L503.6550, L3100.5475 #### [facility] [address] [place], [place], [phone] Monocytes/100 WBC (Bld) 8.2 % Normal 0-10 [facility] Comment on above: Performed By: #### L 100.0100, L501.5200, L503.0105, L506.1000, L3100.3450, L501.6710, L501.9520, L101.9900, L503.6150, L500.4050, L503.6550, L3100.5475 #### [facility] [address] [facility] [place], [place], [phone] (172) Neutrophils/100 WBC (Bld) 66.1 % Normal 47-70 [facility] Comment on above: Performed By: #### L 100.0100, L501.5200, L503.0105, L506.1000, L3100.3450, L501.6710, L501.9520, L101.9900, L503.6150, L500.4050, L503.6550, L3100.5475 #### [facility] [address] [place], [place], [phone] (680) Nucleated RBC (Bld) [#/Vol] 0 10*3/uL Normal 0-5 [facility] Comment on above: Performed By: #### L 100.0100, L501.5200, L503.0105, L506.1000, L3100.3450, L501.6710, L501.9520, L101.9900, L503.6150, L500.4050, L503.6550, L3100.5475 #### [facility] [address] [place], [address] (851) Platelet mean volume (Bld) [Entitic vol] 9.3 fL Normal 6.2-12.0 [facility] Comment on above: Performed By: #### L 100.0100, L501.5200, L503.0105, L506.1000, L3100.3450, L501.6710, L501.9520, L101.9900, L503.6150, L500.4050, L503.6550, L3100.5475 #### [facility] [address] [place], [address] Platelets (Bld) [#/Vol] 150 10*3/uL Normal 150-450 [facility] Comment on above: Performed By: #### L 100.0100, L501.5200, L503.0105, L506.1000, L3100.3450, L501.6710, L501.9520, L101.9900, L503.6150, L500.4050, L503.6550, L3100.5475 #### [facility] [address] [place], [address] RBC (Bld) [#/Vol] 4.45 10*6/uL Low 4.6-6.2 [facility] Comment on above: Performed By: #### L 100.0100, L501.5200, L503.0105, L506.1000, L3100.3450, L501.6710, L501.9520, L101.9900, L503.6150, L500.4050, L503.6550, L3100.5475 #### [facility] [address] [place], [address] RDW SD 42.7 fl Normal 35.1-43.9 [facility] Comment on above: Performed By: #### L 100.0100, L501.5200, L503.0105, L506.1000, L3100.3450, L501.6710, L501.9520, L101.9900, L503.6150, L500.4050, L503.6550, L3100.5475 #### [facility] [address] [place], [place], [id number] WBC (Bld) [#/Vol] 4.4 10*3/uL Normal 4.4-11.0 [facility] Comment on above: Performed By: #### L 100.0100, L501.5200, L503.0105, L506.1000, L3100.3450, L501.6710, L501.9520, L101.9900, L503.6150, L500.4050, L503.6550, L3100.5475 #### [facility] [address] [place], [place], [id number] Comprehensive Metabolic Prof [facility] 07-10-2024 Albumin [Mass/Vol] 3.4 g/dL Normal 3.2-5.0 [facility] Comment on above: Performed By: #### L 100.0100, L501.5200, L503.0105, L506.1000, L3100.3450, L501.6710, L501.9520, L101.9900, L503.6150, L500.4050, L503.6550, L3100.5475 #### [facility] [address] [place], [place], [id number] Albumin/Globulin [Mass ratio] 1.0 {ratio} Normal 0.9-2.4 [facility] Comment on above: Performed By: #### L 100.0100, L501.5200, L503.0105, L506.1000, L3100.3450, L501.6710, L501.9520, L101.9900, L503.6150, L500.4050, L503.6550, L3100.5475 #### [facility] [address] [place], [address] ALK P 66 U/L Normal 45-117 [facility] Comment on above: Performed By: #### L 100.0100, L501.5200, L503.0105, L506.1000, L3100.3450, L501.6710, L501.9520, L101.9900, L503.6150, L500.4050, L503.6550, L3100.5475 #### [facility] [address] [place], [place], [id number] ALT [Catalytic activity/Vol] 30 U/L Normal 16-61 [facility] Comment on above: Performed By: #### L 100.0100, L501.5200, L503.0105, L506.1000, L3100.3450, L501.6710, L501.9520, L101.9900, L503.6150, L500.4050, L503.6550, L3100.5475 #### [facility] [address] [place], [place], [id number] AST [Catalytic activity/Vol] 43 U/L High 15-37 [facility] Comment on above: Performed By: #### L 100.0100, L501.5200, L503.0105, L506.1000, L3100.3450, L501.6710, L501.9520, L101.9900, L503.6150, L500.4050, L503.6550, L3100.5475 #### [facility] [address] [place], [place], [id number] Bilirubin [Mass/Vol] 0.80 mg/dL Normal 0.20-1.00 [facility] Comment on above: Result Comment: For patients on eltrombopag therapy, use of Dimension Cavalier TBIL is not recommended. Performed By: #### L 100.0100, L501.5200, L503.0105, L506.1000, L3100.3450, L501.6710, L501.9520, L101.9900, L503.6150, L500.4050, L503.6550, L3100.5475 #### [facility] [address] [place], [address] BUN/CRE 21.4 RATIO High 10-20 [facility] Comment on above: Performed By: #### L 100.0100, L501.5200, L503.0105, L506.1000, L3100.3450, L501.6710, L501.9520, L101.9900, L503.6150, L500.4050, L503.6550, L3100.5475 #### [facility] [address] [place], [address] CA,Total 8.8 mg/dL Normal 8.5-10.1 [facility] Comment on above: Performed By: #### L 100.0100, L501.5200, L503.0105, L506.1000, L3100.3450, L501.6710, L501.9520, L101.9900, L503.6150, L500.4050, L503.6550, L3100.5475 #### [facility] [address] [place], [address] Chloride [Moles/Vol] 105 mmol/L Normal 98-107 [facility] Comment on above: Performed By: #### L 100.0100, L501.5200, L503.0105, L506.1000, L3100.3450, L501.6710, L501.9520, L101.9900, L503.6150, L500.4050, L503.6550, L3100.5475 #### [facility] [address] [place], [address] CO2 [Moles/Vol] 29.0 mmol/L Normal 21.0-32.0 [facility] Comment on above: Performed By: #### L 100.0100, L501.5200, L503.0105, L506.1000, L3100.3450, L501.6710, L501.9520, L101.9900, L503.6150, L500.4050, L503.6550, L3100.5475 #### [facility] [address] [place], [place], [phone] (247) Creatinine [Mass/Vol] 1.12 mg/dL Normal 0.70-1.30 [facility] Comment on above: Result Comment: The validity of the calculated GFR GFRAA in patients over 70 years has not been determined. Clinical correlation is essential. Performed By: #### L 100.0100, L501.5200, L503.0105, L506.1000, L3100.3450, L501.6710, L501.9520, L101.9900, L503.6150, L500.4050, L503.6550, L3100.5475 #### [facility] [address] [place], [place], [phone] (616) ECRCL 62.60 ml/min Normal [facility] Comment on above: Performed By: #### L 100.0100, L501.5200, L503.0105, L506.1000, L3100.3450, L501.6710, L501.9520, L101.9900, L503.6150, L500.4050, L503.6550, L3100.5475 #### [facility] [address] [place], [place], [id number] EST GFR - AA 80 mL/min Normal >60 [facility] Comment on above: Result Comment: Afri can Cuban GFR Calc Performed By: #### L 100.0100, L501.5200, L503.0105, L506.1000, L3100.3450, L501.6710, L501.9520, L101.9900, L503.6150, L500.4050, L503.6550, L3100.5475 #### [facility] [address] [place], [place], [phone] (811) GAP 4 Low 5-15 [facility] Comment on above: Performed By: #### L 100.0100, L501.5200, L503.0105, L506.1000, L3100.3450, L501.6710, L501.9520, L101.9900, L503.6150, L500.4050, L503.6550, L3100.5475 #### [facility] [address] [place], [place], [phone] (458) GFR/1.73 sq M.predicted among non-blacks MDRD (S/P/Bld) [Vol rate/Area] 66 mL/min/{1.73_m2} Normal >60 [facility] Comment on above: Result Comment: Non- GFR Calc Performed By: #### L 100.0100, L501.5200, L503.0105, L506.1000, L3100.3450, L501.6710, L501.9520, L101.9900, L503.6150, L500.4050, L503.6550, L3100.5475 #### [facility] [address] [place], [place], [phone] (570) Globulin (S) [Mass/Vol] 3.5 g/dL Normal 2.2-4.2 [facility] Comment on above: Performed By: #### L 100.0100, L501.5200, L503.0105, L506.1000, L3100.3450, L501.6710, L501.9520, L101.9900, L503.6150, L500.4050, L503.6550, L3100.5475 #### [facility] [address] [place], [place], [phone] (603) Glucose [Mass/Vol] 127 mg/dL High 74-106 [facility] Comment on above: Result Comment: Fast ing Glucose result greater than or equal to 126 mg/dL suggests DIABETES MELLITUS per A.D.A. criteria. Performed By: #### L 100.0100, L501.5200, L503.0105, L506.1000, L3100.3450, L501.6710, L501.9520, L101.9900, L503.6150, L500.4050, L503.6550, L3100.5475 #### [facility] [address] [place], [address] Potassium [Moles/Vol] 3.9 mmol/L Normal 3.5-5.1 [facility] Comment on above: Performed By: #### L 100.0100, L501.5200, L503.0105, L506.1000, L3100.3450, L501.6710, L501.9520, L101.9900, L503.6150, L500.4050, L503.6550, L3100.5475 #### [facility] [address] [facility] [place], [address] Sodium [Moles/Vol] 137 mmol/L Normal 136-145 [facility] Comment on above: Performed By: #### L 100.0100, L501.5200, L503.0105, L506.1000, L3100.3450, L501.6710, L501.9520, L101.9900, L503.6150, L500.4050, L503.6550, L3100.5475 #### [facility] [address] [facility] [place], [address] T PROT 6.9 g/dL Normal 6.4-8.2 [facility] Comment on above: Performed By: #### L 100.0100, L501.5200, L503.0105, L506.1000, L3100.3450, L501.6710, L501.9520, L101.9900, L503.6150, L500.4050, L503.6550, L3100.5475 #### [facility] [address] [place], [address] Urea nitrogen [Mass/Vol] 24 mg/dL High 7-18 [facility] Comment on above: Performed By: #### L 100.0100, L501.5200, L503.0105, L506.1000, L3100.3450, L501.6710, L501.9520, L101.9900, L503.6150, L500.4050, L503.6550, L3100.5475 #### [facility] [address] [place], [address] Albumin [Mass/Vol] 3.4 g/dL Normal 3.2-5.0 [facility] Comment on above: Performed By: #### L 500.2500, L100.0100 #### [facility] [address] [place], [address] Albumin/Globulin [Mass ratio] 1.0 {ratio} Normal 0.9-2.4 [facility] Comment on above: Performed By: #### L 500.2500, L100.0100 #### [facility] [address] [place], [address] ALK P 64 U/L Normal 45-117 [facility] Comment on above: Performed By: #### L 500.2500, L100.0100 #### [facility] [address] [place], [address] ALT [Catalytic activity/Vol] 29 U/L Normal 16-61 [facility] Comment on above: Performed By: #### L 500.2500, L100.0100 #### [facility] [address] [place], [address] AST [Catalytic activity/Vol] 26 U/L Normal 15-37 [facility] Comment on above: Performed By: #### L 500.2500, L100.0100 #### [facility] [address] [place], [address] Bilirubin [Mass/Vol] 0.70 mg/dL Normal 0.20-1.00 [facility] Comment on above: Result Comment: For patients on eltrombopag therapy, use of Dimension Cavalier TBIL is not recommended. Performed By: #### L 500.2500, L100.0100 #### [facility] [address] [place], [address] BUN/CRE 20.7 RATIO High 10-20 [facility] Comment on above: Performed By: #### L 500.2500, L100.0100 #### [facility] [address] [place], [address] CA,Total 9.4 mg/dL Normal 8.5-10.1 [facility] Comment on above: Performed By: #### L 500.2500, L100.0100 #### [facility] [address] [place], [address] Chloride [Moles/Vol] 106 mmol/L Normal 98-107 [facility] Comment on above: Performed By: #### L 500.2500, L100.0100 #### [facility] [address] [place], [address] CO2 [Moles/Vol] 29.0 mmol/L Normal 21.0-32.0 [facility] Comment on above: Performed By: #### L 500.2500, L100.0100 #### [facility] [address] [place], [address] Creatinine [Mass/Vol] 1.16 mg/dL Normal 0.70-1.30 [facility] Comment on above: Result Comment: The validity of the calculated GFR GFRAA in patients over 70 years has not been determined. Clinical correlation is essential. Performed By: #### L 500.2500, L100.0100 #### [facility] [address] [place], [address] ECRCL 60.44 ml/min Normal [facility] Comment on above: Performed By: #### L 500.2500, L100.0100 #### [facility] [address] [place], [address] EST GFR - AA 77 mL/min Normal >60 [facility] Comment on above: Result Comment: Afri can Cuban GFR Calc Performed By: #### L 500.2500, L100.0100 #### [facility] [address] [place], [address] GAP 5 Normal 5-15 [facility] Comment on above: Performed By: #### L 500.2500, L100.0100 #### [facility] [address] [place], [address] GFR/1.73 sq M.predicted among non-blacks MDRD (S/P/Bld) [Vol rate/Area] 64 mL/min/{1.73_m2} Normal >60 [facility] Comment on above: Result Comment: Non- GFR Calc Performed By: #### L 500.2500, L100.0100 #### [facility] [address] [place], [address] Globulin (S) [Mass/Vol] 3.5 g/dL Normal 2.2-4.2 [facility] Comment on above: Performed By: #### L 500.2500, L100.0100 #### [facility] [address] [place], [address] Glucose [Mass/Vol] 131 mg/dL High 74-106 [facility] Comment on above: Result Comment: Fast ing Glucose result greater than or equal to 126 mg/dL suggests DIABETES MELLITUS per A.D.A. criteria. Performed By: #### L 500.2500, L100.0100 #### [facility] [address] [place], [address] Potassium [Moles/Vol] 4.2 mmol/L Normal 3.5-5.1 [facility] Comment on above: Performed By: #### L 500.2500, L100.0100 #### [facility] [address] [place], [address] Sodium [Moles/Vol] 140 mmol/L Normal 136-145 [facility] Comment on above: Performed By: #### L 500.2500, L100.0100 #### [facility] [address] [place], [address] T PROT 6.9 g/dL Normal 6.4-8.2 [facility] Comment on above: Performed By: #### L 500.2500, L100.0100 #### [facility] [address] [place], [address] Urea nitrogen [Mass/Vol] 24 mg/dL High - [facility] Comment on above: Performed By: #### L 500.2500, L100.0100 #### [facility] [address] [place], [address] Consultation - Orthopedicson 07-10-2024 Consultation - Orthopedics [facility] Records Department [address] [place] [address] Consultation - Orthopedics 07/10/24 1244 MR#: [id number] Acct: [id number] Name: ROBBIN MARTINEZ Rep #: [id number] : 1940 83 From: Panfilo Luna DO PCP: Dr. Raphael Justin MD Status:ADM IN Location: [address] HPI Consult Data Date of Consult: 07/10/24 HPI Narrative Reason for Consultation: Left femoral neck fracture HPI Narrative: ROBBIN MARTINEZ, is a 83 M who sustained a ground-level trip and fall last night at his home. He states he tripped over his 's oxygen cord and landed on his left hip. Denies any head injury or loss consciousness. Patient takes Eliquis for paroxysmal atrial fibrillation. His last dose was last evening. He denies any prior injury or event to his left hip. Denies any antecedent left hip or groin pain. Patient is a community ambulator without assistive device. He denies any prior anesthetic complications. Patient was admitted under the service to hospitalist last night after x- rays revealed a displaced left femoral neck fracture. [facility] Medical History Segmental and somatic dysfunction of lumbar region Segmental and somatic dysfunction of pelvic region DDD (degenerative disc disease), lumbar Prostate CA RBBB Atrial fibrillation Essential hypertension Actinic keratosis, hx of History of malignant melanoma Enlarged prostate Arthritis Environmental allergies Pain at surgical incision Internal hemorrhoids Diverticulosis Home Medications ???Medication ???Instructions ???Recorded ???Last Taken ???Type enalapril maleate 20 mg tablet 20 mg PO DAILY 07/10/16 07/10/16 08:00 History calcium 300 mg-D3 20 mcg-magnesium 1 tab PO BID 07/12/22 Unknown History 25 mg-coppr 0.5 [id number] tablet (Caltrate-D3 Plus Minerals) apixaban 2.5 mg tablet (Eliquis) 2.5 mg PO BID Dose decreased due 07/15/23 Unknown Rx to creat clearance #180 tabs metoprolol tartrate 25 mg tablet See Rx Instructions .Route 07/21/23 Unknown Rx .COMPLEX #180 tabs cholecalciferol (vitamin D3) 250 10,000 unit PO DAILY 07/09/24 Unknown History mcg (10,000 unit) capsule acetaminophen 500 mg capsule 500 mg PO Q6H PRN pain 07/10/24 Unknown History polyethylene glycol 3350 17 17 g PO DAILY PRN constipation 07/10/24 Unknown History gram/dose oral powder (ClearLax) Allergy/AdvReac Type Severity Reaction Status Date / Time No Known Allergies Allergy Verified 07/09/24 23:05 Family History Father Hypertension CVA (cerebral vascular accident) Grandfather Hypertension Grandfather Heart disease Mother Heart disease Hypertension Other CAD (coronary artery disease) Cancer Surgical History Hx of basal cell carcinoma excision History of hernia repair Social History Smoking Status: Former smoker alcohol intake: current alcohol intake frequency: 0-2 drinks per day substance use type: does not use caffeine: Yes Type: coffee Number of servings: 3 what type of physical activity do you participate in: bicycling frequency: 1-2 times per week ROS ROS Narrative 12 point review systems obtained, negative unless otherwise noted in HPI Vital Signs Vital Signs Vital Signs: 07/09/24 22:59 07/10/24 01:00 07/10/24 01:25 Temperature 98.1 F Temperature Source Oral Pulse Rate 78 73 Respiratory Rate 16 16 Respiratory Effort Respiratory Depth Respiratory Pattern Blood Pressure 131/92 H 137/89 H Blood Pressure Mean 105 105 Blood Pressure Source Blood Pressure Position Blood Pressure Location Pulse Ox 95 93 86 Oxygen Delivery Method Room Air Room Air Room Air Oxygen Flow Rate (L/min) 07/10/24 01:28 07/10/24 02:00 07/10/24 02:10 Temperature 98 F Temperature Source Pulse Rate 89 92 Respiratory Rate 14 17 Respiratory Effort Respiratory Depth Respiratory Pattern Blood Pressure 160/78 H 160/78 H Blood Pressure Mean 105 105 Blood Pressure Source Blood Pressure Position Blood Pressure Location Pulse Ox 96 96 95 Oxygen Delivery Method Nasal Cannula Nasal Cannula Oxygen Flow Rate (L/min) 1 1 07/10/24 03:06 07/10/24 03:59 07/10/24 04:20 Temperature 97.9 F Temperature Source Oral Pulse Rate 100 77 Respiratory Rate 18 Respiratory Effort Normal Non-Labored Respiratory Depth Normal Respiratory Pattern Normal Blood Pressure 106/67 Blood Pressure Mean 80 Blood Pressure Source Monitor Blood Pressure Position Semi-Fowlers Blood Pressure Location Right Arm Pulse Ox (more content not included)... Normal [facility] Emergency Department Summary on 07-10-2024 Emergency Department Summary [facility] Medical Records Department [address] [place] [id number] Emergency Department Summary 07/10/24 MR#: [id number] Acct: [id number] Name: ROBBIN MARTINEZ Rep #: [id number] : 1940 83 From: Abner Fernandez DO PCP: Dr. Raphael Justin MD Status:REG ER Location: ED HPI History of Present Illness Chief Complaint: Fall Informant: patient, spouse/S.O. and family Narrative Narrative: Patient is an 83-year-old male with past medical history of hypertension hyperlipidemia and paroxysmal atrial fibrillation currently on Eliquis. He states around 10 PM this evening he tripped over his 's oxygen tubing and fell landing on his left hip. He denies striking his head or any loss of consciousness but does admit to the blood thinner use secondary to his intermittent A-fib. He states that he had instant pain after the fall and could not ambulate. Secondary to the inability to ambulate with increased pain and concern for fracture EMS was called and he was brought in for evaluation [facility] Medical History Prostate CA RBBB Atrial fibrillation Essential hypertension Actinic keratosis, hx of Segmental and somatic dysfunction of lumbar region Segmental and somatic dysfunction of pelvic region DDD (degenerative disc disease), lumbar History of malignant melanoma Enlarged prostate Arthritis Environmental allergies Pain at surgical incision Internal hemorrhoids Diverticulosis Home Medications ???Medication ???Instructions ???Recorded ???Last Taken ???Type enalapril maleate 20 mg tablet 20 mg PO DAILY 07/10/16 07/10/16 08:00 History calcium 300 mg-D3 20 mcg-magnesium 1 tab PO BID 07/12/22 Unknown History 25 mg-coppr 0.5 [id number] tablet (Caltrate-D3 Plus Minerals) apixaban 2.5 mg tablet (Eliquis) 2.5 mg PO BID Dose decreased due 07/15/23 Unknown Rx to creat clearance #180 tabs metoprolol tartrate 25 mg tablet See Rx Instructions .Route 07/21/23 Unknown Rx .COMPLEX #180 tabs cholecalciferol (vitamin D3) 250 10,000 unit PO DAILY 07/09/24 Unknown History mcg (10,000 unit) capsule Allergy/AdvReac Type Severity Reaction Status Date / Time No Known Allergies Allergy Verified 07/09/24 23:05 Family History Father Hypertension CVA (cerebral vascular accident) Grandfather Hypertension Grandfather Heart disease Mother Heart disease Hypertension Other CAD (coronary artery disease) Cancer Surgical History History of hernia repair Hx of basal cell carcinoma excision Social History Smoking Status: Former smoker alcohol intake: current alcohol intake frequency: 0-2 drinks per day substance use type: does not use caffeine: Yes Type: coffee Number of servings: 3 what type of physical activity do you participate in: bicycling frequency: 1-2 times per week ROS ROS ED Constitutional Constitutional ED: Denies chills or fever(s) Eyes Eyes: Denies blurry vision or change in vision ENT ENT ED: Denies sore throat Cardiovascular Cardiovascular: Reports other Details: Negative syncope ; Denies chest pain or palpitations Respiratory/Chest Respiratory/Chest: Denies cough or dyspnea Gastrointestinal Gastrointestinal: Denies abdominal pain, diarrhea, nausea or vomiting Genitourinary Genitourinary ED: Denies dysuria Musculoskeletal Musculoskeletal: Reports other Details: Positive left hip pain ; Denies back pain or neck pain Integumentary Denies Abrasions or rash Neurologic Neurologic: Denies headache(s) Hematologic/Lymphatic Hematologic/Lymphatic: Reports easy bleeding and easy bruising EXAM Physical Exam Const Vital Signs: 07/09/24 22:59 07/10/24 01:00 07/10/24 01:25 Temperature 98.1 F Temperature Source Oral Pulse Rate 78 73 Respiratory Rate 16 16 Blood Pressure 131/92 H 137/89 H Blood Pressure Mean 105 105 Pulse Ox 95 93 86 Oxygen Delivery Method Room Air Room Air Room Air Oxygen Flow Rate (L/min) 07/10/24 01:28 Temperature Temperature Source Pulse Rate Respiratory Rate Blood Pressure Blood Pressure Mean Pulse Ox 96 Oxygen Delivery Method Nasal Cannula Oxygen Flow Rate (L/min) 1 Positive well nourished and well developed General Appearance ED: well developed; Negative for pallor HEENT HEENT Narrative: Normocephalic atraumatic Eyes PERRL and EOMs intact bilaterally General Eye ED: Negative for scleral icterus Neck supple Neck Narrative: No bony deformity or step-off of the cervical spine no midline tenderness to palpation Chest Wall palpation of c (more content not included)... Normal [facility] H AND P Exam - Hospitaliston 07-10-2024 H&P Exam - Hospitalist [facility] Medical Records Department [address] [place] [address] H P Exam - Hospitalist 07/10/24 0139 MR#: [id number] Acct: [id number] Name: MICHELLEROBBINLM Rep #: [id number] : 1940 83 From: Charly Villagomez DO PCP: Dr. Raphael Justin MD Status:ADM IN Location: MS3 [id number] [facility] Date of Admission: 07/10/24 Date of Service: 07/10/24 Chief Complaint: Left Hip Pain after Fall. HPI Narrative ROBBIN MARTINEZ, is a 83 M with a past medical history of essential hypertension; on enalapril and metoprolol, hyperlipidemia; currently untreated, former tobacco abuse, obesity; with BMI 30.8 this admission, PAF; on apixaban, history of ventricular arrhythmia, history of RBBB, history of mitral valve prolapse, history of syncope, history of prostate cancer; s/p radiation treatment followed by Dr. Balderas with subsequent radiation proctitis previously causing intermittent rectal bleeding, history of malignant melanoma; s/p excision, history of basal cell carcinoma; s/p excision, history of actinic keratosis, history of Right inguinal hernia; s/p repair (2017), history of diverticulosis, history of internal hemorrhoids, environmental allergies and OA; with DDD of the lumbar spine and somatic dysfunction of the pelvic and lumbar regions with suspected neurogenic claudication who presents to [facility] ER complaining of persistent left hip pain after fall. Mr. Martinez reports his symptoms began approximately 1 hour prior to arrival when he was ambulating at home and tripped over his 's oxygen cord subsequently falling onto his Left hip. He noted severe pain and inability to ambulate so EMS was activated. He denies significant head trauma, loss of consciousness with this fall or other significant injury. There is no report of fever, chills, nausea, vomiting, diarrhea, constipation, chest pain, shortness of breath, headache or recent illness. He denies chest pain with activity or a known personal history of significant CAD. In the ER he was noted to have x-ray evidence of impacted subcapital Left femoral neck fracture along with a nonacute head CT, cervical CT and CXR. The ER physician contacted the orthopedist on-call who stated patient's surgery will likely not be done until Thursday, July 11, 2024 due to the patient being on apixaban at time of admission increasing his potential bleeding risk. He was then admitted to the general medical floor for ongoing care for stay that is expected to extend beyond 2 midnights. [facility] Medical History Segmental and somatic dysfunction of lumbar region Segmental and somatic dysfunction of pelvic region DDD (degenerative disc disease), lumbar Prostate CA RBBB Atrial fibrillation Essential hypertension Actinic keratosis, hx of History of malignant melanoma Enlarged prostate Arthritis Environmental allergies Pain at surgical incision Internal hemorrhoids Diverticulosis Home Medications ???Medication ???Instructions ???Recorded ???Last Taken ???Type enalapril maleate 20 mg tablet 20 mg PO DAILY 07/10/16 07/10/16 08:00 History calcium 300 mg-D3 20 mcg-magnesium 1 tab PO BID 07/12/22 Unknown History 25 mg-coppr 0.5 [id number] tablet (Caltrate-D3 Plus Minerals) apixaban 2.5 mg tablet (Eliquis) 2.5 mg PO BID Dose decreased due 07/15/23 Unknown Rx to creat clearance #180 tabs metoprolol tartrate 25 mg tablet See Rx Instructions .Route 07/21/23 Unknown Rx .COMPLEX #180 tabs cholecalciferol (vitamin D3) 250 10,000 unit PO DAILY 07/09/24 Unknown History mcg (10,000 unit) capsule acetaminophen 500 mg capsule 500 mg PO Q6H PRN pain 07/10/24 Unknown History polyethylene glycol 3350 17 17 g PO DAILY PRN constipation 07/10/24 Unknown History gram/dose oral powder (ClearLax) Allergy/AdvReac Type Severity Reaction Status Date / Time No Known Allergies Allergy Verified 07/09/24 23:05 Family History Father Hypertension CVA (cerebral vascular accident) Grandfather Hypertension Grandfather Heart disease Mother Heart disease Hypertension Other CAD (coronary artery disease) Cancer Surgical History Hx of basal cell carcinoma excision History of hernia repair Social History Smoking Status: Former smoker alcohol intake: current alcohol intake frequency: 0-2 drinks per day substance use type: does not use caffeine: Yes Type: coffee Number of servings: 3 what type of physical activity do you participate in: bicycling frequency: 1-2 times per week ROS ROS Narrative Review of Systems: Constitutional: Patient denies fever or chills. Eyes: Patient de (more content not included)... Normal [facility] Lipid Profileon 07-10-2024 Cholesterol [Mass/Vol] 157 mg/dL Normal 200 [facility] Comment on above: Result Comment: <200 mg/dL Desirable 200-240 mg/dL Borderline >240 mg/dL High Risk Performed By: #### L 500.2500, L100.0100 #### [facility] [address] [place], [address] Cholesterol in HDL [Mass/Vol] 47 mg/dL Normal [facility] Comment on above: Result Comment: The drugs N-Acetylcysteine and Metamizole may falsely depress this assay. Reference Range HDL <40 mg/dL Low HDL Cholesterol HDL >or= 60 mg/dL High HDL Cholesterol Performed By: #### L 500.2500, L100.0100 #### [facility] [address] [place], [address] Cholesterol in LDL [Mass/Vol] 91 mg/dL Normal 0-130 [facility] Comment on above: Performed By: #### L 500.2500, L100.0100 #### [facility] [address] [place], [address] Cholesterol in VLDL [Mass/Vol] 19 mg/dL Normal 5-40 [facility] Comment on above: Performed By: #### L 500.2500, L100.0100 #### [facility] [address] [place], [address] Triglyceride [Mass/Vol] 95 mg/dL Normal [facility] Comment on above: Result Comment: The drugs N-Acetylcysteine and Metamizole may falsely depress this assay. Serum Triglycerides Reference Interval Normal <150 mg/dL Borderline high 150 - 199 mg/dL High 200 - 499 mg/dL Very High > or = 500 mg/dL Performed By: #### L 500.2500, L100.0100 #### [facility] [address] [place], [address] Magnesiumon 07-10-2024 Magnesium [Mass/Vol] 2.0 mg/dL Normal 1.6-2.6 [facility] Comment on above: Performed By: #### L 500.2500, L100.0100 #### [facility] [address] [place], [address] Partial Thromboplast Timeon 07-10-2024 aPTT Coag (Bld) [Time] 31.2 s Normal 24.1-36.2 [facility] Comment on above: Performed By: #### L 100.0100, L501.5200, L503.0105, L506.1000, L3100.3450, L501.6710, L501.9520, L101.9900, L503.6150, L500.4050, L503.6550, L3100.5475 #### [facility] [address] [place], [address] Phosphoruson 07-10-2024 Phosphate [Mass/Vol] 3.7 mg/dL Normal 2.5-4.9 [facility] Comment on above: Performed By: #### L 100.0100, L501.5200, L503.0105, L506.1000, L3100.3450, L501.6710, L501.9520, L101.9900, L503.6150, L500.4050, L503.6550, L3100.5475 #### [facility] [address] [place], [place], [id number] Prothrombin Time w/INRon INR Coag (PPP) [Relative time] 1.1 {INR} Normal [facility] Comment on above: Performed By: #### L 100.0100, L501.5200, L503.0105, L506.1000, L3100.3450, L501.6710, L501.9520, L101.9900, L503.6150, L500.4050, L503.6550, L3100.5475 #### [facility] [address] [place], [address] PT Coag (PPP) [Time] 14.9 s Normal 11.7-14.9 [facility] Comment on above: Performed By: #### L 100.0100, L501.5200, L503.0105, L506.1000, L3100.3450, L501.6710, L501.9520, L101.9900, L503.6150, L500.4050, L503.6550, L3100.5475 #### [facility] [address] [place], [address] Thyroid Stim Hormone (TSH)on 07-10-2024 TSH 2.560 uIU/mL Normal 0.358-3.740 [facility] Comment on above: Performed By: #### L 100.0100, L501.5200, L503.0105, L506.1000, L3100.3450, L501.6710, L501.9520, L101.9900, L503.6150, L500.4050, L503.6550, L3100.5475 #### [facility] [address] [place], [address] Brain/Head without Contrasto n 07-09-2024 Brain/Head without Contrast [facility] Imaging Services [address] [place] [address] Brain/Head without Contrast MR#: [id number] Acct: [id number] Name: ROBBIN MARTINEZ Rep #: [id number] : 1940 M 83 From: Tayo Ashford MD PCP: Dr. Raphael Justin MD Status: [facility] ER Study: Brain/Head without Contrast Date of Exam: 06/23 01/14 Exam# [id number] Ordering Dr: Abner Fernandez DO [id number] EXAM: CT HEAD WITHOUT INTRAVENOUS CONTRAST CLINICAL INDICATION: Fall on blood thinners TECHNIQUE: Multiple axial images were obtained of the head without intravenous contrast. This CT exam was performed using one or more of the following dose reduction techniques: automated exposure control, adjustment of the mA and/or kV according to patient size, and/or use of iterative reconstruction technique. RADIATION DOSE: CTDIvol = 44.99 mGy, DLP = 880.47 mGy-cm COMPARISON: No relevant prior studies available. FINDINGS: BRAIN AND EXTRA-AXIAL SPACES: Diffuse cerebral volume loss. Periventricular small vessel ischemic changes. No intra- or extra-axial hemorrhage. No intracranial mass or mass effect. Posterior fossa structures are unremarkable. No hydrocephalus. Basal cisterns are patent. BONES/JOINTS: Unremarkable. No discrete lytic or blastic abnormalities. VASCULATURE: Vascular calcifications. SINUSES: Unremarkable as visualized. Clear. MASTOID AIR CELLS: Unremarkable. Clear. ORBITS: Visualized globes, extraocular muscles, optic nerves and retrobulbar fat appear unremarkable. CT/Brain/Head without Contrast IMPRESSION: 1. No acute intracranial abnormalities. 2. Age-related changes. Electronically Signed: Tayo Ashford MD at 1:17 EST , CC: Dr. Raphael Justin MD; Abner Fernandez DO Photovoltaic Installer: Signed Normal [facility] Chest 1 View (Portable)on Chest 1 View (Portable) [facility] Imaging Services [address] [place], [place] [id number] Chest 1 View (Portable) MR#: [id number] Acct: [id number] Name: ROBBIN MARTINEZ Rep #: [id number] : 1940 M 83 From: Tayo Ashford MD PCP: Dr. Raphael Justin MD Status: [facility] ER Study: Chest 1 View (Portable) Date of Exam: 07/09/24 Exam# [id number] Ordering Dr: Abner Fernandez DO [id number] EXAM: XR CHEST, 1 VIEW CLINICAL INDICATION: Fall TECHNIQUE: Frontal view of the chest. COMPARISON: Single view chest 06/06/2022 FINDINGS: LUNGS AND PLEURAL SPACES: Subsegmental atelectasis in the lung bases. No pneumothorax. No effusion. HEART: Unremarkable. Cardiac silhouette not enlarged. MEDIASTINUM: Central airways and mediastinal contour are unremarkable. BONES/JOINTS: Unremarkable. No acute fracture. SOFT TISSUES: Unremarkable. RAD/Chest 1 View (Portable) IMPRESSION: No acute findings in the chest. Electronically Signed: Tayo Ashford MD at 1:18 EST , CC: Dr. Raphael Justin MD; Abner Fernandez DO Photovoltaic Installer: Signed Normal [facility] HIP, UNI W/ Pelvis 2-3 Views on 07-09-2024 HIP, UNI W/ Pelvis 2-3 Views [facility] Imaging Services [address] [place] [address] HIP, UNI W/ Pelvis 2-3 Views MR#: [id number] Acct: [id number] Name: ROBBIN MARTINEZ Rep #: [id number] : 1940 M 83 From: Tayo Ashford MD PCP: Dr. Raphael Justin MD Status: REG ER Study: HIP, UNI W/ Pelvis 2-3 Views Date of Exam: Exam# [id number] Ordering Dr: Abner Fernandez DO [id number] EXAM: XR LEFT HIP WITH PELVIS WHEN PERFORMED, 2 OR 3 VIEWS CLINICAL INDICATION: Pain/? Hip fracture TECHNIQUE: Two or three views of the left hip with pelvis when performed. COMPARISON: No relevant prior studies available. FINDINGS: BONES/JOINTS: Impacted subcapital left femoral neck fracture. No destructive or sclerotic lesions. Note that overlapping bowel shadows may however obscure fine detail. Sacroiliac joint is unremarkable. No widening of the pubic symphysis. The articular structures are unremarkable. SOFT TISSUES: Unremarkable. No soft tissue swelling or gas. RAD/HIP, UNI W/ Pelvis 2-3 Views IMPRESSION: Impacted subcapital left femoral neck fracture. Electronically Signed: Tayo Ashford MD at 1:19 EST , CC: Dr. Raphael Justin MD; Abner Fernandez DO Photovoltaic Installer: Signed Normal [facility] Spine Cervical without Contr ason 07-09-2024 Spine Cervical without Contras [facility] Imaging Services [address] [place] [place], [place] [address] Spine Cervical without Contras MR#: [id number] Acct: [id number] Name: ROBBIN MARTINEZ Rep #: [id number] : 1940 M 83 From: Tayo Ashford MD PCP: Dr. Raphael Justin MD Status: REG ER Study: Spine Cervical without Contras Date of Exam: 0 07/09/24 Exam# [id number] Ordering Dr: Abner Fernandez DO [id number] EXAM: CT CERVICAL SPINE WITHOUT INTRAVENOUS CONTRAST CLINICAL INDICATION: fall TECHNIQUE: Helically acquired images were obtained of the cervical spine without intravenous contrast. 2D reformatted images were reviewed. This CT exam was performed using one or more of the following dose reduction techniques: automated exposure control, adjustment of the mA and/or kV according to patient size, and/or use of iterative reconstruction technique. RADIATION DOSE: CTDIvol = 23.32 mGy, DLP = 546.05 mGy-cm COMPARISON: No relevant prior studies available. FINDINGS: VERTEBRAE: Unremarkable. No fracture. No traumatic subluxation. No discrete lytic or blastic abnormality. Normal alignment. Normal craniocervical junction and cervicothoracic junction. DISCS/SPINAL CANAL/NEURAL FORAMINA: Degenerative changes of the intervertebral discs. No critical stenosis. SOFT TISSUES: Unremarkable. No prevertebral soft tissue swelling. LYMPH NODES: Unremarkable. No cervical adenopathy. LUNG APICES: Unremarkable as visualized. Clear. CT/Spine Cervical without Contras IMPRESSION: 1. No acute injuries identified involving the cervical spine. 2. Degenerative changes. Electronically Signed: Tayo Ashford MD at 1:23 EST , CC: Dr. Raphael Justin MD; Abner Fernandez DO Photovoltaic Installer: Signed [facility] CNOVSPon 03-29-2024 CNOVSP Visit (SP) Office (H EMAWS) ROBBIN MARTINEZ ([id number]) 1940 M Date Time Provider Department 03/29/24 2:30 PM JOSE CUNNINGHAM During your visit today, we recorded the following information about you: Temperature Pulse Blood pressure Weight 97.7 degrees 46/minute 161/81 101.2 kg Jose Cunningham DO 03/29/2024 2:59 PM Signed Oncologic problem(s): 1) High risk prostate cancer. HPI: The patient is an 83-year-old male with a past medical history significant for essential hypertension and hyperlipidemia. Had been managed by urologist for BPH. PSA in the past has fluctuated. For instance it was 7.1 ng/mL November 2014. Then 9.5 ng/mL in August 2018 and then 8.0 ng/mL in December 2018. Increased to 14.80 ng/mL. Biopsy of the prostate 08/07/2020. Pathology: A. Right prostate, apex, core biopsy: Adenocarcinoma. [place] grade: 7 (4+3) Cores involved: 1 out of 1 core Tissue involved: 5% Greatest tumor length: 1 mm See comment. B. Right prostate, mid, core biopsy: Adenocarcinoma. [place] grade: 8 (4+4) Cores involved: 1 out of 1 core Tissue involved: 60% Greatest tumor length: 4.5 mm C. Right prostate, base, core biopsy: Adenocarcinoma. [place] grade: 8 (4+4) Cores involved: 1 out of 1 core Tissue involved: 2% Greatest tumor length: <1 mm D. Left prostate, apex, core biopsy: Focal atypical small acinar proliferation. See comment. E. Left prostate, mid, core biopsy: Adenocarcinoma. [place] grade: 6 (3+3) Cores involved: 1 out of 1 core Tissue involved: 2% Greatest tumor length: <1 mm See comment. F. Left prostate, base, core biopsy: Adenocarcinoma. [place] grade: 7 (3+4) Cores involved: 1 out of 1 core Tissue involved: 65% Greatest tumor length: 5.5 mm Bone scan on 08/29/2020 demonstrated no evidence of bone metastases. He had been advised to undergo external beam radiation treatment with ADT. Previous therapy: 1) ADT (10/2020) with radiation (completed radiation 01/2021). Last q 3 month Lupron injection 01/2023. Developed atrial fibrillation 05/2022. On apixaban since 06/2022. Metoprolol. Had colonoscopy to assess rectal bleeding in February 2023. Preparation was inadequate. Was found to have a 20 mm polypoid lesion in the distal transverse colon. It was sessile. No bleeding observed. Biopsies were obtained and the area was tattooed with 3 mL of carbon black. There was a diffuse area of mild erythematous mucosa in the rectum. Multiple small and large mouth diverticula were observed in the sigmoid colon terminal ileum appeared normal. Pathology: A. Transverse colon, polypectomy: - Tubulovillous adenoma. Presents for ongoing oncologic management. Interim history: Rectal bleeding significantly slowing. Still has urinary frequency, going about every 2 hours during the day Typically 3 times at night. No gross hematuria or dysuria. Sensory neuropathy b/l, but mostly left leg and foot. Feels like socks on were they're not. Dr. Justin worked it up and has referred to neurologist. Symptoms seem to be self-improving. Had EEG. Trial of gabapentin. Remains on anticoagulation for history of atrial fibrillation. Continues follow-up with the [facility]. PMH, medications and allergies personally reviewed by me today. Any changes documented in appropriate section. ROS: Constitutional: Denies episodes of fever and night sweats. Not significantly fatigued. Normal appetite. Neuro: Denies URIOSTEGUI, vertigo, dizziness and imbalance. Denies symptoms of neuropathy. HEENT: No recent change in voice, vision or hearing. Resp: Denies cough, wheeze and hemoptysis. Denies shortness of breath at rest. CVS: Denies exertional chest pain, PND, orthopnea and LE edema. GI: Denies dysphagia and odynophagia. Denies reflux, n/v, change in bowel habits and abdominal pain. : See above. Endo: Denies hot flashes. Denies polyuria and polydipsia. Denies heat and cold intolerance. Musculoskeletal: Chronic back pain--stable. Derm: Denies rash. Denies jaundice and diffuse pruritis. Heme: Denies unusual bleeding and unexplained bruising. Psych: Normal mood. PHYSICAL EXAM: Vitals: Blood pressure 161/81, pulse (!) 46, temperature 36.5 ?C (97.7 ?F), temperature source Temporal, weight 101.2 kg (223 lb), SpO2 99%. Well-appearing and in no acute distress. EYES: Sclerae are anicteric bilaterally. LYMPHATIC: There is no palpable cervical or supraclavicular adenopathy. RESPIRATORY: Inspiratory breath sounds are of normal intensity in all russell. No rales, wheezes or rhonchi. CARDIOVASCULAR: Rhythm is regular. ABDOMEN: The abdomen is nondistended. No organomegaly. No tenderness. Extremities: No swelling or edema. SKIN: No jaundice or rash. LABS: Latest Ref Rn 05/08/2023 11/07/2023 11/25/2023 03/24/2024 PSA <2.60 ng/mL <0.02 0.03 0.03 0.05 ASSESSMENT/PLAN: (C61) Prostat (more content not included)... Normal [facility] Vit B12 [facility] 024 Cobalamin (Vitamin B12) [Mass/Vol] 634 pg/mL Normal 232-1245 [facility] Comment on above: Order Comment: Speci men Type: BLOOD SPECIMENOrdering Facility: [facility] Address: [address] [place] [address] [place] [id number] Performed By: #### 2 132-9 ####[facility] LABCLIA [id number] [id number] [address] [place] CBC W Auto Differential pane l (Bld)on 03-24-2024 Basophils (Bld) [#/Vol] 10*3/uL Normal <0.11 [facility] Comment on above: Order Comment: Speci men Type: BLOOD SPECIMENOrdering Facility: [facility] Address: [address] [place] [address] Performed By: #### 5 7021-8 ####[facility]PITALLIA [id number] [place] [address] [place] Basophils/100 WBC (Bld) 0.2 % Normal [facility] Comment on above: Order Comment: Speci men Type: BLOOD SPECIMENOrdering Facility: [facility] Address: [address] [place] [address] Performed By: #### 5 7021-8 ####[facility] [id number] [place] [address] [place] Differential cell count method Nom (Bld) Auto Normal [facility] Comment on above: Order Comment: Speci men Type: BLOOD SPECIMENOrdering Facility: [facility] Address: [address] [place] [address] Performed By: #### 5 7021-8 ####[facility] MILLWNCLIA [id number] [place] [address] [place] Eosinophils (Bld) [#/Vol] 0.07 10*3/uL Normal <0.46 [facility] Comment on above: Order Comment: Speci men Type: BLOOD SPECIMENOrdering Facility: [facility] Address: [address] [place] [address] Performed By: #### 5 7021-8 ####[facility] HOSPITALJENNIELIA [id number] [place] [id number] [place] Eosinophils/100 WBC (Bld) 1.7 % Normal [facility] Comment on above: Order Comment: Speci men Type: BLOOD SPECIMENOrdering Facility: [facility] Address: [address] [place] [address] Performed By: #### 5 7021-8 ####[facility] H[facility]ITALNCLIA [id number] [place] [address] [place] Erythrocyte distribution width (RBC) [Ratio] 12.5 % Normal 11.5-15.0 [facility] Comment on above: Order Comment: Speci men Type: BLOOD SPECIMENOrdering Facility: [facility] Address: [address] [place] [address] Performed By: #### 5 7021-8 ####[facility]ITALNCBL[facility] [id number] [place] [address] [place] Hematocrit (Bld) [Volume fraction] 42.0 % Normal 39.0-51.0 [facility] Comment on above: Order Comment: Speci men Type: BLOOD SPECIMENOrdering Facility: [facility] Address: [address] [place] [address] Performed By: #### 5 7021-8 ####[facility]ITALNCLIA [id number] [place] [address] [place] Hemoglobin (Bld) [Mass/Vol] 14.3 g/dL Normal 13.0-17.0 [facility] Comment on above: Order Comment: Speci men Type: BLOOD SPECIMENOrdering Facility: [facility] Address: [address] [place] [address] Performed By: #### 5 7021-8 ####[facility]ITALNCLIA [id number] [place] [address] [place] Immature granulocytes (Bld) [#/Vol] 10*3/uL Normal <0.10 [facility] Comment on above: Order Comment: Speci men Type: BLOOD SPECIMENOrdering Facility: [facility] Address: [address] [place] [address] Performed By: #### 5 7021-8 ####[facility] MEMORIALELIAS [id number] [place] [address] [place] Immature granulocytes/100 WBC (Bld) 0.2 % Normal [facility] Comment on above: Order Comment: Speci men Type: BLOOD SPECIMENOrdering Facility: [facility] Address: [address] [place] [address] Performed By: #### 5 7021-8 ####[facility] [id number] [place] [address] [place] Lymphocytes (Bld) [#/Vol] 1.38 10*3/uL Normal 1.00-4.00 [facility] Comment on above: Order Comment: Speci men Type: BLOOD SPECIMENOrdering Facility: [facility] Address: [address] [place] [address] Performed By: #### 5 7021-8 ####[facility] [id number] [address] [place] [facility] Lymphocytes/100 WBC (Bld) 33.2 % Normal [facility] Comment on above: Order Comment: Speci men Type: BLOOD SPECIMENOrdering Facility: [facility] Address: [address] [place] [address] Performed By: #### 5 7021-8 ####[facility] [id number] [place] [address] [place] MCH (RBC) [Entitic mass] 32.6 pg Normal 26.0-34.0 [facility] Comment on above: Order Comment: Speci men Type: BLOOD SPECIMENOrdering Facility: [facility] Address: [address] [place] [address] Performed By: #### 5 7021-8 ####[facility]ITALNCLIA [id number] [place] [address] [place] MCHC (RBC) [Mass/Vol] 34.0 g/dL Normal 30.5-36.0 [facility] Comment on above: Order Comment: Speci men Type: BLOOD SPECIMENOrdering Facility: [facility] Address: [address] [place] [address] Performed By: #### 5 7021-8 ####[facility]ALL[facility] [id number] [place] [address] [place] MCV (RBC) [Entitic vol] 95.7 fL Normal 80.0-100.0 [facility] Comment on above: Order Comment: Speci men Type: BLOOD SPECIMENOrdering Facility: [facility] Address: [address] [place] [address] Performed By: #### 5 7021-8 ####[facility] [id number] [place] [address] [place] Monocytes (Bld) [#/Vol] 0.46 10*3/uL Normal <0.87 [facility] Comment on above: Order Comment: Speci men Type: BLOOD SPECIMENOrdering Facility: [facility] Address: [address] [place] [address] Performed By: #### 5 7021-8 ####[facility] [id number] [place] [address] [place] Monocytes/100 WBC (Bld) 11.1 % Normal [facility] Comment on above: Order Comment: Speci men Type: BLOOD SPECIMENOrdering Facility: [facility] Address: [address] [place] [address] Performed By: #### 5 7021-8 ####[facility]ITALNCLIA [id number] [place] [address] [place] Neutrophils (Bld) [#/Vol] 2.23 10*3/uL Normal 1.45-7.50 [facility] Comment on above: Order Comment: Speci men Type: BLOOD SPECIMENOrdering Facility: [facility] Address: [address] [place] [address] Performed By: #### 5 7021-8 ####[facility] [id number] [place] [address] [place] Neutrophils/100 WBC (Bld) 53.6 % Normal [facility] Comment on above: Order Comment: Speci men Type: BLOOD SPECIMENOrdering Facility: [facility] Address: [address] [place] [address] Performed By: #### 5 7021-8 ####[facility] [id number] [place] [address] [place] Nucleated RBC (Bld) [#/Vol] 10*3/uL Normal <0.01 [facility] Comment on above: Order Comment: Speci men Type: BLOOD SPECIMENOrdering Facility: [facility] Address: [address] [place] [address] Performed By: #### 5 7021-8 ####[facility] [id number] [place] [address] [place] Nucleated RBC/100 WBC (Bld) [Ratio] 0.0 /100 WBC Normal [facility] Comment on above: Order Comment: Speci men Type: BLOOD SPECIMENOrdering Facility: [facility] Address: [address] [place] [address] Performed By: #### 5 7021-8 ####[facility] [id number] [place] [address] [place] Platelet mean volume (Bld) [Entitic vol] 8.7 fL Low 9.0-12.7 [facility] Comment on above: Order Comment: Speci men Type: BLOOD SPECIMENOrdering Facility: [facility] Address: [address] [place] [address] Performed By: #### 5 7021-8 ####[facility] MAGNOLIANCDOMINGUEZA [id number] [place] [address] [place] Platelets (Bld) [#/Vol] 133 10*3/uL Low 150-400 [facility] Comment on above: Order Comment: Speci men Type: BLOOD SPECIMENOrdering Facility: [facility] Address: [address] [place] [address] Performed By: #### 5 7021-8 ####[facility] BREANCLIA [id number] [place] [address] [place] RBC (Bld) [#/Vol] 4.39 10*6/uL Normal 4.20-6.00 [facility] Comment on above: Order Comment: Speci men Type: BLOOD SPECIMENOrdering Facility: [facility] [facility] Address: [address] [place] [address] Performed By: #### 5 7021-8 ####[facility] MARYDORCHESTERNCLIA [id number] [place] [address] [place] WBC (Bld) [#/Vol] 4.16 10*3/uL Normal 3.70-11.00 [facility] Comment on above: Order Comment: Speci men Type: BLOOD SPECIMENOrdering Facility: [facility] Address: [address] [place] [address] Performed By: #### 5 7021-8 ####[facility] [id number] [place] [address] [place] [facility] Prostate specific Ag [Mass/Vol] 0.05 ng/mL Normal <2.60 [facility] Comment on above: Order Comment: Speci men Type: BLOOD SPECIMEN [facility] Address: [address] [place] [address] Result Comment: Tota l PSA test methodology used is the Electrochemiluminescence Immunoassay by [employer]. Total PSA values by differing methodologies cannot be interchanged. Performed By: #### 2 857-1 #### [facility] CLIA [id number] [address] [place] [address] [id number] [address] [place] TESTOSTERONE, FREE AND TOTAL , BY EQUILIBRIUM ULTRAFILTRATION MASS SPECTROMETRYon 03-24-2024 Testosterone [Mass/Vol] 185.3 ng/dL Low 264.0-916.0 [facility] Comment on above: Order Comment: Speci men Type: BLOOD SPECIMENOrdering Facility: [facility] Address: [address] [place] [address] Result Comment: This [facility] LC/MS-MS method is currently certified by the CDC Hormone Standardization Program (HoSt). Adult male reference interval is based on a population of healthy nonobese males (BMI <30) between 19 and 39 years old. Arsenio et.al. JCEM 2017,102;1850-7703. PMID: [id number]. Performed By: #### T FTEST ####[facility] LABCLIA [id number] [place] [address] Testosterone Free [Mass/Vol] 4.17 ng/dL Low 5.00-21.00 [facility] Comment on above: Order Comment: Speci men Type: BLOOD SPECIMENOrdering Facility: [facility] Address: [address] [place] [address] Performed By: #### T FTEST ####[facility] LABCLIA [id number] [place] [address] Testosterone Free/Testosterone.t otal [Mass fraction] 2.25 % Normal 1.50-4.20 [facility] Comment on above: Order Comment: Speci men Type: BLOOD SPECIMENOrdering Facility: [facility] Address: [address] [place] [address] Performed By: #### T FTEST ####[facility] LABCLIA [id number] [place] [address] Viktor 02-09-2024 [facility] ROBBIN MARTINEZ ([id number]) 1940 M Date Time Provider Department 02/09/24 NEUROLOGY PROVIDER RACHID During your visit today, we recorded the following information about you: Joanna Drake LPN 02/09/2024 2:43 PM Signed Fax received from [facility] physician referral for neuropathy. Please assist patient in scheduling with general neurology. Joanna Drake LPN February 09, 2024 2:41 PM [place] 03/25/2024 11:13 AM Signed Spoke with patient and he stated he wanted to talk to Dr. Justin again before scheduling. Allergies As of Date: 02/09/2024 (No Known Allergies) Date Reviewed: 11/27/2023 Reviewed by: Jose Cunningham DO - Fully Assessed Reason for Visit: Appointment [186] Prescriptions as of 04/02/2024 - cholecalciferol, vitamin D3, (VITAMIN D3 ORAL) Take 5,000 Units by mouth once daily. - apixaban (ELIQUIS) 2.5 mg tab(s) Take 1 tablet by mouth two times a day. - metoprolol tartrate, short acting, (LOPRESSOR) 25 mg tablet Take 1 tablet by mouth twice daily. - polyethylene glycol 3350 17 gram packet Take 17 g by mouth as needed for constipation. Dissolve dose in 4 - 8 ounces of liquid and take as directed. - calcium carbonate/vitamin D3 (CALTRATE WITH VITAMIN D3 ORAL) Take 1 tablet by mouth twice daily. - vit C/E/Zn/coppr/lutein/zeaxan (PRESERVISION AREDS-2 ORAL) Take 1 tablet by mouth twice daily. - acetaminophen (TYLENOL) 500 mg tablet Take 500 mg by mouth as needed. - enalapril 20 mg tablet Take 1 tablet by mouth once daily. 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] 11/29/2009 Other Seborrheic Dermatitis [L21.8] 11/29/2009 Tinea Versicolor [B36.0] 11/29/2009 Surgical Scars: L upper arm: S/P Skin Ca's [L9*11/29/2009 H/O 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) [*11/29/2009 Dizziness and giddiness [R42] 09/11/2012 07/03/2016 Right inguinal hernia [K40.90] 06/28/2016 Diverticulosis of colon (without mention of hem*07/03/2016 Hiatal hernia [K44.9] 07/03/2016 Prostate cancer (HCC) [C61] 10/17/2020 Rectal bleeding [K62.5] 02/27/2023 Encounter Status:Closed by JOANNA DRAKE on 04/02/24 Normal [facility] NCS and/or EMG Patienton NCS and/or EMG Patient [facility]/Neurology [address] [place] [address] MR#: [id number] Acct: [id number] Name: ROBBIN MARTINEZ Rep #: [id number] : 1940 83 From: Rony Wilson MD Referring Dr: Raphael Justin MD Status: REG CLI Location: PSN Date: 01/28/24 Sex: M C NCS and/or EMG Patient Report Ordering Doctor: Raphael Justin DATE OF SERVICE: 01/28/24 Robbin presents with numbness and tingling in both legs, worse on the left side. Diagnostic findings: Left peroneal motor nerve demonstrates normal distal latency with reduced amplitude and reduced conduction velocity. No significant conduction block is fibular head. Right peroneal motor nerve demonstrates borderline prolonged latency with reduced amplitude and reduced conduction velocity. No significant drop in conduction across the fibular head. Left tibial motor nerve demonstrates normal distal latency and amplitude with reduced conduction velocity. Right tibial motor nerve demonstrates borderline prolonged distal latency with reduced amplitude and normal conduction velocity. Prolonged tibial and peroneal F???waves. H???reflux prolonged bilaterally. Sensory responses were not obtainable. Needle EMG testing was performed to the lower limbs. Neurogenic motor units noted bilaterally in the tibialis anterior and gastrocnemius. Electrodiagnostic impression: This is an abnormal study in the lower limbs 1. 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 There is a combination of demyelination and axonal loss. 2. No electrodiagnostic evidence is noted for lumbosacral radiculopathy. Multi Select Codes Neurology Neurology Interp Codes: 92366-11 Musc test done w/n test comp (interp) (2) and 53569-95 Nrv cndj test 9-10 studies (interp) 01/28/24 1420 Date Rony Wilson MD CC: Dr. Rony Wilson MD; Dr. Raphael Justin MD Date Dictated: 01/28/241416 Date Transcribed: 01/28/241416 Photovoltaic Installer: AA Signed Normal [facility] ANTINUCLEAR ANTIBODIES DIREC Ton 01-08-2024 LAYLA,DIRECT Negative Normal Negative [facility] Comment on above: Order Comment: Order Date: 01/06/24Order Info: 0270-1 - LAYLA Result Comment: Perf ormed at: - [facility] [address] [id number] Food Mixer Repairer: Ezequiel Braga PhD, Phone: [phone] Performed By: #### L 500.2500, L100.0100 #### [facility] [address] [place], [address] Protein Electroph, Son 01-07 Albumin [Mass/Vol] 3.6 g/dL Normal 2.9-4.4 [facility] Comment on above: Order Comment: Order Date: 01/06/24Order Info: 0060-1 - PROEL Performed By: #### L 500.2500, L100.0100 #### [facility] [address] [place], [address] Albumin/Globulin [Mass ratio] 1.3 {ratio} Normal 0.7-1.7 [facility] Comment on above: Order Comment: Order Date: 01/06/24Order Info: 0060-1 - PROEL Performed By: #### L 500.2500, L100.0100 #### [facility] [address] [place], [address] ALPHA-1 GLOBUL 0.2 g/dL Normal 0.0-0.4 [facility] Comment on above: Order Comment: Order Date: 01/06/24Order Info: 0060-1 - PROEL Performed By: #### L 500.2500, L100.0100 #### [facility] [address] [place], [address] ALPHA-2 GLOBUL 0.6 g/dL Normal 0.4-1.0 [facility] Comment on above: Order Comment: Order Date: 01/06/24Order Info: 0060-1 - PROEL Performed By: #### L 500.2500, L100.0100 #### [facility] [address] [place], [address] BETA GLOBULIN 0.9 g/dL Normal 0.7-1.3 [facility] Comment on above: Order Comment: Order Date: 01/06/24Order Info: 0060-1 - PROEL Performed By: #### L 500.2500, L100.0100 #### [facility] [address] [place], [address] GAMMA GLOBULIN 1.1 g/dL Normal 0.4-1.8 [facility] Comment on above: Order Comment: Order Date: 01/06/24Order Info: 0060-1 - PROEL Performed By: #### L 500.2500, L100.0100 #### [facility] [address] [place], [address] Globulin (S) [Mass/Vol] 2.8 g/dL Normal 2.2-3.9 [facility] Comment on above: Order Comment: Order Date: 01/06/24Order Info: 0060-1 - PROEL Performed By: #### L 500.2500, L100.0100 #### [facility] [address] [place], [address] INTERPRETATION Comment Normal . [facility] Comment on above: Order Comment: Order Date: 01/06/24Order Info: 0060-1 - PROEL Result Comment: Prot ein electrophoresis scan will follow via computer, mail, or house wrecker delivery. Performed By: #### L 500.2500, L100.0100 #### [facility] [address] [place], [address] M-SPIKE Not Observed Normal Not Observed [facility] Comment on above: Order Comment: Order Date: 01/06/24Order Info: 0060-1 - PROEL Performed By: #### L 500.2500, L100.0100 #### [facility] [address] [place], [address] NOTE: Comment Normal . [facility] Comment on above: Order Comment: Order Date: 01/06/24Order Info: 0060-1 - PROEL Result Comment: The SPE pattern appears unremarkable. Evidence of monoclonal protein is not apparent. Performed at: [place] [id number] Food Mixer Repairer: Ezequiel Braga PhD, Phone: [phone] Performed By: #### L 500.2500, L100.0100 #### [facility] [address] [place], [place], [address] Protein [Mass/Vol] 6.4 g/dL Normal 6.0-8.5 [facility] Comment on above: Order Comment: Order Date: 01/06/24Order Info: 0060-1 - PROEL Performed By: #### L 500.2500, L100.0100 #### [facility] [address] [place], [place], [address] CBC W/Diff, Automatedon 12-21 Absolute Lymph 1.20 X10 3/uL Normal 0.83-4.51 [facility] Comment on above: Order Comment: Order Date: 01/06/24 Order Info: 0184-1 - CBCD Order Info: 82306-0 - SED Performed By: #### L 100.0100, L501.5200, L503.0105, L506.1000, L3100.3450, L501.6710, L501.9520, L101.9900, L503.6150, L500.4050, L503.6550, L3100.5475 #### [facility] [address] [place], [place], [id number] Absolute Neut 2.6 X10 3/uL Normal 2.0-7.7 [facility] Comment on above: Order Comment: Order Date: 01/06/24 Order Info: 0184-1 - CBCD Order Info: 17148-8 - SED Performed By: #### L 100.0100, L501.5200, L503.0105, L506.1000, L3100.3450, L501.6710, L501.9520, L101.9900, L503.6150, L500.4050, L503.6550, L3100.5475 #### [facility] [address] [place], [place], [phone] ([phone]) Basophils/100 WBC (Bld) 0.5 % Normal 0-1 [facility] Comment on above: Order Comment: Order Date: 01/06/24 Order Info: 018- - CBCD Order Info: 18487-1 - SED Performed By: #### L 100.0100, L501.5200, L503.0105, L506.1000, L3100.3450, L501.6710, L501.9520, L101.9900, L503.6150, L500.4050, L503.6550, L3100.5475 #### [facility] [address] [place], [place], [phone] (257) Eosinophils/100 WBC (Bld) 1.6 % Normal 0-5 [facility] Comment on above: Order Comment: Order Date: 01/06/24 Order Info: 01809-21 - CBCD Order Info: 92359-5 - SED Performed By: #### L 100.0100, L501.5200, L503.0105, L506.1000, L3100.3450, L501.6710, L501.9520, L101.9900, L503.6150, L500.4050, L503.6550, L3100.5475 #### [facility] [address] [place], [place], [phone] (670) Erythrocyte distribution width (RBC) [Ratio] 12.7 % Normal 11.6-14.6 [facility] Comment on above: Order Comment: Order Date: 01/06/24 Order Info: 01809-21 - CBCD Order Info: 35636-3 - SED Performed By: #### L 100.0100, L501.5200, L503.0105, L506.1000, L3100.3450, L501.6710, L501.9520, L101.9900, L503.6150, L500.4050, L503.6550, L3100.5475 #### [facility] [address] [place], [address] Hematocrit (Bld) [Volume fraction] 40.7 % Normal 40-54 [facility] Comment on above: Order Comment: Order Date: 01/06/24 Order Info: 183-06 - CBCD Order Info: 89445-6 - SED Performed By: #### L 100.0100, L501.5200, L503.0105, L506.1000, L3100.3450, L501.6710, L501.9520, L101.9900, L503.6150, L500.4050, L503.6550, L3100.5475 #### [facility] [address] [place], [address] Hemoglobin (Bld) [Mass/Vol] 13.4 g/dL Normal 13.0-16.5 [facility] Comment on above: Order Comment: Order Date: 01/06/24 Order Info: 183-06 - CBCD Order Info: 97744-3 - SED Performed By: #### L 100.0100, L501.5200, L503.0105, L506.1000, L3100.3450, L501.6710, L501.9520, L101.9900, L503.6150, L500.4050, L503.6550, L3100.5475 #### [facility] [address] [place], [address] IG% 0.200 Normal 0.0-0.9 [facility] Comment on above: Order Comment: Order Date: 01/06/24 Order Info: 183-06 - CBCD Order Info: 93872-3 - SED Result Comment: IG% - Immature Granulocytes (promyelocytes, myelocytes and metamyelocytes) > 1% indicates that a LEFT SHIFT is Present. Performed By: #### L 100.0100, L501.5200, L503.0105, L506.1000, L3100.3450, L501.6710, L501.9520, L101.9900, L503.6150, L500.4050, L503.6550, L3100.5475 #### [facility] [address] [place], [place], [phone] Lymphocytes/100 WBC (Bld) 27.7 % Normal 19-41 [facility] Comment on above: Order Comment: Order Date: 01/06/24 Order Info: 01809-21 - CBCD Order Info: 76436-7 - SED Performed By: #### L 100.0100, L501.5200, L503.0105, L506.1000, L3100.3450, L501.6710, L501.9520, L101.9900, L503.6150, L500.4050, L503.6550, L3100.5475 #### [facility] [address] [place], [place], [phone] MCH (RBC) [Entitic mass] 32.2 pg High 27.0-32.0 [facility] Comment on above: Order Comment: Order Date: 01/06/24 Order Info: 183-06 - CBCD Order Info: 75587-8 - SED Performed By: #### L 100.0100, L501.5200, L503.0105, L506.1000, L3100.3450, L501.6710, L501.9520, L101.9900, L503.6150, L500.4050, L503.6550, L3100.5475 #### [facility] [address] [place], [place], [phone] MCHC (RBC) [Mass/Vol] 32.9 g/dL Normal 32-36 [facility] Comment on above: Order Comment: Order Date: 01/06/24 Order Info: 01809-21 - CBCD Order Info: 19443-3 - SED Performed By: #### L 100.0100, L501.5200, L503.0105, L506.1000, L3100.3450, L501.6710, L501.9520, L101.9900, L503.6150, L500.4050, L503.6550, L3100.5475 #### [facility] [address] [place], [address] MCV (RBC) [Entitic vol] 97.8 fL High 80-94 [facility] Comment on above: Order Comment: Order Date: 01/06/24 Order Info: 018- - CBCD Order Info: 23468-6 - SED Performed By: #### L 100.0100, L501.5200, L503.0105, L506.1000, L3100.3450, L501.6710, L501.9520, L101.9900, L503.6150, L500.4050, L503.6550, L3100.5475 #### [facility] [address] [place], [address] Monocytes/100 WBC (Bld) 9.0 % Normal 0-10 [facility] Comment on above: Order Comment: Order Date: 01/06/24 Order Info: 183-06 - CBCD Order Info: 09777-0 - SED Performed By: #### L 100.0100, L501.5200, L503.0105, L506.1000, L3100.3450, L501.6710, L501.9520, L101.9900, L503.6150, L500.4050, L503.6550, L3100.5475 #### [facility] [employer] [place], [address] Neutrophils/100 WBC (Bld) 61.0 % Normal 47-70 [facility] Comment on above: Order Comment: Order Date: 01/06/24 Order Info: 018- - CBCD Order Info: 06569-2 - SED Performed By: #### L 100.0100, L501.5200, L503.0105, L506.1000, L3100.3450, L501.6710, L501.9520, L101.9900, L503.6150, L500.4050, L503.6550, L3100.5475 #### [facility] [address] [place], [address] Nucleated RBC (Bld) [#/Vol] 0 10*3/uL Normal 0-5 [facility] Comment on above: Order Comment: Order Date: 01/06/24 Order Info: 0184-1 - CBCD Order Info: 78185-0 - SED Performed By: #### L 100.0100, L501.5200, L503.0105, L506.1000, L3100.3450, L501.6710, L501.9520, L101.9900, L503.6150, L500.4050, L503.6550, L3100.5475 #### [facility] [address] [place], [place], [phone] ([phone]) Platelet mean volume (Bld) [Entitic vol] 10.2 fL Normal 6.2-12.0 [facility] Comment on above: Order Comment: Order Date: 01/06/24 Order Info: 018- - CBCD Order Info: 22245-4 - SED Performed By: #### L 100.0100, L501.5200, L503.0105, L506.1000, L3100.3450, L501.6710, L501.9520, L101.9900, L503.6150, L500.4050, L503.6550, L3100.5475 #### [facility] [address] [place], [place], [phone] (335) Platelets (Bld) [#/Vol] 153 10*3/uL Normal 150-450 [facility] Comment on above: Order Comment: Order Date: 01/06/24 Order Info: 0184- - CBCD Order Info: 97730-8 - SED Performed By: #### L 100.0100, L501.5200, L503.0105, L506.1000, L3100.3450, L501.6710, L501.9520, L101.9900, L503.6150, L500.4050, L503.6550, L3100.5475 #### [facility] [address] [place], [place], [phone] RBC (Bld) [#/Vol] 4.16 10*6/uL Low 4.6-6.2 [facility] Comment on above: Order Comment: Order Date: 01/06/24 Order Info: 018- - CBCD Order Info: 37197-6 - SED Performed By: #### L 100.0100, L501.5200, L503.0105, L506.1000, L3100.3450, L501.6710, L501.9520, L101.9900, L503.6150, L500.4050, L503.6550, L3100.5475 #### [facility] [address] [place], [place], [phone] (578) RDW SD 45.2 fl High 35.1-43.9 [facility] Comment on above: Order Comment: Order Date: 01/06/24 Order Info: 01809-21 - CBCD Order Info: 56580-5 - SED Performed By: #### L 100.0100, L501.5200, L503.0105, L506.1000, L3100.3450, L501.6710, L501.9520, L101.9900, L503.6150, L500.4050, L503.6550, L3100.5475 #### [facility] [address] [place], [place], [address] (644) WBC (Bld) [#/Vol] 4.3 10*3/uL Low 4.4-11.0 [facility] Comment on above: Order Comment: Order Date: 01/06/24 Order Info: 018- - CBCD Order Info: 97658-5 - SED Performed By: #### L 100.0100, L501.5200, L503.0105, L506.1000, L3100.3450, L501.6710, L501.9520, L101.9900, L503.6150, L500.4050, L503.6550, L3100.5475 #### [facility] [address] [place], [place], [address] CRPon 01-06-2024 C-REACTIVE PROT < 2.90 Normal 0.0-3.0 [facility] Comment on above: Order Comment: Order Date: 01/06/23 Order Info: 0667- - BMP Order Date: 01/06/24 Order Info: 0786-1 - CMP Order Info: 99145-8 - MG Order Info: 97454-6 - CRP Order Info: 301-3 - TSH Order Info: 2497-09 - FE Order Info: 2275- - JOEL Result Comment: C-Re active Protein (CRP) provides useful information for the diagnosis, therapy and monitoring of inflammatory processes and associated diseases. For the evaluation of Relative Risk for Cardiovascular Disease, a High Sensitivity CRP (HSCRP) should be ordered. Performed By: #### L 100.0100, L501.5200, L503.0105, L506.1000, L3100.3450, L501.6710, L501.9520, L101.9900, L503.6150, L500.4050, L503.6550, L3100.5475 #### [facility] [address] [facility] [place], [place], [id number] Comprehensive Metabolic Prof ilon 01-06-2024 Albumin [Mass/Vol] 3.4 g/dL Normal 3.2-5.0 [facility] Comment on above: Order Comment: Order Date: 01/06/23 Order Info: 0667- - BMP Order Date: 01/06/24 Order Info: 07-1 - CMP Order Info: 02259-6 - MG Order Info: 53131-7 - CRP Order Info: 3015-3 - TSH Order Info: 2497-09 FE Order Info: 2275-09 - JOEL Performed By: #### L 100.0100, L501.5200, L503.0105, L506.1000, L3100.3450, L501.6710, L501.9520, L101.9900, L503.6150, L500.4050, L503.6550, L3100.5475 #### [facility] [address] [place], [place], [address] Albumin/Globulin [Mass ratio] 0.9 {ratio} Normal 0.9-2.4 [facility] Comment on above: Order Comment: Order Date: 01/06/23 Order Info: 0667- - BMP Order Date: 01/06/24 Order Info: 07-1 - CMP Order Info: 79379-4 - MG Order Info: 47166-2 - CRP Order Info: 3 - TSH Order Info: 2497-09 - FE Order Info: 2275-09 - JOEL Performed By: #### L 100.0100, L501.5200, L503.0105, L506.1000, L3100.3450, L501.6710, L501.9520, L101.9900, L503.6150, L500.4050, L503.6550, L3100.5475 #### [facility] [address] [place], [place], [address] ALK P 59 U/L Normal 45-117 [facility] Comment on above: Order Comment: Order Date: 01/06/23 Order Info: 0667- - BMP Order Date: 01/06/24 Order Info: 07- - CMP Order Info: 45045-9 - MG Order Info: 65399-1 - CRP Order Info: 3 - TSH Order Info: 2497-09 - FE Order Info: 2275-09 - JOEL Performed By: #### L 100.0100, L501.5200, L503.0105, L506.1000, L3100.3450, L501.6710, L501.9520, L101.9900, L503.6150, L500.4050, L503.6550, L3100.5475 #### [facility] [address] [place], [place], [address] ALT [Catalytic activity/Vol] 24 U/L Normal 16-61 [facility] Comment on above: Order Comment: Order Date: 01/06/23 Order Info: 06- - BMP Order Date: 01/06/24 Order Info: 785- - CMP Order Info: 24625-4 - MG Order Info: 74665-6 - CRP Order Info: 3015-08 - TSH Order Info: 2497-09 - FE Order Info: 2275-09 - JOEL Performed By: #### L 100.0100, L501.5200, L503.0105, L506.1000, L3100.3450, L501.6710, L501.9520, L101.9900, L503.6150, L500.4050, L503.6550, L3100.5475 #### [facility] [address] [place], [address] AST [Catalytic activity/Vol] 22 U/L Normal 15-37 [facility] Comment on above: Order Comment: Order Date: 01/06/23 Order Info: 06 - BMP Order Date: 01/06/24 Order Info: 785-06 - CMP Order Info: 51702-1 - MG Order Info: 00879-6 - CRP Order Info: 3015-08 - TSH Order Info: 2497-09 - FE Order Info: 2275-09 - JOEL Performed By: #### L 100.0100, L501.5200, L503.0105, L506.1000, L3100.3450, L501.6710, L501.9520, L101.9900, L503.6150, L500.4050, L503.6550, L3100.5475 #### [facility] [address] [place], [place], [address] Bilirubin [Mass/Vol] 0.60 mg/dL Normal 0.20-1.00 [facility] Comment on above: Order Comment: Order Date: 01/06/23 Order Info: 06- - BMP Order Date: 01/06/24 Order Info: 785-1 - CMP Order Info: 02945-9 - MG Order Info: 40538-3 - CRP Order Info: 3 - TSH Order Info: 2497-09 - FE Order Info: 2275-09 - JOEL Result Comment: For patients on eltrombopag therapy, use of Dimension Cav[place]ier TBIL is not recommended. Performed By: #### L 100.0100, L501.5200, L503.0105, L506.1000, L3100.3450, L501.6710, L501.9520, L101.9900, L503.6150, L500.4050, L503.6550, L3100.5475 #### [facility] [address] [place], [place], [id number] (151) BUN/CRE 23.1 RATIO High 10-20 [facility] Comment on above: Order Comment: Order Date: 01/06/23 Order Info: 0667-1 - BMP Order Date: 01/06/24 Order Info: 0786-1 - CMP Order Info: 43788-1 - MG Order Info: 82466-0 - CRP Order Info: 301-3 - TSH Order Info: 2497-09 - FE Order Info: 2275-09 - JOEL Performed By: #### L 100.0100, L501.5200, L503.0105, L506.1000, L3100.3450, L501.6710, L501.9520, L101.9900, L503.6150, L500.4050, L503.6550, L3100.5475 #### [facility] [address] [place], [place], [address] [phone] CA,Total 9.1 mg/dL Normal 8.5-10.1 [facility] Comment on above: Order Comment: Order Date: 01/06/23 Order Info: 0667-1 - BMP Order Date: 01/06/24 Order Info: 0786-1 - CMP Order Info: 76016-3 - MG Order Info: 88864-8 - CRP Order Info: 3016-3 - TSH Order Info: 2494 - FE Order Info: 227-4 - JOEL Performed By: #### L 100.0100, L501.5200, L503.0105, L506.1000, L3100.3450, L501.6710, L501.9520, L101.9900, L503.6150, L500.4050, L503.6550, L3100.5475 #### [facility] [address] [place], [place], [id number] Chloride [Moles/Vol] 106 mmol/L Normal 98-107 [facility] Comment on above: Order Comment: Order Date: 01/06/23 Order Info: 0667- - BMP Order Date: 01/06/24 Order Info: 07-1 - CMP Order Info: 09068-5 - MG Order Info: 62434-1 - CRP Order Info: 3 - TSH Order Info: 2497-09 FE Order Info: 2275-09 - JOEL Performed By: #### L 100.0100, L501.5200, L503.0105, L506.1000, L3100.3450, L501.6710, L501.9520, L101.9900, L503.6150, L500.4050, L503.6550, L3100.5475 #### [facility] [address] [place], [place], [address] CO2 [Moles/Vol] 30.0 mmol/L Normal 21.0-32.0 [facility] Comment on above: Order Comment: Order Date: 01/06/23 Order Info: 06 - BMP Order Date: 01/06/24 Order Info: 785-06 - CMP Order Info: 51385-7 - MG Order Info: 12301-7 - CRP Order Info: 3015-3 - TSH Order Info: 2497-09 - FE Order Info: 2275-09 - JOEL Performed By: #### L 100.0100, L501.5200, L503.0105, L506.1000, L3100.3450, L501.6710, L501.9520, L101.9900, L503.6150, L500.4050, L503.6550, L3100.5475 #### [facility] [address] [place], [place], [address] Creatinine [Mass/Vol] 1.08 mg/dL Normal 0.70-1.30 [facility] Comment on above: Order Comment: Order Date: 01/06/23 Order Info: 666- - BMP Order Date: 01/06/24 Order Info: 785-1 - CMP Order Info: 81927-5 - MG Order Info: 53624-7 - CRP Order Info: 3015-08 - TSH Order Info: 2497-09 Order Info: 2275-09 Result Comment: The validity of the calculated GFR GFRAA in patients over 70 years has not been determined. Clinical correlation is essential. Performed By: #### L 100.0100, L501.5200, L503.0105, L506.1000, L3100.3450, L501.6710, L501.9520, L101.9900, L503.6150, L500.4050, L503.6550, L3100.5475 #### [facility] [address] [place], [address] EST GFR - AA 84 mL/min Normal >60 [facility] Comment on above: Order Comment: Order Date: 01/06/23 Order Info: 666-06 - BMP Order Date: 01/06/24 Order Info: 1 - CMP Order Info: 07072-2 - MG Order Info: 20233-2 - CRP Order Info: 3015-08 - TSH Order Info: 2497-09 Order Info: 2275-09 - JOEL Result Comment: Afri can Cuban GFR Calc Performed By: #### L 100.0100, L501.5200, L503.0105, L506.1000, L3100.3450, L501.6710, L501.9520, L101.9900, L503.6150, L500.4050, L503.6550, L3100.5475 #### [facility] [address] [place], [place], [address] GAP 5 Normal 5-15 [facility] Comment on above: Order Comment: Order Date: 01/06/23 Order Info: 06- - BMP Order Date: 01/06/24 Order Info: 07-1 - CMP Order Info: 46569-4 - MG Order Info: 79230-2 - CRP Order Info: 3 - TSH Order Info: 2497-09 - FE Order Info: 2275-09 - JOEL Performed By: #### L 100.0100, L501.5200, L503.0105, L506.1000, L3100.3450, L501.6710, L501.9520, L101.9900, L503.6150, L500.4050, L503.6550, L3100.5475 #### [facility] [address] [place], [place], [address] GFR/1.73 sq M.predicted among non-blacks MDRD (S/P/Bld) [Vol rate/Area] 69 mL/min/{1.73_m2} Normal >60 [facility] Comment on above: Order Comment: Order Date: 01/06/23 Order Info: 06 - BMP Order Date: 01/06/24 Order Info: 07-1 - CMP Order Info: 31225-6 - MG Order Info: 34235-0 - CRP Order Info: 3015-08 - TSH Order Info: 2497-09 - FE Order Info: 2275-09 - JOEL Result Comment: Non- GFR Calc Performed By: #### L 100.0100, L501.5200, L503.0105, L506.1000, L3100.3450, L501.6710, L501.9520, L101.9900, L503.6150, L500.4050, L503.6550, L3100.5475 #### [facility] [address] [place], [address] Globulin (S) [Mass/Vol] 3.6 g/dL Normal 2.2-4.2 [facility] Comment on above: Order Comment: Order Date: 01/06/23 Order Info: 0667-1 - BMP Order Date: 01/06/24 Order Info: 07-1 - CMP Order Info: 74829-6 - MG Order Info: 19433-2 - CRP Order Info: 3 - TSH Order Info: 2497-09 - FE Order Info: 2275-09 - JOEL Performed By: #### L 100.0100, L501.5200, L503.0105, L506.1000, L3100.3450, L501.6710, L501.9520, L101.9900, L503.6150, L500.4050, L503.6550, L3100.5475 #### [facility] [address] [place], [address] Glucose [Mass/Vol] 91 mg/dL Normal 74-106 [facility] Comment on above: Order Comment: Order Date: 01/06/23 Order Info: 06- - BMP Order Date: 01/06/24 Order Info: 0786-1 - CMP Order Info: 47329-8 - MG Order Info: 09341-2 - CRP Order Info: 3015-08 - TSH Order Info: 2497-09 - FE Order Info: 2275-09 - JOEL Performed By: #### L 100.0100, L501.5200, L503.0105, L506.1000, L3100.3450, L501.6710, L501.9520, L101.9900, L503.6150, L500.4050, L503.6550, L3100.5475 #### [facility] [address] [place], [place], [address] Potassium [Moles/Vol] 4.0 mmol/L Normal 3.5-5.1 [facility] Comment on above: Order Comment: Order Date: 01/06/23 Order Info: 0667- - BMP Order Date: 01/06/24 Order Info: 0786-1 - CMP Order Info: 57357-8 - MG Order Info: 68791-2 - CRP Order Info: 3015-3 - TSH Order Info: 2497-09 - FE Order Info: 2275-09 - JOEL Performed By: #### L 100.0100, L501.5200, L503.0105, L506.1000, L3100.3450, L501.6710, L501.9520, L101.9900, L503.6150, L500.4050, L503.6550, L3100.5475 #### [facility] [address] [place], [place], [address] Sodium [Moles/Vol] 141 mmol/L Normal 136-145 [facility] Comment on above: Order Comment: Order Date: 01/06/23 Order Info: 0667- - BMP Order Date: 01/06/24 Order Info: 07-1 - CMP Order Info: 99248-1 - MG Order Info: 33261-6 - CRP Order Info: 3015-3 - TSH Order Info: 2497-09 - FE Order Info: 2275-09 - JOEL Performed By: #### L 100.0100, L501.5200, L503.0105, L506.1000, L3100.3450, L501.6710, L501.9520, L101.9900, L503.6150, L500.4050, L503.6550, L3100.5475 #### [facility] [address] [place], [place], [address] T PROT 7.0 g/dL Normal 6.4-8.2 [facility] Comment on above: Order Comment: Order Date: 01/06/23 Order Info: 06- - BMP Order Date: 01/06/24 Order Info: 07 - CMP Order Info: 83928-6 - MG Order Info: 54419-1 - CRP Order Info: 3015-3 - TSH Order Info: 2497-09 - FE Order Info: 2275-09 - JOEL Performed By: #### L 100.0100, L501.5200, L503.0105, L506.1000, L3100.3450, L501.6710, L501.9520, L101.9900, L503.6150, L500.4050, L503.6550, L3100.5475 #### [facility] [address] [place], [place], [address] Urea nitrogen [Mass/Vol] 25 mg/dL High 7-18 [facility] Comment on above: Order Comment: Order Date: 01/06/23 Order Info: 0667- - BMP Order Date: 01/06/24 Order Info: 0786- - CMP Order Info: 48507-7 - MG Order Info: - CRP Order Info: 3015-08 - TSH Order Info: 2497-09 - FE Order Info: 2275-09 - JOEL Performed By: #### L 100.0100, L501.5200, L503.0105, L506.1000, L3100.3450, L501.6710, L501.9520, L101.9900, L503.6150, L500.4050, L503.6550, L3100.5475 #### [facility] [address] [place], [place], [id number] Erythrocyte Sed Rateon 01-05 SED RATE 5 mm/hr Normal 0-20 [facility] Comment on above: Order Comment: Order Date: 01/06/24 Order Info: 0184-1 - CBCD Order Info: 22394-9 - SED Performed By: #### L 100.0100, L501.5200, L503.0105, L506.1000, L3100.3450, L501.6710, L501.9520, L101.9900, L503.6150, L500.4050, L503.6550, L3100.5475 #### [facility] [address] [place], [place], [address] Ferritinon 01-06-2024 Ferritin [Mass/Vol] 177 ng/mL Normal 26-388 [facility] Comment on above: Order Comment: Order Date: 01/06/23Order Info: 0667- - BMPOrder Date: 01/06/24Order Info: 0786- - CMPOrder Info: - MGOrder Info: - CRPOrder Info: 3015-08 - TSHOrder Info: 2497-09 - FEOrder Info: 2275-09 - JOEL Performed By: #### L 500.2500, L100.0100 #### [facility] [address] [place], [address] Ironon 01-06-2024 Iron [Mass/Vol] 97 ug/dL Normal 65-175 [facility] Comment on above: Order Comment: Order Date: 01/06/23Order Info: 666- - BMPOrder Date: 01/06/24Order Info: 0786-1 - CMPOrder Info: 12038-2 - MGOrder Info: 73327-7 - CRPOrder Info: 6-3 - TSHOrder Info: 2497-09 - FEOrder Info: 2275-09 - JOEL Performed By: #### L 500.2500, L100.0100 #### [facility] [address] [place], [place], [address] Magnesiumon 01-06-2024 Magnesium [Mass/Vol] 2.2 mg/dL Normal 1.6-2.6 [facility] Comment on above: Order Comment: Order Date: 01/06/23 Order Info: 666-06 - BMP Order Date: 01/06/24 Order Info: 785- - CMP Order Info: 59664-3 - MG Order Info: 95826-8 - CRP Order Info: 3016-3 - TSH Order Info: 2497-09 - FE Order Info: 2275-09 - JOEL Performed By: #### L 100.0100, L501.5200, L503.0105, L506.1000, L3100.3450, L501.6710, L501.9520, L101.9900, L503.6150, L500.4050, L503.6550, L3100.5475 #### [facility] [address] [place], [place], [address] Thyroid Stim Hormone (TSH)on 01-06-2024 TSH 1.16 uIU/mL Normal 0.358-3.74 [facility] Comment on above: Order Comment: Order Date: 01/06/23 Order Info: 666- - BMP Order Date: 01/06/24 Order Info: 07-1 - CMP Order Info: 81024-4 - MG Order Info: 67268-4 - CRP Order Info: 3016-3 - TSH Order Info: 24901-24 - FE Order Info: 2276-4 - JOEL Performed By: #### L 100.0100, L501.5200, L503.0105, L506.1000, L3100.3450, L501.6710, L501.9520, L101.9900, L503.6150, L500.4050, L503.6550, L3100.5475 #### [facility] [address] [place], [place], [address] Vitamin B12on 01-06-2024 Cobalamin (Vitamin B12) [Mass/Vol] 515 pg/mL Normal 211-911 [facility] Comment on above: Order Comment: Order Date: 01/06/24 Order Info: 9 - B12 Order Info: 22898-6 - VITD25 Performed By: #### L 100.0100, L501.5200, L503.0105, L506.1000, L3100.3450, L501.6710, L501.9520, L101.9900, L503.6150, L500.4050, L503.6550, L3100.5475 #### [facility] [address] [place], [place], [address] Vitamin D,25 Hydroxyon 01-05 Vitamin D 25-OH 89.3 ng/mL Normal [facility] Comment on above: Order Comment: Order Date: 01/06/24 Order Info: 2131-9 - B12 Order Info: 65959-4 - VITD25 Result Comment: Darcy min D 25(OH) Status Range Deficiency <20 ng/mL (50nmol/L) Insufficiency 20 - 30 ng/mL (50 - 75 nmol/L) Sufficiency 30 - 100 ng/mL (75 - 250 nmol/L) Toxicity >100 ng/mL (>250 nmol/L) Performed By: #### L 100.0100, L501.5200, L503.0105, L506.1000, L3100.3450, L501.6710, L501.9520, L101.9900, L503.6150, L500.4050, L503.6550, L3100.5475 #### [facility] [place], [address] [facility] 11-28-2023 [facility] Telephone (MEPRAD) ROBBIN MARTINEZ ([id number]) 1940 M Date Time Provider Department 11/28/23 KENDRA GREGORY MEPMCKAY During your visit today, we recorded the following information about you: Kendra Gregory MD 11/28/2023 10:00 PM Signed FOLLOW UP ENDOSCOPY - RESULTS AND RECOMMENDATIONS NAME: Robbin Bradfordop CLINIC NO.: [id number] : 1940 DATE: November 28, 2023 PRIMARY CARE PROVIDER: Raphael Justin MD Robbin Martinez is a patient referred for surveillance for recently removed tubulovillous adenomatous transverse colon via endoscopic mucosal resection colonoscopy. I performed lower endoscopy on November 25, 2023. The patient was found to have: Lower Endoscopy Impression: - Two small polyps in the transverse colon and in the cecum, removed with a cold biopsy forceps. Resected and retrieved. - A tattoo was seen in the distal transverse colon. A post-polypectomy scar was found at the tattoo site. There was no evidence of residual polyp tissue. 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 Biopsied. - The examination was otherwise normal on direct and retroflexion views. - Diverticulosis in the entire examined colon. Pathology demonstrated: FINAL DIAGNOSIS A. Cecum polyp, polypectomy: - Tubular adenoma. B. Transverse colon polyp, polypectomy: - Colonic mucosa with no significant diagnostic alteration. - No evidence of adenomatous mucosa. C. Rectum, biopsy: - Colonic mucosa with reactive change. - No evidence of active inflammation. IMPRESSION: Adenomatous polyp, recent follow-up for tubulovillous adenoma removed via endoscopic mucosal resection PLAN: INSTRUCTIONS FOLLOWING A POLYP FOUND AT COLONOSCOPY You were found to have an adenomatous colon polyp. I recommend you undergo repeat endoscopy in 2 years. If you note bleeding, change in bowel habits, or other suspicious colon related symptoms before that time, those symptoms should be evaluated as necessary. If you have any difficulties or concerns, you should contact our office immediately. The patient is instructed to follow-up with your primary care provider I have instructed my staff to forward the above information to the patient and to the appropriate providers Joanna Drake LPN 12/04/2023 8:33 AM Signed Health maintenance, surgical/ medical history updated, [employer] message sent, recall letter generated. Joanna Drake LPN December 04, 2023 8:33 AM Allergies As of Date: 11/28/2023 (No Known Allergies) Date Reviewed: 11/27/2023 Reviewed by: Jose Cunningham DO - Fully Assessed Reason for Visit: Results [95] Prescriptions as of 12/04/2023 - apixaban (ELIQUIS) 2.5 mg tab(s) Take 1 tablet by mouth two times a day. - metoprolol tartrate, short acting, (LOPRESSOR) 25 mg tablet Take 1 tablet by mouth twice daily. - polyethylene glycol 3350 17 gram packet Take 17 g by mouth as needed for constipation. Dissolve dose in 4 - 8 ounces of liquid and take as directed. - calcium carbonate/vitamin D3 (CALTRATE WITH VITAMIN D3 ORAL) Take 1 tablet by mouth twice daily. - vit C/E/Zn/coppr/lutein/zeaxan (PRESERVISION AREDS-2 ORAL) Take 1 tablet by mouth twice daily. - acetaminophen (TYLENOL) 500 mg tablet Take 500 mg by mouth as needed. - enalapril 20 mg tablet Take 1 tablet by mouth once daily. 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] 11/29/2009 Other Seborrheic Dermatitis [L21.8] 11/29/2009 Tinea Versicolor [B36.0] 11/29/2009 Surgical Scars: L upper arm: S/P Skin Ca's [L9*11/29/2009 H/O 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) [*11/29/2009 Dizziness and giddiness [R42] 09/11/2012 07/03/2016 Right inguinal hernia [K40.90] 06/28/2016 Diverticulosis of colon (without mention of hem*07/03/2016 Hiatal hernia [K44.9] 07/03/2016 Prostate cancer (HCC) [C61] 10/17/2020 Rectal bleeding [K62.5] 02/27/2023 Letter Text Encounter Status:Closed by KENDRA GREOGRY on 11/28/23 [facility] Colonoscopy Study observatio non 11-25-2023 [facility] Gastrointestinal Endoscopy Patient Name: Robbin Martinez Procedure Date: 11/25/2023 11:31 AM Date of : 1940 Admit Type: Outpatient Age: 83 Gender: Male Note Status: Finalized Procedure: Colonoscopy Indications: High risk colon cancer surveillance: Personal history of colonic polyps Providers: Kendra Gregory MD Patient Profile: This is an 83 year old male. Refer to note in patient chart for documentation of history and physical. Last Colonoscopy: within the past 6 months. Referring Physician: Kendra Gregory MD (Referring MD), Raphael Justin MD (Referring MD) Medicines: Midazolam 4 mg IV, Fentanyl 75 micrograms IV Complications: No immediate complications. Requesting Provider: Procedure: Pre-Anesthesia Assessment: - Prior to the procedure, a History and Physical was performed, and patient medications and allergies were reviewed. The patient is competent. The risks and benefits of the procedure and the sedation options and risks were discussed with the patient. All questions were answered and informed consent was obtained. Patient identification and proposed procedure were verified by the physician and the nurse in the procedure room. Mental Status Examination: alert and oriented. Airway Examination: normal oropharyngeal airway and neck mobility. Respiratory Examination: clear to auscultation. Prophylactic Antibiotics: The patient does not require prophylactic antibiotics. Prior Anticoagulants: The patient has taken Eliquis (apixaban), last dose was 1 day prior to procedure. ASA Grade Assessment: III - A patient with severe systemic disease. After reviewing the risks and benefits, the patient was deemed in satisfactory condition to undergo the procedure. The anesthesia plan was to use moderate sedation / analgesia (conscious sedation). Immediately prior to administration of medications, the patient was re-assessed for adequacy to receive sedatives. The heart rate, respiratory rate, oxygen saturations, blood pressure, adequacy of pulmonary ventilation, and response to care were monitored throughout the procedure. The physical status of the patient was re-assessed after the procedure. After I obtained informed consent, the scope was passed under direct vision. Throughout the procedure, the patient's blood pressure, pulse, and oxygen saturations were monitored continuously. The Colonoscope was introduced through the anus and advanced to the cecum, identified by the appendiceal orifice, IC valve and transillumination. The colonoscopy was performed without difficulty. The patient tolerated the procedure well. The quality of the bowel preparation was good. The ileocecal valve, appendiceal orifice, and rectum were photographed. Moderate Sedation: Moderate (conscious) sedation was personally administered by the endoscopist. The following parameters were monitored: oxygen saturation, heart rate, blood pressure, and response to care. Total physician intraservice time was 20 minutes. The administration of moderate sedation was initiated at 11:55 AM. Findings: The perianal and digital rectal examinations were normal. Two sessile polyps were found in the transverse colon and cecum. The polyps were small in size. These polyps were removed with a cold biopsy forceps. Resection and retrieval were complete. A tattoo was seen in the distal transverse colon. A post-polypectomy scar was found at the tattoo site. There was no evidence of residual polyp tissue. Localized mild inflammation characterized by neovascularization was found in the proximal rectum. Biopsies were taken with a cold forceps for histology. The exam was otherwise without abnormality on direct and retroflexion views (more content not included)... [employer] [facility] Radiology Study observation (narrative) [facility] SURGICAL PATHOLOGYon 023 Case Report Surgical Pathology R eport Case: [id number] Authorizing Provider: Eric Li MD Collected: 02/27/2023 12:50 PM Ordering Location: Ambulatory Surgery Received: 02/27/2023 02:34 PM Pathologist: Giovanny Rodríguez MD Specimen: TRANSVERSE COLON POLYP, DISTAL tranverse polyp bx [facility] FINAL DIAGNOSIS A. Transverse colon, polypectomy: - Tubulovillous adenoma. [facility] Gross Description A. TRANSVERSE COLON POLYP Received in formalin is one piece of chawla, soft tissue measuring 0.4 x 0.3 x 0.2 cm. Totally submitted in one cassette. SS February 28, 2023 2:03 AM Gross examination performed at [facility], [address], [place] [address] [place] [address] Performing Lab Diagnostic interpret ation performed at [facility], [address], [place] [address] CLIA# [id number] Theatrical Dresser: Maru Soto M.D. [facility] COLONOSCOPY DIAGNOSTICon [facility] Vital Signs Date Time Vital Sign Value Performing Clinician Anselmo oakley 01-17-2025 15:49-0400 Body mass index (BMI) [Ratio] 27.12 kg/m2 [employer] Work Phone: [facility] 01-17-2025 15:49-0400 Body temperature 97.3 [degF] [employer] Work Phone: [facility] 01-17-2025 15:49-0400 Body weight 98.43 kg [employer] Work Phone: [facility] 01-17-2025 15:49-0400 Diastolic blood pressure 71 mm[Hg] [employer] Work Phone: [facility] 01-17-2025 15:49-0400 Heart rate 63 /min [employer] Work Phone: [facility] 01-17-2025 15:49-0400 SaO2% (BldA) [Mass fraction] 97 % Jose Masci DO Work Phone: [facility] 01-17-2025 15:49-0400 Systolic blood pressure 118 mm[Hg] Jose Masci DO Work Phone: [facility] 12-06-2024 07:36-0400 Body height 195.[address] Raphael Justin MD Work Phone: [facility] 12-06-2024 07:36-0400 Body mass index (BMI) [Ratio] 25.9 kg/m2 Dr. Raphael Justin MD Work Phone: [facility] 12-06-2024 07:36-0400 Body weight 99.[address] Raphael Justin MD Work Phone: [facility] 12-06-2024 07:36-0400 Diastolic blood pressure 69 mm[Hg] Dr. Raphael Justin MD Work Phone: [facility] 12-06-2024 07:36-0400 Heart rate 68 /min Dr. Raphael Justin MD Work Phone: [facility] 12-06-2024 07:36-0400 Respiratory rate 18 /min Dr. Raphael Justin MD Work Phone: [facility] 12-06-2024 07:36-0400 Systolic blood pressure 153 mm[Hg] Dr. Raphael Justin MD Work Phone: [facility] 10-01-2024 15:07-0400 Body mass index (BMI) [Ratio] 28.06 kg/m2 Jose Masci DO Work Phone: [facility] 10-01-2024 15:07-0400 Body temperature 97 [degF] Jose Masci DO Work Phone: [facility] 10-01-2024 15:07-0400 Body weight 101.83 kg Jose Masci DO Work Phone: [facility] 10-01-2024 15:07-0400 Diastolic blood pressure 67 mm[Hg] Jose Masci DO Work Phone: [facility] 10-01-2024 15:07-0400 Heart rate 45 /min Jose Masci DO Work Phone: [facility] 10-01-2024 15:07-0400 SaO2% (BldA) [Mass fraction] 100 % Jose Masci DO Work Phone: [facility] 10-01-2024 15:07-0400 Systolic blood pressure 126 mm[Hg] Jose Masci DO Work Phone: [facility] 09-07-2024 11:06-0400 Body mass index (BMI) [Ratio] 28 kg/m2 Jose Masci DO Work Phone: [facility] 09-07-2024 11:06-0400 Body temperature 97 [degF] Jose Masci DO Work Phone: [facility] 09-07-2024 11:06-0400 Body weight 101.61 kg Jose Masci DO Work Phone: [facility] 09-07-2024 11:06-0400 Diastolic blood pressure 91 mm[Hg] Jose Masci DO Work Phone: [facility] 09-07-2024 11:06-0400 Heart rate 67 /min Jose Masci DO Work Phone: [facility] 09-07-2024 11:06-0400 SaO2% (BldA) [Mass fraction] 98 % Jose Masci DO Work Phone: [facility] 09-07-2024 11:06-0400 Systolic blood pressure 153 mm[Hg] Jose Masci DO Work Phone: [facility] 03-29-2024 14:27-0400 Body mass index (BMI) [Ratio] 27.87 kg/m2 Jose Masci DO Work Phone: [facility] 03-29-2024 14:27-0400 Body temperature 97.7 [degF] Jose Masci DO Work Phone: [facility] 03-29-2024 14:27-0400 Body weight 101.15 kg Jose Masci DO Work Phone: [facility] 03-29-2024 14:27-0400 Diastolic blood pressure 81 mm[Hg] Jose Masci DO Work Phone: [facility] 03-29-2024 14:27-0400 Heart rate 46 /min Jose Masci DO Work Phone: [facility] 03-29-2024 14:27-0400 SaO2% (BldA) [Mass fraction] 99 % Jose Masci DO Work Phone: [facility] 03-29-2024 14:27-0400 Systolic blood pressure 161 mm[Hg] Jose Masci DO Work Phone: [facility] 11-27-2023 11:47-0400 Body mass index (BMI) [Ratio] 27.69 kg/m2 Jose Masci DO Work Phone: [facility] 11-27-2023 11:47-0400 Body temperature 98.29 [degF] Jose Masci DO Work Phone: [facility] 11-27-2023 11:47-0400 Body weight 100.47 kg Jose Masci DO Work Phone: [facility] 11-27-2023 11:47-0400 Diastolic blood pressure 83 mm[Hg] Jose Masci DO Work Phone: [facility] 11-27-2023 11:47-0400 Heart rate 63 /min Jose Masci DO Work Phone: [facility] 11-27-2023 11:47-0400 SaO2% (BldA) [Mass fraction] 96 % Jose Masci DO Work Phone: [facility] 11-27-2023 11:47-0400 Systolic blood pressure 143 mm[Hg] Jose Masci DO Work Phone: [facility] 11-25-2023 12:42-0400 Diastolic blood pressure 87 mm[Hg] Kendra Gregory MD Work Phone: [facility] 11-25-2023 12:42-0400 Heart rate 71 /min Kendra Gregory MD Work Phone: [facility] 11-25-2023 12:42-0400 Respiratory rate 16 /min Kendra Gregory MD Work Phone: [facility] 11-25-2023 12:42-0400 SaO2% (BldA) [Mass fraction] 98 % Kendra Gregory MD Work Phone: [facility] 11-25-2023 12:42-0400 Systolic blood pressure 166 mm[Hg] Kendra Gregory MD Work Phone: [facility] 11-25-2023 10:55-0400 Body temperature 97.2 [degF] Kendra Gregory MD Work Phone: [facility] 10-10-2023 10:57-0400 Body temperature 97 [degF] Kendra Gregory MD Work Phone: [facility] 10-10-2023 10:57-0400 Body weight 101.15 kg Kendra Gregory MD Work Phone: [facility] 10-10-2023 10:57-0400 Diastolic blood pressure 68 mm[Hg] Kendra Gregory MD Work Phone: [facility] 10-10-2023 10:57-0400 Heart rate 68 /min Kendra Gregory MD Work Phone: [facility] 10-10-2023 10:57-0400 SaO2% (BldA) [Mass fraction] 100 % Kendra Gregory MD Work Phone: [facility] 10-10-2023 10:57-0400 Systolic blood pressure 124 mm[Hg] Kendra Gregory MD Work Phone: [facility] 05-08-2023 09:12-0500 Body temperature 97.9 [degF] Jose Cunningham DO Work Phone: [facility] 05-08-2023 09:12-0500 Body weight 101.15 kg Jose Cunningham DO Work Phone: [facility] 05-08-2023 09:12-0500 Diastolic blood pressure 87 mm[Hg] Jose Merissai DO Work Phone: [facility] 05-08-2023 09:12-0500 Heart rate 57 /min Jose Masci DO Work Phone: [facility] 05-08-2023 09:12-0500 Respiratory rate 12 /min Jose Masci DO Work Phone: [facility] 05-08-2023 09:12-0500 SaO2% (BldA) [Mass fraction] 99 % Jose Masci DO Work Phone: [facility] 05-08-2023 09:12-0500 Systolic blood pressure 163 mm[Hg] Jose Masci DO Work Phone: [facility] 03-07-2023 10:54-0400 Body height 190.5 cm Amberly [place] Grove PA-C Work Phone: [facility] 03-07-2023 10:54-0400 Body temperature 97.59 [degF] Amberly [place] PA-C Work Phone: [facility] 03-07-2023 10:54-0400 Body weight 99.79 kg Amberly [place] PA-C Work Phone: [facility] 03-07-2023 10:54-0400 Diastolic blood pressure 72 mm[Hg] Amberly [place] PA-C Work Phone: [facility] 03-07-2023 10:54-0400 Heart rate 65 /min Amberly Karyn PA-C Work Phone: [facility] 03-07-2023 10:54-0400 SaO2% (BldA) [Mass fraction] 98 % Amberly [place] PA-C Work Phone: [facility] 03-07-2023 10:54-0400 Systolic blood pressure 124 mm[Hg] Amberly Karyn PA-C Work Phone: [facility] 02-27-2023 13:23-0400 Diastolic blood pressure 71 mm[Hg] Eric Li MD Work Phone: [facility] 02-27-2023 13:23-0400 Heart rate 72 /min Eric Li MD Work Phone: [facility] 02-27-2023 13:23-0400 Respiratory rate 16 /min Eric Li MD Work Phone: [facility] 02-27-2023 13:23-0400 SaO2% (BldA) [Mass fraction] 96 % Eric Li MD Work Phone: [facility] 02-27-2023 13:23-0400 Systolic blood pressure 152 mm[Hg] Eric Li MD Work Phone: [facility] 02-27-2023 12:16-0400 Body temperature 97 [degF] Eric Li MD Work Phone: [facility] 02-27-2023 12:16-0400 Body weight 98.7 kg Eric Li MD Work Phone: [facility] 02-13-2023 09:32-0400 Body temperature 97.59 [degF] Jose Masci DO Work Phone: [facility] 02-13-2023 09:32-0400 Body weight 98.88 kg Jose Masci DO Work Phone: [facility] 02-13-2023 09:32-0400 Diastolic blood pressure 80 mm[Hg] Jose Masci DO Work Phone: [facility] 02-13-2023 09:32-0400 Heart rate 68 /min Jose Masci DO Work Phone: [facility] 02-13-2023 09:32-0400 Systolic blood pressure 160 mm[Hg] Jose Masci DO Work Phone: [facility] 10-10-2022 10:13-0400 Body height 190.[address] Michele Justin Work Phone: [facility] 10-10-2022 10:13-0400 Body mass index (BMI) [Ratio] 27.7 kg/m2 Dr. Michele Justin Work Phone: [facility] 10-10-2022 10:13-0400 Body weight 100.[address] Michele Justin Work Phone: [facility] 10-10-2022 10:13-0400 Diastolic blood pressure 76 mm[Hg] Dr. Michele Justin Work Phone: [facility] 10-10-2022 10:13-0400 Heart rate 64 /min Dr. Michele Justin Work Phone: [facility] 10-10-2022 10:13-0400 Respiratory rate 18 /min Dr. Michele Justin Work Phone: [facility] 10-10-2022 10:13-0400 SaO2% (BldA) [Mass fraction] 98 % Dr. Michele Justin Work Phone: [facility] 10-10-2022 10:13-0400 Systolic blood pressure 134 mm[Hg] Dr. Michele Justin Work Phone: [facility] 09-04-2022 09:36-0400 Body temperature 97.39 [degF] Jose Masci DO Work Phone: [facility] 09-04-2022 09:36-0400 Body weight 100.47 kg Jose Masci DO Work Phone: [facility] 09-04-2022 09:36-0400 Diastolic blood pressure 78 mm[Hg] Jose Masci DO Work Phone: [facility] 09-04-2022 09:36-0400 Heart rate 60 /min Jose Masci DO Work Phone: [facility] 09-04-2022 09:36-0400 SaO2% (BldA) [Mass fraction] 100 % Jose Masci DO Work Phone: [facility] 09-04-2022 09:36-0400 Systolic blood pressure 153 mm[Hg] Jose Masci DO Work Phone: [facility] 08-29-2022 09:35-0500 Body height 188 cm Injection Wstr Work Phone: [facility] 08-29-2022 09:35-0500 Body temperature 97.2 [degF] Injection Wstr Work Phone: [facility] 08-29-2022 09:35-0500 Body weight 100.25 kg Injection Wstr Work Phone: [facility] 08-29-2022 09:35-0500 Diastolic blood pressure 88 mm[Hg] Injection Wstr Work Phone: [facility] 08-29-2022 09:35-0500 Heart rate 55 /min Injection Wstr Work Phone: [facility] 08-29-2022 09:35-0500 Systolic blood pressure 149 mm[Hg] Injection Wstr Work Phone: [facility] 07-12-2022 15:09-0500 Body height 190.[address] Michele Justin Work Phone: [facility] 07-12-2022 15:09-0500 Body mass index (BMI) [Ratio] 27.6 kg/m2 Dr. Michele Justin Work Phone: [facility] 07-12-2022 15:09-0500 Body weight 100.[address] Michele Justin Work Phone: [facility] 07-12-2022 15:09-0500 Diastolic blood pressure 68 mm[Hg] Dr. Michele Justin Work Phone: [facility] 07-12-2022 15:09-0500 Heart rate 72 /min Dr. Michele Justin Work Phone: [facility] 07-12-2022 15:09-0500 Respiratory rate 16 /min Dr. Michele Justin Work Phone: [facility] 07-12-2022 15:09-0500 Systolic blood pressure 128 mm[Hg] Dr. Michele Justin Work Phone: [facility] 06-06-2022 14:08-0500 Diastolic blood pressure 66 mm[Hg] [facility] 06-06-2022 14:08-0500 Heart rate 72 /min [facility] 06-06-2022 14:08-0500 Respiratory rate 16 /min [facility] 06-06-2022 14:08-0500 SaO2% (BldA) [Mass fraction] 97 % [facility] 06-06-2022 14:08-0500 Systolic blood pressure 147 mm[Hg] [facility] 06-06-2022 11:18-0500 Body height 190.5 cm [facility] Work Phone: 06-06-2022 11:18-0500 Body mass index (BMI) [Ratio] 26.6 kg/m2 [facility] 06-06-2022 11:18-0500 Body temperature 97.4 [degF] [facility] 06-06-2022 11:18-0500 Body weight 96.61 kg [facility] 06-06-2022 09:07-0500 Body temperature 97.7 [degF] Jose Masci DO Work Phone: [facility] 06-06-2022 09:07-0500 Body weight 100.25 kg Jose Masci DO Work Phone: [facility] 06-06-2022 09:07-0500 Diastolic blood pressure 76 mm[Hg] Jose Masci DO Work Phone: [facility] 06-06-2022 09:07-0500 Heart rate 98 /min Jose Masci DO Work Phone: [facility] 06-06-2022 09:07-0500 Systolic blood pressure 122 mm[Hg] Jose Masci DO Work Phone: [facility] 03-14-2022 09:43-0400 Body temperature 97.3 [degF] Injection Wstr Work Phone: [facility] 03-14-2022 09:43-0400 Body weight 98.88 kg Injection Wstr Work Phone: [facility] 03-14-2022 09:43-0400 Diastolic blood pressure 80 mm[Hg] Injection Wstr Work Phone: [facility] 03-14-2022 09:43-0400 Heart rate 47 /min Injection Wstr Work Phone: [facility] 03-14-2022 09:43-0400 Systolic blood pressure 138 mm[Hg] Injection Wstr Work Phone: [facility] 12-20-2021 09:19-0400 Body temperature 97.7 [degF] Jose Masci DO Work Phone: [facility] 12-20-2021 09:19-0400 Body weight 95.03 kg Jose Masci DO Work Phone: [facility] 12-20-2021 09:19-0400 Diastolic blood pressure 70 mm[Hg] Jose Masci DO Work Phone: [facility] 12-20-2021 09:19-0400 Heart rate 71 /min Jose Masci DO Work Phone: [facility] 12-20-2021 09:19-0400 Systolic blood pressure 140 mm[Hg] Jose Masci DO Work Phone: [facility] 09-27-2021 09:29-0400 Body temperature 97.81 [degF] Injection Wstr Work Phone: [facility] 09-27-2021 09:29-0400 Body weight 98.43 kg Injection Wstr Work Phone: [facility] 09-27-2021 09:29-0400 Diastolic blood pressure 68 mm[Hg] Injection Wstr Work Phone: [facility] 09-27-2021 09:29-0400 Heart rate 75 /min Injection Wstr Work Phone: [facility] 09-27-2021 09:29-0400 Systolic blood pressure 141 mm[Hg] Injection Wstr Work Phone: [facility] Encounters Encounter Date Encounter Type Care Provider Facility Start: 01-17-2025 End: 01-17-2025 Patient encounter procedure Jose A Masci DO Work Phone: Hematology/Oncology Start: 01-17-2025 End: 01-17-2025 ambulatory Jose Stoll Masci DO Work Phone: Hematology/Oncology Comment on above: Prostate cancer (HCC ) (Primary Dx) Start: 01-14-2025 End: 01-14-2025 ambulatory JOSE CUNNINGHAM Facility:[facility] Start: 01-10-2025 End: 01-10-2025 ambulatory RAPHAEL JUSTIN Facility:[facility] Start: 01-06-2025 End: 01-06-2025 Orders Only Jose Craveni DO Work Phone: Hematology/Oncology Start: 12-06-2024 End: 12-06-2024 Patient encounter procedure Vanesa MICHAEL -[facility] Work Phone: Start: 12-06-2024 End: 12-06-[address] Raphael Justin MD Work Phone: [facility] Work Phone: Start: 10-01-2024 End: 10-01-2024 ambulatory Jose Craveni DO Work Phone: Hematology/Oncology Comment on above: Prostate cancer (HCC ) (Primary Dx) Start: 10-01-2024 End: 10-01-2024 Patient encounter procedure Jose Cunningham DO Work Phone: Hematology/Oncology Start: 09-23-2024 ambulatory JOSE CUNNINGHAM Facility:[id number] Start: 09-23-2024 End: 09-23-2024 Subsequent hospital visit by physician [facility] PET / CT SCAN Comment on above: Prostate cancer (HCC ) [C61] Start: 09-13-2024 End: 09-19-2024 Telephone encounter Jose Cunningham DO Work Phone: Hematology/Oncology Comment on above: Patient Question Start: 09-07-2024 End: 09-07-2024 ambulatory Jose Craveni DO Work Phone: Hematology/Oncology Comment on above: Prostate cancer (HCC ) (Primary Dx); Abnormal PSA; Increasing PSA level after treatment for prostate cancer Start: 09-07-2024 End: 09-07-2024 Patient encounter procedure Jose Cunningham DO Work Phone: Hematology/Oncology Start: 09-06-2024 End: 09-06-2024 ambulatory RAPHAEL JUSTIN Facility:[facility] Start: 07-30-2024 ambulatory Ronaldedgardo Margoth Faci lity:[facility] Start: 07-16-2024 End: 07-16-2024 Telephone encounter Jose Cunningham DO Work Phone: Hematology/Oncology Comment on above: Patient Update Start: 07-14-2024 End: 07-30-2024 Evaluation and management of inpatient Raphael Justin Facility:[facility] Start: 07-12-2024 End: 07-12-2024 ambulatory Charly Villagomez Facility:[facility] Start: 07-10-2024 ambulatory Charly Villagomez Facili ty:[facility] Start: 07-10-2024 End: 07-14-2024 [facility] Start: 03-29-2024 End: 03-29-2024 ambulatory Jose Craveni DO Work Phone: Hematology/Oncology Comment on above: Prostate cancer (HCC ) (Primary Dx); Thrombocytopenia (HCC); Neuropathy; Rectal bleeding; Atrial fibrillation, unspecified type (HCC) Start: 03-29-2024 End: 03-29-2024 Patient encounter procedure Jose Cunningham DO Work Phone: Hematology/Oncology Start: 03-24-2024 End: 03-24-2024 ambulatory RAPHAEL JUSTIN Facility:[facility] Start: 02-09-2024 End: 04-02-2024 Telephone encounter Neurology Provider Neurology Comment on above: Appointment Start: 01-28-2024 ambulatory Raphael Briones lity:[facility] Start: 01-28-2024 End: 01-28-2024 ambulatory Ronaldedgardo Margoth Facility:[facility] Start: 01-06-2024 End: 01-06-2024 [facility] Start: 11-27-2023 End: 11-27-2023 ambulatory Jose A Masci DO Work Phone: Hematology/Oncology Comment on above: Prostate cancer (HCC ) (Primary Dx); Rectal bleeding; Urinary frequency Start: 11-27-2023 End: 11-27-2023 Patient encounter procedure Jose Cunningham DO Work Phone: Hematology/Oncology Start: 11-25-2023 End: 11-25-2023 Subsequent hospital visit by physician Kendra Gregory MD Work Phone: Ambulatory Surgery Comment on above: 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] Start: 11-10-2023 Telephone encounter Jose curtis DO Work Phone: Hematology/Oncology Comment on above: Results Start: 10-13-2023 Admission to [facility] Kendra Gregory MD Work Phone: General Surgery Comment on above: Sucralfate Start: 10-13-2023 ambulatory Kendra mcgrath MD Work Phone: General Surgery Start: 10-10-2023 Telephone encounter Kendra Gregory MD Work Phone: General Surgery Comment on above: Orders (Enemas not a vailable) Start: 10-10-2023 End: 10-10-2023 Patient encounter procedure Kendra Gregory MD Work Phone: General Surgery Comment on above: Tubulovillous adenom a (Primary Dx); Radiation proctitis Start: 07-17-2023 Telephone encounter Amberly celaya PA-C Work Phone: General Surgery Start: 05-08-2023 End: 05-08-2023 ambulatory Jose Cunningham DO Work Phone: Hematology/Oncology Comment on above: Prostate cancer (HCC ) (Primary Dx); Atrial fibrillation, unspecified type (HCC); Rectal bleeding; Tubulovillous adenoma Start: 05-08-2023 End: 05-08-2023 Patient encounter procedure Jose Cunningham DO Work Phone: [facility] Start: 04-01-2023 Telephone encounter Jose curtis DO Work Phone: Hematology/Oncology Comment on above: Patient Question Start: 03-07-2023 End: 03-07-2023 Patient encounter procedure Amberly Boss PA-C Work Phone: General Surgery Comment on above: Tubulovillous adenom a (Primary Dx); Diverticulosis; Radiation proctitis Start: 02-27-2023 End: 02-27-2023 Subsequent hospital visit by physician Eric Li MD Work Phone: Ambulatory Surgery Comment on above: Rectal bleeding [K62 .5] Start: 02-13-2023 End: 02-13-2023 ambulatory Jose Cunningham DO Work Phone: Hematology/Oncology Comment on above: Prostate cancer (HCC ) (Primary Dx); Atrial fibrillation, unspecified type (HCC); Rectal bleeding; Heat intolerance Prostate cancer (HCC ) (Primary Dx) Start: 02-13-2023 End: 02-13-2023 Patient encounter procedure Jose Cunningham DO Work Phone: [facility] Start: 02-10-2023 Orders Only Jose Morris Work Phone: Hematology/Oncology Comment on above: Prostate cancer (HCC ) (Primary Dx); Atrial fibrillation, unspecified type (HCC) Start: 01-06-2023 End: 01-06-[address] Michele Justin Work Phone: [facility] Work Phone: Start: 01-06-2023 End: 01-06-[address] Michele Justin Work Phone: [facility]Radiology, [place] Work Phone: Start: 11-21-2022 End: 11-21-2022 [facility] Work Phone: [facility] Comment on above: Prostate cancer (HCC ) (Primary Dx) Start: 11-20-2022 Orders Only Jose Morris Work Phone: Hematology/Oncology Comment on above: Prostate cancer (HCC ) (Primary Dx) Start: 10-10-2022 End: 10-10-[address] 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 Start: 08-29-2022 End: 08-29-2022 ambulatory Injection Alonzo [facility] Work Phone: Hematology/Oncology Comment on above: Prostate cancer (HCC ) (Primary Dx) Start: 08-28-2022 Orders Only Jose Morris Work Phone: Hematology/Oncology Comment on above: Prostate cancer (HCC ) (Primary Dx) Start: 08-19-2022 Telephone encounter Jose curtis DO Work Phone: Hematology/Oncology Comment on above: Patient Question Start: 08-06-2022 Non-patient / Non-visit Dr. Rangel Justin Work Phone: [facility] Start: 08-06-2022 End: 08-06-[address] Michele Justin Work Phone: [facility] Work Phone: Start: 08-06-2022 End: 08-06-[address] Michele Justin Work Phone: [facility] Start: 07-12-2022 End: 07-12-[address] Michele Justin Work Phone: [facility] Start: 07-12-2022 Non-patient / Non-visit Dr. Rangel Justin Work Phone: [facility] Start: 06-06-2022 End: 06-06-2022 Emergency department patient visit [facility]Emergency Department Start: 06-06-2022 End: 06-06-2022 ambulatory Jose Cunningham DO Work Phone: Hematology/Oncology Comment on above: Prostate cancer (HCC ) (Primary Dx); Irregular heart beat Prostate cancer (HCC ) (Primary Dx) Start: 06-06-2022 End: 06-06-2022 Patient encounter procedure Jose Cunningham DO Work Phone: [facility] Start: 06-05-2022 Orders Only Jose Morris Work Phone: Hematology/Oncology Comment on above: Prostate cancer (HCC ) (Primary Dx) Start: 05-31-2022 End: 05-31-2022 Patient encounter procedure [facility] Start: 04-08-2022 End: 04-08-2022 ambulatory [facility] Work Phone: Start: 04-08-2022 End: 04-08-2022 [facility] Start: 03-14-2022 End: 03-14-2022 ambulatory Injection Alonzo [facility] Work Phone: Hematology/Oncology Comment on above: Prostate cancer (HCC ) (Primary Dx) Start: 03-08-2022 Orders Only Jose Morris Work Phone: Hematology/Oncology Comment on above: Prostate cancer (HCC ) (Primary Dx) Start: 12-20-2021 End: 12-20-2021 ambulatory Jose Cunningham DO Work Phone: Hematology/Oncology Comment on above: Prostate cancer (HCC ) (Primary Dx) Start: 12-20-2021 End: 12-20-2021 Patient encounter procedure Jose Cunningham DO Work Phone: [facility] Start: 12-14-2021 Orders Only Jose Morris Work Phone: Hematology/Oncology Comment on above: Prostate cancer (HCC ) (Primary Dx) Start: 09-28-2021 Telephone encounter Jose curtis DO Work Phone: Hematology/Oncology Comment on above: Results; Follow Up Start: 09-27-2021 End: 09-27-2021 ambulatory Injection Alonzo [facility] Work Phone: Hematology/Oncology Comment on above: Prostate cancer (HCC ) (Primary Dx) Start: 09-26-2021 Orders Only Jose Morris Work Phone: Hematology/Oncology Comment on above: Prostate cancer (HCC ) (Primary Dx) Procedures Date Procedure Procedure Detail Performing Clinician Start: 11-25-2023 Colonoscopy flx dx w /collj spec when pfrmd Kendra Gregory MD Work Phone: Start: 11-25-2023 Colonoscopy Jose Cunningham DO Work Phone: Start: 02-27-2023 Level iv surg pathol ogy gross&microscopic exam Eric Li MD Work Phone: Start: 02-27-2023 Colonoscopy flx dx w /collj spec when pfrmd Kendra Gregory MD Work Phone: Start: 01-06-2023 Complete x-ray serie s of lumbar spine with bending views Dr. Michele Justin Work Phone: Start: 01-06-2023 X-ray of cervical spine Dr. Michele Justin Work Phone: Start: 06-06-2022 Plain chest X-ray Start: 04-08-2022 X-ray of lumbosacral spine Plan of Treatment Date Care Activity Detail Author Start: 04-10-2033 Urine microalbumin profile DTaP,Tdap,Td Vaccine (3 - Td or Tdap) [facility] Start: 01-04-2028 Urine microalbumin profile DTaP,Tdap,Td Vaccine (2 - Td or Tdap) [facility] Start: 11-03-2026 Diabetes Screening Diabetes Screenin g [facility] Start: 05-08-2026 Diabetes Screening Diabetes Screenin g [facility] Start: 02-11-2026 DIABETES SCREEN DIABETES SCREEN [facility] Start: 02-11-2026 Diabetes Screening Diabetes Screenin g [facility] Start: 11-24-2025 Screening for malign ant neoplasm of colon [facility] Start: 11-21-2025 DIABETES SCREEN DIABETES SCREEN [facility] Start: 08-29-2025 DIABETES SCREEN DIABETES SCREEN [facility] Start: 07-20-2025 End: 07-20-2025 ambulatory 07/20/2025 11:30 AM EST Visit (SP) Office Hematology/Oncology [id number] [address] [place] [id number] Jose Cunningham, DO [address] [place] [id number] 6MO/LABS 07/15* Hematology/Oncology Comment on above: 6MO/LABS 07/15* Start: 07-15-2025 End: 07-15-2025 ambulatory 07/15/2025 2:00 PM EST Results Only [place] [place] [facility] [address] [place] [address] PSA [facility] Comment on above: PSA Start: 06-06-2025 DIABETES SCREEN DIABETES SCREEN [facility] Start: 03-11-2025 DIABETES SCREEN DIABETES SCREEN [facility] Start: 02-21-2025 Influenza vaccination Influenza Vacc ine (#1) [facility] Start: 01-17-2025 End: 01-17-2025 ambulatory 01/17/2025 4:10 PM EDT Visit (SP) Office Hematology/Oncology [address] [place] [address] Jose Cunningham, DO [address] [place] [id number] 3MO OV/PM APTS* Hematology/Oncology Comment on above: 3MO OV/PM APTS* Start: 01-10-2025 End: 01-10-2025 ambulatory 01/10/2025 1:00 PM EDT Results Only [facility] [address] [place] [address] PSA [place] [place] [facility] Comment on above: PSA Start: 12-17-2024 DIABETES SCREEN DIABETES SCREEN [facility] Start: 10-16-2024 Covid-19 Vaccine () Covid-19 Vaccine () [facility] Start: 10-01-2024 End: 10-01-2024 ambulatory 10/01/2024 2:50 PM EDT Visit (SP) Office Hematology/Oncology [address] [place] [address] Jose Cunningham, DO [address] [place] [address] OV/PET 4/3* Hematology/Oncology Comment on above: OV/PET 4/3* Start: 09-27-2024 DIABETES SCREEN DIABETES SCREEN [facility] Start: 09-23-2024 End: 09-23-[address] Scan Comment on above: Dx: Prostate cancer (HCC) [C61]; Increasing PSA level after treatment for prostate cancer [R97.21] Start: 07-30-2024 End: 07-30-2024 ambulatory 07/30/2024 2:30 PM EST Visit (SP) Office Hematology/Oncology [address] [place] [address] Jose Cunningham, DO [address] [place] [address] 4MO OV/LABS 2/5* Hematology/Oncology Comment on above: 4MO OV/LABS 2/5* Start: 07-28-2024 End: 07-28-2024 ambulatory 07/28/2024 2:30 PM EST Results Only [facility] [address] [place] [address] CBC/PSA* [place] [facility] Comment on above: CBC/PSA* Start: 07-05-2024 DIABETES SCREEN DIABETES SCREEN [facility] Start: 06-23-2024 Advance Directive Discussion Advance Directive Discussion [facility] Start: 06-23-2024 Medicare [facility] Annual Wellness Visit Medicare [facility] Annual Wellness Visit [facility] Start: 03-29-2024 End: 03-29-2024 ambulatory 03/29/2024 2:30 PM EDT Visit (SP) Office Hematology/Oncology [address] [place] [address] Jose Cunningham, [address] [place] [address] 4MO OV/ LABS EARLY CBC/PSA * Hematology/Oncology Comment on above: 4MO OV/ LABS EARLY C BC/PSA * Start: 03-29-2024 End: 06-28-2024 Cobalamin (Vitamin B12) [Mass/volume] in Serum or Plasma [facility] Work Phone: Comment on above: Expected: 03/29/2024 , Expires: 06/28/2024 Start: 03-24-2024 End: 03-24-2024 ambulatory 03/24/2024 10:00 AM EDT Results Only [facility] [address] [place] [address] CBC/PSA/Testosterone total and free [place] [place] [facility] Comment on above: CBC/PSA/Testosterone total and free Start: 02-22-2024 Covid-19 Vaccine ( season) Covid-19 Vaccine ( season) [facility] Start: 11-27-2023 End: 11-27-2023 ambulatory 11/27/2023 11:50 AM EDT Visit (SP) Office Hematology/Oncology [address] [place] [address] Jose Cunningham DO [address] [place] [address] 6MO OV/LABS 11/03, 11/06* Hematology/Oncology Comment on above: 6MO OV/LABS 11/03, * Start: 11-25-2023 End: 11-25-2023 Patient encounter procedure 11/25/2023 12:30 PM EDT Appointment Ambulatory Surgery [address] [place] [address] Kendra Gregory MD [address] [address] Ambulatory Surgery Start: 11-07-2023 End: 11-07-2023 ambulatory 11/07/2023 9:40 AM EDT Visit (SP) Office Hematology/Oncology [address] [place] [address] Jose Cunningham DO [address] [place] [address] 6MO OV/LABS 11/03* Hematology/Oncology Comment on above: 6MO OV/LABS 11/03* Start: 11-04-2023 End: 11-04-2023 ambulatory 11/04/2023 9:30 AM EDT Results Only [facility] [place] [facility] [address] [place] [address] CBC/CMP/PSA [facility] Comment on above: CBC/CMP/PSA Start: 08-18-2023 Covid-19 Vaccine () Covid-19 Vaccine () [facility] Start: 06-23-2023 Advance Directive Discussion Advance Directive Discussion [facility] Start: 06-23-2023 Behavioral Health Screening Behavioral Health Screening [facility] Start: 06-23-2023 Depression Assessment Depression Ass essment [facility] Start: 02-21-2023 Covid-19 Vaccine () Covid-19 Vaccine () [facility] Start: 02-21-2023 Influenza vaccination C [facility] Start: 02-13-2023 End: 04-15-2023 Thyrotropin [Units/volume] in Serum or Plasma [facility] Work Phone: Comment on above: Expected: 02/13/2023 , Expires: 04/15/2023 Start: 02-13-2023 End: 04-15-2023 Thyroxine (T4) free [Mass/volume] in Serum or Plasma [facility] Work Phone: Comment on above: Expected: 02/13/2023 , Expires: 04/15/2023 Start: 02-11-2023 End: 04-13-2023 25-hydroxyvitamin D3 [Mass/volume] in Serum or Plasma VITAMIN D 25 HYDROXY Lab Routine Prostate cancer (HCC) Atrial fibrillation, unspecified type (HCC) Expected: 02/11/2023, Expires: 04/13/2023 [facility] Work Phone: Comment on above: Expected: 02/11/2023 , Expires: 04/13/2023 Start: 02-11-2023 End: 04-13-2023 CBC W Auto Differential panel - Blood CBC + DIFF Lab STAT Prostate cancer (HCC) Atrial fibrillation, unspecified type (HCC) Expected: 02/11/2023, Expires: 04/13/2023 [facility] Work Phone: Comment on above: Expected: 02/11/2023 , Expires: 04/13/2023 Start: 02-11-2023 End: 04-13-2023 Comprehensive metabolic 2000 panel - Serum or Plasma COMP METABOLIC PANEL Lab STAT Prostate cancer (HCC) Atrial fibrillation, unspecified type (HCC) Expected: 02/11/2023, Expires: 04/13/2023 [facility] Work Phone: Comment on above: Expected: 02/11/2023 , Expires: 04/13/2023 Start: 02-11-2023 End: 04-13-2023 Prostate specific Ag [Mass/volume] in Serum or Plasma PSA/PROSTSPECAG DIAG Lab Routine Prostate cancer (HCC) Atrial fibrillation, unspecified type (HCC) Expected: 02/11/2023, Expires: 04/13/2023 [facility] Work Phone: Comment on above: Expected: 02/11/2023 , Expires: 04/13/2023 Start: 11-21-2022 End: 01-21-2023 25-hydroxyvitamin D3 [Mass/volume] in Serum or Plasma VITAMIN D 25 HYDROXY Lab Routine Prostate cancer (HCC) Expected: 11/21/2022, Expires: 01/21/2023 [facility] Work Phone: Comment on above: Expected: 11/21/2022 , Expires: 01/21/2023 Start: 11-21-2022 End: 01-21-2023 CBC W Auto Differential panel - Blood CBC + DIFF Lab STAT Prostate cancer (HCC) Expected: 11/21/2022, Expires: 01/21/2023 [facility] Work Phone: Comment on above: Expected: 11/21/2022 , Expires: 01/21/2023 Start: 11-21-2022 End: 01-21-2023 Comprehensive metabolic 2000 panel - Serum or Plasma COMP METABOLIC PANEL Lab STAT Prostate cancer (HCC) Expected: 11/21/2022, Expires: 01/21/2023 [facility] Work Phone: Comment on above: Expected: 11/21/2022 , Expires: 01/21/2023 Start: 11-21-2022 End: 01-21-2023 Prostate specific Ag [Mass/volume] in Serum or Plasma PSA/PROSTSPECAG DIAG Lab Routine Prostate cancer (HCC) Expected: 11/21/2022, Expires: 01/21/2023 [facility] Work Phone: Comment on above: Expected: 11/21/2022 , Expires: 01/21/2023 Start: 08-29-2022 End: 10-29-2022 25-hydroxyvitamin D3 [Mass/volume] in Serum or Plasma VITAMIN D 25 HYDROXY Lab Routine Prostate cancer (HCC) Expected: 08/29/2022, Expires: 10/29/2022 [facility] Work Phone: Comment on above: Expected: 08/29/2022 , Expires: 10/29/2022 Start: 08-29-2022 End: 10-29-2022 CBC W Auto Differential panel - Blood CBC + DIFF Lab STAT Prostate cancer (HCC) Expected: 08/29/2022, Expires: 10/29/2022 [facility] Work Phone: Comment on above: Expected: 08/29/2022 , Expires: 10/29/2022 Start: 08-29-2022 End: 10-29-2022 Comprehensive metabolic 2000 panel - Serum or Plasma COMP METABOLIC PANEL Lab STAT Prostate cancer (HCC) Expected: 08/29/2022, Expires: 10/29/2022 [facility] Work Phone: Comment on above: Expected: 08/29/2022 , Expires: 10/29/2022 Start: 08-29-2022 End: 10-29-2022 Prostate specific Ag [Mass/volume] in Serum or Plasma PSA/PROSTSPECAG DIAG Lab Routine Prostate cancer (HCC) Expected: 08/29/2022, Expires: 10/29/2022 [facility] Work Phone: Comment on above: Expected: 08/29/2022 , Expires: 10/29/2022 Start: 08-17-2022 COVID-19 VACCINE (6 - Moderna series) COVID-19 VACCINE (6 - Moderna series) [facility] Start: 06-23-2022 ADVANCE DIRECTIVE DISCUSSION ADVANCE DIRECTIVE DISCUSSION [facility] Start: 06-23-2022 DEPRESSION ASSESSMENT DEPRESSION ASS ESSMENT [facility] Start: 06-06-2022 End: 08-06-2022 25-hydroxyvitamin D3 [Mass/volume] in Serum or Plasma VITAMIN D 25 HYDROXY Lab Routine Prostate cancer (HCC) Expected: 06/06/2022, Expires: 08/06/2022 [facility] Work Phone: Comment on above: Expected: 06/06/2022 , Expires: 08/06/2022 Start: 06-06-2022 End: 08-06-2022 CBC W Auto Differential panel - Blood CBC + DIFF Lab STAT Prostate cancer (HCC) Expected: 06/06/2022, Expires: 08/06/2022 [facility] Work Phone: Comment on above: Expected: 06/06/2022 , Expires: 08/06/2022 Start: 06-06-2022 End: 08-06-2022 Comprehensive metabolic 2000 panel - Serum or Plasma COMP METABOLIC PANEL Lab STAT Prostate cancer (HCC) Expected: 06/06/2022, Expires: 08/06/2022 [facility] Work Phone: Comment on above: Expected: 06/06/2022 , Expires: 08/06/2022 Start: 06-06-2022 End: 08-06-2022 Prostate specific Ag [Mass/volume] in Serum or Plasma PSA/PROSTSPECAG DIAG Lab Routine Prostate cancer (HCC) Expected: 06/06/2022, Expires: 08/06/2022 [facility] Work Phone: Comment on above: Expected: 06/06/2022 , Expires: 08/06/2022 Start: 03-11-2022 End: 05-11-2022 25-hydroxyvitamin D3 [Mass/volume] in Serum or Plasma VITAMIN D 25 HYDROXY Lab Routine Prostate cancer (HCC) Expected: 03/11/2022, Expires: 05/11/2022 [facility] Work Phone: Comment on above: Expected: 03/11/2022 , Expires: 05/11/2022 Start: 03-11-2022 End: 05-11-2022 CBC W Auto Differential panel - Blood CBC + DIFF Lab STAT Prostate cancer (HCC) Expected: 03/11/2022, Expires: 05/11/2022 [facility] Work Phone: Comment on above: Expected: 03/11/2022 , Expires: 05/11/2022 Start: 03-11-2022 End: 05-11-2022 Comprehensive metabolic 2000 panel - Serum or Plasma COMP METABOLIC PANEL Lab Routine Prostate cancer (HCC) Expected: 03/11/2022, Expires: 05/11/2022 [facility] Work Phone: Comment on above: Expected: 03/11/2022 , Expires: 05/11/2022 Start: 03-11-2022 End: 05-11-2022 Prostate specific Ag [Mass/volume] in Serum or Plasma PSA/PROSTSPECAG DIAG Lab Routine Prostate cancer (HCC) Expected: 03/11/2022, Expires: 05/11/2022 [facility] Work Phone: Comment on above: Expected: 03/11/2022 , Expires: 05/11/2022 Start: 02-21-2022 Influenza vaccination INFLUENZA (#1) [facility] Start: 12-17-2021 End: 02-16-2022 25-hydroxyvitamin D3 [Mass/volume] in Serum or Plasma VITAMIN D 25 HYDROXY Lab Routine Prostate cancer (HCC) Expected: 12/17/2021, Expires: 02/16/2022 [facility] Work Phone: Comment on above: Expected: 12/17/2021 , Expires: 02/16/2022 Start: 12-17-2021 End: 02-16-2022 CBC W Auto Differential panel - Blood CBC + DIFF Lab STAT Prostate cancer (HCC) Expected: 12/17/2021, Expires: 02/16/2022 [facility] Work Phone: Comment on above: Expected: 12/17/2021 , Expires: 02/16/2022 Start: 12-17-2021 End: 02-16-2022 Comprehensive metabolic 2000 panel - Serum or Plasma COMP METABOLIC PANEL Lab Routine Prostate cancer (HCC) Expected: 12/17/2021, Expires: 02/16/2022 [facility] Work Phone: Comment on above: Expected: 12/17/2021 , Expires: 02/16/2022 Start: 12-17-2021 End: 02-16-2022 Prostate specific Ag [Mass/volume] in Serum or Plasma PSA/PROSTSPECAG DIAG Lab Routine Prostate cancer (HCC) Expected: 12/17/2021, Expires: 02/16/2022 [facility] Work Phone: Comment on above: Expected: 12/17/2021 , Expires: 02/16/2022 Start: 11-19-2021 COVID-19 VACCINE (5 - Booster for Moderna series) COVID-19 VACCINE (5 - Booster for Moderna series) [facility] Start: 09-27-2021 End: 11-27-2021 CBC W Auto Differential panel - Blood CBC + DIFF Lab STAT Prostate cancer (HCC) Expected: 09/27/2021, Expires: 11/27/2021 [facility] Work Phone: Comment on above: Expected: 09/27/2021 , Expires: 11/27/2021 Start: 09-27-2021 End: 11-27-2021 Comprehensive metabolic 2000 panel - Serum or Plasma COMP METABOLIC PANEL Lab Routine Prostate cancer (HCC) Expected: 09/27/2021, Expires: 11/27/2021 [facility] Work Phone: Comment on above: Expected: 09/27/2021 , Expires: 11/27/2021 Start: 09-27-2021 End: 11-27-2021 Prostate specific Ag [Mass/volume] in Serum or Plasma PSA/PROSTSPECAG DIAG Lab Routine Prostate cancer (HCC) Expected: 09/27/2021, Expires: 11/27/2021 [facility] Work Phone: Comment on above: Expected: 09/27/2021 , Expires: 11/27/2021 Start: 09-27-2021 End: 11-27-2021 VITAMIN D 25 HYDROXY VITAMIN D 25 HYDROXY Lab Routine Prostate cancer (HCC) Expected: 09/27/2021, Expires: 11/27/2021 [facility] Work Phone: Comment on above: Expected: 09/27/2021 , Expires: 11/27/2021 Start: 06-23-2021 ADVANCE DIRECTIVE DISCUSSION ADVANCE DIRECTIVE DISCUSSION [facility] Start: 06-23-2021 DEPRESSION ASSESSMENT DEPRESSION ASS ESSMENT [facility] Start: 02-10-2014 FECAL OCCULT BLOOD FECAL OCCULT BLOO D [facility] Start: 02-10-2014 Screening for malign ant neoplasm of colon Fecal Occult Blood [facility] Start: 07-04-1999 Urine microalbumin profile [facility] Start: 1998 RSV Vaccine (1 - 1-d ose 60+ series) RSV Vaccine (1 - 1-dose 60+ series) [facility] Start: 04-21-1984 Screening for malign ant neoplasm of colon [facility] Start: 1956 Anxiety Screening Anxiety Screening [facility] Start: 1956 Depression Screening Depression Scre ening [facility] End: 06-06-2023 ECG COMPLETE ECG COMPLETE ECG Routine Irregular heart beat 1 Occurrences starting 06/06/2022 until 06/06/2023 [facility] Work Phone: Comment on above: 1 Occurrences starti ng 06/06/2022 until 06/06/2023 Patient Education [facility] Work Phone: Patient referral [facility] Work Phone: End: 10-07-2025 PET+CT Guidance for localization of tumor of Whole body-- W 18F-FDG IV NM PET/CT PROSTATE WHOLE BODY IMAGING Radiology Routine Prostate cancer (HCC) Increasing PSA level after treatment for prostate cancer 1 Occurrences starting 09/07/2024 until 10/07/2025 [facility] Work Phone: Comment on above: 1 Occurrences starti ng 09/07/2024 until 10/07/2025 PET+CT Guidance for localization of tumor of Whole body-- W 18F-FDG IV NM PET/CT PROSTATE WHOLE BODY IMAGING Radiology Routine Prostate cancer (HCC) Increasing PSA level after treatment for prostate cancer 09/23/2024 1:10 PM EDT [facility] Work Phone: End: 10-09-2024 Screening colonoscopy COLONOSCOPY SCREENING Endoscopy Routine Tubulovillous adenoma Radiation proctitis 1 Occurrences starting 10/10/2023 until 10/09/2024 [facility] Work Phone: Comment on above: 1 Occurrences starti ng 10/10/2023 until 10/09/2024 SURGICAL PATHOLOGY [facility] Work Phone: Comment on above: Release Upon Alfonsoin g for 1 Occurrences starting 11/25/2023, 1 completed [facility] Immunizations Immunization Date Immunization Notes Care Provider Fa cili 04-17-2024 Covid (Spikevax) Dr. Michael Justin MD Work Phone: [facility] 03-16-2024 influenza, seasonal, injectable, preservative free Dr. Raphael Justin MD Work Phone: [facility] 03-16-2024 influenza virus vaccine, unspecified formulation Jose Cunningham DO Work Phone: [facility] 04-17-2023 Covid (Spikevax) Dr. Michael Justin MD Work Phone: [facility] 04-17-2023 respiratory syncytia l virus (RSV), unspecified formulation Jose Cunningham DO Work Phone: [facility] Work Phone: 04-17-2023 RSV Adult BiValent (Abrysvo) Dr. Raphael Justin MD Work Phone: [facility] 04-10-2023 tetanus toxoid, redu yaneli diphtheria toxoid, and acellular pertussis vaccine, adsorbed Jose Kinteracarlos manuel DO Work Phone: [facility] Work Phone: 04-08-2023 influenza, high dose seasonal, preservative-free Jose Cunningham DO Work Phone: [facility] Work Phone: 04-08-2023 influenza, injectabl e, quadrivalent, preservative free Dr. Raphael Justin MD Work Phone: [facility] 03-22-2023 pneumococcal polysaccharide vaccine, 23 valent Jose Cunningham DO Work Phone: [facility] Work Phone: 02-20-2023 Pneumococcal Vaccine PCV20 (Prevnar 20) Dr. Raphael Justin MD Work Phone: [facility] 04-16-2022 Covid Moderna Bivale nt Booster Dr. Raphael Justin MD Work Phone: [facility] 03-23-2022 influenza virus vaccine, unspecified formulation Amberly Graf DOSS Work Phone: [facility] 09-24-2021 Covid (Moderna) Dr. Radha Justin MD Work Phone: [facility] 03-06-2021 influenza, high-dose , quadrivalent vaccine (FLUZONE HIGH DOSE QUADRIVALENT) oJse Cunningham DO Work Phone: [facility] 08-17-2020 Covid (Moderna) [facility] 07-20-2020 Covid (Moderna) [facility] 11-01-2019 zoster vaccine recombinant Jose Craveni DO Work Phone: [facility] 09-01-2019 zoster vaccine recombinant Jose Cunningham DO Work Phone: [facility] 03-21-2016 influenza, high dose seasonal, preservative-free Jose Cunningham DO Work Phone: [facility] 12-12-2014 zoster vaccine, live Jose Gabriela sci DO Work Phone: [facility] 06-09-2014 pneumococcal conjuga te vaccine, 13 valent Jose Cunningham DO Work Phone: [facility] 06-09-2014 pneumococcal conjuga te vaccine, [address] Raphael Justin MD Work Phone: [facility] 03-21-2012 influenza virus vaccine, unspecified formulation Jose Cunningham DO Work Phone: [facility] Work Phone: 03-30-2011 influenza virus vaccine, unspecified formulation Jose Cunningham DO Work Phone: [facility] Work Phone: 03-30-2010 influenza virus vaccine, unspecified formulation Jose Cunningham DO Work Phone: [facility] Work Phone: 06-21-2009 novel [id number], all formulations Jose Cunningham DO Work Phone: [facility] Work Phone: 04-26-2009 influenza virus vaccine, unspecified formulation Jose Cunningham DO Work Phone: [facility] 03-19-2004 pneumococcal polysaccharide vaccine, 23 valent Jose Cunningham DO Work Phone: [facility] 07-03-1999 tetanus and diphther ia toxoids, adsorbed, preservative free, for adult use (2 Lf of tetanus toxoid and 2 Lf of diphtheria toxoid) Jose Cunningham DO Work Phone: [facility] Payers Date Payer Category Payer Self-pay [id number] 2020 Medicare MMO MEDICARE MMO MEDADVANTAGE O [id number] 2020-Present [phone] [address] [place] [address] [facility] [id number] 2020 Medicare [id number] 2020 Medicare (Managed Care) MMO DOMO DVANTAGE O [id number] 2020 Unknown [id number] 2014 Medicare [employer] [employer] MEDICARE [id number] Unknown [id number] Unknown [id number] Unknown [id number] Unknown [id number] Unknown [id number] Unknown [id number] Unknown [id number] Unknown [id number] Unknown [id number] Unknown [id number] Unknown [id number] Unknown [id number] Unknown [id number] Social History Date Type Detail Facility Start: 09-14-2020 End: 09-18-2022 Tobacco smoking status NHIS Ex-smoker [facility] Start: 06-23-1969 End: 06-23-1971 History of tobacco use Cigarette Smoker [facility] Start: 07-05-2021 End: 01-17-2025 Alcohol intake Current drinker of alcohol (finding) [facility] Start: 07-05-2021 End: 11-21-2022 Alcohol intake [facility] Start: 07-03-2016 History SDOH Alcohol Comment couple times a week with dinner [facility] Start: 09-14-2020 End: 09-18-2022 Tobacco Comment Smoked for a couple years while in college. [facility] Start: 1940 Sex Assigned At Male C [facility] Start: 06-23-1969 End: 06-23-1971 History of tobacco use Current smoker [facility] Start: 09-14-2020 End: 09-18-2022 Tobacco use and exposure Smokeless tobacco non-user [facility] Start: 03-04-2022 End: 03-14-2022 Exposure to SARS-CoV-2 (event) Not sure [facility] Start: 08-04-2018 End: 10-10-2022 Tobacco smoking status NHIS Unknown if ever smoked [facility] Start: 09-18-2022 End: 11-21-2022 Tobacco use panel [facility] Adult Depression Screening Assessment 0 [facility] Start: 2020 Gender identity Identifies as male gender (finding) [facility] Start: 2020 Sexual orientation Heterosexual (vee velazquez) [facility] Medical Equipment Procedure Code Equipment Code Equipment Origin al Text Equipment Identifier Dates Primary uncemented hemiarthroplasty of hip ([id number]) Uncoated hip femur prosthesis, one-piece [id number] FDA Start: 07-12-2024 Primary uncemented hemiarthroplasty of hip Uncoated hip femur prosthesis, one-piece ()[id number] FDA Start: 07-12-2024 Primary uncemented hemiarthroplasty of hip Coated hip femur prosthesis, modular ()[id number] FDA Start: 07-12-2024 Plug Perfix Bard Medium Taper Polypropylene 1.55x1.3in Surgical - [id number] Start: 07-09-2016 Goals Date Patient Goal Desired Activity /State Mental Status Date Assessment Result Facility 06-06-2022 Cognitive function Voice/Name [facility] Work Phone: Clinical Notes 09-11-2012 to 01-17-2025 Jose Cunningham, - 01/17/2025 4:09 PM Jose Elena, - 10/01/2024 2:57 PM EDTMamber Harry, RT(R) - 09/23/2024 12:00 PM EDTTelephone Encounter - Lisa Gusman, [employer] - 09/13/2024 1:10 PM EDT Note Date & Type Note Facility 01-17-2025 Note HNO ID: [id number] Author: JOSE CUNNINGHAM DO Service: ? Author Type: Physician Type: Progress Notes Filed: 01/17/2025 17:02 Note Text: Oncologic problem(s): 1) High risk prostate cancer. HPI: The patient is an 84-year-old male with a past medical history significant for essential hypertension and hyperlipidemia. Had been managed by urologist for BPH. PSA in the past has fluctuated. For instance it was 7.1 ng/mL November 2014. Then 9.5 ng/mL in August 2018 and then 8.0 ng/mL in December 2018. Increased to 14.80 ng/mL. Biopsy of the prostate 08/07/2020. Pathology: A. Right prostate, apex, core biopsy: Adenocarcinoma. Valentina grade: 7 (4+3) Cores involved: 1 out of 1 core Tissue involved: 5% Greatest tumor length: 1 mm See comment. B. Right prostate, mid, core biopsy: Adenocarcinoma. Valentina grade: 8 (4+4) Cores involved: 1 out of 1 core Tissue involved: 60% Greatest tumor length: 4.5 mm C. Right prostate, base, core biopsy: Adenocarcinoma. [place] grade: 8 (4+4) Cores involved: 1 out of 1 core Tissue involved: 2% Greatest tumor length: <1 mm D. Left prostate, apex, core biopsy: Focal atypical small acinar proliferation. See comment. E. Left prostate, mid, core biopsy: Adenocarcinoma. Valentina grade: 6 (3+3) Cores involved: 1 out of 1 core Tissue involved: 2% Greatest tumor length: <1 mm See comment. F. Left prostate, base, core biopsy: Adenocarcinoma. Valentina grade: 7 (3+4) Cores involved: 1 out of 1 core Tissue involved: 65% Greatest tumor length: 5.5 mm Bone scan on 08/29/2020 demonstrated no evidence of bone metastases. He had been advised to undergo external beam radiation treatment with ADT. Previous therapy: 1) ADT (10/2020) with radiation (completed radiation 01/2021). Last q 3 month Lupron injection 01/2023. Received every 3 month Lupron for 2-1/2 years, last dose 02/13/2023. PSA undetectable as of 02/2022. Developed atrial fibrillation 05/2022. On apixaban since 06/2022. Had colonoscopy to assess rectal bleeding in February 2023. Preparation was inadequate. Was found to have a 20 mm polypoid lesion in the distal transverse colon. It was sessile. No bleeding observed. Biopsies were obtained and the area was tattooed with 3 mL of carbon black. There was a diffuse area of mild erythematous mucosa in the rectum. Multiple small and large mouth diverticula were observed in the sigmoid colon terminal ileum appeared normal. Pathology: A. Transverse colon, polypectomy: - Tubulovillous adenoma. Presents for ongoing oncologic management. Interim history: Rectal bleeding significantly slowing. Still has urinary frequency, going about every 2 hours during the day Typically 3 times at night. No gross hematuria or dysuria. Remains on anticoagulation for history of atrial fibrillation. Continues follow-up with the [facility]. PMH, medications and allergies personally reviewed by me today. Any changes documented in appropriate section. ROS: Constitutional: Denies episodes of fever and night sweats. Not significantly fatigued. Normal appetite. Neuro: Denies URIOSTEGUI, vertigo, dizziness and imbalance. Denies symptoms of neuropathy. HEENT: No recent change in voice, vision or hearing. Resp: Denies cough, wheeze and hemoptysis. Denies shortness of breath at rest. CVS: Denies exertional chest pain, PND, orthopnea and LE edema. GI: Denies dysphagia and odynophagia. Denies reflux, n/v, change in bowel habits and abdominal pain. : See above. Endo: Denies hot flashes. Denies polyuria and polydipsia. Denies heat and cold intolerance. Musculoskeletal: Chronic back pain--stable. Derm: Denies rash. Denies jaundice and diffuse pruritis. Heme: Denies unusual bleeding and unexplained bruising. Psych: Normal mood. PHYSICAL EXAM: Vitals: Blood pressure 118/71, pulse 63, temperature 36.3 ?C (97.3 ?F), temperature source Temporal, weight 98.4 kg (217 lb), SpO2 97%. Well-appearing and in no acute distress. EYES: Sclerae are anicteric bilaterally. ABDOMEN: The abdomen is nondistended. Extremities: No swelling or edema. 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 High risk disease. - PSA doubling time was approximately a year. - PET scan 09/2024. ANIL. - We reviewed the results of the recent PSA. Lower than previously. That interpreted in light of the recent PET scan showing no evidence of disease, recommended rechecking in 6 months. Although there is risk of some progression in that time, doubtful that it would be aggressive or quick growing. Plan: -P (more content not included)... [facility] 01-17-2025 History of Presen t illness Narrative Oncologic problem(s): 1) High risk prostate cancer. HPI: The patient is an 84-year-old male with a past medical history significant for essential hypertension and hyperlipidemia. Had been managed by urologist for BPH. PSA in the past has fluctuated. For instance it was 7.1 ng/mL November 2014. Then 9.5 ng/mL in August 2018 and then 8.0 ng/mL in December 2018. Increased to 14.80 ng/mL. Biopsy of the prostate 08/07/2020. Pathology: A. Right prostate, apex, core biopsy: Adenocarcinoma. [place] grade: 7 (4+3) Cores involved: 1 out of 1 core Tissue involved: 5% Greatest tumor length: 1 mm See comment. B. Right prostate, mid, core biopsy: Adenocarcinoma. Valentina grade: 8 (4+4) Cores involved: 1 out of 1 core Tissue involved: 60% Greatest tumor length: 4.5 mm C. Right prostate, base, core biopsy: Adenocarcinoma. Valentina grade: 8 (4+4) Cores involved: 1 out of 1 core Tissue involved: 2% Greatest tumor length: <1 mm D. Left prostate, apex, core biopsy: Focal atypical small acinar proliferation. See comment. E. Left prostate, mid, core biopsy: Adenocarcinoma. Valentina grade: 6 (3+3) Cores involved: 1 out of 1 core Tissue involved: 2% Greatest tumor length: <1 mm See comment. F. Left prostate, base, core biopsy: Adenocarcinoma. Valentina grade: 7 (3+4) Cores involved: 1 out of 1 core Tissue involved: 65% Greatest tumor length: 5.5 mm Bone scan on 08/29/2020 demonstrated no evidence of bone metastases. He had been advised to undergo external beam radiation treatment with ADT. Previous therapy: 1) ADT (10/2020) with radiation (completed radiation 01/2021). Last q 3 month Lupron injection 01/2023. Received every 3 month Lupron for 2-1/2 years, last dose 02/13/2023. PSA undetectable as of 02/2022. Developed atrial fibrillation 05/2022. On apixaban since 06/2022. Had colonoscopy to assess rectal bleeding in February 2023. Preparation was inadequate. Was found to have a 20 mm polypoid lesion in the distal transverse colon. It was sessile. No bleeding observed. Biopsies were obtained and the area was tattooed with 3 mL of carbon black. There was a diffuse area of mild erythematous mucosa in the rectum. Multiple small and large mouth diverticula were observed in the sigmoid colon terminal ileum appeared normal. Pathology: A. Transverse colon, polypectomy: - Tubulovillous adenoma. Presents for ongoing oncologic management. Interim history: Rectal bleeding significantly slowing. Still has urinary frequency, going about every 2 hours during the day Typically 3 times at night. No gross hematuria or dysuria. Remains on anticoagulation for history of atrial fibrillation. Continues follow-up with the [facility]. PMH, medications and allergies personally reviewed by me today. Any changes documented in appropriate section. ROS: Constitutional: Denies episodes of fever and night sweats. Not significantly fatigued. Normal appetite. Neuro: Denies URIOSTEGUI, vertigo, dizziness and imbalance. Denies symptoms of neuropathy. HEENT: No recent change in voice, vision or hearing. Resp: Denies cough, wheeze and hemoptysis. Denies shortness of breath at rest. CVS: Denies exertional chest pain, PND, orthopnea and LE edema. GI: Denies dysphagia and odynophagia. Denies reflux, n/v, change in bowel habits and abdominal pain. : See above. Endo: Denies hot flashes. Denies polyuria and polydipsia. Denies heat and cold intolerance. Musculoskeletal: Chronic back pain--stable. Derm: Denies rash. Denies jaundice and diffuse pruritis. Heme: Denies unusual bleeding and unexplained bruising. Psych: Normal mood. PHYSICAL EXAM: Vitals: Blood pressure 118/71, pulse 63, temperature 36.3 C (97.3 F), temperature source Temporal, weight 98.4 kg (217 lb), SpO2 97%. Well-appearing and in no acute distress. EYES: Sclerae are anicteric bilaterally. ABDOMEN: The abdomen is nondistended. Extremities: No swelling or edema. 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 High risk disease. - PSA doubling time was approximately a year. - PET scan 09/2024. ANIL. - We reviewed the results of the recent PSA. Lower than previously. That interpreted in light of the recent PET scan showing no evidence of disease, recommended rechecking in 6 months. Although there is risk of some progression in that time, doubtful that it would be aggressive or quick growing. Plan: -PSA then OV in about 6 months. -Repeat PET if PSA increases. -Continue calcium supplement with vitamin D twice daily. Portions of this documentation were copied and pasted from my previous office visit note dated 10/01/2024 in order to provide a cohesive continuity of the history. The note has been reviewed and edited and updated as necessary. I spent a total of 20 minutes on the date of the service which included preparing to see the patient, [id number] patient care, completing clinical documentation, obtaining and/or reviewing separately obtained history, counseling and educating the patient/family/caregiver, communicating with other HCPs (not separately reported), and communicating results to the patient/family/caregiver. Jose Cunningham DO documented in this encounter [facility] 10-01-2024 Note HNO ID: [id number] Author: JOSE CUNNINGHAM DO Service: ? Author Type: Physician Type: Progress Notes Filed: 10/01/2024 15:45 Note Text: Oncologic problem(s): 1) High risk prostate cancer. HPI: The patient is an 83-year-old male with a past medical history significant for essential hypertension and hyperlipidemia. Had been managed by urologist for BPH. PSA in the past has fluctuated. For instance it was 7.1 ng/mL November 2014. Then 9.5 ng/mL in August 2018 and then 8.0 ng/mL in December 2018. Increased to 14.80 ng/mL. Biopsy of the prostate 08/07/2020. Pathology: A. Right prostate, apex, core biopsy: Adenocarcinoma. Valentina grade: 7 (4+3) Cores involved: 1 out of 1 core Tissue involved: 5% Greatest tumor length: 1 mm See comment. B. Right prostate, mid, core biopsy: Adenocarcinoma. Valentina grade: 8 (4+4) Cores involved: 1 out of 1 core Tissue involved: 60% Greatest tumor length: 4.5 mm C. Right prostate, base, core biopsy: Adenocarcinoma. [place] grade: 8 (4+4) Cores involved: 1 out of 1 core Tissue involved: 2% Greatest tumor length: <1 mm D. Left prostate, apex, core biopsy: Focal atypical small acinar proliferation. See comment. E. Left prostate, mid, core biopsy: Adenocarcinoma. [place] grade: 6 (3+3) Cores involved: 1 out of 1 core Tissue involved: 2% Greatest tumor length: <1 mm See comment. F. Left prostate, base, core biopsy: Adenocarcinoma. Valentina grade: 7 (3+4) Cores involved: 1 out of 1 core Tissue involved: 65% Greatest tumor length: 5.5 mm Bone scan on 08/29/2020 demonstrated no evidence of bone metastases. He had been advised to undergo external beam radiation treatment with ADT. Previous therapy: 1) ADT (10/2020) with radiation (completed radiation 01/2021). Last q 3 month Lupron injection 01/2023. Received every 3 month Lupron for 2-1/2 years, last dose 02/13/2023. PSA undetectable as of 02/2022. Developed atrial fibrillation 05/2022. On apixaban since 06/2022. Had colonoscopy to assess rectal bleeding in February 2023. Preparation was inadequate. Was found to have a 20 mm polypoid lesion in the distal transverse colon. It was sessile. No bleeding observed. Biopsies were obtained and the area was tattooed with 3 mL of carbon black. There was a diffuse area of mild erythematous mucosa in the rectum. Multiple small and large mouth diverticula were observed in the sigmoid colon terminal ileum appeared normal. Pathology: A. Transverse colon, polypectomy: - Tubulovillous adenoma. Presents for ongoing oncologic management. Interim history: Fell and broke left hip after tripping at home in June. No other MS pain. Rectal bleeding significantly slowing. Still has urinary frequency, going about every 2 hours during the day Typically 3 times at night. No gross hematuria or dysuria. Remains on anticoagulation for history of atrial fibrillation. Continues follow-up with the [facility]. PMH, medications and allergies personally reviewed by me today. Any changes documented in appropriate section. ROS: Constitutional: Denies episodes of fever and night sweats. Not significantly fatigued. Normal appetite. Neuro: Denies URIOSTEGUI, vertigo, dizziness and imbalance. Denies symptoms of neuropathy. HEENT: No recent change in voice, vision or hearing. Resp: Denies cough, wheeze and hemoptysis. Denies shortness of breath at rest. CVS: Denies exertional chest pain, PND, orthopnea and LE edema. GI: Denies dysphagia and odynophagia. Denies reflux, n/v, change in bowel habits and abdominal pain. : See above. Endo: Denies hot flashes. Denies polyuria and polydipsia. Denies heat and cold intolerance. Musculoskeletal: Chronic back pain--stable. Derm: Denies rash. Denies jaundice and diffuse pruritis. Heme: Denies unusual bleeding and unexplained bruising. Psych: Normal mood. PHYSICAL EXAM: Vitals: There were no vitals taken for this visit. Well-appearing and in no acute distress. EYES: Sclerae are anicteric bilaterally. ABDOMEN: The abdomen is nondistended. Extremities: No swelling or edema. 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 High risk disease. -PSA doubling time was approximately a year. - Reviewed the results of the PET scan. ANIL. - Explained to him that since he has no measurable or detectable disease by imaging with a very slowly rising PSA, then no clear indication to start ADT therapy at this time. Discussed monitoring of PSA every 3 months for now. Plan: -PSA then OV in about 3 months. -Continue calcium suppleme (more content not included)... [facility] 10-01-2024 History of Presen t illness Narrative Oncologic problem(s): 1) High risk prostate cancer. HPI: The patient is an 83-year-old male with a past medical history significant for essential hypertension and hyperlipidemia. Had been managed by urologist for BPH. PSA in the past has fluctuated. For instance it was 7.1 ng/mL November 2014. Then 9.5 ng/mL in August 2018 and then 8.0 ng/mL in December 2018. Increased to 14.80 ng/mL. Biopsy of the prostate 08/07/2020. Pathology: A. Right prostate, apex, core biopsy: Adenocarcinoma. [place] grade: 7 (4+3) Cores involved: 1 out of 1 core Tissue involved: 5% Greatest tumor length: 1 mm See comment. B. Right prostate, mid, core biopsy: Adenocarcinoma. [place] grade: 8 (4+4) Cores involved: 1 out of 1 core Tissue involved: 60% Greatest tumor length: 4.5 mm C. Right prostate, base, core biopsy: Adenocarcinoma. [place] grade: 8 (4+4) Cores involved: 1 out of 1 core Tissue involved: 2% Greatest tumor length: <1 mm D. Left prostate, apex, core biopsy: Focal atypical small acinar proliferation. See comment. E. Left prostate, mid, core biopsy: Adenocarcinoma. [place] grade: 6 (3+3) Cores involved: 1 out of 1 core Tissue involved: 2% Greatest tumor length: <1 mm See comment. F. Left prostate, base, core biopsy: Adenocarcinoma. [place] grade: 7 (3+4) Cores involved: 1 out of 1 core Tissue involved: 65% Greatest tumor length: 5.5 mm Bone scan on 08/29/2020 demonstrated no evidence of bone metastases. He had been advised to undergo external beam radiation treatment with ADT. Previous therapy: 1) ADT (10/2020) with radiation (completed radiation 01/2021). Last q 3 month Lupron injection 01/2023. Received every 3 month Lupron for 2-1/2 years, last dose 02/13/2023. PSA undetectable as of 02/2022. Developed atrial fibrillation 05/2022. On apixaban since 06/2022. Had colonoscopy to assess rectal bleeding in February 2023. Preparation was inadequate. Was found to have a 20 mm polypoid lesion in the distal transverse colon. It was sessile. No bleeding observed. Biopsies were obtained and the area was tattooed with 3 mL of carbon black. There was a diffuse area of mild erythematous mucosa in the rectum. Multiple small and large mouth diverticula were observed in the sigmoid colon terminal ileum appeared normal. Pathology: A. Transverse colon, polypectomy: - Tubulovillous adenoma. Presents for ongoing oncologic management. Interim history: Fell and broke left hip after tripping at home in June. No other MS pain. Rectal bleeding significantly slowing. Still has urinary frequency, going about every 2 hours during the day Typically 3 times at night. No gross hematuria or dysuria. Remains on anticoagulation for history of atrial fibrillation. Continues follow-up with the [facility]. PMH, medications and allergies personally reviewed by me today. Any changes documented in appropriate section. ROS: Constitutional: Denies episodes of fever and night sweats. Not significantly fatigued. Normal appetite. Neuro: Denies URIOSTEGUI, vertigo, dizziness and imbalance. Denies symptoms of neuropathy. HEENT: No recent change in voice, vision or hearing. Resp: Denies cough, wheeze and hemoptysis. Denies shortness of breath at rest. CVS: Denies exertional chest pain, PND, orthopnea and LE edema. GI: Denies dysphagia and odynophagia. Denies reflux, n/v, change in bowel habits and abdominal pain. : See above. Endo: Denies hot flashes. Denies polyuria and polydipsia. Denies heat and cold intolerance. Musculoskeletal: Chronic back pain--stable. Derm: Denies rash. Denies jaundice and diffuse pruritis. Heme: Denies unusual bleeding and unexplained bruising. Psych: Normal mood. PHYSICAL EXAM: Vitals: There were no vitals taken for this visit. Well-appearing and in no acute distress. EYES: Sclerae are anicteric bilaterally. ABDOMEN: The abdomen is nondistended. Extremities: No swelling or edema. 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 High risk disease. -PSA doubling time was approximately a year. - Reviewed the results of the PET scan. ANIL. - Explained to him that since he has no measurable or detectable disease by imaging with a very slowly rising PSA, then no clear indication to start ADT therapy at this time. Discussed monitoring of PSA every 3 months for now. Plan: -PSA then OV in about 3 months. -Continue calcium supplement with vitamin D twice daily. Portions of this documentation were copied and pasted from my previous office visit note dated 09/07/2024 in order to provide a cohesive continuity of the history. The note has been reviewed and edited and updated as necessary. I spent a total of 20 minutes on the date of the service which included preparing to see the patient, [id number] patient care, completing clinical documentation, obtaining and/or reviewing separately obtained history, performing a medically appropriate examination, counseling and educating the patient/family/caregiver, ordering medications, tests, or procedures, communicating with other HCPs (not separately reported), and communicating results to the patient/family/caregiver. Jose Cunningham DO documented in this encounter [facility] 09-23-2024 History of Presen t illness Narrative RADIOLOGY SERVICE PROGRESS NOTE SERVICE DATE: 09/23/2024 SERVICE TIME: 11:54 AM PATIENT IDENTITY VERIFICATION COMPLETED USING TWO (2) STANDARD IDENTIFIERS: Name and Date of confirmed by patient verbally and Name and Date of confirmed by identification band FALL SCREENING: Has the patient had 2 falls in the last year or 1 fall with injury or currently using an Ambulatory Assistive Device (Walker, Cane, Wheelchair, Crutches, etc.)? No PATIENT GENDER DATA: .male ALLERGIES: Reviewed and unchanged MEDICATIONS REVIEWED: No PATIENT RELEVANT IMPLANT DATA REVIEWED: Not Applicable PATIENT PRESENTS WITH AN IMPLANTABLE OR ATTACHED THERMAL CUTTER HAND: No CREATININE: Creatinine Date Value Ref Range Status 11/04/2023 1.03 0.73 - 1.22 mg/dL Final 05/08/2023 1.01 0.73 - 1.22 mg/dL Final 02/11/2023 1.07 0.73 - 1.22 mg/dL Final Estimated Glomerular Filtration Rate Date Value Ref Range Status 11/04/2023 71 >=60 mL/min/1.73m Final Comment: Estimated Glomerular Filtration Rate (eGFR) is calculated using the 2020 CKD-EPI creatinine equation. This equation utilizes serum creatinine, sex, and age as parameters. The creatinine assay has traceable calibration to isotope dilution-mass spectrometry. Refer to KDIGO guidelines for clinical interpretation. In patients with unstable renal function, e.g. those with acute kidney injury, the eGFR may not accurately reflect actual GFR. eGFR- Date Value Ref Range Status 07/05/2021 >60 Final P.O.C.T. RESULTS: N/A September 23, [address] PERFORMED: No IV SITE: Ambulatory: A peripheral IV was started in the Right with a Angio cath: 22 gauge. POST EXAM PIV STATUS: Discontinued PROCEDURE TYPE: NM INJECT: PET/CT BODY SCAN. 8.5 mCi [id number]. No other medications given.. ADMINISTRATION TIME: 1130 PATIENT DISCHARGED TO: Ambulatory patient, left NM department area. Is this a therapy: No A Diagnostic radioactive procedure has taken place, with no further precautions necessary other than routine body substance precautions. More information regarding radiation safety can be found using this link: [email or web address] SIGNATURE: RUTHY Hastings) PATIENT NAME: Robbin Martinez DATE: September 23, 2024 TIME: 11:54 AM PAGER/CONTACT #: documented in this encounter [facility] 09-23-2024 Note HNO ID: [id number] Author: HARRY BRAGA RT(R) Service: Nuclear Radiology Author Type: Technologist Type: Progress Notes Filed: 09/23/2024 11:55 Note Text: RADIOLOGY SERVICE PROGRESS NOTE SERVICE DATE: 09/23/2024 SERVICE TIME: 11:54 AM PATIENT IDENTITY VERIFICATION COMPLETED USING TWO (2) STANDARD IDENTIFIERS: Name and Date of confirmed by patient verbally and Name and Date of confirmed by identification band FALL SCREENING: Has the patient had 2 falls in the last year or 1 fall with injury or currently using an Ambulatory Assistive Device (Walker, Cane, Wheelchair, Crutches, etc.)? No PATIENT GENDER DATA: .male ALLERGIES: Reviewed and unchanged MEDICATIONS REVIEWED: No PATIENT RELEVANT IMPLANT DATA REVIEWED: Not Applicable PATIENT PRESENTS WITH AN IMPLANTABLE OR ATTACHED THERMAL CUTTER HAND: No CREATININE: Creatinine Date Value Ref Range Status 11/04/2023 1.03 0.73 - 1.22 mg/dL Final 05/08/2023 1.01 0.73 - 1.22 mg/dL Final 02/11/2023 1.07 0.73 - 1.22 mg/dL Final Estimated Glomerular Filtration Rate Date Value Ref Range Status 11/04/2023 71 >=60 mL/min/1.73m? Final Comment: Estimated Glomerular Filtration Rate (eGFR) is calculated using the 2020 CKD-EPI creatinine equation. This equation utilizes serum creatinine, sex, and age as parameters. The creatinine assay has traceable calibration to isotope dilution-mass spectrometry. Refer to KDIGO guidelines for clinical interpretation. In patients with unstable renal function, e.g. those with acute kidney injury, the eGFR may not accurately reflect actual GFR. eGFR- Date Value Ref Range Status 07/05/2021 >60 Final P.O.C.T. RESULTS: N/A September 23, [address] PERFORMED: No IV SITE: Ambulatory: A peripheral IV was started in the Right with a Angio cath: 22 gauge. POST EXAM PIV STATUS: Discontinued PROCEDURE TYPE: NM INJECT: PET/CT BODY SCAN. 8.5 mCi [id number]. No other medications given.. ADMINISTRATION TIME: 1130 PATIENT DISCHARGED TO: Ambulatory patient, left [place] department area. Is this a therapy: No A Diagnostic radioactive procedure has taken place, with no further precautions necessary other than routine body substance precautions. More information regarding radiation safety can be found using this link: [email or web address] SIGNATURE: RT Darling(R) PATIENT NAME: Robbin Martinez DATE: September 23, 2024 TIME: 11:54 AM PAGER/CONTACT #: [facility] 09-13-2024 Telephone encounter Note Pts. returned call . Wanting to know if insurance had authorized pts. Upcoming PET scan @ [facility]. Informed it was still pending review. If the scan is not authorized before the , they will receive a call. Lisa Gusman LPN [facility] 09-13-2024 Miscellaneous Notes Pts. returned call . Wanting to know if insurance had authorized pts. Upcoming PET scan @ [facility]. Informed it was still pending review. If the scan is not authorized before the , they will receive a call. Lisa Gusman LPN I called and left message on the patient's home and cell numbers to contact this office. We do not prior authorize Ensure. Rosa Sidhu LPN Spouse is asking if we received authorization for Ensure. Please advise Claudia Astorga documented in this encounter [facility] 09-13-2024 Telephone encounter Note I called and left message on the patient's home and cell numbers to contact this office. We do not prior authorize Ensure. Rosa Sidhu LPN [facility] 09-13-2024 Telephone encounter Note Spouse is asking if we received authorization for Ensure. Please advise Claudia Astorga [facility] 09-07-2024 Note HNO ID: [id number] Author: JOSE CUNNINGHAM, DO Service: ? Author Type: Physician Type: Progress Notes Filed: 09/07/2024 12:13 Note Text: Oncologic problem(s): 1) High risk prostate cancer. HPI: The patient is an 83-year-old male with a past medical history significant for essential hypertension and hyperlipidemia. Had been managed by urologist for BPH. PSA in the past has fluctuated. For instance it was 7.1 ng/mL November 2014. Then 9.5 ng/mL in August 2018 and then 8.0 ng/mL in December 2018. Increased to 14.80 ng/mL. Biopsy of the prostate 08/07/2020. Pathology: A. Right prostate, apex, core biopsy: Adenocarcinoma. Valentina grade: 7 (4+3) Cores involved: 1 out of 1 core Tissue involved: 5% Greatest tumor length: 1 mm See comment. B. Right prostate, mid, core biopsy: Adenocarcinoma. [place] grade: 8 (4+4) Cores involved: 1 out of 1 core Tissue involved: 60% Greatest tumor length: 4.5 mm C. Right prostate, base, core biopsy: Adenocarcinoma. Valentina grade: 8 (4+4) Cores involved: 1 out of 1 core Tissue involved: 2% Greatest tumor length: <1 mm D. Left prostate, apex, core biopsy: Focal atypical small acinar proliferation. See comment. E. Left prostate, mid, core biopsy: Adenocarcinoma. Valentina grade: 6 (3+3) Cores involved: 1 out of 1 core Tissue involved: 2% Greatest tumor length: <1 mm See comment. F. Left prostate, base, core biopsy: Adenocarcinoma. Valentina grade: 7 (3+4) Cores involved: 1 out of 1 core Tissue involved: 65% Greatest tumor length: 5.5 mm Bone scan on 08/29/2020 demonstrated no evidence of bone metastases. He had been advised to undergo external beam radiation treatment with ADT. Previous therapy: 1) ADT (10/2020) with radiation (completed radiation 01/2021). Last q 3 month Lupron injection 01/2023. Received every 3 month Lupron for 2-1/2 years, last dose 02/13/2023. PSA undetectable as of 02/2022. Developed atrial fibrillation 05/2022. On apixaban since 06/2022. Had colonoscopy to assess rectal bleeding in February 2023. Preparation was inadequate. Was found to have a 20 mm polypoid lesion in the distal transverse colon. It was sessile. No bleeding observed. Biopsies were obtained and the area was tattooed with 3 mL of carbon black. There was a diffuse area of mild erythematous mucosa in the rectum. Multiple small and large mouth diverticula were observed in the sigmoid colon terminal ileum appeared normal. Pathology: A. Transverse colon, polypectomy: - Tubulovillous adenoma. Presents for ongoing oncologic management. Interim history: Fell and broke left hip after tripping at home in June. No other MS pain. Rectal bleeding significantly slowing. Still has urinary frequency, going about every 2 hours during the day Typically 3 times at night. No gross hematuria or dysuria. Remains on anticoagulation for history of atrial fibrillation. Continues follow-up with the [facility]. PMH, medications and allergies personally reviewed by me today. Any changes documented in appropriate section. ROS: Constitutional: Denies episodes of fever and night sweats. Not significantly fatigued. Normal appetite. Neuro: Denies URIOSTEGUI, vertigo, dizziness and imbalance. Denies symptoms of neuropathy. HEENT: No recent change in voice, vision or hearing. Resp: Denies cough, wheeze and hemoptysis. Denies shortness of breath at rest. CVS: Denies exertional chest pain, PND, orthopnea and LE edema. GI: Denies dysphagia and odynophagia. Denies reflux, n/v, change in bowel habits and abdominal pain. : See above. Endo: Denies hot flashes. Denies polyuria and polydipsia. Denies heat and cold intolerance. Musculoskeletal: Chronic back pain--stable. Derm: Denies rash. Denies jaundice and diffuse pruritis. Heme: Denies unusual bleeding and unexplained bruising. Psych: Normal mood. PHYSICAL EXAM: Vitals: Blood pressure 153/91, pulse 67, temperature 36.1 ?C (97 ?F), temperature source Temporal, weight 101.6 kg (224 lb), SpO2 98%. Well-appearing and in no acute distress. EYES: Sclerae are anicteric bilaterally. ABDOMEN: The abdomen is nondistended. Extremities: No swelling or edema. 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 High risk disease. -Reviewed slow increase in PSA. -Discussed rationale for PSMA PET. May be a candidate for RT or ADT with second generation AA pending results. Plan: -PSMA PET. -Continue calcium supplement with vitamin D twice daily. Portions of this documentation were copied and pasted from my previous office (more content not included)... [facility] 09-07-2024 History of Presen t illness Narrative Oncologic problem(s): 1) High risk prostate cancer. HPI: The patient is an 83-year-old male with a past medical history significant for essential hypertension and hyperlipidemia. Had been managed by urologist for BPH. PSA in the past has fluctuated. For instance it was 7.1 ng/mL November 2014. Then 9.5 ng/mL in August 2018 and then 8.0 ng/mL in December 2018. Increased to 14.80 ng/mL. Biopsy of the prostate 08/07/2020. Pathology: A. Right prostate, apex, core biopsy: Adenocarcinoma. Valentina grade: 7 (4+3) Cores involved: 1 out of 1 core Tissue involved: 5% Greatest tumor length: 1 mm See comment. B. Right prostate, mid, core biopsy: Adenocarcinoma. [place] grade: 8 (4+4) Cores involved: 1 out of 1 core Tissue involved: 60% Greatest tumor length: 4.5 mm C. Right prostate, base, core biopsy: Adenocarcinoma. [place] grade: 8 (4+4) Cores involved: 1 out of 1 core Tissue involved: 2% Greatest tumor length: <1 mm D. Left prostate, apex, core biopsy: Focal atypical small acinar proliferation. See comment. E. Left prostate, mid, core biopsy: Adenocarcinoma. Valentina grade: 6 (3+3) Cores involved: 1 out of 1 core Tissue involved: 2% Greatest tumor length: <1 mm See comment. F. Left prostate, base, core biopsy: Adenocarcinoma. Valentina grade: 7 (3+4) Cores involved: 1 out of 1 core Tissue involved: 65% Greatest tumor length: 5.5 mm Bone scan on 08/29/2020 demonstrated no evidence of bone metastases. He had been advised to undergo external beam radiation treatment with ADT. Previous therapy: 1) ADT (10/2020) with radiation (completed radiation 01/2021). Last q 3 month Lupron injection 01/2023. Received every 3 month Lupron for 2-1/2 years, last dose 02/13/2023. PSA undetectable as of 02/2022. Developed atrial fibrillation 05/2022. On apixaban since 06/2022. Had colonoscopy to assess rectal bleeding in February 2023. Preparation was inadequate. Was found to have a 20 mm polypoid lesion in the distal transverse colon. It was sessile. No bleeding observed. Biopsies were obtained and the area was tattooed with 3 mL of carbon black. There was a diffuse area of mild erythematous mucosa in the rectum. Multiple small and large mouth diverticula were observed in the sigmoid colon terminal ileum appeared normal. Pathology: A. Transverse colon, polypectomy: - Tubulovillous adenoma. Presents for ongoing oncologic management. Interim history: Fell and broke left hip after tripping at home in June. No other MS pain. Rectal bleeding significantly slowing. Still has urinary frequency, going about every 2 hours during the day Typically 3 times at night. No gross hematuria or dysuria. Remains on anticoagulation for history of atrial fibrillation. Continues follow-up with the [facility]. PMH, medications and allergies personally reviewed by me today. Any changes documented in appropriate section. ROS: Constitutional: Denies episodes of fever and night sweats. Not significantly fatigued. Normal appetite. Neuro: Denies URIOSTEGUI, vertigo, dizziness and imbalance. Denies symptoms of neuropathy. HEENT: No recent change in voice, vision or hearing. Resp: Denies cough, wheeze and hemoptysis. Denies shortness of breath at rest. CVS: Denies exertional chest pain, PND, orthopnea and LE edema. GI: Denies dysphagia and odynophagia. Denies reflux, n/v, change in bowel habits and abdominal pain. : See above. Endo: Denies hot flashes. Denies polyuria and polydipsia. Denies heat and cold intolerance. Musculoskeletal: Chronic back pain--stable. Derm: Denies rash. Denies jaundice and diffuse pruritis. Heme: Denies unusual bleeding and unexplained bruising. Psych: Normal mood. PHYSICAL EXAM: Vitals: Blood pressure 153/91, pulse 67, temperature 36.1 C (97 F), temperature source Temporal, weight 101.6 kg (224 lb), SpO2 98%. Well-appearing and in no acute distress. EYES: Sclerae are anicteric bilaterally. ABDOMEN: The abdomen is nondistended. Extremities: No swelling or edema. 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 High risk disease. -Reviewed slow increase in PSA. -Discussed rationale for PSMA PET. May be a candidate for RT or ADT with second generation AA pending results. Plan: -PSMA PET. -Continue calcium supplement with vitamin D twice daily. Portions of this documentation were copied and pasted from my previous office visit note dated 03/29/2024 in order to provide a cohesive continuity of the history. The note has been reviewed and edited and updated as necessary. I spent a total of 30 minutes on the date of the service which included preparing to see the patient, [id number] patient care, completing clinical documentation, obtaining and/or reviewing separately obtained history, performing a medically appropriate examination, counseling and educating the patient/family/caregiver, ordering medications, tests, or procedures, communicating with other HCPs (not separately reported), and communicating results to the patient/family/caregiver. Jose Cunningham DO documented in this encounter [facility] 07-27-2024 Note [facility] Medical Records Department [address] [place] [id number] Discharge Summary 07/27/24 190 MR#: [id number] Acct: [id number] Name: ROBBIN MARTINEZ Rep #: [id number] : 1940 83 From: Huseyin Coulter MD PCP: Dr. Raphael Justin MD Status:ADM IN Location: [facility] TCU05-1 Providers Date of Admission: 07/14/24 Primary Care Physician: Dr. Raphael Justin MD Reason For Visit: IMPACTED SUBCAPITAL LEFT FEMORAL NECK FRACTURE Diagnosis Discharge Diagnosis (1) Debility: Status: Acute Code(s): R53.81 - Other malaise (2) Closed left hip fracture: Status: Acute Code(s): S72.002A - Fracture of unspecified part of neck of left femur, initial encounter for closed fracture (3) Essential hypertension: Status: Inactive Code(s): I10 - Essential (primary) hypertension (4) Hyperlipidemia: Status: Chronic Code(s): E78.5 - Hyperlipidemia, unspecified (5) Atrial fibrillation: Status: Acute Code(s): I48.91 - Unspecified atrial fibrillation (6) Vitamin D deficiency: Status: Acute Code(s): E55.9 - Vitamin D deficiency, unspecified (7) Prostate CA: Status: Acute Code(s): C61 - Malignant neoplasm of prostate Plan 83 year old male with below past medical history hospitalized for left hip fracture, underwent left hip hemiarthroplasty 07/12/[address] Luna, admitted to TCU with debility, here for rehabilitation, strengthening, prior to discharge home with . * Debility - PT/OT. * Pain - Tylenol 1000mg q6 prn pain (1-10). * Bowel - senna/colace 2 tablets bid, Magnesium citrate 300mL daily prn. * Adult immunization - Administer pneumonia vaccine, covid vaccine, flu vaccine as appropriate. * DVT prophylaxis - on Eliquis. * Atrial fibrillation - Metoprolol 25mg q12, Eliquis 2.5mg bid. * Vitamin D deficiency - D3 25mcg daily. * Hypertension - Metoprolol 25mg q12, Lisinopril 20mg daily. Medications at Discharge Home Medications enalapril maleate 20 mg tablet 20 mg PO DAILY BP 07/10/16 apixaban 2.5 mg tablet (Eliquis) 2.5 mg PO BID Dose decreased due to creat clearance #180 tabs 07/15/23 metoprolol tartrate 25 mg tablet 25 mg PO Q12H BP 07/14/24 acetaminophen 500 mg tablet 1,000 mg (2 x 500 mg) PO Q6H PRN Pain Score 1-10 #0 tabs 07/27/24 cholecalciferol (vitamin D3) 25 mcg (1,000 unit) tablet 25 mcg PO DAILY 30 days #30 tabs 07/27/24 Hospital Course Operations - (See below.) Procedures None Summary of Care Provided Minutes Spent on Discharge: 35 Hospital Course: 83 year old male with below past medical history hospitalized for left hip fracture, underwent left hip hemiarthroplasty 07/12/[address] Luna, admitted to TCU with debility, here for rehabilitation, strengthening, prior to discharge home with . Plan: DC home with and family support 07/30, [facility] PT/OT, FWW FWW: Patient is unsafe to use a cane and requires a walker for ambulation in the home and the community. Physical Exam Const alert General Appearance: cooperative HEENT normocephalic Eyes PERRL and EOMs intact bilaterally Neck supple, no JVD and no carotid bruits Resp normal respiratory effort, normal air movement and clear to auscultation bilaterally Cardio regular rate and regular rhythm GI normal to inspection, nondistended, normoactive bowel sounds, non-tender and non-distended Extremity normal capillary refill General Extremity: Negative for edema Skin no rashes or lesions noted General Skin Exam: no breakdown Psych affect normal Appearance: appropriate Weight / BMI Weight Weight: 100.698 kg Body Mass Index (BMI) 26.3 ABG / Lab / Microbiology Data 07/22/24 05:06 07/22/24 05:06 D/C Instructions Discharge Diet: No restrictions Discharge Activity: Return to Normal Activity, May Shower and Use Walker Weight Bearing Status: Weight bearing as tolerated Call your doctor if you observe: Fever of 101 or Higher, Inability to urinate, Inability to have a bowel movement, Shortness of breath, Dizziness, Fainting spells, Swelling in the ankles, Chest pain and Uncontrolled pain DC O2, CPAP, BIPAP Needs Home O2 Discharge instructions: No Additional Instructions: Plan: DC home with and family support 07/30, [facility] PT/OT, FWW FWW: Patient is unsafe to use a cane and requires a walker for ambulation in the home and the community. Please Follow Up With: Panfilo Luna, Meaningful Use Info Meaningful Use Meaningful Use Diagnoses (Choose all that apply): None applicable Ischemic Stroke Statin Dosing Therapy Reference: STATIN DOSE THERAPY REFERENCE: * Patients > 75 years receive moderate or high dose statin therapy. * Patients 75 years or YOUNGER should receive HIGH intensity statin dose unless contraindicated. You will be required to document reason for non-treatment if statin daily dose do (more content not included)... [facility] 07-16-2024 Telephone encounter Note FYI [facility] 07-16-2024 Miscellaneous Notes FYI Spouse called stating patient fell and broke his hip and is currently in transitional care at [facility]. Lab and Office visit for Feb canceled. documented in this encounter [facility] 07-16-2024 Telephone encounter Note Spouse called stating patient fell and broke his hip and is currently in transitional care at [facility]. Lab and Office visit for Feb canceled. [facility] Work Phone: 07-14-2024 Note [facility] Medical Records Department [address] [place] [address] History Physical Exam 07/14/24 1702 MR#: [id number] Acct: [id number] Name: ROBBIN MARTINEZ Rep #: [id number] : 1940 83 From: Huseyin Coulter MD PCP: Dr. Raphael Justin MD Status:ADM IN Location: [facility] TCU05-1 HPI - General General Date of Admission: 07/14/24 Date of Service: 07/14/24 Chief Complaint: Here for rehabilitation. HPI Narrative 07/10/2024 ROBBIN MARTINEZ, is a 83 Male who followin07/10/2024 [facility] ED with fall. Tripped over 's oxygen tubing, fell on left hip. No head injury, No LOC, on Eliquis for atrial fibrillation. Instant pain, Unable to walk, EMS called. CT head negative, CT neck negative. X-ray showed left hip fracture. 07/10/2024 Admit [facility]. Mascorro catheter, pain control/hold Eliquis, prepare for surgery, left hip fracture. PT/OT. 07/10/2024 Feeling well, no pain. 07/11/2024 Pain tolerable, no acute events overnight. Dr. Luna consulted. 07/12/2024 Feels well. Vitamin D 72.1. 07/12/2024 Dr. Luna performed left hip hemiarthroplasty. 07/13/2024 PT/OT for discharge planning. 07/14/2024 Admit to TCU with debility, here for rehabilitation, strengthening, prior to discharge home with . [facility] Medical History (Updated 07/14/24 @ 17:[address] Huseyin Coulter MD) Segmental and somatic dysfunction of lumbar region Segmental and somatic dysfunction of pelvic region DDD (degenerative disc disease), lumbar Prostate CA RBBB Atrial fibrillation Essential hypertension Actinic keratosis, hx of History of malignant melanoma Enlarged prostate Arthritis Environmental allergies Pain at surgical incision Internal hemorrhoids Diverticulosis Home Medications ???Medication ???Instructions ???Recorded ???Last Taken ???Type enalapril maleate 20 mg tablet 20 mg PO DAILY BP 07/10/16 07/10/16 08:00 History calcium 300 mg-D3 20 mcg-magnesium 1 tab PO BID Supplement 07/12/22 Unknown History 25 mg-coppr 0.5 [id number] tablet (Caltrate-D3 Plus Minerals) apixaban 2.5 mg tablet (Eliquis) 2.5 mg PO BID Dose decreased due 07/15/23 Unknown Rx to creat clearance #180 tabs cholecalciferol (vitamin D3) 250 10,000 unit PO DAILY Supplement 07/09/24 Unknown History mcg (10,000 unit) capsule acetaminophen 500 mg capsule 500 mg PO Q6H PRN pain 07/10/24 Unknown History polyethylene glycol 3350 17 17 g PO DAILY PRN constipation 07/10/24 Unknown History gram/dose oral powder (ClearLax) metoprolol tartrate 25 mg tablet 25 mg PO Q12H BP 07/14/24 Unknown History sennosides 8.6 mg-docusate sodium 2 tab PO BID Constipation #10 tabs 07/14/24 07/14/24 10:00 Rx 50 mg tablet (Stimulant Laxative Plus) Allergy/AdvReac Type Severity Reaction Status Date / Time No Known Allergies Allergy Verified 07/09/24 23:05 Family History Father Hypertension CVA (cerebral vascular accident) Grandfather Hypertension Grandfather Heart disease Mother Heart disease Hypertension Other CAD (coronary artery disease) Cancer Surgical History (Updated 07/14/24 @ 17:[address] Huseyin Coulter MD) History of left hip hemiarthroplasty Hx of basal cell carcinoma excision History of hernia repair Social History (Updated 07/14/24 @ 17:[address] Huseyin Coulter MD) household members: spouse Smoking Status: Former smoker alcohol intake: current alcohol intake frequency: 0-2 drinks per day substance use type: does not use caffeine: Yes Type: coffee Number of servings: 3 what type of physical activity do you participate in: bicycling frequency: 1-2 times per week ROS Constitutional Constitutional: Reports weakness; Denies chills, fever(s) or weight gain ENT HEENT: Denies headache(s), nasal congestion or nasal discharge Cardiovascular Cardiovascular: Denies chest pain or palpitations Respiratory/Chest Respiratory/Chest: Denies cough, excessive phlegm production or shortness of breath with exertion Gastrointestinal Gastrointestinal: Denies abdominal pain, nausea or vomiting Genitourinary Genitourinary: Denies dysuria Musculoskeletal Musculoskeletal: Denies joint pain or joint swelling Integumentary Integumentary: Denies rash or wounds Neurologic Neurologic: Denies focal weakness, numbness or tingling Psychiatric Psychiatric: Denies anxiety, auditory hallucinations, depression, homicidal ideation or suicidal ideation Physical Exam Const alert General Appearance: cooperative HEENT normocephalic Eyes PERRL and EOMs intact bilaterally Neck supple, no JVD and no carotid bruits Resp normal respiratory effort, normal air movement and clear to auscultation bilaterally Cardio regular rate and regular rhythm GI normal to inspection, nondistended, normoactive bowel sounds, non-ten (more content not included)... [facility] 07-14-2024 Note [facility] Medical Records Department [address] [place] [id number] Discharge Summary 07/14/24 1248 MR#: [id number] Acct: [id number] Name: ROBBIN MARTINEZ Rep #: [id number] : 1940 83 From: Cristofer Newton DO PCP: Dr. Raphael Justin MD Status:ADM IN Location: [facility] NC147-3 Providers Date of Admission: 07/10/24 Primary Care Physician: Dr. Raphael Justin MD Consultations 07/10/24 06:04 Consult: Orthopedics Routine Consulting Provider: Zbigniew Roots Declan M Reason for Consult: Left femoral neck fracture EMERGENT Consult: No MD Notified: Yes Date Notified: 07/10/24 Time Notified: 00:00 Method of Notification: ED Physician Initiated Reason For Visit: IMPACTED SUBCAPITAL LEFT FEMORAL NECK FRACTURE Diagnosis Discharge Diagnosis (1) Closed fracture of neck of left femur: Status: Acute Code(s): S72.002A - Fracture of unspecified part of neck of left femur, initial encounter for closed fracture Qualifiers: Encounter type: initial encounter Qualified Code(s): S72.002A - Fracture of unspecified part of neck of left femur, initial encounter for closed fracture Plan: Bed rest. Mascorro catheter in place until surgery. Pain control. Pt underwent Left hip hemiarthroplasty 07/12 25-OH d level 72.1. No need for replacement. Per ortho: WBAT, maintain dressing for 5 days. Follow up with orthopaedics in 2 weeks. Awaiting on PT OT eval. Disposition destination pending evaluation. Plan Chronic conditions: * prostate CA: follow up with oncology * HTN: stable. continue ACEi and BB * pAfib: apixaban held for surgery. Resume today DC to TCU. Medications at Discharge Home Medications enalapril maleate 20 mg tablet 20 mg PO DAILY 07/10/16 calcium 300 mg-D3 20 mcg-magnesium 25 mg-coppr 0.5 [id number] tablet (Caltrate-D3 Plus Minerals) 1 tab PO BID 07/12/22 apixaban 2.5 mg tablet (Eliquis) 2.5 mg PO BID Dose decreased due to creat clearance #180 tabs 07/15/23 metoprolol tartrate 25 mg tablet See Rx Instructions .Route .COMPLEX #180 tabs 07/21/23 cholecalciferol (vitamin D3) 250 mcg (10,000 unit) capsule 10,000 unit PO DAILY 07/09/24 acetaminophen 500 mg capsule 500 mg PO Q6H PRN pain 07/10/24 polyethylene glycol 3350 17 gram/dose oral powder (ClearLax) 17 g PO DAILY PRN constipation 07/10/24 sennosides 8.6 mg-docusate sodium 50 mg tablet (Stimulant Laxative Plus) 2 tab PO BID #10 tabs 07/14/24 Hospital Course Summary of Care Provided Minutes Spent on Discharge: 30 Weight / BMI Weight Weight: 106.3 kg Body Mass Index (BMI) 29.1 ABG / Lab / Microbiology Data 07/13/24 17:01 07/13/24 17:01 Laboratory: Laboratory Results - last 24 hr 07/13/24 17:01: WBC 8.4, RBC 4.07 L, Hgb 13.0, Hct 39.1 L, MCV 96.1 H, MCH 31.9, MCHC 33.2, RDW Std Deviation 44.2 H, RDW Coeff of Erin 12.6, Plt Count 144 L, MPV 9.4, Immature Gran % (Auto) 0.500, N eut % (Auto) 78.2 H, Lymph % (Auto) 10.3 L, Atlantic % (Auto) 10.0, Eos % (Auto) 0.8, Baso % (Auto) 0.2, Absolute Neuts (auto) 6.6, Absolute Lymphs (auto) 0.87, Nucleated RBC % 0, Sodium 136, Potassium 4.2, Chloride 104, Carbon Dioxide 25.0, Anion Gap 7, BUN 28 H, Creatinine 1.11, Estim Creat Clear Calc 65.28, Est GFR (MDRD) Af Amer 81, Est GFR (MDRD) Non-Af 67, BUN/Creatinine Ratio 25.2 H, G lucose 120 H, Calcium 8.8 D/C Instructions Discharge Diet: No restrictions DC O2, CPAP, BIPAP Needs Home O2 Discharge instructions: No Meaningful Use Info Meaningful Use Meaningful Use Diagnoses (Choose all that apply): None applicable Ischemic Stroke Statin Dosing Therapy Reference: STATIN DOSE THERAPY REFERENCE: * Patients > 75 years receive moderate or high dose statin therapy. * Patients 75 years or YOUNGER should receive HIGH intensity statin dose unless contraindicated. You will be required to document reason for non-treatment if statin daily dose does not meet guidelines. HIGH DOSE STATIN THERAPY DAILY Atorvastatin > than or = to 40 mg Rosuvastatin > than or = to 20 mg Amlodipine + Atorvastatin > than or = to 2.5/40 mg Ezetimibe + Simvastatin 10/80 mg Simvastatin 80mg Discharge Plan Admission Admit Date/Time: 07/10/24 02:21 Primary Reason for Your Visit: Left hip fracture. Attending Provider: Cristofer Newton Primary Care Provider: Raphael Justin Consulting Providers: Charly Villagomez; Hima Saba; Panfilo Luna; Trey Arzola; Ean Roberts; Matt Arzola; Kendy Dominguez; Chichi Crabtree; Ivory Alexis; Baldomero Hope; Giovanny Alston Discharge Orders/Prescriptions Prescriptions: New sennosides-docusate sodium [Stimulant Laxative Plus] 8.6-50 mg Tablet 2 tab PO BID Qty: 10 0RF Continued Caltrate-D3 Plus Minerals 300 mg-800 unit -25 mg-0.5 mg tablet 1 tab PO BID enalapril maleate 20 MG tablet (more content not included)... [facility] 03-29-2024 Note HNO ID: [id number] Author: JOSE CUNNINGHAM, DO Service: ? Author Type: Physician Type: Progress Notes Filed: 03/29/2024 14:59 Note Text: Oncologic problem(s): 1) High risk prostate cancer. HPI: The patient is an 83-year-old male with a past medical history significant for essential hypertension and hyperlipidemia. Had been managed by urologist for BPH. PSA in the past has fluctuated. For instance it was 7.1 ng/mL November 2014. Then 9.5 ng/mL in August 2018 and then 8.0 ng/mL in December 2018. Increased to 14.80 ng/mL. Biopsy of the prostate 08/07/2020. Pathology: A. Right prostate, apex, core biopsy: Adenocarcinoma. [place] grade: 7 (4+3) Cores involved: 1 out of 1 core Tissue involved: 5% Greatest tumor length: 1 mm See comment. B. Right prostate, mid, core biopsy: Adenocarcinoma. [place] grade: 8 (4+4) Cores involved: 1 out of 1 core Tissue involved: 60% Greatest tumor length: 4.5 mm C. Right prostate, base, core biopsy: Adenocarcinoma. Valent[place] grade: 8 (4+4) Cores involved: 1 out of 1 core Tissue involved: 2% Greatest tumor length: <1 mm D. Left prostate, apex, core biopsy: Focal atypical small acinar proliferation. See comment. E. Left prostate, mid, core biopsy: Adenocarcinoma. [place] grade: 6 (3+3) Cores involved: 1 out of 1 core Tissue involved: 2% Greatest tumor length: <1 mm See comment. F. Left prostate, base, core biopsy: Adenocarcinoma. Valentina grade: 7 (3+4) Cores involved: 1 out of 1 core Tissue involved: 65% Greatest tumor length: 5.5 mm Bone scan on 08/29/2020 demonstrated no evidence of bone metastases. He had been advised to undergo external beam radiation treatment with ADT. Previous therapy: 1) ADT (10/2020) with radiation (completed radiation 01/2021). Last q 3 month Lupron injection 01/2023. Developed atrial fibrillation 05/2022. On apixaban since 06/2022. Metoprolol. Had colonoscopy to assess rectal bleeding in February 2023. Preparation was inadequate. Was found to have a 20 mm polypoid lesion in the distal transverse colon. It was sessile. No bleeding observed. Biopsies were obtained and the area was tattooed with 3 mL of carbon black. There was a diffuse area of mild erythematous mucosa in the rectum. Multiple small and large mouth diverticula were observed in the sigmoid colon terminal ileum appeared normal. Pathology: A. Transverse colon, polypectomy: - Tubulovillous adenoma. Presents for ongoing oncologic management. Interim history: Rectal bleeding significantly slowing. Still has urinary frequency, going about every 2 hours during the day Typically 3 times at night. No gross hematuria or dysuria. Sensory neuropathy b/l, but mostly left leg and foot. Feels like socks on were they're not. Dr. Justin worked it up and has referred to neurologist. Symptoms seem to be self-improving. Had EEG. Trial of gabapentin. Remains on anticoagulation for history of atrial fibrillation. Continues follow-up with the [facility]. PMH, medications and allergies personally reviewed by me today. Any changes documented in appropriate section. ROS: Constitutional: Denies episodes of fever and night sweats. Not significantly fatigued. Normal appetite. Neuro: Denies URIOSTEGUI, vertigo, dizziness and imbalance. Denies symptoms of neuropathy. HEENT: No recent change in voice, vision or hearing. Resp: Denies cough, wheeze and hemoptysis. Denies shortness of breath at rest. CVS: Denies exertional chest pain, PND, orthopnea and LE edema. GI: Denies dysphagia and odynophagia. Denies reflux, n/v, change in bowel habits and abdominal pain. : See above. Endo: Denies hot flashes. Denies polyuria and polydipsia. Denies heat and cold intolerance. Musculoskeletal: Chronic back pain--stable. Derm: Denies rash. Denies jaundice and diffuse pruritis. Heme: Denies unusual bleeding and unexplained bruising. Psych: Normal mood. PHYSICAL EXAM: Vitals: Blood pressure 161/81, pulse (!) 46, temperature 36.5 ?C (97.7 ?F), temperature source Temporal, weight 101.2 kg (223 lb), SpO2 99%. Well-appearing and in no acute distress. EYES: Sclerae are anicteric bilaterally. LYMPHATIC: There is no palpable cervical or supraclavicular adenopathy. RESPIRATORY: Inspiratory breath sounds are of normal intensity in all russell. No rales, wheezes or rhonchi. CARDIOVASCULAR: Rhythm is regular. ABDOMEN: The abdomen is nondistended. No organomegaly. No tenderness. Extremities: No swelling or edema. SKIN: No jaundice or rash. 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 High risk disease. -Received every 3 month Lupron for 2-1/2 years, last dose 02/13/2023. -PSA undet (more content not included)... [facility] 03-29-2024 History of Presen t illness Narrative Oncologic problem(s): 1) High risk prostate cancer. HPI: The patient is an 83-year-old male with a past medical history significant for essential hypertension and hyperlipidemia. Had been managed by urologist for BPH. PSA in the past has fluctuated. For instance it was 7.1 ng/mL November 2014. Then 9.5 ng/mL in August 2018 and then 8.0 ng/mL in December 2018. Increased to 14.80 ng/mL. Biopsy of the prostate 08/07/2020. Pathology: A. Right prostate, apex, core biopsy: Adenocarcinoma. [place] grade: 7 (4+3) Cores involved: 1 out of 1 core Tissue involved: 5% Greatest tumor length: 1 mm See comment. B. Right prostate, mid, core biopsy: Adenocarcinoma. Valent[place] grade: 8 (4+4) Cores involved: 1 out of 1 core Tissue involved: 60% Greatest tumor length: 4.5 mm C. Right prostate, base, core biopsy: Adenocarcinoma. [place] grade: 8 (4+4) Cores involved: 1 out of 1 core Tissue involved: 2% Greatest tumor length: <1 mm D. Left prostate, apex, core biopsy: Focal atypical small acinar proliferation. See comment. E. Left prostate, mid, core biopsy: Adenocarcinoma. [place] grade: 6 (3+3) Cores involved: 1 out of 1 core Tissue involved: 2% Greatest tumor length: <1 mm See comment. F. Left prostate, base, core biopsy: Adenocarcinoma. Valentina grade: 7 (3+4) Cores involved: 1 out of 1 core Tissue involved: 65% Greatest tumor length: 5.5 mm Bone scan on 08/29/2020 demonstrated no evidence of bone metastases. He had been advised to undergo external beam radiation treatment with ADT. Previous therapy: 1) ADT (10/2020) with radiation (completed radiation 01/2021). Last q 3 month Lupron injection 01/2023. Developed atrial fibrillation 05/2022. On apixaban since 06/2022. Metoprolol. Had colonoscopy to assess rectal bleeding in February 2023. Preparation was inadequate. Was found to have a 20 mm polypoid lesion in the distal transverse colon. It was sessile. No bleeding observed. Biopsies were obtained and the area was tattooed with 3 mL of carbon black. There was a diffuse area of mild erythematous mucosa in the rectum. Multiple small and large mouth diverticula were observed in the sigmoid colon terminal ileum appeared normal. Pathology: A. Transverse colon, polypectomy: - Tubulovillous adenoma. Presents for ongoing oncologic management. Interim history: Rectal bleeding significantly slowing. Still has urinary frequency, going about every 2 hours during the day Typically 3 times at night. No gross hematuria or dysuria. Sensory neuropathy b/l, but mostly left leg and foot. Feels like socks on were they're not. Dr. Justin worked it up and has referred to neurologist. Symptoms seem to be self-improving. Had EEG. Trial of gabapentin. Remains on anticoagulation for history of atrial fibrillation. Continues follow-up with the [facility]. PMH, medications and allergies personally reviewed by me today. Any changes documented in appropriate section. ROS: Constitutional: Denies episodes of fever and night sweats. Not significantly fatigued. Normal appetite. Neuro: Denies URIOSTEGUI, vertigo, dizziness and imbalance. Denies symptoms of neuropathy. HEENT: No recent change in voice, vision or hearing. Resp: Denies cough, wheeze and hemoptysis. Denies shortness of breath at rest. CVS: Denies exertional chest pain, PND, orthopnea and LE edema. GI: Denies dysphagia and odynophagia. Denies reflux, n/v, change in bowel habits and abdominal pain. : See above. Endo: Denies hot flashes. Denies polyuria and polydipsia. Denies heat and cold intolerance. Musculoskeletal: Chronic back pain--stable. Derm: Denies rash. Denies jaundice and diffuse pruritis. Heme: Denies unusual bleeding and unexplained bruising. Psych: Normal mood. PHYSICAL EXAM: Vitals: Blood pressure 161/81, pulse (!) 46, temperature 36.5 C (97.7 F), temperature source Temporal, weight 101.2 kg (223 lb), SpO2 99%. Well-appearing and in no acute distress. EYES: Sclerae are anicteric bilaterally. LYMPHATIC: There is no palpable cervical or supraclavicular adenopathy. RESPIRATORY: Inspiratory breath sounds are of normal intensity in all russell. No rales, wheezes or rhonchi. CARDIOVASCULAR: Rhythm is regular. ABDOMEN: The abdomen is nondistended. No organomegaly. No tenderness. Extremities: No swelling or edema. SKIN: No jaundice or rash. 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 High risk disease. -Received every 3 month Lupron for 2-1/2 years, last dose 02/13/2023. -PSA undetectable as of 02/2022. -Slow increase in PSA. -No symptoms. -Discussed imaging if/when higher. -Mild thrombocytopenia and sensory neuropathy. Plan: -CBC/PSA then office visit in about 4 months. -Continue calcium supplement with vitamin D twice daily. (I48.91) Atrial fibrillation, unspecified type (HCC) Assessment: -On apixaban lower dose now. Plan: Follow up with cardiology. (K62.5) Rectal bleeding Assessment: -Intermittent rectal bleeding with bowel movement. -Still suspicious for mild radiation proctitis that is improving. -Reviewed CBC. No evidence of developing iron deficiency so we will continue monitoring. Plan: -He will call if bleeding increases. Portions of this documentation were copied and pasted from previous office visit notes in order to provide a cohesive continuity of the history. The note has been reviewed and edited and updated as necessary. I spent a total of 20 minutes on the date of the service which included preparing to see the patient, [id number] patient care, completing clinical documentation, obtaining and/or reviewing separately obtained history, performing a medically appropriate examination, counseling and educating the patient/family/caregiver, ordering medications, tests, or procedures, communicating with other HCPs (not separately reported), and communicating results to the patient/family/caregiver. Jose Cunningham DO documented in this encounter [facility] 03-25-2024 Telephone encounter Note Spoke with patient and he stated he wanted to talk to Dr. Justin again before scheduling. [facility] 03-25-2024 Miscellaneous Notes Spoke with patient and he stated he wanted to talk to Dr. Justin again before scheduling. Fax received from [facility] physician referral for neuropathy. Please assist patient in scheduling with general neurology. Joanna Drake LPN February 09, 2024 2:41 PM documented in this encounter [facility] 02-09-2024 Telephone encounter Note Fax received from [facility] physician referral for neuropathy. Please assist patient in scheduling with general neurology. Joanna Drake LPN February 09, 2024 2:41 PM [facility] 11-27-2023 History of Presen t illness Narrative Oncologic problem(s): 1) High risk prostate cancer. HPI: The patient is an 83-year-old male with a past medical history significant for essential hypertension and hyperlipidemia. Had been managed by urologist for BPH. PSA in the past has fluctuated. For instance it was 7.1 ng/mL November 2014. Then 9.5 ng/mL in August 2018 and then 8.0 ng/mL in December 2018. Increased to 14.80 ng/mL. Biopsy of the prostate 08/07/2020. Pathology: A. Right prostate, apex, core biopsy: Adenocarcinoma. [place] grade: 7 (4+3) Cores involved: 1 out of 1 core Tissue involved: 5% Greatest tumor length: 1 mm See comment. B. Right prostate, mid, core biopsy: Adenocarcinoma. [place] grade: 8 (4+4) Cores involved: 1 out of 1 core Tissue involved: 60% Greatest tumor length: 4.5 mm C. Right prostate, base, core biopsy: Adenocarcinoma. [place] grade: 8 (4+4) Cores involved: 1 out of 1 core Tissue involved: 2% Greatest tumor length: <1 mm D. Left prostate, apex, core biopsy: Focal atypical small acinar proliferation. See comment. E. Left prostate, mid, core biopsy: Adenocarcinoma. Valent[place] grade: 6 (3+3) Cores involved: 1 out of 1 core Tissue involved: 2% Greatest tumor length: <1 mm See comment. F. Left prostate, base, core biopsy: Adenocarcinoma. [place] grade: 7 (3+4) Cores involved: 1 out of 1 core Tissue involved: 65% Greatest tumor length: 5.5 mm Bone scan on 08/29/2020 demonstrated no evidence of bone metastases. He had been advised to undergo external beam radiation treatment with ADT. Previous therapy: 1) ADT (10/2020) with radiation (completed radiation 01/2021). Last q 3 month Lupron injection 01/2023. Developed atrial fibrillation 05/2022. On apixaban since 06/2022. Metoprolol. Had colonoscopy to assess rectal bleeding in February 2023. Preparation was inadequate. Was found to have a 20 mm polypoid lesion in the distal transverse colon. It was sessile. No bleeding observed. Biopsies were obtained and the area was tattooed with 3 mL of carbon black. There was a diffuse area of mild erythematous mucosa in the rectum. Multiple small and large mouth diverticula were observed in the sigmoid colon terminal ileum appeared normal. Pathology: A. Transverse colon, polypectomy: - Tubulovillous adenoma. Presents for ongoing oncologic management. Interim history: Continues to have intermittent rectal bleeding. Only happens when having a bowel movement. 8 episodes during the month of October. Had some clots on 2 occasions. Recently had a repeat colonoscopy. 1 tubular adenoma removed. Rectal mucosa biopsy that appeared erythematous. No evidence of chronic or acute inflammation. Still has urinary frequency, going about every 2 hours during the day and about once an hour during the night. No gross hematuria or dysuria. Remains on anticoagulation for history of atrial fibrillation. Continues follow-up with the [facility]. PMH, medications and allergies personally reviewed by me today. Any changes documented in appropriate section. ROS: Constitutional: Denies episodes of fever and night sweats. Not significantly fatigued. Normal appetite. Neuro: Denies URIOSTEGUI, vertigo, dizziness and imbalance. Denies symptoms of neuropathy. HEENT: No recent change in voice, vision or hearing. Resp: Denies cough, wheeze and hemoptysis. Denies shortness of breath at rest. CVS: Denies exertional chest pain, PND, orthopnea and LE edema. GI: Denies dysphagia and odynophagia. Denies reflux, n/v, change in bowel habits and abdominal pain. : See above. Endo: Denies hot flashes. Denies polyuria and polydipsia. Denies heat and cold intolerance. Musculoskeletal: Chronic back pain--stable. Derm: Denies rash. Denies jaundice and diffuse pruritis. Heme: Denies unusual bleeding and unexplained bruising. Psych: Normal mood. PHYSICAL EXAM: Vitals: Blood pressure 143/83, pulse 63, temperature 36.8 C (98.3 F), weight 100.5 kg (221 lb 8 oz), SpO2 96%. Well-appearing and in no acute distress. EYES: Sclerae are anicteric bilaterally. LYMPHATIC: There is no palpable cervical or supraclavicular adenopathy. RESPIRATORY: Inspiratory breath sounds are of normal intensity in all russell. No rales, wheezes or rhonchi. CARDIOVASCULAR: Rhythm is regular. ABDOMEN: The abdomen is nondistended. No organomegaly. No tenderness. Extremities: No swelling or edema. SKIN: No jaundice or rash. 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 High risk disease. -PSA undetectable as of 02/2022. -Received every 3 month Lupron for 2-1/2 years, last dose 02/13/2023. -Reviewed labs. PSA may be starting to increase. He remains asymptomatic and at a level that imaging would likely be unrevealing. We discussed repeating PSA in several months in order to establish trend/doubling time. Discussed pros and cons of resuming ADT at this time. We decided to hold off. -Has urinary frequency but has had BP reactions to Flomax and another drug the name of which he cannot recall. Willing to see urology now. -Reviewed the documentation he brought me regarding other symptomatology. Please see scanned document. Plan: -CBC/PSA/Testosterone then office visit in about 3 to 4 months. -Referral to Dr. Jackson for opinion regarding urinary frequency. -Continue calcium supplement with vitamin D twice daily. (I48.91) Atrial fibrillation, unspecified type (HCC) Assessment: -On apixaban lower dose now. Plan: Follow up with cardiology. (K62.5) Rectal bleeding Assessment: -Intermittent rectal bleeding with bowel movement. -Still suspicious for mild radiation proctitis. -Reviewed CBC. No evidence of developing iron deficiency so we will continue monitoring. Plan: -He will call if bleeding increases. Portions of this documentation were copied and pasted from previous office visit notes in order to provide a cohesive continuity of the history. The note has been reviewed and edited and updated as necessary. I spent a total of 30 minutes on the date of the service which included preparing to see the patient, [id number] patient care, completing clinical documentation, obtaining and/or reviewing separately obtained history, performing a medically appropriate examination, counseling and educating the patient/family/caregiver, ordering medications, tests, or procedures, communicating with other HCPs (not separately reported), and communicating results to the patient/family/caregiver. Jose Cunningham DO documented in this encounter [facility] 11-27-2023 Nurse Note Est. Pt, discuss recent labs, 6 month F/U Lisa Gusman LPN [facility] 11-27-2023 Nurse Note Est. Pt, discuss recent labs, 6 month F/U Lisa Gusman LPN documented in this encounter [facility] 11-25-2023 Note Formatting of this n ote might be different from the original. The patient received a copy of Colonoscopy discharge instructions that contain information for how to contact the physician who performed the procedure and when to seek medical care. [facility] 11-25-2023 Miscellaneous Notes The patient received a copy of Colonoscopy discharge instructions that contain information for how to contact the physician who performed the procedure and when to seek medical care. documented in this encounter [facility] 11-25-2023 Nurse Note Abdomen soft non-distended. Will continue to monitor. [facility] 11-25-2023 Nurse Note Abdomen soft non-distended. Will continue to monitor. documented in this encounter [facility] 11-25-2023 Attending History and physical note UPDATED PROCEDURAL SEDATION HISTORY AND PHYSICAL EXAMINATION SERVICE DATE: 11/25/2023 SERVICE TIME: 11:40 AM PHYSICAL EXAM MUST BE COMPLETED ON ADMISSION PROCEDURE: Procedure Indications: The History and Physical (completed in the past 30 days) has been reviewed and the patient has been examined. The contents accurately reflect the patient's condition with the following additions or revisions since the H&P was completed. ASA Class: ASA Class:: Patient with mild systemic disease Examination indicates no changes. AIRWAY: Airway Visualization of Uvula: Yes Mouth opening greater than 2 fingerbreadths: Yes Neck Full Range of Motion: Yes LUNGS: Lungs clear to auscultation CARDIAC: Regular rhythm,Regular rate Provisional Diagnosis/Treatment Plan: tubulovillous adenoma - s/p EMR - colonoscopy SEDATION GOAL: Moderate This H&P can be found in the attached. SIGNATURE: Kendra Gregory MD PATIENT NAME: Robbin Flahertyhrop DATE: November 25, 2023 TIME: 11:40 AM Source Note - Kendra Gregory MD - 11/25/2023 11:15 AM EDT HISTORY AND PHYSICAL Robbin Jackson Michelle 1940 CHIEF COMPLAINT: Rectal Bleeding HPI: The patient is a 83 year old male referred for endoscopy. Robbin notes occasional rectal bleeding following bowel movements. He has no other current colon complaints. The patient did noticed he was given doxycycline when he had a I inflamed cyst on September 16 for 14 days. Interestingly he noted decrease in rectal bleeding while on those antibiotics. 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 The patient has no complaints of upper GI issues Robbin has undergone prior endoscopy. I had seen him last year for lower GI bleeding. The patient underwent colonoscopy with Dr. Eric Li on February 27, 2023. The patient was found to have a larger sessile polypoid lesion in the distal transverse colon biopsies were taken and the area was tattooed. He was also found to have multiple areas of erythematous mucosa in the rectum. The terminal ileum was unremarkable. Pathology returned as a tubulovillous adenoma. The patient was referred to Dr. Darryn Hawk. He performed an endoscopic submucosal dissection with was felt to be complete resection and retrieval on July 07, 2023. Pathology returned as: Tubulovillous adenoma with negative margins. PAST MEDICAL HISTORY PAST MEDICAL HISTORY Diagnosis Date Atrial fibrillation (HCC) Diverticulosis Diverticulosis of colon (without mention of hemorrhage) Essential hypertension Hemorrhage of gastrointestinal tract, unspecified Hemorrhoids Hiatal hernia 07/03/2016 Hyperlipidemia Internal hemorrhoids without mention of complication Prostate cancer (HCC) 2020 Renal calculi Unspecified essential hypertension PAST SURGICAL HISTORY PAST SURGICAL HISTORY Procedure Laterality Date COLONOSCOPY 02/27/2023 COLONOSCOPY FLX DX W/COLLJ SPEC WHEN PFRMD 03/21/2008 CYSTOSCOPY 07/2015 EYE SURGERY HX HERNIA REPAIR HX NEEDLE BX - PROSTATE 2020 REMV CATARACT EXTRACAP,INSERT LENS Right 03/15/2019 RPR 1ST INGUN HRNA AGE 5 YRS/> REDUCIBLE Right 07/09/2016 right SKIN BIOPSY HX 2004 SKIN BIOPSY HX 04/2016 CURRENT MEDICATIONS Current Outpatient Medications Medication Sig apixaban (ELIQUIS) 2.5 mg tab(s) Take 1 tablet by mouth two times a day. metoprolol tartrate, short acting, (LOPRESSOR) 25 mg tablet Take 1 tablet by mouth twice daily. polyethylene glycol 3350 17 gram packet Take 17 g by mouth as needed for constipation. Dissolve dose in 4 - 8 ounces of liquid and take as directed. calcium carbonate/vitamin D3 (CALTRATE WITH VITAMIN D3 ORAL) Take 1 tablet by mouth twice daily. vit C/E/Zn/coppr/lutein/zeaxan (PRESERVISION AREDS-2 ORAL) Take 1 tablet by mouth twice daily. acetaminophen (TYLENOL) 500 mg tablet Take 500 mg by mouth as needed. enalapril 20 mg tablet Take 1 tablet by mouth once daily. sucralfate (CARAFATE) 0.1 g/mL rectal enema 40 mL by RECTAL route two times a day. furosemide (LASIX) 20 mg tablet Take 20 mg by mouth every morning. cyanocobalamin, vitamin B-12, (VITAMIN B12 ORAL) Take 1 tablet by mouth once daily. No current facility-administered medications for this visit. ALLERGIES: Patient has no known allergies. PERSONAL HISTORY: SOCIAL HISTORY Social History Tobacco Use Smoking status: Former Years: 2 Types: Cigarettes Quit date: 06/23/1971 Years since quittin.3 Smokeless tobacco: Never Tobacco comments: Smoked for a couple years while in college. Vaping Use Vaping Use: Never used Substance Use Topics Alcohol use: Yes Alcohol/week: 3.0 standard drinks of alcohol Types: 3 Glasses of Wine (5oz) per week Comment: couple times a week with dinner Drug use: No FAMILY HISTORY: FAMILY HISTORY FAMILY HISTORY Problem Relation Age of Onset Heart Mother Hypertension Mother Arthritis Mother Hypertension Father Cancer Maternal Grandmother unsure what type Cancer Paternal Grandmother unsure what type Hypertension Paternal Grandfather REVIEW OF SYMPTOMS: The review of systems data was entered by the nurse and reviewed by ky Nursing Notes: Adriana Lennon MA 10/10/2023 11:01 AM Signed REVIEW OF SYSTEMS: General: The patient denies fatigue, denies weight loss, denies weight gain, denies feeling hot, and denies feelings of cold. Eyes: The patient denies glaucoma, NOTES eye injury/surgery, wears glasses or contacts. Ear/Nose/Throat: The patient denies allergies, denies hayfever, denies ear infections, and denies bloody noses. Cardiovascular: The patient denies chest pain, denies heart disease, NOTES high blood pressure,denies cardiac stent, denies prior heart attack, NOTES irregular heart beat, denies high cholesterol, denies poor circulation, denies heart failure, other cardiac issues, denies claudication, denies cold feet, denies peripheral arterial stent. Respiratory: The patient denies tuberculosis, denies pneumonia, denies frequent cough, denies pulmonary embolism, denies shortness of breath, and denies coughing up blood. Gastrointestinal: The patient denies difficulty swallowing, denies acid reflux, denies ulcers, denies vomiting, denies jaundice/hepatitis, denies gallbladder problems, denies black or tarry stools, denies hemorrhoids, NOTES bleeding from rectum, NOTES diverticulitis, denies constipation, denies diarrhea, denies loss of stool control, and denies hernias. Kidney/Bladder: The patient NOTES kidney stones, denies urine infections, and denies bloody urine. Skin: The patient NOTES a history of skin cancer, denies bleeding/changing moles, and denies a history of skin rash. Neurologic: The patient denies a history of epilepsy/convulsions, denies headaches, denies head/spinal injuries, and denies stroke/TIA. Psychiatric: The patient denies psychiatric medications, denies depression, and denies voices, denies substance abuse. Endocrine: The patient denies thyroid disorders, denies diabetes, and denies hormonal problems. Hematologic: The patient NOTES a history of bruising, denies bleeding, and denies anemia, denies blood clots. Infections: The patient NOTES a history of measles and mumps, denies rheumatic fever, and denies sexually transmitted diseases. Musculoskeletal: The patient NOTES back pain/injury, denies back problems, NOTES sciatica, denies knee/foot trouble, denies arthritis, or denies gout. When was patient's last Mammogram screening? N/A Last Colonoscopy: 06/2023 Adriana Lennon MA PHYSICAL EXAMINATION: General: The patient is 83 year old male, well nourished, well hydrated in no acute distress. The patient is oriented to time, place, and person. VITALS: Blood pressure 124/68, pulse 68, temperature 36.1 C (97 F), weight 101.2 kg (223 lb), SpO2 100%. Body mass index is 27.87 kg/m . HEENT: Normal cephalic, ataumatic, pupils are equally round, sclera are anicteric, mucous membranes are moist, oropharynx is clear. Neck has no masses, asymmetry or lymphadenopathy. Thyroid is unremarkable. Respiratory: Clear to auscultation and percussion. Normal respiratory excursion and pattern. Cardiac: Examination is regular rate and rhythm. Abdominal exam: Soft, nontender, with no palpable masses. No hepatosplenomegaly. No palpable hernias. Rectal exam: exam deferred Extremities: no clubbing, cyanosis or edema. No adenopathy. Other: LABORATORY VALUES: As Noted RADIOLOGIC STUDIES: As Noted Assessment IMPRESSION: History of radiation proctitis, distal transverse colon tubulovillous adenoma removed with endoscopic mucosal resection PLAN: I plan to perform lower endoscopy to assure complete resection of the site of the polyp and to perform rectal biopsies given his history of radiation proctitis.. We discussed the risks and benefits of the planned endoscopy. I have informed the patient that complications can occur including failure to complete the endoscopy and perforation. The patient had the opportunity to ask questions concerning the planned endoscopy. My staff has also explained the procedure to the patient in understandable terms and has given the patient printed material concerning the procedure. The patient freely consents to surgery. 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 Raphael Justin MD indicating the above finding for this patient. Return to Clinic: The patient is instructed to follow-up with me after the testing has been completed. Kendra Gregory MD [facility] 11-25-2023 History and physical note HISTORY AND PHYSICAL Robbin Jackson Michelle 1940 CHIEF COMPLAINT: Rectal Bleeding HPI: The patient is a 83 year old male referred for endoscopy. Robbin notes occasional rectal bleeding following bowel movements. He has no other current colon complaints. The patient did noticed he was given doxycycline when he had a I inflamed cyst on September 16 for 14 days. Interestingly he noted decrease in rectal bleeding while on those antibiotics. 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 The patient has no complaints of upper GI issues Robbin has undergone prior endoscopy. I had seen him last year for lower GI bleeding. The patient underwent colonoscopy with Dr. Eric Li on February 27, 2023. The patient was found to have a larger sessile polypoid lesion in the distal transverse colon biopsies were taken and the area was tattooed. He was also found to have multiple areas of erythematous mucosa in the rectum. The terminal ileum was unremarkable. Pathology returned as a tubulovillous adenoma. The patient was referred to Dr. Darryn Hawk. He performed an endoscopic submucosal dissection with was felt to be complete resection and retrieval on July 07, 2023. Pathology returned as: Tubulovillous adenoma with negative margins. PAST MEDICAL HISTORY PAST MEDICAL HISTORY Diagnosis Date Atrial fibrillation (HCC) Diverticulosis Diverticulosis of colon (without mention of hemorrhage) Essential hypertension Hemorrhage of gastrointestinal tract, unspecified Hemorrhoids Hiatal hernia 07/03/2016 Hyperlipidemia Internal hemorrhoids without mention of complication Prostate cancer (HCC) 2020 Renal calculi Unspecified essential hypertension PAST SURGICAL HISTORY PAST SURGICAL HISTORY Procedure Laterality Date COLONOSCOPY 02/27/2023 COLONOSCOPY FLX DX W/COLLJ SPEC WHEN PFRMD 03/21/2008 CYSTOSCOPY 07/2015 EYE SURGERY HX HERNIA REPAIR HX NEEDLE BX - PROSTATE 2020 REMV CATARACT EXTRACAP,INSERT LENS Right 03/15/2019 RPR 1ST INGUN HRNA AGE 5 YRS/> REDUCIBLE Right 07/09/2016 right SKIN BIOPSY HX 2004 SKIN BIOPSY HX 04/2016 CURRENT MEDICATIONS Current Outpatient Medications Medication Sig apixaban (ELIQUIS) 2.5 mg tab(s) Take 1 tablet by mouth two times a day. metoprolol tartrate, short acting, (LOPRESSOR) 25 mg tablet Take 1 tablet by mouth twice daily. polyethylene glycol 3350 17 gram packet Take 17 g by mouth as needed for constipation. Dissolve dose in 4 - 8 ounces of liquid and take as directed. calcium carbonate/vitamin D3 (CALTRATE WITH VITAMIN D3 ORAL) Take 1 tablet by mouth twice daily. vit C/E/Zn/coppr/lutein/zeaxan (PRESERVISION AREDS-2 ORAL) Take 1 tablet by mouth twice daily. acetaminophen (TYLENOL) 500 mg tablet Take 500 mg by mouth as needed. enalapril 20 mg tablet Take 1 tablet by mouth once daily. sucralfate (CARAFATE) 0.1 g/mL rectal enema 40 mL by RECTAL route two times a day. furosemide (LASIX) 20 mg tablet Take 20 mg by mouth every morning. cyanocobalamin, vitamin B-12, (VITAMIN B12 ORAL) Take 1 tablet by mouth once daily. No current facility-administered medications for this visit. ALLERGIES: Patient has no known allergies. PERSONAL HISTORY: SOCIAL HISTORY Social History Tobacco Use Smoking status: Former Years: 2 Types: Cigarettes Quit date: 06/23/1971 Years since quittin.3 Smokeless tobacco: Never Tobacco comments: Smoked for a couple years while in college. Vaping Use Vaping Use: Never used Substance Use Topics Alcohol use: Yes Alcohol/week: 3.0 standard drinks of alcohol Types: 3 Glasses of Wine (5oz) per week Comment: couple times a week with dinner Drug use: No FAMILY HISTORY: FAMILY HISTORY FAMILY HISTORY Problem Relation Age of Onset Heart Mother Hypertension Mother Arthritis Mother Hypertension Father Cancer Maternal Grandmother unsure what type Cancer Paternal Grandmother unsure what type Hypertension Paternal Grandfather REVIEW OF SYMPTOMS: The review of systems data was entered by the nurse and reviewed by ky Nursing Notes: Adriana Lennon MA 10/10/2023 11:01 AM Signed REVIEW OF SYSTEMS: General: The patient denies fatigue, denies weight loss, denies weight gain, denies feeling hot, and denies feelings of cold. Eyes: The patient denies glaucoma, NOTES eye injury/surgery, wears glasses or contacts. Ear/Nose/Throat: The patient denies allergies, denies hayfever, denies ear infections, and denies bloody noses. Cardiovascular: The patient denies chest pain, denies heart disease, NOTES high blood pressure,denies cardiac stent, denies prior heart attack, NOTES irregular heart beat, denies high cholesterol, denies poor circulation, denies heart failure, other cardiac issues, denies claudication, denies cold feet, denies peripheral arterial stent. Respiratory: The patient denies tuberculosis, denies pneumonia, denies frequent cough, denies pulmonary embolism, denies shortness of breath, and denies coughing up blood. Gastrointestinal: The patient denies difficulty swallowing, denies acid reflux, denies ulcers, denies vomiting, denies jaundice/hepatitis, denies gallbladder problems, denies black or tarry stools, denies hemorrhoids, NOTES bleeding from rectum, NOTES diverticulitis, denies constipation, denies diarrhea, denies loss of stool control, and denies hernias. Kidney/Bladder: The patient NOTES kidney stones, denies urine infections, and denies bloody urine. Skin: The patient NOTES a history of skin cancer, denies bleeding/changing moles, and denies a history of skin rash. Neurologic: The patient denies a history of epilepsy/convulsions, denies headaches, denies head/spinal injuries, and denies stroke/TIA. Psychiatric: The patient denies psychiatric medications, denies depression, and denies voices, denies substance abuse. Endocrine: The patient denies thyroid disorders, denies diabetes, and denies hormonal problems. Hematologic: The patient NOTES a history of bruising, denies bleeding, and denies anemia, denies blood clots. Infections: The patient NOTES a history of measles and mumps, denies rheumatic fever, and denies sexually transmitted diseases. Musculoskeletal: The patient NOTES back pain/injury, denies back problems, NOTES sciatica, denies knee/foot trouble, denies arthritis, or denies gout. When was patient's last Mammogram screening? N/A Last Colonoscopy: 06/2023 Adriana Lennon MA PHYSICAL EXAMINATION: General: The patient is 83 year old male, well nourished, well hydrated in no acute distress. The patient is oriented to time, place, and person. VITALS: Blood pressure 124/68, pulse 68, temperature 36.1 C (97 F), weight 101.2 kg (223 lb), SpO2 100%. Body mass index is 27.87 kg/m . HEENT: Normal cephalic, ataumatic, pupils are equally round, sclera are anicteric, mucous membranes are moist, oropharynx is clear. Neck has no masses, asymmetry or lymphadenopathy. Thyroid is unremarkable. Respiratory: Clear to auscultation and percussion. Normal respiratory excursion and pattern. Cardiac: Examination is regular rate and rhythm. Abdominal exam: Soft, nontender, with no palpable masses. No hepatosplenomegaly. No palpable hernias. Rectal exam: exam deferred Extremities: no clubbing, cyanosis or edema. No adenopathy. Other: LABORATORY VALUES: As Noted RADIOLOGIC STUDIES: As Noted Assessment IMPRESSION: History of radiation proctitis, distal transverse colon tubulovillous adenoma removed with endoscopic mucosal resection PLAN: I plan to perform lower endoscopy to assure complete resection of the site of the polyp and to perform rectal biopsies given his history of radiation proctitis.. We discussed the risks and benefits of the planned endoscopy. I have informed the patient that complications can occur including failure to complete the endoscopy and perforation. The patient had the opportunity to ask questions concerning the planned endoscopy. My staff has also explained the procedure to the patient in understandable terms and has given the patient printed material concerning the procedure. The patient freely consents to surgery. 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 Raphael Justin MD indicating the above finding for this patient. Return to Clinic: The patient is instructed to follow-up with me after the testing has been completed. Kendra Gregory MD [facility] 11-25-2023 History and physical note UPDATED PROCEDURAL SEDATION HISTORY AND PHYSICAL EXAMINATION SERVICE DATE: 11/25/2023 SERVICE TIME: 11:40 AM PHYSICAL EXAM MUST BE COMPLETED ON ADMISSION PROCEDURE: Procedure Indications: The History and Physical (completed in the past 30 days) has been reviewed and the patient has been examined. The contents accurately reflect the patient's condition with the following additions or revisions since the H&P was completed. ASA Class: ASA Class:: Patient with mild systemic disease Examination indicates no changes. AIRWAY: Airway Visualization of Uvula: Yes Mouth opening greater than 2 fingerbreadths: Yes Neck Full Range of Motion: Yes LUNGS: Lungs clear to auscultation CARDIAC: Regular rhythm,Regular rate Provisional Diagnosis/Treatment Plan: tubulovillous adenoma - s/p EMR - colonoscopy SEDATION GOAL: Moderate This H&P can be found in the attached. SIGNATURE: Kendra Gregory MD PATIENT NAME: Robbin Martinez DATE: November 25, 2023 TIME: 11:40 AM Source Note - Kendra Gregory MD - 11/25/2023 11:15 AM EDT HISTORY AND PHYSICAL Robbin Martinez 1940 CHIEF COMPLAINT: Rectal Bleeding HPI: The patient is a 83 year old male referred for endoscopy. Robbin notes occasional rectal bleeding following bowel movements. He has no other current colon complaints. The patient did noticed he was given doxycycline when he had a I inflamed cyst on September 16 for 14 days. Interestingly he noted decrease in rectal bleeding while on those antibiotics. 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 The patient has no complaints of upper GI issues Robbin has undergone prior endoscopy. I had seen him last year for lower GI bleeding. The patient underwent colonoscopy with Dr. Eric Li on February 27, 2023. The patient was found to have a larger sessile polypoid lesion in the distal transverse colon biopsies were taken and the area was tattooed. He was also found to have multiple areas of erythematous mucosa in the rectum. The terminal ileum was unremarkable. Pathology returned as a tubulovillous adenoma. The patient was referred to Dr. Darryn Hawk. He performed an endoscopic submucosal dissection with was felt to be complete resection and retrieval on July 07, 2023. Pathology returned as: Tubulovillous adenoma with negative margins. PAST MEDICAL HISTORY PAST MEDICAL HISTORY Diagnosis Date Atrial fibrillation (HCC) Diverticulosis Diverticulosis of colon (without mention of hemorrhage) Essential hypertension Hemorrhage of gastrointestinal tract, unspecified Hemorrhoids Hiatal hernia 07/03/2016 Hyperlipidemia Internal hemorrhoids without mention of complication Prostate cancer (HCC) 2020 Renal calculi Unspecified essential hypertension PAST SURGICAL HISTORY PAST SURGICAL HISTORY Procedure Laterality Date COLONOSCOPY 02/27/2023 COLONOSCOPY FLX DX W/COLLJ SPEC WHEN PFRMD 03/21/2008 CYSTOSCOPY 07/2015 EYE SURGERY HX HERNIA REPAIR HX NEEDLE BX - PROSTATE 2020 REMV CATARACT EXTRACAP,INSERT LENS Right 03/15/2019 RPR 1ST INGUN HRNA AGE 3 YRS/> REDUCIBLE Right 07/09/2016 right SKIN BIOPSY HX 2004 SKIN BIOPSY HX 04/2016 CURRENT MEDICATIONS Current Outpatient Medications Medication Sig apixaban (ELIQUIS) 2.5 mg tab(s) Take 1 tablet by mouth two times a day. metoprolol tartrate, short acting, (LOPRESSOR) 25 mg tablet Take 1 tablet by mouth twice daily. polyethylene glycol 3350 17 gram packet Take 17 g by mouth as needed for constipation. Dissolve dose in 4 - 8 ounces of liquid and take as directed. calcium carbonate/vitamin D3 (CALTRATE WITH VITAMIN D3 ORAL) Take 1 tablet by mouth twice daily. vit C/E/Zn/coppr/lutein/zeaxan (PRESERVISION AREDS-2 ORAL) Take 1 tablet by mouth twice daily. acetaminophen (TYLENOL) 500 mg tablet Take 500 mg by mouth as needed. enalapril 20 mg tablet Take 1 tablet by mouth once daily. sucralfate (CARAFATE) 0.1 g/mL rectal enema 40 mL by RECTAL route two times a day. furosemide (LASIX) 20 mg tablet Take 20 mg by mouth every morning. cyanocobalamin, vitamin B-12, (VITAMIN B12 ORAL) Take 1 tablet by mouth once daily. No current facility-administered medications for this visit. ALLERGIES: Patient has no known allergies. PERSONAL HISTORY: SOCIAL HISTORY Social History Tobacco Use Smoking status: Former Years: 2 Types: Cigarettes Quit date: 06/23/1971 Years since quittin.3 Smokeless tobacco: Never Tobacco comments: Smoked for a couple years while in college. Vaping Use Vaping Use: Never used Substance Use Topics Alcohol use: Yes Alcohol/week: 3.0 standard drinks of alcohol Types: 3 Glasses of Wine (5oz) per week Comment: couple times a week with dinner Drug use: No FAMILY HISTORY: FAMILY HISTORY FAMILY HISTORY Problem Relation Age of Onset Heart Mother Hypertension Mother Arthritis Mother Hypertension Father Cancer Maternal Grandmother unsure what type Cancer Paternal Grandmother unsure what type Hypertension Paternal Grandfather REVIEW OF SYMPTOMS: The review of systems data was entered by the nurse and reviewed by ky Nursing Notes: Adriana Lennon MA 10/10/2023 11:01 AM Signed REVIEW OF SYSTEMS: General: The patient denies fatigue, denies weight loss, denies weight gain, denies feeling hot, and denies feelings of cold. Eyes: The patient denies glaucoma, NOTES eye injury/surgery, wears glasses or contacts. Ear/Nose/Throat: The patient denies allergies, denies hayfever, denies ear infections, and denies bloody noses. Cardiovascular: The patient denies chest pain, denies heart disease, NOTES high blood pressure,denies cardiac stent, denies prior heart attack, NOTES irregular heart beat, denies high cholesterol, denies poor circulation, denies heart failure, other cardiac issues, denies claudication, denies cold feet, denies peripheral arterial stent. Respiratory: The patient denies tuberculosis, denies pneumonia, denies frequent cough, denies pulmonary embolism, denies shortness of breath, and denies coughing up blood. Gastrointestinal: The patient denies difficulty swallowing, denies acid reflux, denies ulcers, denies vomiting, denies jaundice/hepatitis, denies gallbladder problems, denies black or tarry stools, denies hemorrhoids, NOTES bleeding from rectum, NOTES diverticulitis, denies constipation, denies diarrhea, denies loss of stool control, and denies hernias. Kidney/Bladder: The patient NOTES kidney stones, denies urine infections, and denies bloody urine. Skin: The patient NOTES a history of skin cancer, denies bleeding/changing moles, and denies a history of skin rash. Neurologic: The patient denies a history of epilepsy/convulsions, denies headaches, denies head/spinal injuries, and denies stroke/TIA. Psychiatric: The patient denies psychiatric medications, denies depression, and denies voices, denies substance abuse. Endocrine: The patient denies thyroid disorders, denies diabetes, and denies hormonal problems. Hematologic: The patient NOTES a history of bruising, denies bleeding, and denies anemia, denies blood clots. Infections: The patient NOTES a history of measles and mumps, denies rheumatic fever, and denies sexually transmitted diseases. Musculoskeletal: The patient NOTES back pain/injury, denies back problems, NOTES sciatica, denies knee/foot trouble, denies arthritis, or denies gout. When was patient's last Mammogram screening? N/A Last Colonoscopy: 06/2023 Adriana Lennon MA PHYSICAL EXAMINATION: General: The patient is 83 year old male, well nourished, well hydrated in no acute distress. The patient is oriented to time, place, and person. VITALS: Blood pressure 124/68, pulse 68, temperature 36.1 C (97 F), weight 101.2 kg (223 lb), SpO2 100%. Body mass index is 27.87 kg/m . HEENT: Normal cephalic, ataumatic, pupils are equally round, sclera are anicteric, mucous membranes are moist, oropharynx is clear. Neck has no masses, asymmetry or lymphadenopathy. Thyroid is unremarkable. Respiratory: Clear to auscultation and percussion. Normal respiratory excursion and pattern. Cardiac: Examination is regular rate and rhythm. Abdominal exam: Soft, nontender, with no palpable masses. No hepatosplenomegaly. No palpable hernias. Rectal exam: exam deferred Extremities: no clubbing, cyanosis or edema. No adenopathy. Other: LABORATORY VALUES: As Noted RADIOLOGIC STUDIES: As Noted Assessment IMPRESSION: History of radiation proctitis, distal transverse colon tubulovillous adenoma removed with endoscopic mucosal resection PLAN: I plan to perform lower endoscopy to assure complete resection of the site of the polyp and to perform rectal biopsies given his history of radiation proctitis.. We discussed the risks and benefits of the planned endoscopy. I have informed the patient that complications can occur including failure to complete the endoscopy and perforation. The patient had the opportunity to ask questions concerning the planned endoscopy. My staff has also explained the procedure to the patient in understandable terms and has given the patient printed material concerning the procedure. The patient freely consents to surgery. 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 Raphael Justin MD indicating the above finding for this patient. Return to Clinic: The patient is instructed to follow-up with me after the testing has been completed. Kendra Gregory MD HISTORY AND PHYSICAL Robbin Martinez 1940 CHIEF COMPLAINT: Rectal Bleeding HPI: The patient is a 83 year old male referred for endoscopy. Robbin notes occasional rectal bleeding following bowel movements. He has no other current colon complaints. The patient did noticed he was given doxycycline when he had a I inflamed cyst on September 16 for 14 days. Interestingly he noted decrease in rectal bleeding while on those antibiotics. 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 The patient has no complaints of upper GI issues Robbin has undergone prior endoscopy. I had seen him last year for lower GI bleeding. The patient underwent colonoscopy with Dr. Eric Li on February 27, 2023. The patient was found to have a larger sessile polypoid lesion in the distal transverse colon biopsies were taken and the area was tattooed. He was also found to have multiple areas of erythematous mucosa in the rectum. The terminal ileum was unremarkable. Pathology returned as a tubulovillous adenoma. The patient was referred to Dr. Darryn Hawk. He performed an endoscopic submucosal dissection with was felt to be complete resection and retrieval on July 07, 2023. Pathology returned as: Tubulovillous adenoma with negative margins. PAST MEDICAL HISTORY PAST MEDICAL HISTORY Diagnosis Date Atrial fibrillation (HCC) Diverticulosis Diverticulosis of colon (without mention of hemorrhage) Essential hypertension Hemorrhage of gastrointestinal tract, unspecified Hemorrhoids Hiatal hernia 07/03/2016 Hyperlipidemia Internal hemorrhoids without mention of complication Prostate cancer (HCC) 2020 Renal calculi Unspecified essential hypertension PAST SURGICAL HISTORY PAST SURGICAL HISTORY Procedure Laterality Date COLONOSCOPY 02/27/2023 COLONOSCOPY FLX DX W/COLLJ SPEC WHEN PFRMD 03/21/2008 CYSTOSCOPY 07/2015 EYE SURGERY HX HERNIA REPAIR HX NEEDLE BX - PROSTATE 2020 REMV CATARACT EXTRACAP,INSERT LENS Right 03/15/2019 RPR 1ST INGUN HRNA AGE 5 YRS/> REDUCIBLE Right 07/09/2016 right SKIN BIOPSY HX 2004 SKIN BIOPSY HX 04/2016 CURRENT MEDICATIONS Current Outpatient Medications Medication Sig apixaban (ELIQUIS) 2.5 mg tab(s) Take 1 tablet by mouth two times a day. metoprolol tartrate, short acting, (LOPRESSOR) 25 mg tablet Take 1 tablet by mouth twice daily. polyethylene glycol 3350 17 gram packet Take 17 g by mouth as needed for constipation. Dissolve dose in 4 - 8 ounces of liquid and take as directed. calcium carbonate/vitamin D3 (CALTRATE WITH VITAMIN D3 ORAL) Take 1 tablet by mouth twice daily. vit C/E/Zn/coppr/lutein/zeaxan (PRESERVISION AREDS-2 ORAL) Take 1 tablet by mouth twice daily. acetaminophen (TYLENOL) 500 mg tablet Take 500 mg by mouth as needed. enalapril 20 mg tablet Take 1 tablet by mouth once daily. sucralfate (CARAFATE) 0.1 g/mL rectal enema 40 mL by RECTAL route two times a day. furosemide (LASIX) 20 mg tablet Take 20 mg by mouth every morning. cyanocobalamin, vitamin B-12, (VITAMIN B12 ORAL) Take 1 tablet by mouth once daily. No current facility-administered medications for this visit. ALLERGIES: Patient has no known allergies. PERSONAL HISTORY: SOCIAL HISTORY Social History Tobacco Use Smoking status: Former Years: 2 Types: Cigarettes Quit date: 06/23/1971 Years since quittin.3 Smokeless tobacco: Never Tobacco comments: Smoked for a couple years while in college. Vaping Use Vaping Use: Never used Substance Use Topics Alcohol use: Yes Alcohol/week: 3.0 standard drinks of alcohol Types: 3 Glasses of Wine (5oz) per week Comment: couple times a week with dinner Drug use: No FAMILY HISTORY: FAMILY HISTORY FAMILY HISTORY Problem Relation Age of Onset Heart Mother Hypertension Mother Arthritis Mother Hypertension Father Cancer Maternal Grandmother unsure what type Cancer Paternal Grandmother unsure what type Hypertension Paternal Grandfather REVIEW OF SYMPTOMS: The review of systems data was entered by the nurse and reviewed by ky Nursing Notes: Adriana Lennon MA 10/10/2023 11:01 AM Signed REVIEW OF SYSTEMS: General: The patient denies fatigue, denies weight loss, denies weight gain, denies feeling hot, and denies feelings of cold. Eyes: The patient denies glaucoma, NOTES eye injury/surgery, wears glasses or contacts. Ear/Nose/Throat: The patient denies allergies, denies hayfever, denies ear infections, and denies bloody noses. Cardiovascular: The patient denies chest pain, denies heart disease, NOTES high blood pressure,denies cardiac stent, denies prior heart attack, NOTES irregular heart beat, denies high cholesterol, denies poor circulation, denies heart failure, other cardiac issues, denies claudication, denies cold feet, denies peripheral arterial stent. Respiratory: The patient denies tuberculosis, denies pneumonia, denies frequent cough, denies pulmonary embolism, denies shortness of breath, and denies coughing up blood. Gastrointestinal: The patient denies difficulty swallowing, denies acid reflux, denies ulcers, denies vomiting, denies jaundice/hepatitis, denies gallbladder problems, denies black or tarry stools, denies hemorrhoids, NOTES bleeding from rectum, NOTES diverticulitis, denies constipation, denies diarrhea, denies loss of stool control, and denies hernias. Kidney/Bladder: The patient NOTES kidney stones, denies urine infections, and denies bloody urine. Skin: The patient NOTES a history of skin cancer, denies bleeding/changing moles, and denies a history of skin rash. Neurologic: The patient denies a history of epilepsy/convulsions, denies headaches, denies head/spinal injuries, and denies stroke/TIA. Psychiatric: The patient denies psychiatric medications, denies depression, and denies voices, denies substance abuse. Endocrine: The patient denies thyroid disorders, denies diabetes, and denies hormonal problems. Hematologic: The patient NOTES a history of bruising, denies bleeding, and denies anemia, denies blood clots. Infections: The patient NOTES a history of measles and mumps, denies rheumatic fever, and denies sexually transmitted diseases. Musculoskeletal: The patient NOTES back pain/injury, denies back problems, NOTES sciatica, denies knee/foot trouble, denies arthritis, or denies gout. When was patient's last Mammogram screening? N/A Last Colonoscopy: 06/2023 Adriana Lennon MA PHYSICAL EXAMINATION: General: The patient is 83 year old male, well nourished, well hydrated in no acute distress. The patient is oriented to time, place, and person. VITALS: Blood pressure 124/68, pulse 68, temperature 36.1 C (97 F), weight 101.2 kg (223 lb), SpO2 100%. Body mass index is 27.87 kg/m . HEENT: Normal cephalic, ataumatic, pupils are equally round, sclera are anicteric, mucous membranes are moist, oropharynx is clear. Neck has no masses, asymmetry or lymphadenopathy. Thyroid is unremarkable. Respiratory: Clear to auscultation and percussion. Normal respiratory excursion and pattern. Cardiac: Examination is regular rate and rhythm. Abdominal exam: Soft, nontender, with no palpable masses. No hepatosplenomegaly. No palpable hernias. Rectal exam: exam deferred Extremities: no clubbing, cyanosis or edema. No adenopathy. Other: LABORATORY VALUES: As Noted RADIOLOGIC STUDIES: As Noted Assessment IMPRESSION: History of radiation proctitis, distal transverse colon tubulovillous adenoma removed with endoscopic mucosal resection PLAN: I plan to perform lower endoscopy to assure complete resection of the site of the polyp and to perform rectal biopsies given his history of radiation proctitis.. We discussed the risks and benefits of the planned endoscopy. I have informed the patient that complications can occur including failure to complete the endoscopy and perforation. The patient had the opportunity to ask questions concerning the planned endoscopy. My staff has also explained the procedure to the patient in understandable terms and has given the patient printed material concerning the procedure. The patient freely consents to surgery. 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 Raphael Justin MD indicating the above finding for this patient. Return to Clinic: The patient is instructed to follow-up with me after the testing has been completed. Kendra Gregory MD documented in this encounter [facility] 11-10-2023 Telephone encounter Note Patient added on for labs. Lena Brizuela [facility] 11-10-2023 Miscellaneous Notes Patient added on for labs. Lena Brizuela My chart message sent to pt., spoke with on phone. Also PSS please put on lab schedule for 11/24 @ 10 am Lisa Gusman LPN ----- Message from Jose Cunningham DO sent at 11/09/2023 1:36 PM EDT ----- Recheck PSA a day or 2 before next office visit. documented in this encounter [facility] 11-10-2023 Telephone encounter Note My chart message sent to pt., spoke with on phone. Also PSS please put on lab schedule for 11/24 @ 10 am Lisa Gusman LPN [facility] 11-10-2023 Telephone encounter Note ----- Message from Jose Cunningham, DO sent at 11/09/2023 1:36 PM EDT ----- Recheck PSA a day or 2 before next office visit. [facility] 10-14-2023 Telephone encounter Note Spoke with [facility]. They do not carry carafate enemas but hydrocortisone enemas 100mg/6mL are available in stock currently. Carolyn Silva MA [facility] 10-14-2023 Miscellaneous Notes Spoke with [facility]. They do not carry carafate enemas but hydrocortisone enemas 100mg/6mL are available in stock currently. Carolyn Silva MA Pharmacy phoned to report they are not able to order the enemas that were prescribed today. They suggest a specialty pharmacy. Carolyn Silva MA documented in this encounter [facility] 10-12-2023 History of Presen t illness Narrative HISTORY AND PHYSICAL Robbin Martinez 1940 CHIEF COMPLAINT: Rectal Bleeding HPI: The patient is a 83 year old male referred for endoscopy. Robbin notes occasional rectal bleeding following bowel movements. He has no other current colon complaints. The patient did noticed he was given doxycycline when he had a I inflamed cyst on September 16 for 14 days. Interestingly he noted decrease in rectal bleeding while on those antibiotics. 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 The patient has no complaints of upper GI issues Robbin has undergone prior endoscopy. I had seen him last year for lower GI bleeding. The patient underwent colonoscopy with Dr. Eric Li on February 27, 2023. The patient was found to have a larger sessile polypoid lesion in the distal transverse colon biopsies were taken and the area was tattooed. He was also found to have multiple areas of erythematous mucosa in the rectum. The terminal ileum was unremarkable. Pathology returned as a tubulovillous adenoma. The patient was referred to Dr. Darryn Hawk. He performed an endoscopic submucosal dissection with was felt to be complete resection and retrieval on July 07, 2023. Pathology returned as: Tubulovillous adenoma with negative margins. PAST MEDICAL HISTORY Diagnosis Date Atrial fibrillation (HCC) Diverticulosis Diverticulosis of colon (without mention of hemorrhage) Essential hypertension Hemorrhage of gastrointestinal tract, unspecified Hemorrhoids Hiatal hernia 07/03/2016 Hyperlipidemia Internal hemorrhoids without mention of complication Prostate cancer (HCC) 2020 Renal calculi Unspecified essential hypertension PAST SURGICAL HISTORY Procedure Laterality Date COLONOSCOPY 02/27/2023 COLONOSCOPY FLX DX W/COLLJ SPEC WHEN PFRMD 03/21/2008 CYSTOSCOPY 07/2015 EYE SURGERY HX HERNIA REPAIR HX NEEDLE BX - PROSTATE 2020 REMV CATARACT EXTRACAP,INSERT LENS Right 03/15/2019 RPR 1ST INGUN HRNA AGE 5 YRS/> REDUCIBLE Right 07/09/2016 right SKIN BIOPSY HX 2004 SKIN BIOPSY HX 04/2016 Current Outpatient Medications Medication Sig apixaban (ELIQUIS) 2.5 mg tab(s) Take 1 tablet by mouth two times a day. metoprolol tartrate, short acting, (LOPRESSOR) 25 mg tablet Take 1 tablet by mouth twice daily. polyethylene glycol 3350 17 gram packet Take 17 g by mouth as needed for constipation. Dissolve dose in 4 - 8 ounces of liquid and take as directed. calcium carbonate/vitamin D3 (CALTRATE WITH VITAMIN D3 ORAL) Take 1 tablet by mouth twice daily. vit C/E/Zn/coppr/lutein/zeaxan (PRESERVISION AREDS-2 ORAL) Take 1 tablet by mouth twice daily. acetaminophen (TYLENOL) 500 mg tablet Take 500 mg by mouth as needed. enalapril 20 mg tablet Take 1 tablet by mouth once daily. sucralfate (CARAFATE) 0.1 g/mL rectal enema 40 mL by RECTAL route two times a day. furosemide (LASIX) 20 mg tablet Take 20 mg by mouth every morning. cyanocobalamin, vitamin B-12, (VITAMIN B12 ORAL) Take 1 tablet by mouth once daily. No current facility-administered medications for this visit. ALLERGIES: Patient has no known allergies. PERSONAL HISTORY: Social History Tobacco Use Smoking status: Former Years: 2 Types: Cigarettes Quit date: 06/23/1971 Years since quittin.3 Smokeless tobacco: Never Tobacco comments: Smoked for a couple years while in college. Vaping Use Vaping Use: Never used Substance Use Topics Alcohol use: Yes Alcohol/week: 3.0 standard drinks of alcohol Types: 3 Glasses of Wine (5oz) per week Comment: couple times a week with dinner Drug use: No FAMILY HISTORY: FAMILY HISTORY Problem Relation Age of Onset Heart Mother Hypertension Mother Arthritis Mother Hypertension Father Cancer Maternal Grandmother unsure what type Cancer Paternal Grandmother unsure what type Hypertension Paternal Grandfather REVIEW OF SYMPTOMS: The review of systems data was entered by the nurse and reviewed by [place] Nursing Notes: Adriana Lennon MA 10/10/2023 11:01 AM Signed REVIEW OF SYSTEMS: General: The patient denies fatigue, denies weight loss, denies weight gain, denies feeling hot, and denies feelings of cold. Eyes: The patient denies glaucoma, NOTES eye injury/surgery, wears glasses or contacts. Ear/Nose/Throat: The patient denies allergies, denies hayfever, denies ear infections, and denies bloody noses. Cardiovascular: The patient denies chest pain, denies heart disease, NOTES high blood pressure,denies cardiac stent, denies prior heart attack, NOTES irregular heart beat, denies high cholesterol, denies poor circulation, denies heart failure, other cardiac issues, denies claudication, denies cold feet, denies peripheral arterial stent. Respiratory: The patient denies tuberculosis, denies pneumonia, denies frequent cough, denies pulmonary embolism, denies shortness of breath, and denies coughing up blood. Gastrointestinal: The patient denies difficulty swallowing, denies acid reflux, denies ulcers, denies vomiting, denies jaundice/hepatitis, denies gallbladder problems, denies black or tarry stools, denies hemorrhoids, NOTES bleeding from rectum, NOTES diverticulitis, denies constipation, denies diarrhea, denies loss of stool control, and denies hernias. Kidney/Bladder: The patient NOTES kidney stones, denies urine infections, and denies bloody urine. Skin: The patient NOTES a history of skin cancer, denies bleeding/changing moles, and denies a history of skin rash. Neurologic: The patient denies a history of epilepsy/convulsions, denies headaches, denies head/spinal injuries, and denies stroke/TIA. Psychiatric: The patient denies psychiatric medications, denies depression, and denies voices, denies substance abuse. Endocrine: The patient denies thyroid disorders, denies diabetes, and denies hormonal problems. Hematologic: The patient NOTES a history of bruising, denies bleeding, and denies anemia, denies blood clots. Infections: The patient NOTES a history of measles and mumps, denies rheumatic fever, and denies sexually transmitted diseases. Musculoskeletal: The patient NOTES back pain/injury, denies back problems, NOTES sciatica, denies knee/foot trouble, denies arthritis, or denies gout. When was patient's last Mammogram screening? N/A Last Colonoscopy: 06/2023 Adriana Lennon MA PHYSICAL EXAMINATION: General: The patient is 83 year old male, well nourished, well hydrated in no acute distress. The patient is oriented to time, place, and person. VITALS: Blood pressure 124/68, pulse 68, temperature 36.1 C (97 F), weight 101.2 kg (223 lb), SpO2 100%. Body mass index is 27.87 kg/m . HEENT: Normal cephalic, ataumatic, pupils are equally round, sclera are anicteric, mucous membranes are moist, oropharynx is clear. Neck has no masses, asymmetry or lymphadenopathy. Thyroid is unremarkable. Respiratory: Clear to auscultation and percussion. Normal respiratory excursion and pattern. Cardiac: Examination is regular rate and rhythm. Abdominal exam: Soft, nontender, with no palpable masses. No hepatosplenomegaly. No palpable hernias. Rectal exam: exam deferred Extremities: no clubbing, cyanosis or edema. No adenopathy. Other: LABORATORY VALUES: As Noted RADIOLOGIC STUDIES: As Noted Assessment IMPRESSION: History of radiation proctitis, distal transverse colon tubulovillous adenoma removed with endoscopic mucosal resection PLAN: I plan to perform lower endoscopy to assure complete resection of the site of the polyp and to perform rectal biopsies given his history of radiation proctitis.. We discussed the risks and benefits of the planned endoscopy. I have informed the patient that complications can occur including failure to complete the endoscopy and perforation. The patient had the opportunity to ask questions concerning the planned endoscopy. My staff has also explained the procedure to the patient in understandable terms and has given the patient printed material concerning the procedure. The patient freely consents to surgery. 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 Raphael Justin MD indicating the above finding for this patient. Return to Clinic: The patient is instructed to follow-up with me after the testing has been completed. Kendra Gregory MD documented in this encounter [facility] 10-10-2023 Telephone encounter Note Pharmacy phoned to report they are not able to order the enemas that were prescribed today. They suggest a specialty pharmacy. Carolyn Silva MA [facility] 10-10-2023 Instructions Kendra Gregory MD - 10/10/2023 12:03 PM EDT Images from the original note were not included. Bowel Preparation Instructions for: Golytely, Nulytely, Trilyte or Colyte (polyethylene glycol 3350 and electrolytes) IF YOU DO NOT FOLLOW THESE DIRECTIONS, YOUR COLONOSCOPY WILL BE CANCELLED. [place] Instructions: Your bowel must be empty so that your doctor can clearly view your colon. Follow all of the instructions in this handout EXACTLY as they are written. Do NOT eat any solid food the ENTIRE day before your colonoscopy. Drink only clear liquids. Buy your bowel preparation at least 5 days before your colonoscopy. TRANSPORTATION on the Day of Your Exam A responsible person MUST be present with you at Check In prior to your colonoscopy and REMAIN in the endoscopy area until you are discharged. You are NOT ALLOWED to drive, take a taxi or bus, or leave the Endoscopy Center ALONE. If you do not have a responsible dinkey driver (family member or friend) with you to take you home, your exam cannot be done with sedation and will be cancelled. Please bring a list of all of your current medications, including any Over-the Counter medications with you. Medications If you take insulin, diabetic medications or blood thinners such as Coumadin (warfarin), Plavix (clopidogrel), Ticlid (ticlopidine hydrochloride), Agrylin (anagrelide), Xarelto (Rivaroxaban), Pradaxa (Dabigatran), Eliquis (Apixaban), and Effient (Prasugrel). You MUST call the doctors who orders those medicines for instructions on altering the dosage before your colonoscopy. All other medications should be taken the day of the exam with a sip of water including ASPIRIN. Five (5) Days Before Your Colonoscopy Do NOT take medicines that stop diarrhea - such as Imodium, Kaopectate, or Pepto Bismol. Do NOT take fiber supplements - such as Metamucil, Citrucel, or Perdiem. Do NOT take products that contain iron - such as multi-vitamins (the label lists what is in the products). Do NOT take Vitamin E. Buy the prescription bowel preparation solution at your local pharmacy or drugstore pharmacy. 1 05/2019 Bowel Preparation Instructions for: Golytely, Nulytely, Trilyte or Colyte (polyethylene glycol 3350 and electrolytes) Three (3) Days Before Your Colonoscopy Do NOT eat high-fiber foods - such as popcorn, beans, seeds (flax, sunflower, quinoa), multigrain bread, nuts, salad/vegetables, or fresh and dried fruit. One (1) Day Before Your Colonoscopy Only drink clear liquids the ENTIRE DAY before your colonoscopy. Do NOT eat any solid foods. Drink at least 8 ounces of clear liquids every hour after waking up. The clear liquids you can drink include: Clear Liquid (NO RED LIQUIDS) DO NOT DRINK Gatorade, Pedialyte or Powerade Clear broth or bouillon Coffee or tea (no milk or non-dairy creamer) Carbonated and non-carbonated soft drinks Koffi-Aid or other fruit flavored drinks Strained fruit juices (no pulp) Jell-O, popsicles, hard candy Water Alcohol Milk or non-dairy creamers Noodles or vegetables in soup Juice with pulp Liquid you cannot see through Do not use tobacco/vaping products The bowel preparation solution will be consumed in two parts. Mix the solution the evening before your colonoscopy and refrigerate before drinking. You may add the flavor pack that came with the bowel preparation. Do NOT add ice, sugar or any other flavorings to the solution. Part 1 At 6:00 PM - 2 Evening before your colonoscopy Drink an 8-oz glass of bowel preparation every 10 minutes for half the jug . Part 2 At 6:00 PM - Evening before your colonoscopy Drink an 8-oz glass of bowel preparation every 10 minutes for the second half of the jug You may continue to drink clear liquids until midnight. 2 05/2019 documented in this encounter [facility] 10-10-2023 Nurse Note REVIEW OF SYSTEMS: General: The patient denies fatigue, denies weight loss, denies weight gain, denies feeling hot, and denies feelings of cold. Eyes: The patient denies glaucoma, NOTES eye injury/surgery, wears glasses or contacts. Ear/Nose/Throat: The patient denies allergies, denies hayfever, denies ear infections, and denies bloody noses. Cardiovascular: The patient denies chest pain, denies heart disease, NOTES high blood pressure,denies cardiac stent, denies prior heart attack, NOTES irregular heart beat, denies high cholesterol, denies poor circulation, denies heart failure, other cardiac issues, denies claudication, denies cold feet, denies peripheral arterial stent. Respiratory: The patient denies tuberculosis, denies pneumonia, denies frequent cough, denies pulmonary embolism, denies shortness of breath, and denies coughing up blood. Gastrointestinal: The patient denies difficulty swallowing, denies acid reflux, denies ulcers, denies vomiting, denies jaundice/hepatitis, denies gallbladder problems, denies black or tarry stools, denies hemorrhoids, NOTES bleeding from rectum, NOTES diverticulitis, denies constipation, denies diarrhea, denies loss of stool control, and denies hernias. Kidney/Bladder: The patient NOTES kidney stones, denies urine infections, and denies bloody urine. Skin: The patient NOTES a history of skin cancer, denies bleeding/changing moles, and denies a history of skin rash. Neurologic: The patient denies a history of epilepsy/convulsions, denies headaches, denies head/spinal injuries, and denies stroke/TIA. Psychiatric: The patient denies psychiatric medications, denies depression, and denies voices, denies substance abuse. Endocrine: The patient denies thyroid disorders, denies diabetes, and denies hormonal problems. Hematologic: The patient NOTES a history of bruising, denies bleeding, and denies anemia, denies blood clots. Infections: The patient NOTES a history of measles and mumps, denies rheumatic fever, and denies sexually transmitted diseases. Musculoskeletal: The patient NOTES back pain/injury, denies back problems, NOTES sciatica, denies knee/foot trouble, denies arthritis, or denies gout. When was patient's last Mammogram screening? N/A Last Colonoscopy: 06/2023 Adriana Lennon MA documented in this encounter [facility] 07-17-2023 Miscellaneous Notes ----- Message from Amberly Boss PA-C sent at 07/15/2023 12:53 PM EST ----- Dr. Hawk's office recommended surveillance colonoscopy in [address] Gregory-please generate recall letter Recall letter done Greg Cottrell LPN July 17, 2023 10:58 AM documented in this encounter [facility] 05-08-2023 History of Presen t illness Narrative Oncologic problem(s): 1) High risk prostate cancer. HPI: The patient is an 82-year-old male with a past medical history significant for essential hypertension and hyperlipidemia. Had been managed by urologist for BPH. PSA in the past has fluctuated. For instance it was 7.1 ng/mL November 2014. Then 9.5 ng/mL in August 2018 and then 8.0 ng/mL in December 2018. Increased to 14.80 ng/mL. Biopsy of the prostate 08/07/2020. Pathology: A. Right prostate, apex, core biopsy: Adenocarcinoma. [place] grade: 7 (4+3) Cores involved: 1 out of 1 core Tissue involved: 5% Greatest tumor length: 1 mm See comment. B. Right prostate, mid, core biopsy: Adenocarcinoma. [place] grade: 8 (4+4) Cores involved: 1 out of 1 core Tissue involved: 60% Greatest tumor length: 4.5 mm C. Right prostate, base, core biopsy: Adenocarcinoma. Valentina grade: 8 (4+4) Cores involved: 1 out of 1 core Tissue involved: 2% Greatest tumor length: <1 mm D. Left prostate, apex, core biopsy: Focal atypical small acinar proliferation. See comment. E. Left prostate, mid, core biopsy: Adenocarcinoma. [place] grade: 6 (3+3) Cores involved: 1 out of 1 core Tissue involved: 2% Greatest tumor length: <1 mm See comment. F. Left prostate, base, core biopsy: Adenocarcinoma. Valentina grade: 7 (3+4) Cores involved: 1 out of 1 core Tissue involved: 65% Greatest tumor length: 5.5 mm Bone scan on 08/29/2020 demonstrated no evidence of bone metastases. He had been advised to undergo external beam radiation treatment with ADT. Previous therapy: 1) ADT (10/2020) with radiation (completed radiation 01/2021). Last q 3 month Lupron injection 01/2023. Developed atrial fibrillation 05/2022. On apixaban since 06/2022. Metoprolol. Presents for ongoing oncologic management. Interim history: Had colonoscopy to assess rectal bleeding in February 2023. Preparation was inadequate. Was found to have a 20 mm polypoid lesion in the distal transverse colon. It was sessile. No bleeding observed. Biopsies were obtained and the area was tattooed with 3 mL of carbon black. There was a diffuse area of mild erythematous mucosa in the rectum. Multiple small and large mouth diverticula were observed in the sigmoid colon terminal ileum appeared normal. Pathology: A. Transverse colon, polypectomy: - Tubulovillous adenoma. Hot flashes solved. Continues to have intermittent rectal bleeding. He brought a log today which indicates he has it perhaps every 2 to 3 weeks. Sometimes passes some clots. No rectal pain. No perianal pain/itch. No hemorrhoids observed on colonoscopy. Cardiology decreased apixaban to 2.5 mg in November 2022 because of this symptom. Still has urinary frequency, about every 2 hours. Feels like he voids to completion. No gross hematuria or dysuria. Still gets up every 2 hours during the night to urinate. Home blood pressure cuff picks up fibrillation on occasion. He has no symptoms from it. PMH, medications and allergies personally reviewed by me today. Any changes documented in appropriate section. ROS: Constitutional: Denies episodes of fever and night sweats. Not significantly fatigued. Normal appetite. Neuro: Denies URIOSTEGUI, vertigo, dizziness and imbalance. Denies symptoms of neuropathy. HEENT: No recent change in voice, vision or hearing. Resp: Denies cough, wheeze and hemoptysis. Denies shortness of breath at rest. CVS: Denies exertional chest pain, PND, orthopnea and LE edema. GI: Denies dysphagia and odynophagia. Denies reflux, n/v, change in bowel habits and abdominal pain. : See above. Endo: Denies hot flashes. Denies polyuria and polydipsia. Denies heat and cold intolerance. Musculoskeletal: Chronic back pain--stable. Derm: Denies rash. Denies jaundice and diffuse pruritis. Heme: Denies unusual bleeding and unexplained bruising. Psych: Normal mood. PHYSICAL EXAM: Vitals: Blood pressure 163/87, pulse (!) 57, temperature 36.6 C (97.9 F), resp. rate 12, weight 101.2 kg (223 lb), SpO2 99 %. Well-appearing and in no acute distress. EYES: Sclerae are anicteric bilaterally. LYMPHATIC: There is no palpable cervical or supraclavicular adenopathy. RESPIRATORY: Inspiratory breath sounds are of normal intensity in all russell. No rales, wheezes or rhonchi. CARDIOVASCULAR: Rhythm is regular. ABDOMEN: The abdomen is nondistended. No organomegaly. No tenderness. Extremities: No swelling or edema. SKIN: No jaundice or rash. LABS: Component Latest Ref Rng & Units 05/08/2023 WBC 3.70 - 11.00 k/uL 5.15 RBC 4.20 - 6.00 m/uL 4.22 Hemoglobin 13.0 - 17.0 g/dL 13.7 Hematocrit 39.0 - 51.0 % 41.1 MCV 80.0 - 100.0 fL 97.4 MCH 26.0 - 34.0 pg 32.5 MCHC 30.5 - 36.0 g/dL 33.3 RDW-CV 11.5 - 15.0 % 12.7 Platelet Count 150 - 400 k/uL 150 MPV 9.0 - 12.7 fL 9.0 Neut% % 60.4 Abs Neut (ANC) 1.45 - 7.50 k/uL 3.11 Lymph% % 26.4 Abs Lymph 1.00 - 4.00 k/uL 1.36 Atlantic% % 10.5 Abs Atlantic <0.87 k/uL 0.54 Eosin% % 1.7 Abs Eosin <0.46 k/uL 0.09 Baso% % 0.6 Abs Baso <0.11 k/uL 0.03 Immature Gran % % 0.4 IMMATURE GRANS (ABS) <0.10 k/uL <0.03 NRBC /100 WBC 0.0 Absolute nRBC <0.01 k/uL <0.01 DTYPE Auto ASSESSMENT/PLAN: (C61) Prostate cancer (HCC) (primary encounter diagnosis) Assessment: -82-year-old male in good general health diagnosed with a 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 High risk disease. -PSA undetectable as of 02/2022. -Has urinary frequency but has had BP reactions to Flomax and another drug--he did not want to discuss alternative therapy with a urologist. -Received every 3 month Lupron for 2-1/2 years, last dose 02/13/2023. -Off Prolia. Plan: -CBC/CMP/PSA then office visit in about 6 months. -Continue calcium supplement with vitamin D twice daily. (I48.91) Atrial fibrillation, unspecified type (HCC) Assessment: -Rate and rhythm controlled. -On apixaban lower dose now. Plan: Follow up with cardiology. (K62.5) Rectal bleeding (D36.9) Tubulovillous adenoma Assessment: -Reviewed colonoscopy report. May have some radiation proctitis. -Reviewed CBC. Not anemic. Plan: -He is scheduled to see Dr. Hawk in June for colonoscopy and endoscopic resection of polyp. Hopefully he will be able to get a better evaluation of the rectum at that time as well. Portions of this documentation were copied and pasted from previous office visit notes in order to provide a cohesive continuity of the history. The note has been reviewed and edited and updated as necessary. I spent a total of 25 minutes on the date of the service which included preparing to see the patient, [id number] patient care, completing clinical documentation, obtaining and/or reviewing separately obtained history, performing a medically appropriate examination, counseling and educating the patient/family/caregiver, communicating with other HCPs (not separately reported), and communicating results to the patient/family/caregiver. Jose Cunningham DO documented in this encounter [facility] 04-01-2023 Miscellaneous Notes spoke with pts. , informed we do need labs and OV. No injection. voiced understanding. Lisa Gusman LPN Spouse called in to confirm April appointments. She states patient was to receive his last injections at last visit. She states if so, is lab and office visit needed. Please advise. documented in this encounter [facility] 03-07-2023 History of Presen t illness Narrative FOLLOW UP VISIT - ENDOSCOPY NAME: Robbin Jackson [facility] NO.: [id number] DATE OF SERVICE: 03/07/2023 : 1940 REFERRING PHYSICIAN: Raphael Justin MD Robbin is a patient I am following with the surgeons for rectal bleeding. Patient has past history of radiation proctitis. Dr. Li performed lower endoscopy on 02/27/23. Findings per operative report showed: - Preparation of the colon was inadequate. - Rule out malignancy, polypoid lesion in the distal transverse colon. Biopsied. Tattooed. - Erythematous mucosa in the rectum. Biopsied. - Diverticulosis in the sigmoid colon. - The examined portion of the ileum was normal. - The examination was otherwise normal. Pathology demonstrated: FINAL DIAGNOSIS A. Transverse colon, polypectomy: - Tubulovillous adenoma. The patient notes no complaints since the procedure. Surgeon was contacted to clarify operative report, as this mentioned area of rectum biopsied but only pathology report from polyp visible. Per Dr. Li, he elected not to pursue biopsy of this area due to concern for bleeding. He felt this was consistent in appearance with proctitis. Operative report has been addended by the surgeon. Dr. Li recommends patient see Dr. Hawk for mucosal resection of the transverse colon TVA VITALS: Blood pressure 124/72, pulse 65, temperature 36.4 C (97.6 F), height 190.5 cm (6' 3), weight 99.8 kg (220 lb), SpO2 98 %. General: patient is alert, cooperative, pleasant and in no acute distress On examination, the abdomen is benign. Assessment IMPRESSION: radiation proctitis. Large TVA transverse colon, incompletely resected-referral to colorectal PLAN: The operative findings and pathology report were reviewed with the patient, and the patient has had the opportunity to ask questions and have questions answered. If the patient notes any problems or changes in bowel function, the patient should contact me immediately. Otherwise I recommend follow up colonoscopy with Dr. Hawk for EMR of large tubulovillous polyp. Dr. Li has discussed with patient that he will likely need to be off of his anticoagulation for a longer period for this procedure, further instructions per coplorectal once procedure scheduled. Would also recommend a two-day bowel preparation due to suboptimal prep noted at recent colonoscopy Patient verbalized understanding of all above and agreed with the plan Diagnoses: (D36.9) Tubulovillous adenoma (primary encounter diagnosis) (K57.90) Diverticulosis (K62.7) Radiation proctitis I spent a total of 25 minutes on the date of the service which included preparing to see the patient, [id number] patient care, completing clinical documentation, obtaining and/or reviewing separately obtained history, counseling and educating the patient/family/caregiver, communicating with other HCPs (not separately reported), independently interpreting results (not separately reported), and communicating results to the patient/family/caregiver. Amberly Boss PA-C documented in this encounter [facility] 02-27-2023 History and physical note Images from the original note were not included. HISTORY AND PHYSICAL Robbin Jackson Michelle 1940 REFERRING PHYSICIAN: Jose Cunningham DO CHIEF COMPLAINT: Rectal Bleeding HPI: The patient is a 82 year old male referred for endoscopy. Robbin notes frequent rectal bleeding. He notes rectal bleeding multiple times a month. This is usually following a bowel movement. He is on Eliquis. He tried decreasing the dose but he still notes persistent bleeding. This is been going on for the past 7 months. The patient states he is usually constipated. He has been taking MiraLAX. The patient states he has not felt any hemorrhoids. His last colonoscopy was in 2007. He has a previous history of prostate cancer this was treated with radiation in 2020. The patient notes no history of upper GI complaints. Robbin was seen by Dr. Cunningham who felt this was not likely radiation proctitis and referred the patient for my opinion. The patient is being seen by me today at the request of Dr. Cunningham for my opinion and advice regarding rectal bleeding. PAST MEDICAL HISTORY PAST MEDICAL HISTORY Diagnosis Date Atrial fibrillation (HCC) Diverticulosis Diverticulosis of colon (without mention of hemorrhage) Essential hypertension Hemorrhage of gastrointestinal tract, unspecified Hemorrhoids Hiatal hernia 07/03/2016 Hyperlipidemia Internal hemorrhoids without mention of complication Prostate cancer (HCC) 2020 Renal calculi Unspecified essential hypertension PAST SURGICAL HISTORY PAST SURGICAL HISTORY Procedure Laterality Date COLONOSCOPY FLX DX W/COLLJ SPEC WHEN PFRMD 03/21/2008 CYSTOSCOPY 07/2015 NEEDLE BX - PROSTATE 2020 REMV CATARACT EXTRACAP,INSERT LENS Right 03/15/2019 RPR 1ST INGUN HRNA AGE 5 YRS/> REDUCIBLE Right 07/09/2016 right SKIN BIOPSY HX 2004 SKIN BIOPSY HX 04/2016 CURRENT MEDICATIONS Current Outpatient Medications Medication Sig furosemide (LASIX) 20 mg tablet Take 20 mg by mouth every morning. metoprolol tartrate, short acting, (LOPRESSOR) 25 mg tablet Take 1 tablet by mouth twice daily. polyethylene glycol 3350 17 gram packet Take 17 g by mouth once daily. Dissolve dose in 4 - 8 ounces of liquid and take as directed. calcium carbonate/vitamin D3 (CALTRATE WITH VITAMIN D3 ORAL) Take 1 tablet by mouth twice daily. vit C/E/Zn/coppr/lutein/zeaxan (PRESERVISION AREDS-2 ORAL) Take 1 tablet by mouth twice daily. cyanocobalamin, vitamin B-12, (VITAMIN B12 ORAL) Take 1 tablet by mouth once daily. acetaminophen (TYLENOL) 500 mg tablet Take 500 mg by mouth as needed. enalapril 20 mg tablet Take 1 tablet by mouth once daily. doxycycline monohydrate 100 mg tablet (Patient not taking: Reported on 11/21/2022) apixaban (ELIQUIS) 5 mg tab(s) Take 2.5 mg by mouth twice daily. amLODIPine (NORVASC) 5 mg tablet Take 5 mg by mouth once daily. (Patient not taking: Reported on 02/13/2023) No current facility-administered medications for this visit. ALLERGIES: Patient has no known allergies. PERSONAL HISTORY: SOCIAL HISTORY Social History Tobacco Use Smoking status: Former Years: 2 Types: Cigarettes Quit date: 06/23/1971 Years since quittin.6 Smokeless tobacco: Never Tobacco comments: Smoked for a couple years while in college. Vaping Use Vaping Use: Never used Substance Use Topics Alcohol use: Yes Alcohol/week: 3.0 standard drinks of alcohol Types: 3 Glasses of Wine (5oz) per week Comment: couple times a week with dinner Drug use: No FAMILY HISTORY: FAMILY HISTORY FAMILY HISTORY Problem Relation Age of Onset Heart Mother Hypertension Mother Arthritis Mother Hypertension Father Cancer Maternal Grandmother unsure what type Cancer Paternal Grandmother unsure what type Hypertension Paternal Grandfather REVIEW OF SYMPTOMS: The review of systems data was entered by the nurse and reviewed by me Nursing Notes: Jenny Jimenez RN 02/13/2023 3:14 PM Signed REVIEW OF SYSTEMS: General: The patient denies fatigue, denies weight loss, denies weight gain, denies feeling hot, and denies feelings of cold. Eyes: The patient denies glaucoma, denies eye injury/surgery, wears glasses or contacts. Ear/Nose/Throat: The patient denies allergies, denies hayfever, denies ear infections, and denies bloody noses. Cardiovascular: The patient denies chest pain, denies heart disease, NOTES high blood pressure,denies cardiac stent, denies prior heart attack, NOTES irregular heart beat, denies high cholesterol, denies poor circulation, denies heart failure, other cardiac issues, denies claudication, denies cold feet, denies peripheral arterial stent. Respiratory: The patient denies tuberculosis, denies pneumonia, denies frequent cough, denies pulmonary embolism, denies shortness of breath, and denies coughing up blood. Gastrointestinal: The patient denies difficulty swallowing, denies acid reflux, denies ulcers, denies vomiting, denies jaundice/hepatitis, denies gallbladder problems, denies black or tarry stools, NOTES hemorrhoids, NOTES bleeding from rectum, denies diverticulitis, denies constipation, denies diarrhea, denies loss of stool control, and denies hernias. Kidney/Bladder: The patient denies kidney stones, denies urine infections, and denies bloody urine. Skin: The patient denies a history of skin cancer, denies bleeding/changing moles, and denies a history of skin rash. Neurologic: The patient denies a history of epilepsy/convulsions, denies headaches, denies head/spinal injuries, and denies stroke/TIA. Psychiatric: The patient denies psychiatric medications, denies depression, and denies voices, denies substance abuse. Endocrine: The patient denies thyroid disorders, denies diabetes, and denies hormonal problems. Hematologic: The patient denies a history of bruising, denies bleeding, and denies anemia, denies blood clots. Infections: The patient denies a history of measles and mumps, denies rheumatic fever, and denies sexually transmitted diseases. Musculoskeletal: The patient denies back pain/injury, NOTES back problems, denies sciatica, denies knee/foot trouble, denies arthritis, or denies gout. When was patient's last Mammogram screening? N/A Last Colonoscopy: 03/21/2008 Jenny Jimenez RN PHYSICAL EXAMINATION: General: The patient is 82 year old male, well nourished, well hydrated in no acute distress. The patient is oriented to time, place, and person. VITALS: Blood pressure 130/78, pulse 82, temperature 36.4 C (97.6 F), temperature source Temporal, resp. rate 16, height 193 cm (6' 4), weight 98.7 kg (217 lb 9.6 oz), SpO2 98 %. Body mass index is 26.49 kg/m . HEENT: Normal cephalic, ataumatic, pupils are equally round, sclera are anicteric, mucous membranes are moist, oropharynx is clear. Neck has no masses, asymmetry or lymphadenopathy. Thyroid is unremarkable. Respiratory: Clear to auscultation and percussion. Normal respiratory excursion and pattern. Cardiac: Examination is regular rate and rhythm. Abdominal exam: Soft, nontender, with no palpable masses. No hepatosplenomegaly. No palpable hernias. Rectal exam: exam deferred Extremities: no clubbing, cyanosis or edema. No adenopathy. Other: LABORATORY VALUES: As Noted RADIOLOGIC STUDIES: As Noted Assessment IMPRESSION: Rectal bleeding, history of prostate radiation PLAN: I plan to perform lower endoscopy with possible hemorrhoidal banding. We discussed the risks and benefits of the planned endoscopy. I have informed the patient that complications can occur including failure to complete the endoscopy and perforation. The patient had the opportunity to ask questions concerning the planned endoscopy. My staff has also explained the procedure to the patient in understandable terms and has given the patient printed material concerning the procedure. The patient freely consents to surgery. I plan to use golytely bowel preparation for endoscopy Diagnoses: (K62.5) Rectal bleeding My findings have been communicated to Dr. Cunningham via shared medical record. This note will be forwarded to Dr. Raphael Justin MD. Return to Clinic: The patient is instructed to follow-up with me after the testing has been completed. Kendra Gregory MD UPDATED HISTORY AND PHYSICAL EXAMINATION SERVICE DATE: 02/27/2023 SERVICE TIME: 12:30 PM PHYSICAL EXAM MUST BE COMPLETED ON ADMISSION The History and Physical (completed in the past 30 days) has been reviewed and the patient has been examined. The contents accurately reflect the patient's condition with the following additions or revisions since the H&P was completed. Examination indicates no changes. This H&P can be found in the attached. SIGNATURE: Eric Li III, MD PATIENT NAME: Robbin Martinez DATE: February 27, 2023 TIME: 12:30 PM documented in this encounter [facility] 02-27-2023 Nurse Note Abdomen soft non-distended. Will continue to monitor. Patient passing a small amount of air via rectum. documented in this encounter [facility] 02-13-2023 Nurse Note Lupron injection administered, right buttock, tolerated well, no immediate adverse reactions noted. See O.V. notes Lisa Rodriguez LPN documented in this encounter [facility] 02-13-2023 History of Presen t illness Narrative Oncologic problem(s): 1) High risk prostate cancer. HPI: The patient is an 82-year-old male with a past medical history significant for essential hypertension and hyperlipidemia. Had been managed by urologist for BPH. PSA in the past has fluctuated. For instance it was 7.1 ng/mL November 2014. Then 9.5 ng/mL in August 2018 and then 8.0 ng/mL in December 2018. Increased to 14.80 ng/mL. Biopsy of the prostate 08/07/2020. Pathology: A. Right prostate, apex, core biopsy: Adenocarcinoma. [place] grade: 7 (4+3) Cores involved: 1 out of 1 core Tissue involved: 5% Greatest tumor length: 1 mm See comment. B. Right prostate, mid, core biopsy: Adenocarcinoma. [place] grade: 8 (4+4) Cores involved: 1 out of 1 core Tissue involved: 60% Greatest tumor length: 4.5 mm C. Right prostate, base, core biopsy: Adenocarcinoma. [place] grade: 8 (4+4) Cores involved: 1 out of 1 core Tissue involved: 2% Greatest tumor length: <1 mm D. Left prostate, apex, core biopsy: Focal atypical small acinar proliferation. See comment. E. Left prostate, mid, core biopsy: Adenocarcinoma. [place] grade: 6 (3+3) Cores involved: 1 out of 1 core Tissue involved: 2% Greatest tumor length: <1 mm See comment. F. Left prostate, base, core biopsy: Adenocarcinoma. [place] grade: 7 (3+4) Cores involved: 1 out of 1 core Tissue involved: 65% Greatest tumor length: 5.5 mm Bone scan on 08/29/2020 demonstrated no evidence of bone metastases. He had been advised to undergo external beam radiation treatment with ADT. Previous therapy: 1) ADT (10/2020) with radiation (completed radiation 01/2021). Current therapy: 1) Lupron. Developed atrial fibrillation 05/2022. On apixaban since 06/2022. Metoprolol. Presents for ongoing oncologic management. Interim history: He has no complaints today. Hot flashes less frequent. Has been having sporadic sweats--typically several times a day for several days then times with no symptoms. says he looks pale during these episodes. No orthostasis, palpitations or chest pain/pressure. Since starting apixaban, frequently has rectal bleeding after a BM. No rectal pain. No perianal pain/itch. Cardiology decreased apixaban to 2.5 mg in November because of this symptom. He has urinary frequency, about every 2 hours. Feels like he voids fairly well though. No gross hematuria or dysuria. Still gets up every 2 hours during the night to urinate. PMH, medications and allergies personally reviewed by me today. Any changes documented in appropriate section. ROS: Constitutional: Denies episodes of fever and night sweats. Not significantly fatigued. Normal appetite. Neuro: Denies URIOSTEGUI, vertigo, dizziness and imbalance. Denies symptoms of neuropathy. HEENT: No recent change in voice, vision or hearing. Resp: Denies cough, wheeze and hemoptysis. Denies shortness of breath at rest. CVS: Denies exertional chest pain, PND, orthopnea and LE edema. GI: Denies dysphagia and odynophagia. Denies reflux, n/v, change in bowel habits and abdominal pain. : See above. Endo: Denies hot flashes. Denies polyuria and polydipsia. Denies heat and cold intolerance. Musculoskeletal: Chronic back pain--stable. Derm: Denies rash. Denies jaundice and diffuse pruritis. Heme: Denies unusual bleeding and unexplained bruising. Psych: Normal mood. PHYSICAL EXAM: Vitals: Blood pressure 160/80, pulse 68, temperature 36.4 C (97.6 F), weight 98.9 kg (218 lb). Well-appearing and in no acute distress. EYES: Sclerae are anicteric bilaterally. LYMPHATIC: There is no palpable cervical or supraclavicular adenopathy. RESPIRATORY: Inspiratory breath sounds are of normal intensity in all russell. No rales, wheezes or rhonchi. CARDIOVASCULAR: Rhythm is regular with no ectopy today. ABDOMEN: The abdomen is nondistended. No organomegaly. No tenderness. RECTAL: Small external hemorrhoid posteriorly. Prostate smooth. No mass. No blood. Extremities: No swelling or edema. SKIN: No jaundice or rash. MUSCULOSKELETAL: No muscle wasting. LABS: Component Latest Ref Rng & Units 02/11/2023 WBC 3.70 - 11.00 k/uL 4.50 RBC 4.20 - 6.00 m/uL 4.24 Hemoglobin 13.0 - 17.0 g/dL 13.9 Hematocrit 39.0 - 51.0 % 41.1 MCV 80.0 - 100.0 fL 96.9 MCH 26.0 - 34.0 pg 32.8 MCHC 30.5 - 36.0 g/dL 33.8 RDW-CV 11.5 - 15.0 % 12.3 Platelet Count 150 - 400 k/uL 144 (L) MPV 9.0 - 12.7 fL 9.0 Neut% % 62.3 Abs Neut (ANC) 1.45 - 7.50 k/uL 2.80 Lymph% % 23.1 Abs Lymph 1.00 - 4.00 k/uL 1.04 Atlantic% % 10.9 Abs Atlantic <0.87 k/uL 0.49 Eosin% % 3.3 Abs Eosin <0.46 k/uL 0.15 Baso% % 0.2 Abs Baso <0.11 k/uL <0.03 Immature Gran % % 0.2 IMMATURE GRANS (ABS) <0.10 k/uL <0.03 NRBC /100 WBC 0.0 Absolute nRBC <0.01 k/uL <0.01 DTYPE Auto Protein, Total 6.3 - 8.0 g/dL 7.1 Albumin 3.9 - 4.9 g/dL 4.2 Calcium 8.5 - 10.2 mg/dL 9.4 Bilirubin, Total 0.2 - 1.3 mg/dL 0.4 Alkaline Phosphatase 38 - 113 U/L 51 AST 14 - 40 U/L 21 ALT 10 - 54 U/L 13 Glucose 74 - 99 mg/dL 83 BUN 9 - 24 mg/dL 22 Creatinine 0.73 - 1.22 mg/dL 1.07 Sodium 136 - 144 mmol/L 139 Potassium 3.7 - 5.1 mmol/L 3.9 Chloride 97 - 105 mmol/L 105 CO2 22 - 30 mmol/L 26 Anion Gap 9 - 18 mmol/L 8 (L) eGFR >=60 mL/min/1.73m 68 PSA <2.60 ng/mL <0.02 Vitamin D 25 Hydroxy 31.0 - 80.0 ng/mL 45.1 ASSESSMENT/PLAN: (C61) Prostate cancer (HCC) (primary encounter diagnosis) Assessment: -In summary the patient is an 82-year-old male in good general health diagnosed with a 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 He had high risk disease. -He is tolerating ADT overall very well. 2 years of therapy (10/2022). -PSA undetectable as of 02/2022. -Has urinary frequency but has had BP reactions to Flomax and another drug--he did not want to discuss alternative therapy with a urologist. -Reviewed labs. Tolerating ADT very well. -Today's injection will take him to 2/1/2 years. So will make it final Lupron. Plan: -Last Lupron injection today. -Discontinue Prolia. -OV/CBC/CMP/PSA/Vit D/Lupron in 3 months. -Continue calcium supplement with vitamin D twice daily. (I48.91) Atrial fibrillation, unspecified type (HCC) Assessment: -Rate and rhythm controlled. -Tolerating anticoagulation well, but now endorses 7 month h/o rectal bleeding. Plan: Follow up with cardiology. (K62.5) Rectal bleeding Assessment: -Previously had radiation, but aside from bleeding no other symptoms to suggest radiation proctitis. -Not anemic. Plan: -Referral to Dr. Gregory for evaluation. (R68.89) Heat intolerance Assessment/Plan: -May be hot flashes, will check TSH/T4. Portions of this documentation were copied and pasted from previous office visit notes in order to provide a cohesive continuity of the history. The note has been reviewed and edited and updated as necessary. Activity Duration Chart accessed 4 minutes Current session 23 minutes Total time: 27 minutes* I spent a total of 30 minutes on the date of the service which included preparing to see the patient, [id number] patient care, completing clinical documentation, obtaining and/or reviewing separately obtained history, performing a medically appropriate examination, counseling and educating the patient/family/caregiver, ordering medications, tests, or procedures, communicating with other HCPs (not separately reported), and communicating results to the patient/family/caregiver. Jose Cunningham DO documented in this encounter [facility] 11-21-2022 Nurse Note Patient presents with: Imm/Inj Pt is identified by name and birthdate: Yes. Allergies and medications reviewed. Latex allergy? No. Does this patient have: Unplanned weight loss or gain of greater than 10 pounds, or a change of appetite over the last year? No Does the patient have any concerns about safety in the home/falls? Not at risk for falls Has the patient fallen in the past year? No Does the patient have difficulty performing or completing routine daily living activities? No Does this patient have concerns about personal safety? No Is patient having pain? Pain: No=0 (pain 0 on a scale of 0-10). Health Maintenance: Reviewed and updated. Does patient have MyChart access or Caregiver proxy: yes Pt/Caregiver willingness and readiness to learn assessed: Yes. Barriers: none Prolia administered right arm, Lupron injection administered, right buttock,tolerated well, no immediate adverse reactions noted. Lisa Rodriguez LPN documented in this encounter [facility] 09-18-2022 History of Presen t illness Narrative Initial Podiatric Office Visit: Chief Complaint: This 81 year old male who presents with chief complaint:discoloration of left great toenail HPI Patient presents to clinic for evaluation of left great toe He states his left great toenail was discolored black. He noticed this in April. He states that in early august, the nail fell off. He is here to have the nail evaluated He states his hallux toenails tend to be thick and deformed. He is here to have advice on how to care for the nails. PAIN EVALUATION No data found in the last 1 encounters. No results found for: HBA1C PCP: Raphael Justin MD PAST MEDICAL HISTORY Diagnosis Date Diverticulosis of colon (without mention of hemorrhage) Hemorrhage of gastrointestinal tract, unspecified Hiatal hernia 07/03/2016 Hyperlipidemia Internal hemorrhoids without mention of complication Renal calculi Unspecified essential hypertension Current Outpatient Medications Medication Sig doxycycline monohydrate 100 mg tablet apixaban (ELIQUIS) 5 mg tab(s) Take 1 tablet by mouth twice daily. metoprolol tartrate, short acting, (LOPRESSOR) 25 mg tablet Take 1 tablet by mouth twice daily. polyethylene glycol 3350 17 gram packet Take 17 g by mouth once daily. Dissolve dose in 4 - 8 ounces of liquid and take as directed. calcium carbonate/vitamin D3 (CALTRATE WITH VITAMIN D3 ORAL) Take 1 tablet by mouth twice daily. amLODIPine (NORVASC) 5 mg tablet Take 5 mg by mouth once daily. vit C/E/Zn/coppr/lutein/zeaxan (PRESERVISION AREDS-2 ORAL) Take 1 tablet by mouth twice daily. cyanocobalamin, vitamin B-12, (VITAMIN B12 ORAL) Take 1 tablet by mouth once daily. acetaminophen (TYLENOL) 500 mg tablet Take 500 mg by mouth as needed. enalapril 20 mg tablet Take 1 tablet by mouth once daily. No current facility-administered medications for this visit. ALLERGIES No Known Allergies PAST SURGICAL HISTORY Procedure Laterality Date COLONOSCOPY FLX DX W/COLLJ SPEC WHEN PFRMD 03/21/08 CYSTOSCOPY 07/2015 RPR 1ST INGUN HRNA AGE 5 YRS/> REDUCIBLE Right 07/09/2016 right SKIN BIOPSY HX 2003 SKIN BIOPSY HX 04/2016 FAMILY HISTORY Problem Relation Age of Onset Heart Mother Hypertension Mother Arthritis Mother Hypertension Father Cancer Maternal Grandmother unsure what type Cancer Paternal Grandmother unsure what type Hypertension Paternal Grandfather Social History Tobacco Use Smoking status: Former Years: 2.00 Types: Cigarettes Quit date: 06/23/1971 Years since quittin.2 Smokeless tobacco: Never Tobacco comments: Smoked for a couple years while in college. Vaping Use Vaping Use: Never used Substance Use Topics Alcohol use: Yes Alcohol/week: 3.0 standard drinks Types: 3 Glasses of Wine (5oz) per week Comment: couple times a week with dinner Drug use: No REVIEW OF SYSTEMS GENERAL: Negative for Malaise, significant weight loss, fever RESPIRATORY: Negative for cough, wheezing and shortness of breath CARDIOVASCULAR: Negative for chest pain, leg swelling and palpitations GI: Negative for abdominal discomfort, blood in stools or black stools and change in bowel habits : Negative for dysuria, frequency and incontinence MUSCULOSKELETAL: Negative for joint pain or swelling, back pain, and muscle pain. SKIN: Negative for lesions, rash, and itching. HEMATOLOGY/LYMPHOLOGY Negative for prolonged bleeding, bruising easily, and swollen nodes. ENDOCRINE: Negative for cold or heat intolerance, polyuria, polydipsia and goiter. NEURO: negative Physical Exam: Constitutional: Pt is a well developed 81 year old male who is alert, oriented and cooperative Eyes: Following during examination. No redness or drainage. Respiratory: RR normal and nonlabored. Even breathing. No evidence of distress or shortness of breath. Psychology: Patient is engaged during conversation. Normal affect and mood. Does not appear depressed or anxious during encounter. Vascular: Dorsalis pedis and posterior tibial pulses palpable as b/l Capillary Fill time < 5 seconds to digits 1-5 b/l Skin temperature warm to warm proximal to distal b/l Hair growth present to digits Neurological: intact light touch/epicritic sensation Vibratory sensation decreased b/l decreased protective sensation + significant neurological deficits Dermatological: Left hallux distal nail plate has been avulsed but new nail formation is noted. No signs of infection. Nails 1-5 right and 2-5 left are slightly elongated. No pain or signs of infection. Webspaces clean and dry 1-4 b/l. Skin appears well hydrated and supple. good color, texture, turgor. No open lesions present. No callosities present. Musculoskeletal/Orthopaedic: Patient has no pain to palpation of b/l feet Radiographs: n/a ASSESSMENT: (L60.3) Onychodystrophy (primary encounter diagnosis) PLAN: 1. History and physical examination performed. 2. Patient has nail avulsion of left hallux but new nail is forming and appears stable without infection. Continue with [facility] as needed to keep nail filed 3. Right hallux nail was debrided as courtesy. In order to perform a complete physical exam, one nail slant back was performed. This incidental service is integral to the evaluation and management visit in order to appropriately manage and treat the patient (for their complaint or for this visit). Small bleed present and band aide applied 4. Can have continue with nail care 5. F/u prn Deuce Thompson DPM Podiatry [address] [facility] [address] Dept: [phone] Dept AMB ROOMING INTAKE FLOWSHEET DATA Patient presents with: Left Foot - Nail Check: Nail fell off on 09/03/22 Right Foot - Nail Check Patient reports left great toe nail became black in 04/2022 and that the nail fell off earlier this month. Sanjana Lobo RN September 18, 2022 1:14 PM documented in this encounter [facility] 09-04-2022 History of Presen t illness Narrative Oncologic problem(s): 1) High risk prostate cancer. HPI: The patient is an 81-year-old male with a past medical history significant for essential hypertension and hyperlipidemia. Had been managed by urologist for BPH. PSA in the past has fluctuated. For instance it was 7.1 ng/mL November 2014. Then 9.5 ng/mL in August 2018 and then 8.0 ng/mL in December 2018. More recently on was 14.80 ng/mL. Biopsy of the prostate 08/07/2020. Pathology: A. Right prostate, apex, core biopsy: Adenocarcinoma. [place] grade: 7 (4+3) Cores involved: 1 out of 1 core Tissue involved: 5% Greatest tumor length: 1 mm See comment. B. Right prostate, mid, core biopsy: Adenocarcinoma. [place] grade: 8 (4+4) Cores involved: 1 out of 1 core Tissue involved: 60% Greatest tumor length: 4.5 mm C. Right prostate, base, core biopsy: Adenocarcinoma. [place] grade: 8 (4+4) Cores involved: 1 out of 1 core Tissue involved: 2% Greatest tumor length: <1 mm D. Left prostate, apex, core biopsy: Focal atypical small acinar proliferation. See comment. E. Left prostate, mid, core biopsy: Adenocarcinoma. [place] grade: 6 (3+3) Cores involved: 1 out of 1 core Tissue involved: 2% Greatest tumor length: <1 mm See comment. F. Left prostate, base, core biopsy: Adenocarcinoma. [place] grade: 7 (3+4) Cores involved: 1 out of 1 core Tissue involved: 65% Greatest tumor length: 5.5 mm Bone scan on 08/29/2020 demonstrated no evidence of bone metastases. He had been advised to undergo external beam radiation treatment with ADT. Previous therapy: 1) ADT (10/2020) with radiation (completed radiation 01/2021). Current therapy: 1) Lupron. Presents for ongoing oncologic management. Interim history: He has no complaints today. Hot flashes less frequent. Not every day. Don't wake him. He has urinary frequency, about every 2 hours. Feels like he voids fairly well though. No gross hematuria or dysuria. Still gets up every 2 hours during the night to urinate. Was sent to ED last visit. Followed with cardiology--put on metoprolol and apixaban. No palpitations in the last 3 months. PMH, medications and allergies personally reviewed by me today. Any changes documented in appropriate section. ROS: Constitutional: Denies episodes of fever and night sweats. Not significantly fatigued. Normal appetite. Neuro: Denies URIOSTEGUI, vertigo, dizziness and imbalance. Denies symptoms of neuropathy. HEENT: No recent change in voice, vision or hearing. Resp: Denies cough, wheeze and hemoptysis. Denies shortness of breath at rest. Denies LEWIS. CVS: Denies exertional chest pain, PND, orthopnea and LE edema. GI: Denies dysgeusia. Denies symptoms of stomatitis. Denies dysphagia and odynophagia. Denies reflux, n/v, change in bowel habits and abdominal pain. : See above. Endo: Denies hot flashes. Denies polyuria and polydipsia. Denies heat and cold intolerance. Musculoskeletal: Chronic back pain--stable. Derm: Denies rash. Denies jaundice and diffuse pruritis. Heme: Denies unusual bleeding and unexplained bruising. Psych: Normal mood. PHYSICAL EXAM: Vitals: Blood pressure 153/78, pulse 60, temperature 36.3 C (97.4 F), weight 100.5 kg (221 lb 8 oz), SpO2 100 %. Well-appearing and in no acute distress. EYES: Sclerae are anicteric bilaterally. LYMPHATIC: There is no palpable cervical or supraclavicular adenopathy. RESPIRATORY: Inspiratory breath sounds are of normal intensity in all russell. No rales, wheezes or rhonchi. CARDIOVASCULAR: Rhythm is regular with no ectopy today. ABDOMEN: The abdomen is nondistended. No organomegaly. No tenderness. Extremities: No swelling or edema. SKIN: No jaundice or rash. MUSCULOSKELETAL: No muscle wasting. LABS: Component Latest Ref Rng & Units 08/29/2022 WBC 3.70 - 11.00 k/uL 5.16 RBC 4.20 - 6.00 m/uL 4.24 Hemoglobin 13.0 - 17.0 g/dL 14.0 Hematocrit 39.0 - 51.0 % 40.3 MCV 80.0 - 100.0 fL 95.0 MCH 26.0 - 34.0 pg 33.0 MCHC 30.5 - 36.0 g/dL 34.7 RDW-CV 11.5 - 15.0 % 12.2 Platelet Count 150 - 400 k/uL 160 MPV 9.0 - 12.7 fL 9.0 Neut% % 56.0 Abs Neut (ANC) 1.45 - 7.50 k/uL 2.89 Lymph% % 29.1 Abs Lymph 1.00 - 4.00 k/uL 1.50 Atlantic% % 11.6 Abs Atlantic <0.87 k/uL 0.60 Eosin% % 2.7 Abs Eosin <0.46 k/uL 0.14 Baso% % 0.4 Abs Baso <0.11 k/uL <0.03 Immature Gran % % 0.2 IMMATURE GRANS (ABS) <0.10 k/uL <0.03 NRBC /100 WBC 0.0 Absolute nRBC <0.01 k/uL <0.01 DTYPE Auto Protein, Total 6.3 - 8.0 g/dL 6.8 Albumin 3.9 - 4.9 g/dL 4.1 Calcium 8.5 - 10.2 mg/dL 9.1 Bilirubin, Total 0.2 - 1.3 mg/dL 0.4 Alkaline Phosphatase 38 - 113 U/L 52 AST 14 - 40 U/L 18 ALT 10 - 54 U/L 10 Glucose 74 - 99 mg/dL 63 (L) BUN 9 - 24 mg/dL 17 Creatinine 0.73 - 1.22 mg/dL 0.92 Sodium 136 - 144 mmol/L 140 Potassium 3.7 - 5.1 mmol/L 4.0 Chloride 97 - 105 mmol/L 104 CO2 22 - 30 mmol/L 29 Anion Gap 9 - 18 mmol/L 7 (L) eGFR >=60 mL/min/1.73m 83 PSA <2.60 ng/mL <0.02 Vitamin D 25 Hydroxy 31.0 - 80.0 ng/mL 59.6 IMAGING: CT A/P 10/13/2020: RESULT: Liver: Fluid attenuation lesion in the LEFT hepatic dome most suggestive of a cyst. Mildly nodular hepatic contour. Biliary: No bile duct dilation. Gallbladder is unremarkable. Spleen: No mass. No splenomegaly. Pancreas: No mass or duct dilation. Adrenals: No mass. Kidneys: Symmetric enhancement. Nonobstructing bilateral nephrolithiasis. No hydronephrosis. Small bilateral hypodense lesions are too small to characterize by this exam. GI tract: No dilation or wall thickening. Colonic diverticulosis without CT findings of diverticulitis. Moderate amount of fecal material is present throughout the colon. Normal appendix. Lymph nodes: No abdominal or pelvic lymphadenopathy by size criteria. Couple prominent but nonenlarged retroperitoneal/para-aortic lymph nodes measuring up to 9 mm. Mesentery/Peritoneum: No ascites. Retroperitoneum: No mass. Vasculature: The celiac axis and SMA are patent. The portal vein and branches, splenic vein, SMV, and hepatic veins are patent. Arterial atherosclerotic disease without aneurysm. Pelvis: No pelvic mass or drainable fluid collection. Small area of fluid attenuation in the RIGHT anterior lower pelvis (3:118). Enlarged prostate. Bones/Soft Tissues: No acute osseous abnormality. No suspicious sclerotic lesion is appreciated. Degenerative changes are present throughout the included spine. Lower thorax: No focal consolidation or pleural effusion. Photogrammetric Engineer (topogram) images: No additional findings. IMPRESSION: Couple prominent retroperitoneal/para-aortic lymph nodes measuring up to 9 mm. Enlarged prostate. Fluid attenuation lesion in the LEFT hepatic dome is most suggestive of a cyst. Mildly nodular hepatic contour suggestive of cirrhosis. Small area of nonspecific fluid attenuation in the RIGHT anterior lower pelvis may represent free fluid. Additional findings as described. 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 He had high risk disease. -He is tolerating ADT overall very well. Almost 2 years' worth of therapy (10/2022). -Tolerated radiation overall very well with some exacerbation of lower urinary outlet tract obstructive symptoms but no other severe or unexpected toxicity. -PSA undetectable as of 02/2022. -Has urinary frequency but has had BP reactions to Flomax and another drug--he did not want to discuss alternative therapy with a urologist. -Reviewed labs. Tolerating ADT very well. -Discussed plan to continue ADT for 2 to 3 years. Plan: -Continue every 3 month Lupron. -Prolia every 6 months. -Continue calcium supplement with vitamin D twice daily. -CBC/CMP/PSA/Vit D/Lupron in 3 months. -OV/CBC/CMP/PSA/Vit D/Lupron in 6 months. (I48.91) Atrial fibrillation, unspecified type (HCC) Assessment: -Rate and rhythm controlled. -Tolerating anticoagulation well. Plan: Follow up with cardiology. Portions of this documentation were copied and pasted from previous office visit notes in order to provide a cohesive continuity of the history. The note has been reviewed and edited and updated as necessary. I spent a total of 20 minutes on the date of the service which included preparing to see the patient, [id number] patient care, completing clinical documentation, obtaining and/or reviewing separately obtained history, performing a medically appropriate examination, counseling and educating the patient/family/caregiver, and communicating results to the patient/family/caregiver. Jose Cunningham DO documented in this encounter [facility] 08-29-2022 Nurse Note Lupron injection administered, right buttock,tolerated well, no immediate adverse reactions noted. Lisa Rodriguez LPN documented in this encounter [facility] 08-19-2022 Miscellaneous Notes Spoke with patient's and advised that labs only need drawn once and cancelled labs on same day as office visit. Waleska Chew Spouse called regarding 08/29 and 09/04 appts. She is asking if labs need to be a week apart or can all be done on one day. Please call her and advise. documented in this encounter [facility] 06-06-2022 History of Presen t illness Narrative Lupron injection administered, left buttoc, Prolia administered left arm, tolerated well, no immediate adverse reactions noted. See office notes Lisa Rodriguez LPN documented in this encounter [facility] 06-06-2022 History of Presen t illness Narrative Oncologic problem(s): 1) High risk prostate cancer. HPI: The patient is an 81-year-old male with a past medical history significant for essential hypertension and hyperlipidemia. Had been managed by urologist for BPH. PSA in the past has fluctuated. For instance it was 7.1 ng/mL November 2014. Then 9.5 ng/mL in August 2018 and then 8.0 ng/mL in December 2018. More recently on was 14.80 ng/mL. Biopsy of the prostate 08/07/2020. Pathology: A. Right prostate, apex, core biopsy: Adenocarcinoma. [place] grade: 7 (4+3) Cores involved: 1 out of 1 core Tissue involved: 5% Greatest tumor length: 1 mm See comment. B. Right prostate, mid, core biopsy: Adenocarcinoma. [place] grade: 8 (4+4) Cores involved: 1 out of 1 core Tissue involved: 60% Greatest tumor length: 4.5 mm C. Right prostate, base, core biopsy: Adenocarcinoma. [place] grade: 8 (4+4) Cores involved: 1 out of 1 core Tissue involved: 2% Greatest tumor length: <1 mm D. Left prostate, apex, core biopsy: Focal atypical small acinar proliferation. See comment. E. Left prostate, mid, core biopsy: Adenocarcinoma. [place] grade: 6 (3+3) Cores involved: 1 out of 1 core Tissue involved: 2% Greatest tumor length: <1 mm See comment. F. Left prostate, base, core biopsy: Adenocarcinoma. [place] grade: 7 (3+4) Cores involved: 1 out of 1 core Tissue involved: 65% Greatest tumor length: 5.5 mm Bone scan on 08/29/2020 demonstrated no evidence of bone metastases. He had been advised to undergo external beam radiation treatment with ADT. Previous therapy: 1) ADT (10/2020) with radiation (completed radiation 01/2021). Current therapy: 1) Lupron. Presents for ongoing oncologic management. Interim history: He has no complaints today. Hot flashes once or twice a day. Don't wake him. He has urinary frequency, about every 2 hours. Feels like he voids fairly well though. No gross hematuria or dysuria. Gets up every 2 hours during the night to urinate. He feels occasional palpitations. In the past he has had premature atrial complexes on EKG. No chest pain or pressure. No complaints of orthostasis. PMH, medications and allergies personally reviewed by me today. Any changes documented in appropriate section. ROS: Constitutional: Denies episodes of fever and night sweats. Not significantly fatigued. Normal appetite. Neuro: Denies URIOSTEGUI, vertigo, dizziness and imbalance. Denies symptoms of neuropathy. HEENT: No recent change in voice, vision or hearing. Resp: Denies cough, wheeze and hemoptysis. Denies shortness of breath at rest. Denies LEWIS. CVS: Denies exertional chest pain, PND, orthopnea and LE edema. GI: Denies dysgeusia. Denies symptoms of stomatitis. Denies dysphagia and odynophagia. Denies reflux, n/v, change in bowel habits and abdominal pain. : See above. Endo: Denies hot flashes. Denies polyuria and polydipsia. Denies heat and cold intolerance. Musculoskeletal: Chronic back pain--stable. Derm: Denies rash. Denies jaundice and diffuse pruritis. Heme: Denies unusual bleeding and unexplained bruising. Psych: Normal mood. PHYSICAL EXAM: Vitals: Blood pressure 122/76, pulse 98, temperature 36.5 C (97.7 F), weight 100.2 kg (221 lb). Well-appearing and in no acute distress. EYES: Sclerae are anicteric bilaterally. LYMPHATIC: There is no palpable cervical or supraclavicular adenopathy. RESPIRATORY: Inspiratory breath sounds are of normal intensity in all russell. No rales, wheezes or rhonchi. CARDIOVASCULAR: Rhythm is regular with ectopy. ABDOMEN: The abdomen is nondistended. No organomegaly. No tenderness. Extremities: No swelling or edema. SKIN: No jaundice or rash. No petechiae. NEUROLOGIC: business risk analyst II-XII are grossly intact. No focal motor weakness. MUSCULOSKELETAL: No muscle wasting. LABS: Component Latest Ref Rng & Units 06/06/2022 WBC 3.70 - 11.00 k/uL 4.80 RBC 4.20 - 6.00 m/uL 4.18 (L) Hemoglobin 13.0 - 17.0 g/dL 13.8 Hematocrit 39.0 - 51.0 % 40.6 MCV 80.0 - 100.0 fL 97.1 MCH 26.0 - 34.0 pg 33.0 MCHC 30.5 - 36.0 g/dL 34.0 RDW-CV 11.5 - 15.0 % 12.1 Platelet Count 150 - 400 k/uL 169 MPV 9.0 - 12.7 fL 9.0 Neut% % 56.1 Abs Neut (ANC) 1.45 - 7.50 k/uL 2.69 Lymph% % 29.4 Abs Lymph 1.00 - 4.00 k/uL 1.41 Atlantic% % 11.0 Abs Atlantic <0.87 k/uL 0.53 Eosin% % 2.9 Abs Eosin <0.46 k/uL 0.14 Baso% % 0.4 Abs Baso <0.11 k/uL <0.03 Immature Gran % % 0.2 IMMATURE GRANS (ABS) <0.10 k/uL <0.03 NRBC /100 WBC 0.0 Absolute nRBC <0.01 k/uL <0.01 DTYPE Auto Component Latest Ref Rng & Units 01/18/2021 04/12/2021 07/05/2021 09/27/2021 12/17/2021 03/11/2022 PSA <2.60 ng/mL 2.76 (H) 0.35 0.05 0.03 0.02 <0.02 IMAGING: CT A/P 10/13/2020: RESULT: Liver: Fluid attenuation lesion in the LEFT hepatic dome most suggestive of a cyst. Mildly nodular hepatic contour. Biliary: No bile duct dilation. Gallbladder is unremarkable. Spleen: No mass. No splenomegaly. Pancreas: No mass or duct dilation. Adrenals: No mass. Kidneys: Symmetric enhancement. Nonobstructing bilateral nephrolithiasis. No hydronephrosis. Small bilateral hypodense lesions are too small to characterize by this exam. GI tract: No dilation or wall thickening. Colonic diverticulosis without CT findings of diverticulitis. Moderate amount of fecal material is present throughout the colon. Normal appendix. Lymph nodes: No abdominal or pelvic lymphadenopathy by size criteria. Couple prominent but nonenlarged retroperitoneal/para-aortic lymph nodes measuring up to 9 mm. Mesentery/Peritoneum: No ascites. Retroperitoneum: No mass. Vasculature: The celiac axis and SMA are patent. The portal vein and branches, splenic vein, SMV, and hepatic veins are patent. Arterial atherosclerotic disease without aneurysm. Pelvis: No pelvic mass or drainable fluid collection. Small area of fluid attenuation in the RIGHT anterior lower pelvis (3:118). Enlarged prostate. Bones/Soft Tissues: No acute osseous abnormality. No suspicious sclerotic lesion is appreciated. Degenerative changes are present throughout the included spine. Lower thorax: No focal consolidation or pleural effusion. Photogrammetric Engineer (topogram) images: No additional findings. IMPRESSION: Couple prominent retroperitoneal/para-aortic lymph nodes measuring up to 9 mm. Enlarged prostate. Fluid attenuation lesion in the LEFT hepatic dome is most suggestive of a cyst. Mildly nodular hepatic contour suggestive of cirrhosis. Small area of nonspecific fluid attenuation in the RIGHT anterior lower pelvis may represent free fluid. Additional findings as described. 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 He had high risk disease. -He is tolerating ADT overall very well. -Tolerated radiation overall very well with some exacerbation of lower urinary outlet tract obstructive symptoms but no other severe or unexpected toxicity. -PSA undetectable as of 02/2022. -Has urinary frequency but has had BP reactions to Flomax and another drug--he does not wish at this point to discuss with a urologist alternative therapy. -Discussed plan to continue ADT for 2 to 3 years. Plan: -EKG today. -Lupron injection today. -Prolia every 6 months. -Continue calcium supplement with vitamin D twice daily. -CBC/CMP/PSA/Vit D/Lupron in 3 months. -OV/CBC/CMP/PSA/Vit D/Lupron in 6 months. Portions of this documentation were copied and pasted from previous office visit notes in order to provide a cohesive continuity of the history. The note has been reviewed and edited and updated as necessary. During this patient visit I have spent approximately 15 minutes out of 25 in counseling regarding treatment options, medications, test results and coordinating care. Jose Cunningham DO documented in this encounter [facility] 03-14-2022 Nurse Note Lupron injection administered, right buttock,tolerated well, no immediate adverse reactions noted. Lisa Rodriguez LPN documented in this encounter [facility] 12-20-2021 Nurse Note Lupron injection administered, left buttock, tolerated well, no immediate adverse reactions noted. See Office notes. Lisa Rodriguez LPN documented in this encounter [facility] 12-20-2021 History of Presen t illness Narrative Oncologic problem(s): 1) High risk prostate cancer. HPI: The patient is an 80-year-old male with a past medical history significant for essential hypertension and hyperlipidemia. Had been managed by urologist for BPH. PSA in the past has fluctuated. For instance it was 7.1 ng/mL November 2014. Then 9.5 ng/mL in August 2018 and then 8.0 ng/mL in December 2018. More recently on was 14.80 ng/mL. Biopsy of the prostate 08/07/2020. Pathology: A. Right prostate, apex, core biopsy: Adenocarcinoma. [place] grade: 7 (4+3) Cores involved: 1 out of 1 core Tissue involved: 5% Greatest tumor length: 1 mm See comment. B. Right prostate, mid, core biopsy: Adenocarcinoma. [place] grade: 8 (4+4) Cores involved: 1 out of 1 core Tissue involved: 60% Greatest tumor length: 4.5 mm C. Right prostate, base, core biopsy: Adenocarcinoma. [place] grade: 8 (4+4) Cores involved: 1 out of 1 core Tissue involved: 2% Greatest tumor length: <1 mm D. Left prostate, apex, core biopsy: Focal atypical small acinar proliferation. See comment. E. Left prostate, mid, core biopsy: Adenocarcinoma. [place] grade: 6 (3+3) Cores involved: 1 out of 1 core Tissue involved: 2% Greatest tumor length: <1 mm See comment. F. Left prostate, base, core biopsy: Adenocarcinoma. [place] grade: 7 (3+4) Cores involved: 1 out of 1 core Tissue involved: 65% Greatest tumor length: 5.5 mm Bone scan on 08/29/2020 demonstrated no evidence of bone metastases. He has been advised to undergo external beam radiation treatment with ADT. Previous therapy: 1) ADT (10/2020) with radiation (completed radiation 01/2021). Current therapy: 1) Lupron. Presents for ongoing oncologic management. Interim history: He has no complaints today. Hot flashes vary and remain manageable. He has urinary frequency, about every 2 hours. Feels like he voids fairly well though. No gross hematuria or dysuria. PMH, medications and allergies personally reviewed by me today. Any changes documented in appropriate section. ROS: Constitutional: Denies episodes of fever and night sweats. Not significantly fatigued. Normal appetite. Neuro: Denies URIOSTEGUI, vertigo, dizziness and imbalance. Denies symptoms of neuropathy. HEENT: No recent change in voice, vision or hearing. Resp: Denies cough, wheeze and hemoptysis. Denies shortness of breath at rest. Denies LEWIS. CVS: Denies exertional chest pain, PND, orthopnea and LE edema. GI: Denies dysgeusia. Denies symptoms of stomatitis. Denies dysphagia and odynophagia. Denies reflux, n/v, change in bowel habits and abdominal pain. : See above. Endo: Denies hot flashes. Denies polyuria and polydipsia. Denies heat and cold intolerance. Musculoskeletal: Chronic back pain. Derm: Denies rash. Denies jaundice and diffuse pruritis. Heme: Denies unusual bleeding and unexplained bruising. Psych: Normal mood. PHYSICAL EXAM: Vitals: Blood pressure 140/70, pulse 71, temperature 36.5 C (97.7 F), temperature source Temporal, weight 95 kg (209 lb 8 oz). Well-appearing and in no acute distress. EYES: Sclerae are anicteric bilaterally. LYMPHATIC: There is no palpable cervical or supraclavicular adenopathy. RESPIRATORY: Inspiratory breath sounds are of normal intensity in all russell. No rales, wheezes or rhonchi. CARDIOVASCULAR: Rhythm is regular. ABDOMEN: The abdomen is nondistended. No organomegaly. No tenderness. Extremities: No swelling or edema. SKIN: No jaundice or rash. No petechiae. NEUROLOGIC: business risk analyst II-XII are grossly intact. No focal motor weakness. MUSCULOSKELETAL: No muscle wasting. LABS: Component Latest Ref Rng & Units 01/18/2021 04/12/2021 07/05/2021 09/27/2021 12/17/2021 PSA <2.60 ng/mL 2.76 (H) 0.35 0.05 0.03 0.02 IMAGING: CT A/P 10/13/2020: RESULT: Liver: Fluid attenuation lesion in the LEFT hepatic dome most suggestive of a cyst. Mildly nodular hepatic contour. Biliary: No bile duct dilation. Gallbladder is unremarkable. Spleen: No mass. No splenomegaly. Pancreas: No mass or duct dilation. Adrenals: No mass. Kidneys: Symmetric enhancement. Nonobstructing bilateral nephrolithiasis. No hydronephrosis. Small bilateral hypodense lesions are too small to characterize by this exam. GI tract: No dilation or wall thickening. Colonic diverticulosis without CT findings of diverticulitis. Moderate amount of fecal material is present throughout the colon. Normal appendix. Lymph nodes: No abdominal or pelvic lymphadenopathy by size criteria. Couple prominent but nonenlarged retroperitoneal/para-aortic lymph nodes measuring up to 9 mm. Mesentery/Peritoneum: No ascites. Retroperitoneum: No mass. Vasculature: The celiac axis and SMA are patent. The portal vein and branches, splenic vein, SMV, and hepatic veins are patent. Arterial atherosclerotic disease without aneurysm. Pelvis: No pelvic mass or drainable fluid collection. Small area of fluid attenuation in the RIGHT anterior lower pelvis (3:118). Enlarged prostate. Bones/Soft Tissues: No acute osseous abnormality. No suspicious sclerotic lesion is appreciated. Degenerative changes are present throughout the included spine. Lower thorax: No focal consolidation or pleural effusion. Photogrammetric Engineer (topogram) images: No additional findings. IMPRESSION: Couple prominent retroperitoneal/para-aortic lymph nodes measuring up to 9 mm. Enlarged prostate. Fluid attenuation lesion in the LEFT hepatic dome is most suggestive of a cyst. Mildly nodular hepatic contour suggestive of cirrhosis. Small area of nonspecific fluid attenuation in the RIGHT anterior lower pelvis may represent free fluid. Additional findings as described. 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 He had high risk disease. -He is tolerating ADT overall very well. -Tolerated radiation overall very well with some exacerbation of lower urinary outlet tract obstructive symptoms but no other severe or unexpected toxicity. -PSA continues to slowly decline. -Has urinary frequency but has had BP reactions to Flomax and another drug--he does not wish at this point to discuss with a urologist alternative therapy. -Discussed plan to continue ADT for 2 to 3 years. Plan: -Lupron injection today. -Prolia every 6 months. -Continue calcium supplement with vitamin D twice daily. -CBC/CMP/PSA/Vit D/Lupron in 3 months. -OV/CBC/CMP/PSA/Vit D/Lupron in 6 months. Portions of this documentation were copied and pasted from previous office visit notes in order to provide a cohesive continuity of the history. The note has been reviewed and edited and updated as necessary. During this patient visit I have spent approximately 15 minutes out of 20 in counseling regarding treatment options, medications, test results and coordinating care. Jose Cunningham DO documented in this encounter [facility] 09-28-2021 Miscellaneous Notes Spoke with pt. Given information concerning low vitamin D. Instructed to get OTC vitamin D 10,000 units , take 1 daily in addition to Calcium with Vit. D. Pt. Voiced understanding. Lisa Rodriguez LPN His vitamin D remains low. Advised him to start in addition to his calcium and vitamin D supplement, a 10,000 unit vitamin D capsule daily. This can be got [id number]. Jose Cunningham DO documented in this encounter [facility] 09-27-2021 Nurse Note Lupron injection administered, right buttock. tolerated well, no immediate adverse reactions noted. Lisa Rodriguez LPN Patient presents with: Imm/Inj Pt is identified by name and birthdate: Yes. Allergies and medications reviewed. Latex allergy? No. Does this patient have: Unplanned weight loss or gain of greater than 10 pounds, or a change of appetite over the last year? No Does the patient have any concerns about safety in the home/falls? Not at risk for falls Has the patient fallen in the past year? No Does the patient have difficulty performing or completing routine daily living activities? No Does this patient have concerns about personal safety? No Is patient having pain? Pain: No=0 (pain 0 on a scale of 0-10). Health Maintenance: Reviewed and updated. Does patient have MyChart access or Caregiver proxy: yes Pt/Caregiver willingness and readiness to learn assessed: Yes. Barriers: none Pt. C/O multiple hot flashes throughtout the day. Lisa Rodriguez LPN documented in this encounter [facility] 09-11-2012 History of Past i llness Narrative Problem Noted Date Resolved Date Dizziness and giddiness 09/11/2012 07/03/19 17 Neoplasm Uncertain Behavior(NUB): R/O BCC's 02/201007/03/2016 Actinic Damage//Sun-Damaged Skin 11/29/2009 07/03/2016 documented as of this encounter (statuses as of 09/26/2021) [facility] History of Past illness Narrative* Problem Noted Date Resolved Date Dizziness and giddiness 09/11/2012 07/03/19 17 Neoplasm Uncertain Behavior(NUB): R/O BCC's 0 02/201007/03/2016 Actinic Damage//Sun-Damaged Skin 11/29/2009 07/03/2016 documented as of this encounter (statuses as of 09/27/2021) [facility] History of Past illness Narrative* Problem Noted Date Resolved Date Dizziness and giddiness 09/11/2012 07/03/19 17 Neoplasm Uncertain Behavior(NUB): R/O BCC's /0 02/201007/03/2016 Actinic Damage//Sun-Damaged Skin 11/29/2009 07/03/2016 documented as of this encounter (statuses as of 09/28/2021) [facility] History of Past illness Narrative* Problem Noted Date Resolved Date Dizziness and giddiness 09/11/2012 07/03/19 17 Neoplasm Uncertain Behavior(NUB): R/O BCC's 06/0 02/201007/03/2016 Actinic Damage//Sun-Damaged Skin 11/29/2009 07/03/2016 documented as of this encounter (statuses as of 12/14/2021) [facility] History of Past illness Narrative* Problem Noted Date Resolved Date Dizziness and giddiness 09/11/2012 07/03/19 17 Neoplasm Uncertain Behavior(NUB): R/O BCC's 06/0 02/201007/03/2016 Actinic Damage//Sun-Damaged Skin 11/29/2009 07/03/2016 documented as of this encounter (statuses as of 12/20/2021) [facility] History of Past illness Narrative* Problem Noted Date Resolved Date Dizziness and giddiness 09/11/2012 07/03/19 17 Neoplasm Uncertain Behavior(NUB): R/O BCC's /0 02/201007/03/2016 Actinic Damage//Sun-Damaged Skin 11/29/2009 07/03/2016 documented as of this encounter (statuses as of 12/20/2021) [facility] History of Past illness Narrative* Problem Noted Date Resolved Date Dizziness and giddiness 09/11/2012 07/03/19 17 Neoplasm Uncertain Behavior(NUB): R/O BCC's 06/0 02/201007/03/2016 Actinic Damage//Sun-Damaged Skin 11/29/2009 07/03/2016 documented as of this encounter (statuses as of 03/08/2022) [facility] of Past illness Narrative* Problem Noted Date Resolved Date Dizziness and giddiness 09/11/2012 07/03/19 17 Neoplasm Uncertain Behavior(NUB): R/O BCC's 06/0 02/201007/03/2016 Actinic Damage//Sun-Damaged Skin 11/29/2009 07/03/2016 documented as of this encounter (statuses as of 03/14/2022) [facility] of Past illness Narrative* Problem Noted Date Resolved Date Dizziness and giddiness 09/11/2012 07/03/19 17 Neoplasm Uncertain Behavior(NUB): R/O BCC's 06/0 02/201007/03/2016 Actinic Damage//Sun-Damaged Skin 11/29/2009 07/03/2016 documented as of this encounter (statuses as of 06/05/2022) [facility] of Past illness Narrative* Problem Noted Date Resolved Date Dizziness and giddiness 09/11/2012 07/03/19 17 Neoplasm Uncertain Behavior(NUB): R/O BCC's 06/0 02/201007/03/2016 Actinic Damage//Sun-Damaged Skin 11/29/2009 07/03/2016 documented as of this encounter (statuses as of 06/06/2022) [facility] of Past illness Narrative* Problem Noted Date Resolved Date Dizziness and giddiness 09/11/2012 07/03/19 17 Neoplasm Uncertain Behavior(NUB): R/O BCC's 06/0 02/201007/03/2016 Actinic Damage//Sun-Damaged Skin 11/29/2009 07/03/2016 documented as of this encounter (statuses as of 06/06/2022) [facility] History of Past illness Narrative* Problem Noted Date Resolved Date Dizziness and giddiness 09/11/2012 07/03/19 17 Neoplasm Uncertain Behavior(NUB): R/O BCC's 06/0 02/201007/03/2016 Actinic Damage//Sun-Damaged Skin 11/29/2009 07/03/2016 documented as of this encounter (statuses as of 08/19/2022) [facility] of Past illness Narrative* Problem Noted Date Resolved Date Dizziness and giddiness 09/11/2012 07/03/19 17 Neoplasm Uncertain Behavior(NUB): R/O BCC's 06/0 02/201007/03/2016 Actinic Damage//Sun-Damaged Skin 11/29/2009 07/03/2016 documented as of this encounter (statuses as of 08/29/2022) [facility] of Past illness Narrative* Problem Noted Date Resolved Date Dizziness and giddiness 09/11/2012 07/03/19 17 Neoplasm Uncertain Behavior(NUB): R/O BCC's 06/0 02/201007/03/2016 Actinic Damage//Sun-Damaged Skin 11/29/2009 07/03/2016 documented as of this encounter (statuses as of 08/29/2022) [facility] of Past illness Narrative* Problem Noted Date Resolved Date Dizziness and giddiness 09/11/2012 07/03/19 17 Neoplasm Uncertain Behavior(NUB): R/O BCC's /0 02/201007/03/2016 Actinic Damage//Sun-Damaged Skin 11/29/2009 07/03/2016 documented as of this encounter (statuses as of 09/04/2022) [facility] of Past illness Narrative* Problem Noted Date Resolved Date Dizziness and giddiness 09/11/2012 07/03/19 17 Neoplasm Uncertain Behavior(NUB): R/O BCC's 0 02/201007/03/2016 Actinic Damage//Sun-Damaged Skin 11/29/2009 07/03/2016 documented as of this encounter (statuses as of 09/18/2022) [place] [id number] History of Past illness Narrative* Problem Noted Date Resolved Date Dizziness and giddiness 09/11/2012 07/03/19 17 Neoplasm Uncertain Behavior(NUB): R/O BCC's 0 02/201007/03/2016 Actinic Damage//Sun-Damaged Skin 11/29/2009 07/03/2016 documented as of this encounter (statuses as of 11/21/2022) [place] [id number] History of Past illness Narrative* Problem Noted Date Resolved Date Dizziness and giddiness 09/11/2012 07/03/19 17 Neoplasm Uncertain Behavior(NUB): R/O BCC's 0 02/201007/03/2016 Actinic Damage//Sun-Damaged Skin 11/29/2009 07/03/2016 documented as of this encounter (statuses as of 11/21/2022) [place] [id number] History of Past illness Narrative* Problem Noted Date Diagnosed Date Resolved Date Dizziness and giddiness 09/11/201206/23 Neoplasm Uncertain Behavior(NUB): R/O BCC's 11/29/2009 07/03/2016 Actinic Damage//Sun-Damaged Skin 11/29/2009 07/03/2016 documented as of this encounter (statuses as of 02/11/2023) [place] [id number] History of Past illness Narrative* Problem Noted Date Diagnosed Date Resolved Date Dizziness and giddiness 09/11/201206/23 Neoplasm Uncertain Behavior(NUB): R/O BCC's 11/29/2009 07/03/2016 Actinic Damage//Sun-Damaged Skin 11/29/2009 07/03/2016 documented as of this encounter (statuses as of 02/13/2023) [facility] of Past illness Narrative* Problem Noted Date Diagnosed Date Resolved Date Dizziness and giddiness 09/11/201206/23 Neoplasm Uncertain Behavior(NUB): R/O BCC's 11/29/2009 07/03/2016 Actinic Damage//Sun-Damaged Skin 11/29/2009 07/03/2016 documented as of this encounter (statuses as of 02/13/2023) [facility] of Past illness Narrative* Problem Noted Date Diagnosed Date Resolved Date Dizziness and giddiness 09/11/201206/23 Neoplasm Uncertain Behavior(NUB): R/O BCC's 11/29/2009 07/03/2016 Actinic Damage//Sun-Damaged Skin 11/29/2009 07/03/2016 documented as of this encounter (statuses as of 03/15/2023) [facility] illness Narrative* Problem Noted Date Diagnosed Date Resolved Date Dizziness and giddiness 09/11/201206/23 Neoplasm Uncertain Behavior(NUB): R/O BCC's 11/29/2009 07/03/2016 Actinic Damage//Sun-Damaged Skin 11/29/2009 07/03/2016 documented as of this encounter (statuses as of 04/02/2023) [facility] of Past illness Narrative* Problem Noted Date Diagnosed Date Resolved Date Dizziness and giddiness 09/11/201206/23 Neoplasm Uncertain Behavior(NUB): R/O BCC's 11/29/2009 07/03/2016 Actinic Damage//Sun-Damaged Skin 11/29/2009 07/03/2016 documented as of this encounter (statuses as of 04/27/2023) [facility] of Past illness Narrative* Problem Noted Date Diagnosed Date Resolved Date Dizziness and giddiness 09/11/201206/23 Neoplasm Uncertain Behavior(NUB): R/O BCC's 11/29/2009 07/03/2016 Actinic Damage//Sun-Damaged Skin 11/29/2009 07/03/2016 documented as of this encounter (statuses as of 05/08/2023) [facility] of Past illness Narrative* Problem Noted Date Diagnosed Date Resolved Date Dizziness and giddiness 09/11/201206/23 Neoplasm Uncertain Behavior(NUB): R/O BCC's 11/29/2009 07/03/2016 Actinic Damage//Sun-Damaged Skin 11/29/2009 07/03/2016 documented as of this encounter (statuses as of 08/14/2023) [facility] illness Narrative* Problem Noted Date Diagnosed Date Resolved Date Dizziness and giddiness 09/11/201206/23 Neoplasm Uncertain Behavior(NUB): R/O BCC's 11/29/2009 07/03/2016 Actinic Damage//Sun-Damaged Skin 11/29/2009 07/03/2016 documented as of this encounter (statuses as of 10/12/2023) [facility] [place] [facility] Diagnosis Prostate cancer (HCC)- Primary Malignant neoplasm of prostate [facility] [place] [facility] Diagnosis Prostate cancer (HCC)- Primary Malignant neoplasm of prostate documented in this encounter [facility] [facility] [place] [facility]* Diagnosis Prostate cancer (HCC)- Primary Malignant neoplasm of prostate [facility] [place] [facility] Diagnosis Prostate cancer (HCC)- Primary Malignant neoplasm of prostate [facility] [place] [facility]* Diagnosis Prostate cancer (HCC)- Primary Malignant neoplasm of prostate [facility] [place] [facility]* Diagnosis Prostate cancer (HCC)- Primary Malignant neoplasm of prostate [facility] [place] noteNo assessment information availableWCleveland [facility] Work Phone: Evaluation note* Diagnosis Prostate cancer (HCC)- Primary Malignant neoplasm of prostate Irregular heart beat Cardiac dysrhythmia, unspecified [facility] [place] [facility]* Diagnosis Prostate cancer (HCC)- Primary Malignant neoplasm of prostate [facility] [place] [facility]* Diagnosis Onset Date Resolution Status Atrial fibrillation acute MVP (mitral valve prolapse) acute Syncope acute Ventricular arrhythmia acute Hyperlipidemia chronic [facility] Work Phone: Evaluation note* Diagnosis Prostate cancer (HCC)- Primary Malignant neoplasm of prostate [facility] [place] [facility]* Diagnosis Prostate cancer (HCC)- Primary Malignant neoplasm of prostate documented [facility] [place] [facility]* Diagnosis Prostate cancer (HCC)- Primary Malignant neoplasm of prostate Atrial fibrillation, unspecified type (HCC) [facility] [place] [facility]* Diagnosis 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 [facility] [place] [facility]* Diagnosis Prostate cancer (HCC)- Primary Malignant neoplasm of prostate [facility] [place] [facility]* Diagnosis Onset Date Resolution Status Atrial fibrillation acute Essential hypertension acute Ventricular arrhythmia acute [facility] Work Phone: Evaluation note* Diagnosis Prostate cancer (HCC)- Primary Malignant neoplasm of prostate Atrial fibrillation, unspecified type (HCC) [facility] [place] [facility]* Diagnosis Prostate cancer (HCC)- Primary Malignant neoplasm of prostate Atrial fibrillation, unspecified type (HCC) Rectal bleeding Hemorrhage of rectum and anus Heat intolerance Unspecified effects of heat and light [facility] [place] [facility]* Diagnosis Prostate cancer (HCC)- Primary Malignant neoplasm of prostate documented [facility] [place] [facility]* Diagnosis Tubulovillous adenoma- Primary Benign neoplasm of unspecified site Diverticulosis Diverticulosis of colon (without mention of hemorrhage) Radiation proctitis Other specified disorder of rectum and anus [facility] [place] [facility]* Diagnosis Encounter for screening for malignant neoplasm of colon- Primary Special screening for malignant neoplasms, colon Rectal bleeding Hemorrhage of rectum and anus Adenomatous polyp of transverse colon [facility] [place] [facility]* Diagnosis Prostate cancer (HCC)- Primary Malignant neoplasm of prostate Atrial fibrillation, unspecified type (HCC) Rectal bleeding Hemorrhage of rectum and anus Tubulovillous adenoma Benign neoplasm of unspecified site documented in this encounter [facility] note* Diagnosis Tubulovillous adenoma- Primary Benign neoplasm of unspecified site Radiation proctitis Other specified disorder of rectum and anus [facility] Hiatal hernia- Primary Diaphragmatic hernia without mention of obstruction or gangrene Tubulovillous adenoma Benign neoplasm of unspecified site Radiation proctitis Other specified disorder of rectum and anus documented in this [facility] [place] [facility]* Diagnosis Prostate cancer (HCC)- Primary Malignant neoplasm of prostate Rectal bleeding Hemorrhage of rectum and anus Urinary frequency [facility] [place] [facility]* Diagnosis Prostate cancer (HCC)- Primary Malignant neoplasm of prostate Thrombocytopenia (HCC) Thrombocytopenia, unspecified Neuropathy Mononeuritis of unspecified site Rectal bleeding Hemorrhage of rectum and anus Atrial fibrillation, unspecified type (HCC) documented [facility] [place] [facility]* Diagnosis Prostate cancer (HCC)- Primary Malignant neoplasm of prostate Abnormal PSA Elevated prostate specific antigen (PSA) Increasing PSA level after treatment for prostate cancer documented [facility] [place] [facility]* Diagnosis Prostate cancer (HCC) Malignant neoplasm of prostate Increasing PSA level after treatment for prostate cancer documented in [facility] [place] [facility]* Diagnosis Prostate cancer (HCC)- Primary Malignant neoplasm of prostate [facility] [place] [facility]* Diagnosis Onset Date Resolution Status Admit Date Atrial fibrillation acute December 06, 2024 11:10am Ventricular arrhythmia acute 2024 11:10am Essential hypertension inactive [facility] 2024 11:10am [facility] Work Phone: Hospital Discharge instructions Additional Instructions Continue your current medications as prescribed. I spoke your primary care physician Dr. Harshad Quezada today. Call his office for follow-up. He and/or a bleacher sulfite pulp will decide long-term treatment for your A. fib.[facility] Work Phone: Reason for referral (narrative)* Outpatient Procedure (Routine) - Pending Review Specialty Diagnoses / Procedures Referred By Contac t Referred To [facility] Diagnoses Irregular heart beat Procedures ECG COMPLETE ECG ROUTINE ECG W/LEAST 12 LDS W/I&R Jose Cunningham DO [address] [place] [address] [facility] [address] [place] [address] Referral ID Status Reason Start Date Expiration Date Visits Requested Visits Authorized [id number] Pending Review Auto-Generat ed Referral 06/06/2023 1 1 [facility] for referral (narrative)* Outpatient Procedure (Routine) - Authorized Specialty Diagnoses / Procedures Referred By Hardik gill Referred To Contact [facility] Diagnoses Tubulovillous adenoma Radiation proctitis Procedures COLONOSCOPY SCREENING COLONOSCOPY FLX DX W/COLLJ SPEC WHEN Kendra Hutchinson MD [address] [address] Referral ID Status Reason Start Date Expiration Date Visits Requested Visits Authorized [id number] Authorized Auto-Generat ed Referral 10/10/2023 10/09/2024 1 1 [facility] for referral (narrative)* Outpatient Procedure (Routine) - Closed Specialty Diagnoses / Procedures Referred By Hardik gill Referred To Contact [facility] Diagnoses Tubulovillous adenoma Radiation proctitis Procedures COLONOSCOPY SCREENING COLONOSCOPY FLX DX W/COLLJ SPEC WHEN Kendra Hutchinson MD [address] [address] Referral ID Status Reason Start Date Expiration Date V isits Requested Visits Authorized [id number] Closed Auto-Generate d Referral 10/10/2023 10/09/2024 1 1 T [facility] for referral (narrative)No reason for referral information [facility] [place] [place] [facility] Work Phone: Re[facility]gk for visit Narrative* Outpatient Procedure (Routine) - Closed Specialty Diagnoses / Procedures Referred By Hardik gill Referred To Contact [facility] Diagnoses Rectal bleeding Procedures COLONOSCOPY DIAGNOSTIC COLONOSCOPY FLX DX W/COLLJ SPEC WHEN Kendra Hutchinson MD [address] [place] [address] [id number] [place] [address] Referral ID Status Reason Start Date Expiration Date V isits Requested Visits Authorized [id number] Closed Auto-Generate d Referral 02/13/2023 02/14/2024 1 1 [facility] for visit Narrative* Outpatient Procedure (Routine) - Closed Specialty Diagnoses / Procedures Referred By Contac t Referred To Contact [facility] Diagnoses Tubulovillous adenoma Radiation proctitis Procedures COLONOSCOPY SCREENING COLONOSCOPY FLX DX W/COLLJ SPEC WHEN PFRMD Kendra Gregory MD [address] [address] Referral ID Status Reason Start Date Expiration Date V isits Requested Visits Authorized [id number] Closed Auto-Generate d Referral 10/10/2023 10/09/2024 1 1 [facility] for visit Narrative* Diagnostic Procedure Only (Routine) - Closed Specialty Diagnoses / Procedures Referred By Contbest t Referred To Contact [facility] Diagnoses Prostate cancer (HCC) Increasing PSA level after treatment for prostate cancer Procedures NM PET/CT PROSTATE WHOLE BODY IMAGING PET IMAGING CT ATTENUATION SKULL BASE [place] Jose Cunningham, [address] [place] [address] Phone: tel: fax: [facility] [address] [place] [address] Phone: tel: Referral ID Status Reason Start Date Expiration Date V isits Requested Visits Authorized [id number] Closed Auto-Generate d Referral 09/23/2024 11/07/2024 1 1 [facility] Advance Directives No Advanced Directives Records FoundDocuments on File Type Date Recorded 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 Advance Directive(s) 10/25/2020 3:16 PM Advance Directive(s) 07/09/2016 8:09 AM Advance Directive(s) 07/09/2016 7:54 AM Advance Directive(s) 07/03/2016 7:57 AM Advance Directive(s) 07/24/2011 12:00 AM Documents on File Type Date Recorded 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 Advance Directive(s) 10/25/2020 3:16 PM Advance Directive(s) 07/09/2016 7:54 AM Advance Directive(s) 07/24/2011 Advance Directive Response Recorded Date/ Time Advance Directives Yes July 10, 2016 11:37pm Living Will Yes July 10 11:37pm Power of Slp Yes July 10, 2016 11:37pm Documents on File Type Date Recorded 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 Advance Directive(s) 10/25/2020 3:16 PM Advance Directive(s) 07/09/2016 7:54 AM Advance Directive(s) 07/24/2011 Advance Directive Response Recorded Date/ Time Name of Medical Power of Slp Greg Bradford op June 06, 2022 11:35am Advance Directives Yes July 10, 2016 10:37pm Living Will Yes June 06, 11:35am Power of Slp Yes June 06, 2022 11:35am Advance Directive Response Recorded Date/ Time Advance Directives Yes July 10, 2016 11:37pm Living Will Yes June 06, 12:35pm Power of Slp Yes June 06, 2022 12:35pm Documents on File Type Date Recorded 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 Advance Directive(s) 11/27/2023 11:[address] [facility] [place] Advance Directives Advance Directive(s) 10/25/2020 3:16 PM Advance Directive(s) 07/09/2016 7:54 AM Advance Directive(s) 07/24/2011 Documents on File Type Date Recorded 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 Advance Directive(s) 11/27/2023 11:[address] [facility] [place] Advance Directives Advance Directive(s) 10/25/2020 3:16 PM Advance Directive(s) 07/24/2011 Documents on File Type Date Recorded 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 Given 09/27/2021 9:19 AM EDT 22.5 mg Buttocks, Right Inactive Administered Medications - up to 3 most recent administrations Medication Order MAR Action Action Date Dose Rate Site leuprolide 22.5 mg injection (LUPRON DEPOT) 22.5 mg, INTRAMUSCULAR, ONCE, 1 dose, On Aliza 12/20/21 at 1000, Hazardous Chemotherapy Drug: Use appropriate PPE. Given 12/20/2021 10:04 AM EDT 22.5 mg Buttocks, Left Inactive Administered Medications - up to 3 most recent administrations Medication Order MAR Action Action Date Dose Rate Site leuprolide 22.5 mg injection (LUPRON DEPOT) 22.5 mg, INTRAMUSCULAR, ONCE, 1 dose, On Aliza 03/14/22 at 1000, Hazardous Chemotherapy Drug: Use appropriate PPE. Given 03/14/2022 9:50 AM EDT 22.5 mg Buttocks, Right Inactive Administered Medications - up to 3 most recent administrations Medication Order MAR Action Action Date Dose Rate Site denosumab 60 mg injection (PROLIA) 60 mg, SUBCUTANEOUS, ONCE, 1 dose, On Aliza 06/06/22 at 0930, Allow To Come To Room Temperature Before Administration. REFRIGERATE Given 06/06/2022 10:01 AM EST 60 mg Arm, Left leuprolide 22.5 mg injection (LUPRON DEPOT) 22.5 mg, INTRAMUSCULAR, ONCE, 1 dose, On Aliza 06/06/22 at 0930, Hazardous Chemotherapy Drug: Use appropriate PPE. Given 06/06/2022 10:02 AM EST 22.5 mg Buttocks, Left Inactive Administered Medications - up to 3 most recent administrations Medication Order MAR Action Action Date Dose Rate Site leuprolide 22.5 mg injection (LUPRON DEPOT) 22.5 mg, INTRAMUSCULAR, ONCE, 1 dose, On Aliza 08/29/22 at 0930, Hazardous Chemotherapy Drug: Use appropriate PPE. Given 08/29/2022 9:35 AM EST 22.5 mg Buttocks, Right Inactive Administered Medications - up to 3 most recent administrations Medication Order MAR Action Action Date Dose Rate Site denosumab 60 mg injection (PROLIA) 60 mg, SUBCUTANEOUS, ONCE, 1 dose, On Aliza 11/21/22 at 1000, Allow To Come To Room Temperature Before Administration. REFRIGERATE Given 11/21/2022 10:05 AM EDT 60 mg Arm, Right leuprolide 22.5 mg injection (LUPRON DEPOT) 22.5 mg, INTRAMUSCULAR, ONCE, 1 dose, On Aliza 11/21/22 at 1000, Hazardous Chemotherapy Drug: Use appropriate PPE. Given 11/21/2022 10:04 AM EDT 22.5 mg Buttocks, Right Inactive Administered Medications - up to 3 most recent administrations Medication Order MAR Action Action Date Dose Rate Site leuprolide 22.5 mg injection (LUPRON DEPOT) 22.5 mg, INTRAMUSCULAR, ONCE, 1 dose, On Aliza 02/13/23 at 0930, Hazardous Chemotherapy Drug: Use appropriate PPE. Given 02/13/2023 10:12 AM EDT 22.5 mg Buttocks, Left Inactive Administered Medications - up to 3 most recent administrations Medication Order MAR Action Action Date Dose Rate Site diphenhydrAMINE 12.5-50 mg injection (BENADRYL) 12.5-50 mg, INTRAVENOUS, DIRECTED, Starting on Aliza 02/27/23 at 1230, Until Aliza 02/27/23 at 1629, DOSING DIRECTED BY PHYSICIAN FOR PROCEDURAL SEDATION ONLY, Intraprocedure Given 02/27/2023 12:35 PM EDT 50 mg fentaNYL 50 mcg/mL 25-100 mcg injection (SUBLIMAZE) 25-100 mcg, INTRAVENOUS, DIRECTED, Starting on Aliza 02/27/23 at 1230, Until Aliza 02/27/23 at 1629, DOSING DIRECTED BY PHYSICIAN FOR PROCEDURAL SEDATION ONLY, Intraprocedure Given 02/27/2023 12:31 PM EDT 50 mcg lactated ringers iv infusion 30 mL/hr, INTRAVENOUS, CONTINUOUS, Starting on Aliza 02/27/23 at 1230, Until Aliza 02/27/23 at 1305, Preprocedure New Bag/Syringe/Bottle 02/27/2023 12:15 PM EDT 30 mL/hr 30 mL/hr midazolam 1-5 mg injection (VERSED) 1-5 mg, INTRAVENOUS, DIRECTED, Starting on Aliza 02/27/23 at 1230, Until Aliza 02/27/23 at 1629, DOSING DIRECTED BY PHYSICIAN FOR PROCEDURAL SEDATION ONLY, Intraprocedure Given 02/27/2023 12:40 PM EDT 1 mg Given 02/27/2023 12:31 PM EDT 3 mg Chief Complaint and Reason for Visit Chief Complaint DDD Chief Complaint DDD LEFT LEG VARICOSE VEINS afib RVR Chief Complaint LEFT LEG VARICOSE VE INS afib RVR Amb Documentation IRREGULAR HR/ 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) ATRIAL FIB-FLUTTER Reason for Visit Atrial fibrillation MVP (mitral valve prolapse) Syncope Ventricular arrhythmia Hyperlipidemia Chief Complaint 3 M FU EORDER Reason for Visit Atrial fibrillation Essential hypertension Ventricular arrhythmia Chief Complaint Admit Date SEE NOTES/NEEDS EKG December 06, 2024 11:1 0am Reason for Visit Admit Date Atrial fibrillation December 06, 2024 11:1 0am Ventricular arrhythmia December 06, 2024 1 1:10am Essential hypertension December 06, 2024 1 1:10am Family History No Family History Records Found Relationship Condition Age at Onset Recorded Date/T radha Not Specified Coronary artery disease Unknown Cardiac disease Unknown Malignant neoplasm Unknown Hypertension Unknown Cerebrovascular accident (CVA) Unknown Relationship Condition Age at Onset Recorded Date/T radha Not Specified Coronary artery disease Unknown Malignant neoplasm Unknown father Hypertension Unknown Cerebrovascular accident (CVA) Unknown grandfather Hypertension Unknown grandfather Cardiac disease Unknown mother Cardiac disease Unknown Hypertension Unknown Reason for Referral Specialty Diagnoses / Procedures Referred By Hardik gill Referred To Contact General Surgery Diagnoses Rectal bleeding Procedures CONSULT TO GENERAL SURGERY OFFICE/OUTPATIENT [facility] 60-74 MINUTES Jose Cunningham DO [address] [place] [address] Referral ID Status Reason Start Date Expiration Date V isits Requested Visits Authorized [id number] Closed PCP Requested Referral 02/13/2023 02/13/2024 1 1 Specialty Diagnoses / Procedures Referred By Hardik t Referred To Contact Colon and Rectal Surgery Diagnoses Adenomatous polyp of transverse colon Procedures CONSULT TO COLO-RECTAL SURGERY OFFICE/OUTPATIENT [facility] 60-74 MINUTES Eric Li MD [address] [place] [address] Carlos Manuel Hawk MD [address] [place] [address] Referral ID Status Reason Start Date Expiration Date Visits Requested Visits Authorized [id number] Authorized PCP Requested Referral 02/27/2023 02/27/2024 1 1 Specialty Diagnoses / Procedures Referred By Hardik gill Referred To Contact [facility] Diagnoses Rectal bleeding Procedures COLONOSCOPY DIAGNOSTIC COLONOSCOPY FLX DX W/COLLJ SPEC WHEN Kendra Huthcinson MD [address] [place] [address] [facility] [address] [place] [address] Referral ID Status Reason Start Date Expiration Date V isits Requested Visits Authorized [id number] Closed Auto-Generate d Referral 02/13/2023 02/14/2024 1 1 Summary Purpose Additional Source Comments Source Comments (unrecognize d section and content) In the event this informatio n is protected by the Federal Confidentiality of Alcohol and Drug Abuse Patient Records regulations: The Federal rules restrict any use of the information to criminally investigate or prosecute any alcohol or drug abuse patient.[facility] the event this information is protected by the Federal Confidentiality of Alcohol and Drug Abuse Patient Records regulations: The Federal rules restrict any use of the information to criminally investigate or prosecute any alcohol or drug abuse patient.[facility] Hospital[facility] the event this information is protected by the Federal Confidentiality of Alcohol and Drug Abuse Patient Records regulations: The Federal rules restrict any use of the information to criminally investigate or prosecute any alcohol or drug abuse patient.[facility] Hospital[facility] the event this information is protected by the Federal Confidentiality of Alcohol and Drug Abuse Patient Records regulations: The Federal rules restrict any use of the information to criminally investigate or prosecute any alcohol or drug abuse patient.[facility] Hospital[facility] the event this information is protected by the Federal Confidentiality of Alcohol and Drug Abuse Patient Records regulations: The Federal rules restrict any use of the information to criminally investigate or prosecute any alcohol or drug abuse patient.[facility] Hospital[facility] the event this information is protected by the Federal Confidentiality of Alcohol and Drug Abuse Patient Records regulations: The Federal rules restrict any use of the information to criminally investigate or prosecute any alcohol or drug abuse patient.[facility] HospitalIn the event this information is protected by the Federal Confidentiality of Alcohol and Drug Abuse Patient Records regulations: The Federal rules restrict any use of the information to criminally investigate or prosecute any alcohol or drug abuse patient.[facility] HospitalIn the event this information is protected by the Federal Confidentiality of Alcohol and Drug Abuse Patient Records regulations: The Federal rules restrict any use of the information to criminally investigate or prosecute any alcohol or drug abuse patient.[facility] HospitalIn the event this information is protected by the Federal Confidentiality of Alcohol and Drug Abuse Patient Records regulations: The Federal rules restrict any use of the information to criminally investigate or prosecute any alcohol or drug abuse patient.[facility] HospitalIn the event this information is protected by the Federal Confidentiality of Alcohol and Drug Abuse Patient Records regulations: The Federal rules restrict any use of the information to criminally investigate or prosecute any alcohol or drug abuse patient.[facility] HospitalIn the event this information is protected by the Federal Confidentiality of Alcohol and Drug Abuse Patient Records regulations: The Federal rules restrict any use of the information to criminally investigate or prosecute any alcohol or drug abuse patient.[facility] HospitalIn the event this information is protected by the Federal Confidentiality of Alcohol and Drug Abuse Patient Records regulations: The Federal rules restrict any use of the information to criminally investigate or prosecute any alcohol or drug abuse patient.[facility] HospitalIn the event this information is protected by the Federal Confidentiality of Alcohol and Drug Abuse Patient Records regulations: The Federal rules restrict any use of the information to criminally investigate or prosecute any alcohol or drug abuse patient.[facility] HospitalIn the event this information is protected by the Federal Confidentiality of Alcohol and Drug Abuse Patient Records regulations: The Federal rules restrict any use of the information to criminally investigate or prosecute any alcohol or drug abuse patient.[facility] HospitalIn the event this information is protected by the Federal Confidentiality of Alcohol and Drug Abuse Patient Records regulations: The Federal rules restrict any use of the information to criminally investigate or prosecute any alcohol or drug abuse patient.[facility] HospitalIn the event this information is protected by the Federal Confidentiality of Alcohol and Drug Abuse Patient Records regulations: The Federal rules restrict any use of the information to criminally investigate or prosecute any alcohol or drug abuse patient.[facility] HospitalIn the event this information is protected by the Federal Confidentiality of Alcohol and Drug Abuse Patient Records regulations: The Federal rules restrict any use of the information to criminally investigate or prosecute any alcohol or drug abuse patient.[facility] HospitalIn the event this information is protected by the Federal Confidentiality of Alcohol and Drug Abuse Patient Records regulations: The Federal rules restrict any use of the information to criminally investigate or prosecute any alcohol or drug abuse patient.[facility] HospitalIn the event this information is protected by the Federal Confidentiality of Alcohol and Drug Abuse Patient Records regulations: The Federal rules restrict any use of the information to criminally investigate or prosecute any alcohol or drug abuse patient.[facility] HospitalIn the event this information is protected by the Federal Confidentiality of Alcohol and Drug Abuse Patient Records regulations: The Federal rules restrict any use of the information to criminally investigate or prosecute any alcohol or drug abuse patient.[facility] HospitalIn the event this information is protected by the Federal Confidentiality of Alcohol and Drug Abuse Patient Records regulations: The Federal rules restrict any use of the information to criminally investigate or prosecute any alcohol or drug abuse patient.[facility] HospitalIn the event this information is protected by the Federal Confidentiality of Alcohol and Drug Abuse Patient Records regulations: The Federal rules restrict any use of the information to criminally investigate or prosecute any alcohol or drug abuse patient.[facility] HospitalIn the event this information is protected by the Federal Confidentiality of Alcohol and Drug Abuse Patient Records regulations: The Federal rules restrict any use of the information to criminally investigate or prosecute any alcohol or drug abuse patient.[facility] HospitalIn the event this information is protected by the Federal Confidentiality of Alcohol and Drug Abuse Patient Records regulations: The Federal rules restrict any use of the information to criminally investigate or prosecute any alcohol or drug abuse patient.[facility] HospitalIn the event this information is protected by the Federal Confidentiality of Alcohol and Drug Abuse Patient Records regulations: The Federal rules restrict any use of the information to criminally investigate or prosecute any alcohol or drug abuse patient.[facility] HospitalIn the event this information is protected by the Federal Confidentiality of Alcohol and Drug Abuse Patient Records regulations: The Federal rules restrict any use of the information to criminally investigate or prosecute any alcohol or drug abuse patient.[facility] HospitalIn the event this information is protected by the Federal Confidentiality of Alcohol and Drug Abuse Patient Records regulations: The Federal rules restrict any use of the information to criminally investigate or prosecute any alcohol or drug abuse patient.[facility] HospitalIn the event this information is protected by the Federal Confidentiality of Alcohol and Drug Abuse Patient Records regulations: The Federal rules restrict any use of the information to criminally investigate or prosecute any alcohol or drug abuse patient.[facility] HospitalIn the event this information is protected by the Federal Confidentiality of Alcohol and Drug Abuse Patient Records regulations: The Federal rules restrict any use of the information to criminally investigate or prosecute any alcohol or drug abuse patient.[facility] HospitalIn the event this information is protected by the Federal Confidentiality of Alcohol and Drug Abuse Patient Records regulations: The Federal rules restrict any use of the information to criminally investigate or prosecute any alcohol or drug abuse patient.[facility] HospitalIn the event this information is protected by the Federal Confidentiality of Alcohol and Drug Abuse Patient Records regulations: The Federal rules restrict any use of the information to criminally investigate or prosecute any alcohol or drug abuse patient.[facility] HospitalIn the event this information is protected by the Federal Confidentiality of Alcohol and Drug Abuse Patient Records regulations: The Federal rules restrict any use of the information to criminally investigate or prosecute any alcohol or drug abuse patient.[facility] HospitalIn the event this information is protected by the Federal Confidentiality of Alcohol and Drug Abuse Patient Records regulations: The Federal rules restrict any use of the information to criminally investigate or prosecute any alcohol or drug abuse patient.[facility] HospitalIn the event this information is protected by the Federal Confidentiality of Alcohol and Drug Abuse Patient Records regulations: The Federal rules restrict any use of the information to criminally investigate or prosecute any alcohol or drug abuse patient.[facility] HospitalIn the event this information is protected by the Federal Confidentiality of Alcohol and Drug Abuse Patient Records regulations: The Federal rules restrict any use of the information to criminally investigate or prosecute any alcohol or drug abuse patient.[facility] HospitalIn the event this information is protected by the Federal Confidentiality of Alcohol and Drug Abuse Patient Records regulations: The Federal rules restrict any use of the information to criminally investigate or prosecute any alcohol or drug abuse patient.[facility] HospitalIn the event this information is protected by the Federal Confidentiality of Alcohol and Drug Abuse Patient Records regulations: The Federal rules restrict any use of the information to criminally investigate or prosecute any alcohol or drug abuse patient.[facility] HospitalIn the event this information is protected by the Federal Confidentiality of Alcohol and Drug Abuse Patient Records regulations: The Federal rules restrict any use of the information to criminally investigate or prosecute any alcohol or drug abuse patient.[facility] HospitalIn the event this information is protected by the Federal Confidentiality of Alcohol and Drug Abuse Patient Records regulations: The Federal rules restrict any use of the information to criminally investigate or prosecute any alcohol or drug abuse patient.[facility] HospitalIn the event this information is protected by the Federal Confidentiality of Alcohol and Drug Abuse Patient Records regulations: The Federal rules restrict any use of the information to criminally investigate or prosecute any alcohol or drug abuse patient.[facility] HospitalIn the event this information is protected by the Federal Confidentiality of Alcohol and Drug Abuse Patient Records regulations: The Federal rules restrict any use of the information to criminally investigate or prosecute any alcohol or drug abuse patient.[facility] HospitalIn the event this information is protected by the Federal Confidentiality of Alcohol and Drug Abuse Patient Records regulations: The Federal rules restrict any use of the information to criminally investigate or prosecute any alcohol or drug abuse patient.[facility] Care Teams (unrecognized sec tion and content) Professor Of Business Administration Relationship Specialty Start Date End Date Raphael Justin MD [address] [place] [address] PCP - General Family Practice 06/28/16 Kelvin Roth MD, [address] [place] [address] Physician Radiation Oncology 10/02/20 Professor Of Business Administration Relationship Specialty Start Date End Date Raphael Justin MD [address] [place] [address] PCP - General Family Practice 06/28/16 Kelvin Roth MD, [address] [place] [address] Physician Radiation Oncology 10/02/20 Professor Of Business Administration Relationship Specialty Start Date End Date Raphael Justin MD [address] [place] [address] PCP - General Family Practice 06/28/16 Kelvin Roth MD, [address] [place] [address] Physician Radiation Oncology 10/02/20 Professor Of Business Administration Relationship Specialty Start Date End Date Raphael Justin MD [address] [place] [address] PCP - General Family Practice 06/28/16 Kelvin Roth MD, [address] [place] [address] Physician Radiation Oncology 10/02/20 Professor Of Business Administration Relationship Specialty Start Date End Date Raphael Justin MD [address] [place] [address] PCP - General Family Practice 06/28/16 Kelvin Roth MD, [address] [place] [address] Physician Radiation Oncology 10/02/20 Professor Of Business Administration Relationship Specialty Start Date End Date Raphael Justin MD [address] [place] [address] PCP - General Family Medicine 06/28/16 Kelvin Roth MD, [address] [place] [address] Physician Radiation Oncology 10/02/20 Professor Of Business Administration Relationship Specialty Start Date End Date Raphael Justin MD [address] [place] [address] PCP - General Family Medicine 06/28/16 Kelvin Roth MD, [address] [place] [address] Physician Radiation Oncology 10/02/20 Professor Of Business Administration Relationship Specialty Start Date End Date Raphael Justin MD [address] [place] [address] PCP - General Family Medicine 06/28/16 Kelvin Roth MD, [address] [place] [address] Physician Radiation Oncology 10/02/20 Team Status: Active Member Role Status Dates Dr. Michele Justin MD Family Provider Active Dr. Michele Justin MD Primary Care Provider Activ e Team Status: Inactive Member Role Status Dates Dr. Michele Justin MD Primary Care Provider, Refe rring Provider Active Dr. Jose Granda MD Attending Provider Active Team Status: Active Member Role Status Dates Dr. Michele Justin MD Primary Care Provider Activ e Park Bautista Attending Provider Active Team Status: Active Member Role Status Dates Dr. Michele Justin MD Primary Care Provider Activ e Dr. Jose Granda MD Attending Provider Active Team Status: Inactive Member Role Status Dates Dr. Michele Justin MD Primary Care Provider, Atte nding Provider Active Team Status: Inactive Member Role Status Dates Dr. Michele Justin MD Primary Care Provider Activ e Dr. Landon Betts MD Attending Provider, Emergency Pro vider Active Team Status: Inactive Member Role Status Dates Dr. Michele Justin MD Primary Care Provider Activ e Dr. Jose Granda MD Attending Provider Active Professor Of Business Administration Relationship Specialty Start Date End Date Raphael Justin MD [address] [place] [address] PCP - General Family Medicine 06/28/16 Kelvin Roth MD, [address] [place] [address] Physician Radiation Oncology 10/02/20 Professor Of Business Administration Relationship Specialty Start Date End Date Raphael Justin MD [address] [place] [address] PCP - General Family Medicine 06/28/16 Kelvin Roth MD, [address] [place] [address] Physician Radiation Oncology 10/02/20 Professor Of Business Administration Relationship Specialty Start Date End Date Raphael Justin MD [address] [place], [place] [address] PCP - General Family Medicine 06/28/16 Kelvin Roth MD, [address] [place] [address] Physician Radiation Oncology 10/02/20 Professor Of Business Administration Relationship Specialty Start Date End Date Raphael Justin MD [address] [place] [address] PCP - General Family Medicine 06/28/16 Kelvin Roth MD, [address] [place] [address] Physician Radiation Oncology 10/02/20 Team Status: Inactive Member Role Status Dates Dr. Michele Justin MD Primary Care Provider, Refe rring Provider Active Park BOLAÑOS, [place] Attending Provider Active Team Status: Inactive Member Role Status Dates Dr. Michele Justin MD Primary Care Provider, Attending Provider, Referring Provider Active Professor Of Business Administration Relationship Specialty Start Date End Date Raphael Justin MD [address] [place] [address] PCP - General Family Medicine 06/28/16 Kelvin Roth MD, [address] [place] [address] Physician Radiation Oncology 10/02/20 Professor Of Business Administration Relationship Specialty Start Date End Date Raphael Justin MD [address] [place] [address] PCP - General Family Medicine 06/28/16 Kelvin Roth MD, [address] [place] [address] Physician Radiation Oncology 10/02/20 Professor Of Business Administration Relationship Specialty Start Date End Date Raphael Justin MD [address] [place] [address] PCP - General Family Medicine 06/28/16 Kelvin Roth MD, [address] [place] [address] Physician Radiation Oncology 10/02/20 Professor Of Business Administration Relationship Specialty Start Date End Date Raphael Justin MD [address] [place] [address] PCP - General Family Medicine 06/28/16 Kelvin Roth MD, [address] [place] [address] Physician Radiation Oncology 10/02/20 Professor Of Business Administration Relationship Specialty Start Date End Date Raphael Justin MD [address] [place], [place] [address] PCP - General Family Medicine 06/28/16 Kelvin Roth MD, [address] [place] [address] Physician Radiation Oncology 10/02/20 Professor Of Business Administration Relationship Specialty Start Date End Date Raphael Justin MD [address] [place] [address] PCP - General Family Medicine 06/28/16 Kelvin Roth MD, [address] [place] [address] Physician Radiation Oncology 10/02/20 Professor Of Business Administration Relationship Specialty Start Date End Date Raphael Justin MD [address] [place] [address] PCP - General Family Medicine 06/28/16 Kelvin Roth MD, [address] [place] [address] Physician Radiation Oncology 10/02/20 Professor Of Business Administration Relationship Specialty Start Date End Date Raphael Justin MD [address] [place] [address] PCP - General Family Medicine 06/28/16 Kelvin Roth MD [address] [place] [address] Physician Radiation Oncology 10/02/20 Professor Of Business Administration Relationship Specialty Start Date End Date Raphael Justin MD [address] [place] [address] PCP - General Family Medicine 06/28/16 Kelvin Roth MD [address] [place] [address] Physician Radiation Oncology 10/02/20 Professor Of Business Administration Relationship Specialty Start Date End Date Raphael Justin MD [address] [place] [address] PCP - General Family Medicine 06/28/16 Kelvin Roth MD [address] [place] [address] Physician Radiation Oncology 10/02/20 Professor Of Business Administration Relationship Specialty Start Date End Date Raphael Justin MD [address] [place] [address] PCP - General Family Medicine 06/28/16 Kelvin Roth MD [address] [place] [address] Physician Radiation Oncology 10/02/20 Professor Of Business Administration Relationship Specialty Start Date End Date Raphael Justin MD [address] [place] [address] PCP - General Family Medicine 06/28/16 Kelvin Roth MD [address] [place] [address] Physician Radiation Oncology 10/02/20 Professor Of Business Administration Relationship Specialty Start Date End Date Raphael Justin MD [address] [place] [address] PCP - General Family Medicine 06/28/16 Kelvin Roth MD [address] [place] [address] Physician Radiation Oncology 10/02/20 Professor Of Business Administration Relationship Specialty Start Date End Date Raphael Justin MD [address] [place] [address] PCP - General Family Medicine 06/28/16 Kelvin Roth MD [address] [place] [address] Physician Radiation Oncology 10/02/20 Professor Of Business Administration Relationship Specialty Start Date End Date Raphael Justin MD [address] [place] [address] PCP - General Family Medicine 06/28/16 Kelvin Roth MD [address] [place] [address] Physician Radiation Oncology 10/02/20 Professor Of Business Administration Relationship Specialty Start Date End Date Raphael Justin MD [address] [place] [address] PCP - General Family Medicine 06/28/16 Kelvin Roth MD [address] [place] [address] Physician Radiation Oncology 10/02/20 Professor Of Business Administration Relationship Specialty Start Date End Date Raphael Justin MD [address] [place] [address] PCP - General Family Medicine 06/28/16 Kelvin oRth MD [address] [place] [address] Physician Radiation Oncology 10/02/20 Professor Of Business Administration Relationship Specialty Start Date End Date Raphael Justin MD [address] [place] [address] PCP - General Family Medicine 06/28/16 Kelvin Roth MD [address] [place] [address] Physician Radiation Oncology 10/02/20 Professor Of Business Administration Relationship Specialty Start Date End Date Raphael Justin MD [address] [place], [place] [address] PCP - General Family Medicine 06/28/16 Kelvin Roth MD [address] [place], [place] [address] Physician Radiation Oncology 10/02/20 Professor Of Business Administration Relationship Specialty Start Date End Date Raphael Justin MD [address] [place] [address] PCP - General Family Medicine 06/28/16 Kelvin Roth MD [address] [place] [address] Physician Radiation Oncology 10/02/20 Professor Of Business Administration Relationship Specialty Start Date End Date Raphael Justin MD [address] [place] [address] PCP - General Family Medicine 06/28/16 Kelvin Roth MD [address] [place] [address] Physician Radiation Oncology 10/02/20 Team Status: Active Member Role Status Dates Dr. Raphael Justin MD Primary Care Provider Acti ve Team Status: Inactive Member Role Status Dates Dr. Raphael Justin MD Primary Care Provider Acti ve Start: December 06, 2024 End: December 06, 2024 Dr. Raphael Justin MD Referring Provider Active Start: December 06, 2024 End: December 06, 2024 Vanesa Almaguer METAL BED ASSEMBLER, METAL BED ASSEMBLER-C Attending Provider Active Start: December 06, 2024 End: December 06, 2024 Reason for Visit (unrecogniz ed section and content) Reason Comments Imm/Inj Specialty Diagnoses / Procedures Referred By Contac t Referred To Contact Diagnoses Prostate cancer (HCC) Procedures LEUPROLIDE ACETATE SUSPNSION Jose Cunningham, DO [address] [place] [address] [facility] [address] [place] [address] Referral ID Status Reason Start Date Expiration Date V isits Requested Visits Authorized [id number] Authorized 10/17/2020 06/22/2022 99 99 Reason Comments Results Follow Up Reason Comments Established Patient Specialty Diagnoses / Procedures Referred By Contac t Referred To Contact Diagnoses Prostate cancer (HCC) Procedures LEUPROLIDE ACETATE SUSPNSION Jose Cunningham, DO [address] [place] [address] [facility] [address] [place] [address] Reason Comments Established Patient 6 month OV with labs Reason Comments Patient Question Referral ID Status Reason Start Date Expiration Date V isits Requested Visits Authorized [id number] Authorized 10/17/2020 06/22/2023 99 99 Reason Comments Nail Check Nail fell off on 08/21 10/13 New Nail fell off on 08/21 10/13 Nail Check New Reason Comments Established Patient 6 month exam, labs, lupronEpisodes of sweatingEpisodes rectal bleeding Specialty Diagnoses / Procedures Referred By Contac t Referred To Contact Diagnoses Prostate cancer (HCC) Procedures LEUPROLIDE ACETATE SUSPNSION Jose Cunningham, DO [address] [facility] [place] [address] [facility] [address] [place] [address] Referral ID Status Reason Start Date Expiration Date V isits Requested Visits Authorized [id number] Pending Review 10/17/2020 06/22/2023 99 99 Reason Comments Follow Up COLONOSCOPY Reason Comments Rectal Bleeding Reason Comments Orders Enemas not available Reason Comments Results Reason Comments Appointment Reason Comments Patient Update Reason Comments Established Patient Reason Comments Radiology NM Specialty Diagnoses / Procedures Referred By Hardik t Referred To Contact MOLECULAR & FUNCTIONAL IMAGING Diagnoses Prostate cancer (HCC) Increasing PSA level after treatment for prostate cancer Procedures NM PET/CT PROSTATE WHOLE BODY IMAGING PET IMAGING CT ATTENUATION SKULL BASE MID-THIGH Jose Cunningham, DO [address] [place] [address] Phone: tel: fax: Molecular Imaging [address] [place] [address] Phone: tel: Referral ID Status Reason Start Date Expiration Date V isits Requested Visits Authorized [id number] Closed Auto-Generate d Referral 09/23/2024 11/07/2024 1 1 (unrecognized sect ion and content) No Status Records FoundNo Status Records FoundNo Status Records FoundNo Status Records Found INFORMATION SOURCE (unrecogn ized section and content) DATE CREATED AUTHOR 12/05/2023 [facility] DATE CREATED AUTHOR AUTHOR'S ORGANIZ ATION 09/26/2024 [facility] DATE CREATED AUTHOR AUTHOR'S ORGANIZ ATION 12/07/2024 [facility] DATE CREATED AUTHOR AUTHOR'S ORGANIZ ATION 01/18/2025 [facility] FOR RECORDS PERTAINING TO PATIENTS WHO ARE OR HAVE BEEN ENROLLED IN A CHEMICAL DEPENDENCY/SUBSTANCEABUSE PROGRAM, SOME INFORMATION MAY BE OMITTED. This clinical summary was aggregated from multiple sources. Caution should be exercised in using it in the provision of clinical care. This summary normalizes information from multiple sources, and as a consequence, information in this document may materially change the coding, format and clinical context of patient data. In addition, data may be omitted in some cases. CLINICAL DECISIONS SHOULD BE BASED ON THE PRIMARY CLINICAL RECORDS. [employer] provides no warranty or guarantee of the accuracy or completeness of information in this document.
[2025-05-19 10:04] LABS: AST(SGOT) 21 U/L (<=37); Alanine Aminotransfer ALT/SGPT 11 U/L (<=46); Albumin, Serum 4.1 g/dL (3.4-4.8); Alkaline Phosphatase 62 U/L (40-129); Anion Gap 8 (5-15); BUN 22 mg/dL (4-19); BUN/Creat Ratio 18.1 RATIO (10-20); Calcium,Total 9.6 mg/dL (7.6-11.0); Carbon Dioxide 27.0 mmol/L (21.0-32.0); Chloride 104 mmol/L (98-108); Estimated Creatinine Clearance 56.16 ml/min (50-250); Globulin 2.9 g/dL (2.2-4.2); Glucose 178 mg/dL (70-99); Potassium 4.3 mmol/L (3.3-5.1)
--- NOTE | 2025-05-19 12:10 | EKG12_ITS ---
Test Reason : AF Blood Pressure : */* mmHG Vent. Rate : 115 BPM Atrial Rate : * BPM P-R Int : * ms QRS Dur : 142 ms QT Int : 316 ms P-R-T Axes : * 78 34 degrees QTcB Int : 437 ms Atrial fibrillation with rapid ventricular response Right bundle branch block Abnormal ECG Confirmed by Eliot Peraza ([id number]), editorial clerk MELVIN HOUGH ([id number]) on 05/23/2025 8:35:22 AM Referred By: YAZAN Confirmed By: Eliot Peraza
[2025-05-19 12:48] LABS: Mucous, Urine 0 SEEN /hpf (<or=2+); Red Blood Cells-Urine 0 SEEN /hpf (0-5); Squamous Epithelial Cells - UA 0 SEEN /hpf (0-5)
[2025-05-19 12:52] LABS: Color, Urine Yellow (Yellow); Glucose, Dipstick Normal (Normal); Ketone-Dipstick Negative (Negative); Leukocyte Esterase-Dipstick Negative /ul (Negative); Nitrite-Dipstick Negative (Negative); Occult Blood-Urine Negative /ul (Negative); Protein-Dipstick Negative (Negative); Specific Gravity, Urine 1.005 (1.002-1.030); Urine Bilirubin Dipstick Negative (Negative)
== END 2025-05-19 13:53 | disposition home or self-care (01) ==
PROVIDERS: Emergency Provider Emergency Medicine; PCP Family Medicine; Visit Provider Emergency Medicine
DX: I48.0 Paroxysmal atrial fibrillation (principal); R42 Dizziness and giddiness; I45.10 Unspecified right bundle-branch block; Z87.891 Personal history of nicotine dependence; I10 Essential (primary) hypertension; I49.3 Ventricular premature depolarization; Z79.01 Long term (current) use of anticoagulants; Z79.899 Other long term (current) drug therapy
CPT/HCPCS: 71046; 80053; 81001; 83605; 85025; 85610; 85730; 87040; 87086; 87631; 93005; 96361; 96374; 99285; A4216